=== PATIENT | female | born 1960 | race Caucasian/White ===

== ENCOUNTER 2019-12-25 13:46 | Outpatient (CLI) | payer OTHER, SELFPAY ==
--- NOTE | ~2019-12-25 | MR_ITS ---
EXAMINATION: MR cervical spine wo con DATE: 12/25/2019 14:39 INDICATION: Neck pain. TECHNIQUE: Magnetic resonance imaging (MRI) of the cervical spine was performed without intravenous c ontrast. Sequences included sagittal T2-weighted FSE, sagittal STIR FSE, sagittal T1-weighted FSE, ax ial MERGE, and axial T2-weighted FSE. COMPARISON: None FINDINGS: There is kyphosis and 5 degrees dextrocurvature of cervical spine. Vertebral body heights a re normal. There is moderately decreased disc height at C4-C5 and mildly decreased disc height at C5- C6 and C6-C7. The spinal cord signal intensity is normal. The following disc levels are specifically discussed: C2-C3: The disc does not extend beyond the endplate margin. There is no uncovertebral joint osteoarth ritis. There is mild right and moderate left facet joint osteoarthritis. There is no neural foraminal stenosis. There is no central canal stenosis. C3-C4: The disc does not extend beyond the endplate margin. There is mild right uncovertebral joint o steoarthritis. There is mild right and moderate left facet joint osteoarthritis. There is mild right neural foraminal stenosis. There is no central canal stenosis. C4-C5: The disc is bulging. There is moderate right and severe left uncovertebral joint osteoarthriti s. There is severe left facet joint osteoarthritis. There is mild right and severe left neural forami nal stenosis. There is mild central canal stenosis with ventral indentation of the spinal cord. C5-C6: The disc is bulging. There is moderate bilateral uncovertebral joint osteoarthritis. There is no facet joint osteoarthritis. There is mild bilateral neural foraminal stenosis. There is mild centr al canal stenosis with ventral indentation of the spinal cord. C6-C7: The disc is bulging. There is mild bilateral uncovertebral joint osteoarthritis. There is no f acet joint osteoarthritis. There is no neural foraminal stenosis. There is mild central canal stenosi s with ventral indentation of the spinal cord. C7-T1: The disc does not extend beyond the endplate margin. There is mild right uncovertebral joint o steoarthritis. There is moderate bilateral facet joint osteoarthritis. There is mild right neural for aminal stenosis. There is no central canal stenosis. IMPRESSION: 1. Moderate cervical spondylosis. Reviewed, dictated and finalized at location A. [employer]
== END 2019-12-25 13:47 | disposition home or self-care (01) ==
PROVIDERS: PCP Family Medicine
DX: M47.892 Other spondylosis, cervical region (principal)
CPT/HCPCS: 72141

== ENCOUNTER 2024-06-06 18:20 | Emergency (ER) | payer OTHER, SELFPAY ==
--- NOTE | ~2024-06-06 | CT_ITS ---
EXAMINATION: CT abdomen pelvis wo con DATE: 06/06/2024 20:32 INDICATION: left flank pain, abd pain, hematuria TECHNIQUE: Computed tomography (CT) of the abdomen and pelvis was performed without intravenous contr ast. Automated exposure control and iterative reconstruction technique were employed. The dose-length product was 1309.66 mGy-cm. COMPARISON: None. FINDINGS: Lower thorax: Unremarkable Liver: Normal. Biliary/Gallbladder: Gallbladder is normal. No bile duct dilation. Pancreas: No mass or duct dilation. Spleen: Granulomas calcification. Adrenals:No mass. Kidneys: Mild left pelviectasis and caliectasis. Mild left perinephric stranding and moderate fluid l ayering along the anterior lateral conal fascia. 5 mm calcification in the left UPJ. Multiple additio nal bilateral nonobstructing calculi. GI tract: No small or large bowel dilation. Normal appendix. Mesentery/Peritoneum: No ascites, mass, or free air. Retroperitoneum: No mass. Pelvis: Normal urinary bladder. Absent uterus. Bilateral ovaries not confidently visualized. Soft Tissues: Bilateral posterior injection sites/granulomas. Bones: No acute osseous finding. IMPRESSION: 5 mm left UPJ stone. Moderate adjacent fascial fluid and relative decompression of the renal pelvis i s concerning for renal pelvis rupture. Reviewed, dictated and finalized at location K. IMPRESSION: 5 mm left UPJ stone. Moderate adjacent fascial fluid and relative decompression of the renal pelvis is concerning for renal pelvis rupture.
--- NOTE | ~2024-06-06 | XR_ITS ---
EXAM: XR abdomen/kub 1V DATE: 06/06/2024 21:33 HISTORY: left flank pain, kidney stone . COMPARISON: CT abdomen pelvis, same date. FINDINGS: Clear lung bases. Normal bowel gas pattern. No organomegaly. Somewhat linear 5 mm calcific ation at the level of L3-4 on the left likely corresponds to the previously detected obstructing ston e. Multiple additional one-2 mm bilateral renal calcifications. Multiple pelvic fibulas. Degenerative disc disease at L5-S1. IMPRESSION: Left UPJ stone. Bilateral nephrolithiasis. Reviewed, dictated and finalized at location K.
[2024-06-06 18:22] VITALS: BP 149/64; PULSE 72; RESP 16; TEMP 36.6; O2SAT 96
[2024-06-06 18:29] VITALS: BP 149/64; PULSE 75; RESP 15; O2SAT 96
[2024-06-06 18:40] LABS: Basophils Absolute Auto 0.1 K/mm3 (0.0-0.1); Basophils Percent Auto 0.4 % (0.2-1.2); Eosinophils Absolute Auto 1.2 K/mm3 (0-0.3); Eosinophils Percent Auto 9.5 % (0-4.4); Hematocrit 38.7 % (37.0-47.0); Immature Granulocyte Absolute 0.06 K/mm3 (0.00-0.031); Immature Granulocyte Percent A 0.5 % (0-0.5); Lymphocytes Absolute Auto 2.16 K/mm3 (0.9-3.2); Lymphocytes Percent Auto 16.6 % (18.3-44.2); Mean Corpuscular HGB Conc 33.6 g/dl (32-36); Mean Corpuscular Hemoglobin 27.5 pg (26-34); Mean Platelet Volume 9.4 fl (7.4-10.4); Monocytes Absolute Auto 1.2 K/mm3 (0.1-0.6); Monocytes Percent Auto 9.4 % (2.6-8.5); Neutrophils Absolute Auto 8.3 K/mm3 (1.3-6.7); Neutrophils Percent Auto 63.6 % (45.5-73.1); Platelet Count Result 302 k/mm3 (150-375); Red Blood Count 4.72 M/mm3 (4.2-5.4); Red Cell Distribution Width 14.8 % (11.5-14.5)
[2024-06-06 18:53] LABS: Alanine Aminotransferase 21 U/L (6-35); Albumin Level 4.3 g/dL (3.5-5.1); Alkaline Phosphatase 65 U/L (38-126); Anion Gap 10 mmol/L (4-12); Aspartate Amino Transferase 28 U/L (14-36); Bilirubin,Total 0.5 mg/dL (0.2-1.3); Blood Urea Nitrogen 34 mg/dL (7-17); Calcium 9.7 mg/dL (8.4-10.2); Carbon Dioxide 21 mmol/L (22-30); Chloride 106 mmol/L (98-107); Estimated CRCL calculation 54 ml/min; Estimated Glomerular Filt Rate 50; Glucose 102 mg/dL (65-110); Lipase 105 U/L (23-300); Potassium 3.9 mmol/L (3.4-5.0); Sodium 137 mmol/L (137-145)
[2024-06-06 19:28] LABS: Appearance Urine Clear (Clear); Bacteria Urine None Seen /hpf; Bilirubin Urine Negative (Negative); Blood Urine 2+ (Negative); Color Urine Yellow (Yellow); Glucose Urine UA Negative (Negative); Ketones Urine Negative (Negative); Leukocyte Esterase Ur 1+ LEU/UL (Negative); Nitrate Urine Negative (Negative); Non Pathogenic Casts 0-2; Protein Urine Trace mg/dL (Negative); Specific Grav Ur 1.024 (1.001-1.035); Squamous Epithelial Cell Urine Occasional /hpf (Few); pH Urine 5.5 (5.0-9.0)
[2024-06-06 19:30] LABS: Add Urine Microscopic? YES
[2024-06-06] MEDS: MORPHINE SULFATE (*CRX) 4 MG/ML INJ IV PUSH (19:53)
[2024-06-06] MEDS: SODIUM CHLORIDE 0.9% IV 1,000 ML 999 ML IV CONT (19:53)
[2024-06-06] MEDS: ONDANSETRON INJ 4 MG/2 ML VIAL IV PUSH (19:53)
--- NOTE | 2024-06-06 20:34 | ED.ABDPAIN ---
HPI - Abdominal Pain General Chief Complaint: Abdominal Pain Stated Complaint: abd pain Time Seen by Provider: 06/06/24 18:59 Source: patient Mode of arrival: ambulatory Limitations: no limitations History of Present Illness HPI narrative: This is a 63 year old female that presents to the ER for left flank pain. Ongoing since this afternoon. Radiating to the abdomen. Reports constant pain, intermittently more intense. She did not take anything for pain. Denies fever, vomiting, diarrhea, dysuria or hematuria. Related Data Allergies Allergy/AdvReac Type Severity Reaction Status Date / Time Gadolinium-Containing Allergy Unknown fever, Verified 06/06/24 18:30 Contrast Medi diarrhea Review of Systems Review of Systems: CONSTITUTIONAL: Denies fever GASTROINTESTINAL: Reports abdominal pain. Denies nausea, vomiting, or diarrhea. GENITOURINARY: Denies dysuria or hematuria. All systems reviewed & are unremarkable except as noted in HPI and below PMFSH Past Medical History Medical History (Updated 06/06/24 @ 21:58 by Lillie Davila PA-C) History of depression History of hypertension History of multiple sclerosis Family History Family History (Updated 07/10/14 @ 07:13 by DOCTOR UNKNOWN) Father Family history of malignant neoplasm Mother Family history of malignant neoplasm Social History Social History Smoking status: Never smoker Exam Narrative: GENERAL: Well-appearing, well-nourished, and in no acute distress. HEAD: Normocephalic, atraumatic. EYES: EOMI. CHEST: Clear to auscultation. No respiratory distress. No wheezes rales or rhonchi HEART: Regular rate and rhythm. No murmur heard. Normal peripheral pulses. ABDOMEN: Soft, nontender, nondistended, normal active bowel sounds. No CVA tenderness EXTREMITIES: Normal range of motion. No edema. SKIN: Warm, dry, no rash. NEURO: No focal deficits. Alert and oriented x3. PSYCH: Normal mood and affect Course Course Emergency Course: Patient updated on her workup and agrees with plan of care Consultations Consultation #1: Spoke with Dr. Gregory about patient and workup. Renal pelvic rupture not concerning, fairly common with kidney stone. No further management of this needed. Patient may follow up on outpatient basis Date: 06/06/24 Vital Signs Vital signs: Vital Signs Temperature 97.8 F 06/06/24 18:22 Pulse Rate 72 06/06/24 18:22 Respiratory Rate 16 07/25/24 18:22 Blood Pressure 149/64 H 06/06/24 18:22 Pulse Oximetry 96 06/06/24 18:22 Oxygen Delivery Room Air 06/06/24 18:22 Temperature 97.8 F 06/06/24 18:22 Pulse Rate 72 06/06/24 18:22 Respiratory Rate 16 06/06/24 18:22 Blood Pressure 149/64 H 06/06/24 18:22 Pulse Oximetry 96 06/06/24 18:22 Oxygen Delivery Room Air 06/06/24 18:22 MDM - Abdominal Pain MDM Narrative Medical decision making narrative: Patient presents to the ER for left flank pain. Ongoing since this afternoon. Patient is afebrile and nontoxic appearing. CBC with mild leukocytosis of 13. Metabolic panel with creatinine of 1.1. Patient hydrated with a L of IV fluids. Urine with blood +leuk esterase, 6-10 white blood cells, 3-[address] abdomen pelvis shows a 5 mm left UPJ stone and possible renal pelvis rupture. Spoke with Dr. Gregory about patient and workup. Renal pelvic rupture not concerning, fairly common with kidney stone. No further management of this needed. Patient may follow up on outpatient basis. KUB positively identifies stone. Patient updated on her workup and agrees with plan of care. Instructed to follow-up with urology for further management. She was given warnings to return to the ER Differential Diagnosis Differential diagnosis: Likely calculus of kidney, constipation and diverticulitis Lab Data Attestation: I reviewed the patient's lab results. 06/06/24 18:36 06/06/24 18:36 Labs: Lab Results 06/06/24
[2024-06-06 20:46] VITALS: BP 131/76; PULSE 84; RESP 19; O2SAT 96
[2024-06-06 20:47] VITALS: PULSE 79; RESP 19; O2SAT 96
== END 2024-06-06 22:26 | disposition home or self-care (01) ==
PROVIDERS: Emergency Provider Physician Assistant; PCP Family Medicine
DX: N20.0 Calculus of kidney (principal); R82.81 Pyuria; I10 Essential (primary) hypertension; G35 Multiple sclerosis
CPT/HCPCS: 36415; 74018; 74176; 80053; 81001; 83690; 85025; 87086; 96361; 96374; 96375; 99284; J2270; J2405; J7030

== ENCOUNTER 2024-06-30 16:45 | Emergency (ER) | payer OTHER, SELFPAY ==
--- NOTE | ~2024-06-30 | XR_ITS ---
XR knee RT min 4V DATE: 06/30/2024 17:19 INDICATION: Right knee pain, injury. [place] a pop. TECHNIQUE: 4 views COMPARISON: None FINDINGS: Mild suprapatellar knee joint effusion. Mild osteoarthritis, including moderate loss of height of medial compartment joint space and mild per iarticular spurring at the medial and patellofemoral compartments. No fracture or dislocation, periosteal reaction or bone destruction. No radiopaque interarticular loo se body or chondrocalcinosis IMPRESSION: Mildly joint effusion Osteoarthritis involving medial and patellofemoral compartments Reviewed, dictated and finalized at location J.
[2024-06-30 16:49] VITALS: BP 152/86; PULSE 71; RESP 27; TEMP 36.4; O2SAT 97
--- NOTE | 2024-06-30 17:50 | ED.LOWEXIN ---
HPI - Extremity Injury (Lower) General Chief Complaint: Extremity Injury, Lower Stated Complaint: right knee pain Time Seen by Provider: 06/30/24 16:52 Source: patient Mode of arrival: ambulatory Limitations: no limitations History of Present Illness HPI Narrative: this is a 63-year-old female that presents to the emergency department after right knee injury sustained yesterday. Reports she was stepping up into her truck and accidentally twisted her knee. Reports swelling and pain. Denies decreased range of motion or numbness. Related Data Allergies Allergy/AdvReac Type Severity Reaction Status Date / Time Gadolinium-Containing Allergy Unknown fever, Verified 06/30/24 17:41 Contrast Medi diarrhea Review of Systems Review of Systems: CONSTITUTIONAL: Denies fever MUSCULOSKELETAL: Reports joint pain, and myalgia. NEUROLOGIC: Denies numbness, or weakness. All systems reviewed & are unremarkable except as noted in HPI and below PMFSH Past Medical History Medical History (Updated 06/30/24 @ 17:50 by Lillie Davila PA-C) History of depression History of hypertension History of multiple sclerosis Family History Family History (Updated 07/10/14 @ 07:13 by DOCTOR UNKNOWN) Father Family history of malignant neoplasm Mother Family history of malignant neoplasm Social History Social History Smoking status: Never smoker Exam Narrative: GENERAL: Well-appearing, well-nourished, and in no acute distress. HEAD: Normocephalic, atraumatic. EYES: EOMI. EXTREMITIES: Normal range of motion. No edema, erythema or obvious deformity. Normal DP pulse. Normal sensation SKIN: Warm, dry, no rash. NEURO: No focal deficits. Alert and oriented x3. PSYCH: Normal mood and affect Course Course Emergency Course: patient updated on workup and agrees with plan of care Vital Signs Vital signs: Vital Signs Temperature 97.5 F L 06/30/24 16:49 Pulse Rate 71 06/30/24 16:49 Respiratory Rate 27 H 06/30/24 16:49 Blood Pressure 152/86 H 06/30/24 16:49 Pulse Oximetry 97 06/30/24 16:49 Oxygen Delivery Room Air 06/30/24 16:49 Temperature 97.5 F L 06/30/24 16:49 Pulse Rate 71 06/30/24 16:49 Respiratory Rate 27 H 06/30/24 16:49 Blood Pressure 152/86 H 06/30/24 16:49 Pulse Oximetry 97 06/30/24 16:49 Oxygen Delivery Room Air 06/30/24 16:49 MDM - Extremity Injury (Lower) MDM Narrative Medical decision making narrative: patient presents to the emergency department for right knee pain after an injury today. She is neurovascularly intact. Right knee x-ray shows osteoarthritis as well as a small knee joint effusion. Patient placed in knee immobilizer and given crutches. Will be given follow-up with Orthopedics. She was given warnings to return to the ER Differential Diagnosis Differential diagnosis: Likely acute internal derangement of knee and other ( osteoarthritis) Imaging Data Radiologist's impression: ITS Impressions Knee X-Ray 06/30/24 17:25 IMPRESSION: Mildly joint effusion Osteoarthritis involving medial and patellofemoral compartments Critical Care Time Critical Care Time Critical Care Time: No Discharge Plan Discharge Clinical Impression: Acute internal derangement of knee Qualifiers: Laterality: right Qualified Code(s): M23.91 - Unspecified internal derangement of right knee Patient Disposition: Home, Self-Care Condition: Stable Instructions: Knee Sprain (ED), Swollen Knee Joint (ED) Additional Instructions: Return to the ER if you experience fever, redness and swelling of your knee, weakness, numbness, or any other symptoms that are concerning to you Rest, use ice/heat, take anti-inflammatories (Aleve, Ibuprofen, Naproxen, etc) or Tylenol as needed for pain Follow up with orthopedics Prescriptions: No Action cefdinir 300 mg capsule 300 mg PO Q12H 5 Days Qty: 10 0RF hydrocodone-acetaminophen 5-325 mg ta
[2024-06-30] MEDS: KETOROLAC 30 MG/ML VIAL (*BKC) IM (18:05)
== END 2024-06-30 18:15 | disposition home or self-care (01) ==
PROVIDERS: Emergency Provider Physician Assistant; PCP Family Medicine
DX: M23.91 Unspecified internal derangement of right knee (principal); S89.91XA Unspecified injury of right lower leg, initial encounter; I10 Essential (primary) hypertension; G35 Multiple sclerosis; M17.11 Unilateral primary osteoarthritis, right knee; X50.9XXA Other and unspecified overexertion or strenuous movements or postures, initial encounter
CPT/HCPCS: 73564; 96372; 99283; J1885

== ENCOUNTER 2025-02-27 21:13 | Emergency (ER) | payer OTHER, SELFPAY ==
--- OUTSIDE RECORDS SUMMARY | 2025-02-27 21:16 | XMS_ITS | Clinical Summary ---
Author Organization [facility] Address [address] [place] [address] Phone Care Team Providers Care Specialist Wound Care Name Role Phone CORIE CASTANEDA, MELVIN Loza Primary Care Provider [phone] Reason for Visit and Chief Complaint POST PROCEDURE PHONE CALL Plan of Treatment No Plan of Treatment Recorded Assessments Includes: Assessments from this encounter No Assessments Recorded Medical Equipment - Implanted Devices Includes: Current Devices No Medical Equipment Recorded Medications Includes: Medications discussed during this encounter and other current Medications Current Medications (continue as prescribed) [facility] Fish Oil 1200 MG Oral Capsule 05/08/2024 Provide r: Diagnosis: Last Documented On 05/08/2024 9:48AM By Radha BOWLES ; [facility] Vitamin D3 125 MCG (5000 UT) Oral Capsule 05/08/2024 Provider: Diagnosis: Last Documented On 05/08/2024 9:47AM By Radha BOWLES ; [facility] Aspir-Low 81 MG Oral Tablet Delayed Release 05/08/2024 Provider: Diagnosis: Last Documented On 05/08/2024 9:41AM By Radha BOWLES ; [facility] Tricor 145 MG Oral Tablet 05/08/2024 Provider: Diagnosis: Last Documented On 05/08/2024 9:43AM By Radha BOWLES ; [facility] Nitroglycerin 0.4 MG Sublingual Tablet Sublingual 04/13 Provider: Diagnosis: Last Documented On 05/08/2024 9:42AM By Radha BOWLES ; [facility] buPROPion HCl ER (XL) 150 MG Oral Tablet Extended Release 24 Hour 04/29/2024 Provider: Diagnosis: Last Documented On 05/08/2024 9:46AM By Radha BOWLES ; [facility] Loratadine 10 MG Oral Tablet 04/27/2024 Provider: MELVIN FONTENOT MD Diagnosis: Last Documented On 05/08/2024 9:45AM By Radha BOWLES ; [facility] Pantoprazole Sodium 20 MG Or al Tablet Delayed Release 04/24/2024 Provider: MELVIN Gibson MD Diagnosis: Last Documented On 05/08/2024 9:43AM By Radha BOWLES ; [facility] Valsartan 160 MG Oral Tablet 04/23/2024 Provider: Diagnosis: Last Documented On 05/08/2024 9:42AM By Radha BOWLES ; [facility] Sertraline HCl 100 MG Oral Tablet 04/22/2024 Provide r: Diagnosis: Last Documented On 05/08/2024 9:41AM By Radha BOWLES ; [facility] hydrOXYzine HCl 25 MG Oral Tablet 04/12/2024 Provide r: Diagnosis: Last Documented On 05/08/2024 9:40AM By Radha BOWLES ; [facility] Pregabalin 200 MG Oral Capsule 04/11/2024 Provider: CASH Blanchard Diagnosis: Radiculopathy, l umbar region Take 1 capsule by mouth twice daily Last Documented On 10:16AM [facility] ; [facility] Meloxicam 15 MG Oral Tablet 03/13/2024 Provider: CASH BILL Diagnosis: Other spondylosi s with radiculopathy, lumbar region One tablet daily Last Documented On 9:43AM By CASH BILL ; [facility] buPROPion HCl ER (XL) 300 MG Oral Tablet Extended Release 24 Hour 02/13/2024 Provider: Diagnosis: Last Documented On 05/08/2024 9:46AM By Radha BOWLES ; [facility] DULoxetine HCl 30 MG Oral Capsule Delayed Releas e Particles 02/13/2024 Provider: Diagnosis: Last Documented On 05/08/2024 9:44AM By Radha BOWLES ; [facility] Fluticasone Propionate 50 MC G/ACT Nasal Suspension 02/06/2024 Provider: MELVIN Gibson MD Diagnosis: Last Documented On 05/08/2024 9:44AM By Radha BOWLES ; [facility] Lidocaine 5% External Patch 10/16/2023 Provider: MELVIN FONTENOT MD Diagnosis: Last Documented On 10/20/2023 9:59AM By Radha BOWLES ; [facility] Nystatin 620758 UNIT/GM External Cream 10/10/2023 Pr ovider: Diagnosis: Last Documented On 3 10:00AM By Radha BOWLES ; [facility] DULoxetine HCl 60 MG Oral Capsule Delayed Releas e Particles 07/27/2023 Provider: Diagnosis: one cap by mouth daily Last Documented On 3 3:08PM By Dorothy Dyson LPN ; [facility] Propranolol HCl 40 MG Oral Tablet 07/27/2023 Provide r: Diagnosis: BID Last Documented On 3 3:16PM By Dorothy Dyson LPN ; [facility] SUMAtriptan Succinate 50 MG Oral Tablet 07/27/2023 P rovider: Diagnosis: prn Last Documented On 3 3:15PM By Dorothy Dyson LPN ; [facility] Rebif 44 MCG/0.5ML Subcutaneous Solution Prefilled Syr luzma 07/27/2023 Provider: Diagnosis: 3 x's weekly Last Documented On 3 3:13PM By Dorothy Dyson LPN ; [facility] Aimovig 140 MG/ML Subcutaneous Solution Auto-injector 07/27/2023 Provider: Diagnosis: q 30 days Last Documented On 3 3:09PM By Dorothy Dyson LPN ; [facility] Medications Administered Includes: Administered Medications from this encounter No Administered Medications Recorded Results Includes: Results discussed during this encounter No Results Recorded For Specified Dates History of Present Illness Includes: History of Present Illness from this encounter No History of Present Illness Recorded Social History Description Last Updated Tobacco non-user 01/25/2024 Last Documented On 4 11:40AM ; [facility] Smoking Status Unknown Medical History Includes: Medical History addressed during this encounter Description Last Updated Has had a fall in the last 12 months. Domingo s falls quite often Has DX of MS 08/25/2023 Last Documented On 4 11:40AM ; [facility] Family History Includes: Family History addressed during this encounter No Family History Recorded Review of Systems Includes: Review of Systems from this encounter No Review of Systems Recorded Mental Status Includes: Mental Status from this encounter No Mental Status Recorded Functional Status Includes: Functional Status from this encounter No Functional Status Recorded Physical Exam Includes: Physical Exam from this encounter No Physical Exam Recorded Allergies Includes: Active Allergies No Known Allergies Encounters Encounter Provider Location Date Check-In Time Check-Out Time Diagnosis POST PROCEDURE PHONE CALL CASH OLIVER-RICARDO 04/05/2024 11:41AM 11:59PM Insurance Includes: Active Insurance Policies Plan Name Member ID Group # Subscriber Relationship Effect rosi Dates - [facility] [id number] CHARLES NUNEZ [facility] Clinical Notes Includes: Clinical Notes from this encounter * Progress note Date Encounter Last Documented by 04/05/2024 POST PROCEDURE PHONE CALL Last d ocumented on 04/05/2024; 11:42 AM, Maricruz Reinoso RN; [facility] Top of Document Post-Procedural Patient Screening Questionnaire Date of Procedure: 04/03/24 Procedure: bilateral L3-4, L4-5 facet steroid injections 1. How have you felt since your last procedure? has not noticed any improvement yet Improved Same Worse 2. Pain level prior to procedure? 4/10 at rest; 7-8 when active 3. Pain level currently? 4/10 4. How long after procedure did symptoms begin? denies Same pain but worse New Symptoms ? If new, describe: Improving Staying the same Getting worse 5. Any post procedure issues with injection? denies Heat Swelling Soreness Redness Streaking Injection site pain Bleeding Discharge/Drainage 6. Are you experiencing new numbness in the groin or saddle area? Yes No 7.New loss of bowel or bladder control? Yes No 8. Are you having any of the following symptoms? denies Fever Chills Night Sweats Rigors/Shaking Chills Headaches Neck Stiffness Sensitivity to sound New muscle pain/Stiffness Weakness Nausea Vomiting Diarrhea Dizziness Rash Flushing Mood Irritability Blood Pressure changes Blood sugar changes Past Medical/Surgical History Reported: Physical Trauma: Has had a fall in the last 12 months. Has falls quite often Has DX of MS. Current Medication - Aimovig 140 MG/ML Subcutaneous Solution Auto-injector q 30 days, 0 days, 0 refills - buPROPion HCl ER (XL) 150 MG Oral Tablet Extended Release 24 Hour daily with 300 mg dose, 0 days, 0 refills - buPROPion HCl ER (XL) 300 MG Oral Tablet Extended Release 24 Hour daily with 150 dose, 0 days, 0 refills - DULoxetine HCl 30 MG Oral Capsule Delayed Release Particles daily, 0 days, 0 refills - DULoxetine HCl 60 MG Oral Capsule Delayed Release Particles one cap by mouth daily, 0 days, 0 refills - Fenofibrate 145 MG Oral Tablet daily, 0 days, 0 refills - Fluticasone Propionate 50 MCG/ACT Nasal Suspension 2 sprays each nostril daily, 0 days, 0 refills - Lidocaine 5% External Patch as directed 30 days, 0 refills - Losartan Potassium 25 MG Oral Tablet One tablet daily 30 days, 0 refills - Meloxicam 15 MG Oral Tablet One tablet daily, 30 days, 1 refills - Nystatin [id number] UNIT/GM External Cream as directed 30 days, 0 refills - Pantoprazole Sodium 20 MG Oral Tablet Delayed Release bid, 0 days, 0 refills - Pregabalin 200 MG Oral Capsule 1 CAPSULE TWO TIMES A DAY, 30 days, 2 refills - Propranolol HCl 40 MG Oral Tablet BID, 0 days, 0 refills - Rebif 44 MCG/0.5ML Subcutaneous Solution Prefilled Syringe 3 x's weekly, 0 days, 0 refills - SUMAtriptan Succinate 50 MG Oral Tablet prn, 0 days, 0 refills Social History Tobacco use: Tobacco non-user. Allergies - No Known Allergies Health Reminders - Assess Need for CT Lung Screen satisfied 04/05/2024. - Assess Tobacco Use satisfied 04/05/2024.
--- OUTSIDE RECORDS SUMMARY | 2025-02-27 21:16 | XMS_ITS | Clinical Summary ---
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 Role Phone CORIE CASTANEDA, MELVIN Loza Primary Care Provider [phone] Reason for Visit and Chief Complaint The Chief Complaint is: FU IMAGING ~NOT DOING HEP Plan of Treatment No Plan of Treatment Recorded Assessments Includes: Assessments from this encounter Findings - Lumbar spondylosis with radiculopathy [M47.26 - Other spondylosis with radiculopathy, lumbar region] - Last Documented On 03/13/2024 9:58AM ; [facility] - Generalized multiple sclerosis [G35 - Multiple sclerosis] - Last Documented On 03/13/2024 9:58AM ; [facility] - Lumbar stenosis with neurogenic claudication [M48.062 - Spinal stenosis, lumbar region with neurogenic claudication] - Last Documented On 03/13/2024 9:58AM ; [facility] - Lumbar radiculopathy [M54.16 - Radiculopathy, lumbar region] - Last Documented On 03/13/2024 9:58AM ; [facility] - Fibromyalgia [M79.7 - Fibromyalgia] - Last Documented On 03/13/2024 9:58AM ; [facility] - Chronic pain syndrome [G89.4 - Chronic pain syndrome] - Last Documented On 03/13/2024 9:58AM ; [facility] Medical Equipment - Implanted Devices Includes: Current Devices No Medical Equipment Recorded Medications Includes: Medications discussed during this encounter and other current Medications New / Renewed during this visit CASH LEWIS on 03/13/2024 Meloxicam 15 MG Oral Tablet Provider: CASH LEWIS 30 day supply: 30 tablet, 1 refills Diagnosis: Other spondylosis with radiculopathy, lumbar region One tablet daily Pharmacy: [facility] [id number] , [place], [address] - Last Documented On 9:43AM By CASH LEWIS ; [facility] Current Medications (continue as prescribed) [facility] Fish Oil 1200 MG Oral Capsule 05/08/2024 Provide r: Diagnosis: Last Documented On 05/08/2024 9:48AM By Radha BOWLES ; [facility] Vitamin D3 125 MCG (5000 UT) Oral Capsule 05/08/2024 Provider: Diagnosis: Last Documented On 05/08/2024 9:47AM By Radha BOWLES ; [facility] Aspir-Low 81 MG Oral Tablet Delayed Release 05/08/2024 Provider: Diagnosis: Last Documented On 05/08/2024 9:41AM By Radha BOWLES ; [facility] Tricor 145 MG Oral Tablet 05/08/2024 Provider: Diagnosis: Last Documented On 05/08/2024 9:43AM By Radha BOWLES ; [facility] Nitroglycerin 0.4 MG Sublingual Tablet Sublingual 04/13 Provider: Diagnosis: Last Documented On 05/08/2024 9:42AM By Radha BOWLES ; [facility] buPROPion HCl ER (XL) 150 MG Oral Tablet Extended Release 24 Hour 04/29/2024 Provider: Diagnosis: Last Documented On 05/08/2024 9:46AM By Radha BOWLES ; [facility] Loratadine 10 MG Oral Tablet 04/27/2024 Provider: MELVIN FONTENOT MD Diagnosis: Last Documented On 05/08/2024 9:45AM By Radha BWOLES ; [facility] Pantoprazole Sodium 20 MG Or al Tablet Delayed Release 04/24/2024 Provider: MELVIN [place] MD Diagnosis: Last Documented On 05/08/2024 9:43AM By Radha BOWLES ; [facility] Valsartan 160 MG Oral Tablet 04/23/2024 Provider: Diagnosis: Last Documented On 05/08/2024 9:42AM By Radha BOWLES ; [facility] Sertraline HCl 100 MG Oral Tablet 04/22/2024 Provide r: Diagnosis: Last Documented On 05/08/2024 9:41AM By Radha BOWLES ; [facility] hydrOXYzine HCl 25 MG Oral Tablet 04/12/2024 Provide r: Diagnosis: Last Documented On 05/08/2024 9:40AM By Radha BOWLES ; [facility] Pregabalin 200 MG Oral Capsule 04/11/2024 Provider: [facility]ASH [facility] Diagnosis: Radiculopathy, l umbar region Take 1 capsule by mouth twice daily Last Documented On 10:16AM By CASH [facility]R [facility] ; [facility] buPROPion HCl ER (XL) 300 MG Oral Tablet Extended Release 24 Hour 02/13/2024 Provider: Diagnosis: Last Documented On 05/08/2024 9:46AM By Radha BOWLES ; [facility] DULoxetine HCl 30 MG Oral Capsule Delayed Releas e Particles 02/13/2024 Provider: Diagnosis: Last Documented On 05/08/2024 9:44AM By Radha BOWLES ; [facility] Fluticasone Propionate 50 MC G/ACT Nasal Suspension 02/06/2024 Provider: MELVIN [place] MD Diagnosis: Last Documented On 05/08/2024 9:44AM By Radha BOWLES ; [facility] Lidocaine 5% External Patch 10/16/2023 Provider: MELVIN FONTENOT MD Diagnosis: Last Documented On 10/20/2023 9:59AM By Radha BOWLES ; [facility] Nystatin [id number] UNIT/GM External Cream 10/10/2023 Pr ovider: Diagnosis: Last Documented On 10:00AM By Radha BOWLES ; [facility] DULoxetine HCl 60 MG Oral Capsule Delayed Releas e Particles 07/27/2023 Provider: Diagnosis: one cap by mouth daily Last Documented On 3 3:08PM By Dorothy Dyson LPN ; [facility] Propranolol HCl 40 MG Oral Tablet 07/27/2023 Provide r: Diagnosis: BID Last Documented On 3 3:16PM By Dorothy Dyson LPN ; [facility] SUMAtriptan Succinate 50 MG Oral Tablet 07/27/2023 P rovider: Diagnosis: prn Last Documented On 3 3:15PM By Dorothy Dyson LPN ; [facility] Rebif 44 MCG/0.5ML Subcutaneous Solution Prefilled Syr luzma 07/27/2023 Provider: Diagnosis: 3 x's weekly Last Documented On 3 3:13PM By Dorothy Dyson LPN ; [facility] Aimovig 140 MG/ML Subcutaneous Solution Auto-injector 07/27/2023 Provider: Diagnosis: q 30 days Last Documented On 3 3:09PM By Dorothy Dyson LPN ; [facility] Medications Administered Includes: Administered Medications from this encounter No Administered Medications Recorded Vital Signs Includes: Vital Signs from this encounter Vital Name 03/13/2024 09:19A Blood Pressure Sitting R 128/90 Pulse Rate-Sitting (bpm) 71 Temp-Temporal 96.2 Height (in) 64 Weight (lb) 203 Body Mass Index 34.8 Body Surface Area (m2) 2.0 Pain Level 4 Oxygen Saturation (%) 93 Last Documented: On 03/13/2024 9:53AM ; [facility] Results Includes: Results discussed during this encounter No Results Recorded For Specified Dates History of Present Illness Includes: History of Present Illness from this encounter HPI - Allergy list reviewed - Problem list reviewed - Medication reconciliation performed - Medication list reviewed - Prescription Drug Monitoring Program website checked. - Last dose of medication? Discussion:Patient presents in follow-up to review imaging. She is accompanied by her partner today. This does appear to help with communication of ongoing symptoms. She complains of ongoing, axial low back pain. She denies radiating symptoms into the lower extremities. Previously, she was experiencing right lower extremity symptoms. A lumbar epidural was done with little reported benefit, but with resolution of radicular symptoms I would say this was beneficial. MRI with and with contrast was done related to changes seen on initial MRI. There is markedly severe inflammatory changes at L4-5 and L5 pedicles. This is felt to be related to degenerative facet synovitis. Inflammatory marker labs were done and normal. She attempted physical therapy approximately 8 months ago and stopped due to increased pain and immobility. She attempts home exercises, but reports these are often stopped as well due to increased pain. Pain is limiting her daily activities. She finds she cannot stand for extended period of time without needing to rest due to pain. 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 She is having a difficult time sleeping at night. She takes [id number] anti-inflammatories with mild benefit. We discussed facet steroid joint injections and light of severe inflammatory changes. Would recommend starting at the most affected levels, L3-4, L4-5. Also start meloxicam for additional relief. Questions elicited and answered. Prior visit: Patient presents in follow to a bilateral L4-5 TFESI completed 2 weeks ago. It is very difficult to get answers from patient, but I believe she reports 25% pain relief for about a week with no ongoing relief. She has low back pain with pain into the right lower extremity and numbness in the right foot intermittently. There were some abnormal marrow changes on MRI. No history of cancer. I will obtain a MRI with contrast to rule out any malignancy. Will consider other treatment after this is done. Questions elicited, but none voiced. Prior visit: Patient presents in follow up to review MRI findings. She complains of predominately right posterolateral lower pain and n/t into the foot. jThere is numbness in the left lower extremity. Paresthesia symptoms worsen with sitting and prolonged standing. Activity tolerance is minimal due to increased symptoms. NSAIDS used prn with mild benefit. She failed therapy due to increased pain and does home exercises as tolerated, but these are not tolerated most of the time. We had talked about increasing pregabalin at last visit and will move this to 200mg bid at this time for added benefit. Discussed MRI findings and recommend lumbar TFESI. She is very slow to respond and reports memory issues come from stress and MS. She is under care of psychiatrist. Past note: Patient returns in follow-up for chronic low back pain. She completed 4-5 sessions of physical therapy and stopped due to increased pain and immobility. She feels her back pain has actually worsened since physical therapy. She describes low back pain with pain and heaviness in the posterior lower extremity, mainly on the right. She feels there is weakness on the right leg. This is noted on exam today. Pain affects her ability to participate in daily activities, walk distance or stand for extended period of time. Pregabalin was helping, but does not feel it is as helpful at this time. We discussed increasing this dosage. She will call if not tolerated. At this time, recommending lumbar MRI to evaluate for nerve root impingement, spinal stenosis. X-rays are fairly unremarkable. Past note: Patient returns in follow-up to review imaging. Symptoms remain unchanged. She complains of muscle spasms and low back pain. History of MS. She has not started physical therapy yet, just getting scheduled in the last week. She feels pregabalin is offering a degree of benefit. At this point, imaging discussed and will consider other treatment options once she has completed physical therapy. She will continue with current dose of pregabalin at this time. Past note: Patient is a 62-year-old female referred for evaluation and treatment. History of multiple sclerosis with reports of multiple falls. She is not ambulating with an assistive device today. Former neurologist left the area and she reports practice obtaining a new provider, but no follow-up scheduled as of yet. Formally under the care of rheumatology, she reports no longer seeing them. She has significant memory issues. She believes gabapentin and pregabalin were used at one time, stopped when she changed providers (?). She currently takes diclofenac twice per day. Lidocaine patches provided by PCP, she is unsure of benefit. She complains of chronic low back pain for 5+ years. Physical therapy done to-3 years ago with no benefit. She reports injections done at [facility] in [place] within the last year. By description these sound like medial branch blocks with progression to RF ablation. She decided against RF ablation towards the end, stating the physician bedside manner was poor and she became fearful of the procedure. She also reports injections done by Dr. Garcia at some point, providing her at least short-term benefit, there is no recent imaging or records available to review today. Patient has history of hypertension. She is hypertensive in office today. She reports monitoring this at the direction of her PCP until the last few weeks. She has not called them with findings. Recommend she continue with monitoring and a decrease diclofenac to once daily, seeing if blood pressure improves. Stressed the importance of follow-up with her primary care physician on blood pressure. Discussed treatment plan in depth to include physical therapy, updated imaging, starting pregabalin and baclofen. She does seem somewhat confused during the conversation, unsure she is grasping the full treatment plan. I did provide her with written instructions. She will follow-up with my office and one month Imaging: All relevant imaging available was personally reviewed with the patient today with the following tests and results noted: X-ray L spine 08/01/23: vertebral body height and disc spaces are well maintained. No evidence of fracture or subluxation MRI with and without contrast lumbar spine 02/23/24: at L4-5 there is severe contrast enhancement of the entry spinous space at L4-5 and surrounding paraspinal musculature. Contrast enhancement of bilateral L5 pedicles. Large facet effusions. Partial contrast enhancement with intra-articular joint space of the L4-5 facet joints. There is prominent ventral epidural enhancement L3-5. Prominent dorsal epidural enhancement L4-5. No significant displacement of thecal sac from this contrast enhancement or central hypo enhancement to indicate epidural abscess. Redemonstrated markedly severe inflammatory changes centered at bilateral L4-5 facet joints with corresponding enhancement keeping was severe facet synovitis. Inflammatory changes have increased since last exam. Likely degenerative in etiology given 3 month duration. Social History Description Last Updated Tobacco non-user 01/25/2024 Last Documented On 4 9:18AM ; [facility] Smoking Status Unknown Procedures and Surgical History Includes: Procedures from this encounter Procedures Code Diagnosis Performing Provider Service Location Service Date CLINIC VISIT T1015 Other spondylosi s with radiculopathy, lumbar region, Chronic pain syndrome, Fibromyalgia CASH ORR ANP-BC [facility] 03/13/2024 Last Documented On 4 9:35AM ; [facility] use of tobacco assessment performed 1000F Last Documented On 4 9:25AM ; [facility] review of medications documented 1160F Last Documented On 4 9:25AM ; [facility] assessment of suicide risk performed Last Documented On 4 9:18AM ; [facility] screening for adult depression: impressi on and score four Last Documented On 4 9:18AM ; [facility] standardized depression screening: posit rosi for symptoms Last Documented On 4 9:18AM ; [facility] Clinical summary provided to patient ~ Patient understands and agrees with treatment plan. Questions answered Last Documented On 4 9:18AM ; [facility] SOAPP-R: total score 13 Last Documented On 4 9:18AM ; [facility] Medical History Includes: Medical History addressed during this encounter Description Last Updated Has had a fall in the last 12 months. Domingo s falls quite often Has DX of MS 08/25/2023 Last Documented On 4 9:18AM ; [facility] Family History Includes: Family History addressed during this encounter No Family History Recorded Review of Systems Includes: Review of Systems from this encounter Systemic: Pain. Energy level not specified, no fever, and no chills. Head: No headache. Neck: No neck pain. Otolaryngeal: No ear symptoms and no nasal symptoms. Cardiovascular: No chest pain or discomfort. Pulmonary: No dyspnea. Gastrointestinal: No nausea and no constipation. Genitourinary: No urinary loss of control. Endocrine: No endocrine symptoms other than noted. Hematologic: No easy bleeding and no tendency for easy bruising. Musculoskeletal: Back pain. Neurological: No motor disturbances and no sensory disturbances. Skin: No skin symptoms other than noted. Mental Status Includes: Mental Status from this encounter No Mental Status Recorded Functional Status Includes: Functional Status from this encounter No Functional Status Recorded Physical Exam Includes: Physical Exam from this encounter Allergies Includes: Active Allergies No Known Allergies Encounters Encounter Provider Location Date Check-In Time Check-Out Time Diagnosis PAIN MANAGEMENT FOLLOW UP CASH ORR ANP-BC [facility] 03/13/20 24 9:03AM 9:38AM Chronic Pain Syndrome,Lumbar Radiculopathy,Mu ltiple Sclerosis Generalized,Fibr omyalgia,Spinal Stenosis Lumbar with Neurogenic Claudication,Spo ndylosis with Radiculopathy Lumbar Region Insurance Includes: Active Insurance Policies Plan Name Member ID Group # Subscriber Relationship Effect rosi Dates - [facility] [id number] CHARLES NUNEZ Self Clinical Notes Includes: Clinical Notes from this encounter * Progress note Date Encounter Last Documented by 03/13/2024 PAIN MANAGEMENT FOLLOW UP Last d ocumented on 03/13/2024; 9:58 AM, CASH ORR ANP-; [facility] Chief Complaint The Chief Complaint is: FU IMAGING NOT DOING HEP. History of Present Illness - Allergy list reviewed - Problem list reviewed - Medication reconciliation performed - Medication list reviewed - Prescription Drug Monitoring Program website checked. - Last dose of medication? Discussion:Patient presents in follow-up to review imaging. She is accompanied by her partner today. This does appear to help with communication of ongoing symptoms. She complains of ongoing, axial low back pain. She denies radiating symptoms into the lower extremities. Previously, she was experiencing right lower extremity symptoms. A lumbar epidural was done with little reported benefit, but with resolution of radicular symptoms I would say this was beneficial. MRI with and with contrast was done related to changes seen on initial MRI. There is markedly severe inflammatory changes at L4-5 and L5 pedicles. This is felt to be related to degenerative facet synovitis. Inflammatory marker labs were done and normal. She attempted physical therapy approximately 8 months ago and stopped due to increased pain and immobility. She attempts home exercises, but reports these are often stopped as well due to increased pain. Pain is limiting her daily activities. She finds she cannot stand for extended period of time without needing to rest due to pain. 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 She is having a difficult time sleeping at night. She takes vstl-koe-[id number] anti-inflammatories with mild benefit. We discussed facet steroid joint injections and light of severe inflammatory changes. Would recommend starting at the most affected levels, L3-4, L4-5. Also start meloxicam for additional relief. Questions elicited and answered. Prior visit: Patient presents in follow to a bilateral L4-5 TFESI completed 2 weeks ago. It is very difficult to get answers from patient, but I believe she reports 25% pain relief for about a week with no ongoing relief. She has low back pain with pain into the right lower extremity and numbness in the right foot intermittently. There were some abnormal marrow changes on MRI. No history of cancer. I will obtain a MRI with contrast to rule out any malignancy. Will consider other treatment after this is done. Questions elicited, but none voiced. Prior visit: Patient presents in follow up to review MRI findings. She complains of predominately right posterolateral lower pain and n/t into the foot. jThere is numbness in the left lower extremity. Paresthesia symptoms worsen with sitting and prolonged standing. Activity tolerance is minimal due to increased symptoms. NSAIDS used prn with mild benefit. She failed therapy due to increased pain and does home exercises as tolerated, but these are not tolerated most of the time. We had talked about increasing pregabalin at last visit and will move this to 200mg bid at this time for added benefit. Discussed MRI findings and recommend lumbar TFESI. She is very slow to respond and reports memory issues come from stress and MS. She is under care of psychiatrist. Past note: Patient returns in follow-up for chronic low back pain. She completed 4-5 sessions of physical therapy and stopped due to increased pain and immobility. She feels her back pain has actually worsened since physical therapy. She describes low back pain with pain and heaviness in the posterior lower extremity, mainly on the right. She feels there is weakness on the right leg. This is noted on exam today. Pain affects her ability to participate in daily activities, walk distance or stand for extended period of time. Pregabalin was helping, but does not feel it is as helpful at this time. We discussed increasing this dosage. She will call if not tolerated. At this time, recommending lumbar MRI to evaluate for nerve root impingement, spinal stenosis. X-rays are fairly unremarkable. Past note: Patient returns in follow-up to review imaging. Symptoms remain unchanged. She complains of muscle spasms and low back pain. History of MS. She has not started physical therapy yet, just getting scheduled in the last week. She feels pregabalin is offering a degree of benefit. At this point, imaging discussed and will consider other treatment options once she has completed physical therapy. She will continue with current dose of pregabalin at this time. Past note: Patient is a 62-year-old female referred for evaluation and treatment. History of multiple sclerosis with reports of multiple falls. She is not ambulating with an assistive device today. Former neurologist left the area and she reports practice obtaining a new provider, but no follow-up scheduled as of yet. Formally under the care of rheumatology, she reports no longer seeing them. She has significant memory issues. She believes gabapentin and pregabalin were used at one time, stopped when she changed providers (?). She currently takes diclofenac twice per day. Lidocaine patches provided by PCP, she is unsure of benefit. She complains of chronic low back pain for 5+ years. Physical therapy done to-3 years ago with no benefit. She reports injections done at [facility] in [place] within the last year. By description these sound like medial branch blocks with progression to RF ablation. She decided against RF ablation towards the end, stating the physician bedside manner was poor and she became fearful of the procedure. She also reports injections done by Dr. Garcia at some point, providing her at least short-term benefit, there is no recent imaging or records available to review today. Patient has history of hypertension. She is hypertensive in office today. She reports monitoring this at the direction of her PCP until the last few weeks. She has not called them with findings. Recommend she continue with monitoring and a decrease diclofenac to once daily, seeing if blood pressure improves. Stressed the importance of follow-up with her primary care physician on blood pressure. Discussed treatment plan in depth to include physical therapy, updated imaging, starting pregabalin and baclofen. She does seem somewhat confused during the conversation, unsure she is grasping the full treatment plan. I did provide her with written instructions. She will follow-up with my office and one month Imaging: All relevant imaging available was personally reviewed with the patient today with the following tests and results noted: X-ray L spine 08/01/23: vertebral body height and disc spaces are well maintained. No evidence of fracture or subluxation MRI with and without contrast lumbar spine 02/23/24: at L4-5 there is severe contrast enhancement of the entry spinous space at L4-5 and surrounding paraspinal musculature. Contrast enhancement of bilateral L5 pedicles. Large facet effusions. Partial contrast enhancement with intra-articular joint space of the L4-5 facet joints. There is prominent ventral epidural enhancement L3-5. Prominent dorsal epidural enhancement L4-5. No significant displacement of thecal sac from this contrast enhancement or central hypo enhancement to indicate epidural abscess. Redemonstrated markedly severe inflammatory changes centered at bilateral L4-5 facet joints with corresponding enhancement keeping was severe facet synovitis. Inflammatory changes have increased since last exam. Likely degenerative in etiology given 3 month duration. Test Conclusions PHQ-9 Score: 4 Date: 12/18/23 BPI Score: Date: MiDAS Score: Date: SOAPP-R Score:13 MOD Date: 12/18/23 OSWESTRY Score: 36=72% Date: 12/18/23 Past Medical/Surgical History Reported: Physical Trauma: Has [...] tablet daily 30 days, 0 refills - Nystatin [id number] UNIT/GM External Cream as directed 30 days, [...] Tobacco non-user. Allergies - No Known Allergies Review Of Systems Systemic: Pain. Energy level not specified, no fever, and no chills. Head: No headache. Neck: No neck pain. Otolaryngeal: No ear symptoms and no nasal symptoms. Cardiovascular: No chest pain or discomfort. Pulmonary: No dyspnea. Gastrointestinal: No nausea and no constipation. Genitourinary: No urinary loss of control. Endocrine: No endocrine symptoms other than noted. Hematologic: No easy bleeding and no tendency for easy bruising. Musculoskeletal: Back pain. Neurological: No motor disturbances and no sensory disturbances. Skin: No skin symptoms other than noted. Physical Findings - Vitals taken 03/13/2024 09:19 am BP-Sitting R 128/90 mmHg Pulse Rate-Sitting 71 bpm Temp-Temporal 96.2 F Height 64 in Weight 203 lbs Body Mass Index 34.8 kg/m2 Pain Level 4 Pain Level Note LOW 6/10 with activity Oxygen Saturation 93 % Musculoskeletal System: General/bilateral: Musculoskeletal Scales: Value Lumbar oswestry score 72 Psychiatric: Psychiatric: Value PHQ9 score: 4 Constitutional: Well developed. Well nourished. In no acute distress. HEENT: NC/AT. Anicteric. Clear Conjunctiva. PERRLA. CVS: No peripheral edema. Pulmonary: Normal chest expansion bilaterally. Spine/MSK: Tenderness bilateral mid to lower lumbar facet joints. Tenderness bilateral SI joints. Negative SLR, but hamstrings are extremely tight. Muscle spasms noted to the thoracic and lumbar spine. Positive facet loading bilaterally. Decrease lumbar range of motion in all planes. Gait: Not antalgic. No steppage gait. No Trendelenburg gait. No circumspected gait pattern. Tandem gait normal. Neuro: Awake. Alert. Oriented x3. DTR's intact in all extremities. DTR's equal in all extremities. Hypoesthesia right lower extremity, predominantly L4 dermatome. 4/5 strength with resisted hip flexion.. Psych: No apparent distress. Mood normal. Affect flat. No pain behaviors. Skin: No rash. Normal pigmentation. Normal temperature Tests Educational Testing: Questionnaires PHQ-9: Value SOAPP-R: total score 13 Assessment - Lumbar spondylosis with radiculopathy [M47.26 - Other spondylosis with radiculopathy, lumbar region] - Generalized multiple sclerosis [G35 - Multiple sclerosis] - Lumbar stenosis with neurogenic claudication [M48.062 - Spinal stenosis, lumbar region with neurogenic claudication] - Lumbar radiculopathy [M54.16 - Radiculopathy, lumbar region] - Fibromyalgia [M79.7 - Fibromyalgia] - Chronic pain syndrome [G89.4 - Chronic pain syndrome] Therapy - Assessment of suicide risk performed - Clinical summary provided to patient Patient understands and agrees with treatment plan. Questions answered. Discussed Risks, benefits and alternatives (including doing nothing) were discussed with the patient who agreed to proceed despite risk and agreement that potential benefits outweighs the chance of significant harm. start meloxicam FAcet joint injections F/U post procedure Plan StartCited - Other spondylosis with radiculopathy, lumbar region Pain Management CPT/Facet Joint Procedur: Intraarticular joint/Medial Branch Block L/S 1st, Intraarticular joint/Medial Branch Block L/S 2nd Instructions: bilateral L3-4, L4-5 steroid facet joint injections under fluoroscopic guidance Meloxicam 15 MG tablet One tablet daily, 30 days, 1 refills EndCited Practice Management Use of tobacco assessment performed Review of medications documented; Standardized depression screening: positive for symptoms and for adult impression and score four. Results of this interaction were communicated directly to the patient's referring and/or primary care provider. Multiple documents have been reviewed today in conjunction with her evaluation including online prescription monitoring database, laboratory data, imaging studies, previous specialist provider notes and primary care provider notes. For all patients on acute or chronic opioids, ongoing need for opioid analgesia is assessed at each visit with consideration of discontinuation or wean to lowest effective dose when possible and appropriate. Contents of this document have been edited for correctness, but may be subject to typographical or stockkeeper errors. Verify all diagnoses, medications, dosages, and patient instructions with patient and/or the originator of this document. Health Reminders - Assess BMI satisfied 03/13/2024. - Assess Need for CT Lung Screen satisfied 03/13/2024. - Assess Tobacco Use satisfied 03/13/2024. - Depression Screening satisfied 03/13/2024. - Follow up plan for Depression Screening satisfied 03/13/2024.
--- OUTSIDE RECORDS SUMMARY | 2025-02-27 21:16 | XMS_ITS | Encounter Summary ---
Author Organization [facility] Address [address] [place] [address] Care Team Providers Care Slot Shift Supervisor Name Role Phone Hemalatha Tang MD Primary Care Provider [phone] Reason for Visit * Reason Onset Date Comments MEDICATION REFILL 01/09/2024 Encounter Details Date Type Department Care Team (Late st Contact Info) Description 01/09/2024 Refill [facility] - Neurology [address] [place] [address], [place] [phone] Johnny Jones MD [address] [place] [phone] MEDICATION REFILL Social History Tobacco Use Types Packs/Day Years Used Date Smoking Tobacco: Never Smokeless Tobacco: Never Alcohol Use Standard Drinks/Week Comments No 0 (1 standard drink = 0.6 oz pur e alcohol) AUDIT-C Answer Date Recorded Q1: How often do you have a drink containing alcohol? Never 02/15/2023 Q2: How many drinks containi ng alcohol do you have on a typical day when you are drinking? Patient does not drink Q3: How often do you have si x or more drinks on one occasion? Never 02/15/2023 PHQ-2 Answer Date Recorded Patient Health Questionnaire-2 Score 2 11/21/2023 Comments No Sex and Gender Information Value Date Recorded Sex Assigned at Female 01/06/2025 9:20 AM SHIPYARD SUPERVISOR Legal Sex Female 5:15 PM SHIPYARD SUPERVISOR Gender Identity Female 01/06/2025 9:20 AM SHIPYARD SUPERVISOR Sexual Orientation Straight 01/06/2025 9: 20 AM SHIPYARD SUPERVISOR Occupation Industry Job Start Date Job End Date disable Not on file Not on file Not on file documented as of this encounter Miscellaneous Notes * Telephone Encounter - Chris Romo MA - 01/09/2024 4:52 PM CST Refill Request Linda Mckeon KURT: 11/20/2023Sep due: SEP date: 04/18/2024 Duloxetine 30 MG capsule LRF: 02/15/2023 Quantity dispensed: 90 capsules (90-day supply) # refills: 3 Allergies: Allergies Allergen Reactions ??? Contrast-Iodinated Agents For Ct/Other Skin Reactions and Rash ??? Contrast-Gadolinium Agents For Mri Nausea and/or Vomiting Patient gets nauseous from MRI contrast ??? Povidone Iodine Other Burning ??? Iohexol Rash Pended Medication Order: Requested Prescriptions Pending Prescriptions Disp Refills ??? DULoxetine (Cymbalta) 30 MG capsule 90 capsule 3 Si daily Reasons: Major Depressive Disorder, Musculoskeletal Pain YARD SUPERVISOR documented in this encounter Plan of Treatment Upcoming Encounters Date Type Department Care Team (Late st Contact Info) Description 03/05/2025 3:00 PM CDT Office Visit [facility] - Neurology [address] [place] [phone] Rosalie Guaman, SURVEYING TECHNICIAN-SCHEDULER [address] [place] [address] [place] [address] 04/21/2025 9:00 AM CDT Office Visit [facility] - Neurology [address] [place] [phone] Sidney Moncada MD [address] [place] [address] 05/23/2025 9:00 AM CDT Office Visit [facility] - Dermatology [address] [facility], [place] [phone] Chitra Peres MD [facility] 3L [place] [phone] 07/07/2025 8:30 AM CDT Procedure visit [facility] - Infusion [address] [place] [phone] 02/16/2026 11:00 AM CDT [facility] [address] [place] [address], [place] [phone] Kaitlin Cruz MD [address] [place] [address] [address] [place] [phone] 02/20/2026 9:00 AM CDT [facility] Ophthalmology [address] [place] [address], [place] [phone] documented as of this encounter Visit Diagnoses Diagnosis MDD (major depressive disorder), recurrent, in full remission Major depressive disorder, recurrent episode, in full remission Neuropathic pain Neuralgia, neuritis, and radiculitis, unspecified documented in this encounter Additional Health Concerns Infection Onset Date Last Indicated Resolved Time 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 06/22/2017 documented as of this encounter Care Teams Slot Shift Supervisor Relationship Specialty Start Date End Date Hemalatha Tang MD PCP - General Family Medicine 03/07/21 documented as of this encounter
--- OUTSIDE RECORDS SUMMARY | 2025-02-27 21:17 | XMS_ITS ---
Care Plan - [facility] Created on: February 27, 2025 CHARLES NUNEZ : 1960 Sex: Female Author Organization [facility] Address [address] [place] [address] Phone Care Team Providers Care Spudder Name Role Phone CORIE CASTANEDA, MELVIN Loza Primary Care Provider [phone]
--- OUTSIDE RECORDS SUMMARY | 2025-02-27 21:17 | XMS_ITS | Encounter Summary ---
Author Organization [facility] Health Address [address] [place] [address] Care Team Providers Care Data Base Design Analyst Name Role Phone Kevan Rubin MD Primary Care Provider Hemalatha Tang MD Primary Care Provider [phone] Reason for Visit * Reason Onset Date Comments MEDICATION REFILL 10/08/2019 Encounter Details Date Type Department Care Team (Late st Contact Info) Description 10/08/2019 Refill [facility] [address] [place] [address] Kimberly Yarbrough MD [address] [place] [place] [phone] MEDICATION REFILL Social History Tobacco Use Types Packs/Day Years Used Date Smoking Tobacco: Never Smokeless Tobacco: Never Alcohol Use Standard Drinks/Week Comments No 0 (1 standard drink = 0.6 oz pur e alcohol) Comments No Sex and Gender Information Value Date Recorded Sex Assigned at Female 01/06/2025 9:20 AM HEALTH COMMUNICATIONS SPECIALIST Legal Sex Female 5:15 PM HEALTH COMMUNICATIONS SPECIALIST Gender Identity Female 01/06/2025 9:20 AM HEALTH COMMUNICATIONS SPECIALIST Sexual Orientation Straight 01/06/2025 9: 20 AM HEALTH COMMUNICATIONS SPECIALIST Occupation Industry Job Start Date Job End Date disable Not on file Not on file Not on file documented as of this encounter Plan of Treatment Upcoming Encounters Date Type Department Care Team (Late st Contact Info) Description 03/05/2025 3:00 PM CDT Office Visit [facility] - Neurology [address] [place] [address], [place] [address] Deniz Kofitrell, COW RIDER-PUBLIC HEALTH SPECIALIST [address] [place] [address] [address] [place] [address] 04/21/2025 9:00 AM CDT [facility] [address] [place] [phone] Sidney Moncada MD [address] [place] [address] 05/23/2025 9:00 AM CDT [facility] Derm[facility] [address] [place] [phone] Chitra Peres MD [address] [place] [address] [address] [place] [phone] 07/07/2025 8:30 AM CDT Procedure visit [facility] - Infusion [address] [place] [phone] 02/16/2026 11:00 AM CDT Office [facility] [address] [place] [phone] Kaitlin Cruz MD [address] [place] [address] [address] [place] [phone] 02/20/2026 9:00 AM CDT [facility] [address] [place] [phone] documented as of this encounter Visit Diagnoses Diagnosis Intractable chronic migraine without aura and without status migrainosus Chronic migraine without aura, with intractable migraine, so stated, without mention of status migrainosus documented in this encounter Additional Health Concerns Infection Onset Date Last Indicated Resolved Time 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 06/22/2017 documented as of this encounter Care Teams Data Base Design Analyst Relationship Specialty Start Date End Date Kevan Rubin MD [address] [facility]. [address] [place] [phone] PCP - General 03/23/16 03/06/21 Hemalatha Tang MD [facility] [facility]. [address] [place] [phone] PCP - General Family Medicine 03/07/21 documented as of this encounter
--- OUTSIDE RECORDS SUMMARY | 2025-02-27 21:17 | XMS_ITS | Encounter Summary ---
Author Organization [facility] Address [address] [facility] [address] [place] [address] Phone Care Team Providers Care Director Maternal Child Name Role Phone Hemalatha Tang MD Primary Care Provi summer Manuel Swartz MD Unavailable [phone] Reason for Visit * Consultation (Routine) - Authorized Specialty Diagnoses / Procedures Referred By Alvin rodas Referred To Contact Bariatrics / Bariatric Surgery Diagnoses Class 2 severe obesity due to excess calories with serious comorbidity and body mass index (BMI) of 37.0 to 37.9 in adult (HCC) Hemalatha Tang MD [address] [place] [address] Phone: tel: fax: [facility] (All Locations) Referral ID Status Reason Start Date Expiration Date Visits Requested Visits Authorized [id number] Authorized Specialty Services Required 05/03/2024 06/02/2025 6 6 Encounter Details Date Type Department Care Team (Late st Contact Info) Description 02/27/2025 2:00 PM CDT Office Visit [facility] Minimally Invasive Surgery [address] [place] [address] Medical Office Building [address] [place] [address] Samuel Ashton MD [address] [facility] [phone] [place] [address] Morbid obesity (HCC) (Primary Dx) Social History Tobacco Use Types Packs/Day Years Used Date Smoking Tobacco: Never Passive Smoke Exposure: Past Smokeless Tobacco: Never AUDIT-C Answer Date Recorded Q1: How often do you have a drink containing alcohol? Never 01/22/2025 Q2: How many drinks containi ng alcohol do you have on a typical day when you are drinking? Patient does not drink Q3: How often do you have si x or more drinks on one occasion? Never 01/22/2025 PHQ-2 Answer Date Recorded PHQ-2 Total Score (If total score is 3 or more points, staff should administer the PHQ-9) 0 01/22/2025 Hunger Vital Sign Answer Date Recorded Within the past 12 months, y ou worried that your food would run out before you got the money to buy more. Never true 01/23/20 25 Within the past 12 months, t he food you bought just didn't last and you didn't have money to get more. Never true 01/22/2025 PHQ-9 Answer Date Recorded PHQ-9 Total Score 7 10/16/2024 Personal Safety Answer Date Recorded Have you ever been in or are you currently in a harmful physical or emotional relationship or is someone making you feel afraid or unsafe? Denies 01/14/2025 Comments No Sex and Gender Information Value Date Recorded Sex Assigned at Not on file Legal Sex Female 2:06 AM TEA PLANTATION WORKER Gender Identity Female 11/29/2020 6:59 PM TEA PLANTATION WORKER Sexual Orientation Not on file documented as of this encounter Last Filed Vital Signs Vital Sign Reading Time Taken Comments Blood Pressure 143/81 02/27/2025 1:43 PM CDT Pulse 102 02/27/2025 1:43 PM CDT Temperature 36.7 C (98 F) 02/27/2025 1:43 PM CDT Respiratory Rate - - Oxygen Saturation 100% 02/27/2025 1:43 PM CDT Inhaled Oxygen Concentration - - Weight 88.3 kg (194 lb 9.6 oz) 02/27/2025 1:43 P M CDT Height 158.8 cm (5' 2.5 ) 02/27/2025 1:43 PM CDT Body Mass Index 35.03 02/27/2025 1:43 PM CDT documented in this encounter Progress Notes * Samuel Ashton MD - 02/27/2025 2:00 PM CDT [facility] Metabolic & Weight Loss Surgery Post-Operative Clinic Note CHIEF COMPLAINT: Linda Mckeon presents for a post-operative clinic visit following recent surgery. Pt is status post RYGB (01/14/25). INTERVAL HISTORY: The patient is a 64 y.o. female who has been doing well in her postoperative course after Laparoscopic Jacquelyn-en-Y Gastric Bypass. She is tolerating the weight loss surgery diet without difficulty. Protein and fluid intake are adequate. She has no complaints today. She is taking hermedications as instructed including MVI, B12, Ca, iron, and ursodiol. Endorsing a lot more energy to play with grandchildren. Tolerating a regular diet without issues. Snacks on apple sauce, Ruffles potato chips. Gardening and walking for exercise. The patient has the following conditions: DEVI: yes, and is not using CPAP GERD: no Hypertension: yes, and is on 2 medications for this Hyperlipidemia: yes Diabetes: no Wt Readings from Last 7 Encounters: 02/27/25 88.3 kg (194 lb 9.6 oz) 01/24/25 93 kg (205 lb) 01/22/25 93.3 kg (205 lb 11.2 oz) 01/22/25 94.5 kg (208 lb 4.8 oz) 01/14/25 96.6 kg (212 lb 15.4 oz) 01/08/25 97.1 kg (214 lb) 12/31/24 99.2 kg (218 lb 11.1 oz) PHYSICAL EXAMINATION: Ht:158.8 cm (5' 2.5 ) Wt:88.3 kg (194 lb 9.6 oz) BMI: Body mass index is 35.03 kg/m??. BP 143/81 (BP Location: Right arm, Patient Position: Sitting) Pulse 102 Temp 36.7 ??C (98 ??F) (Oral) Ht 158.8 cm (5' 2.5 ) Wt 88.3 kg (194 lb 9.6 oz) SpO2 100% BMI 35.03 kg/m?? General: Well nourished, well-groomed, in no acute distress. Neuro: Alert and oriented x 3. Mood and affect are approciate. Abdomen: Soft, nontender, nondistended with well healing incisions without evidence of any erythemaor drainage. Extremities: No edema or cyanosis. ASSESSMENT AND PLAN: Patient Active Problem List Diagnosis Gastroesophageal reflux disease Urinary urgency Multiple sclerosis (HCC) Numbness Subjective visual disturbances Nocturia Actinic keratosis Allergic rhinitis Anxiety CTS (carpal tunnel syndrome) Degenerative disc disease, lumbar Dizziness and giddiness Essential hypertension Facet arthritis of lumbar region Exostosis of right posterior calcaneus Fatigue Fibromyalgia Hypertriglyceridemia Insomnia Labyrinthitis Lumbar radiculopathy Migraine with aura and without status migrainosus, not intractable Neurogenic bladder DEVI (obstructive sleep apnea) Overactive bladder Seronegative spondyloarthropathy Word finding difficulty Vitamin D deficiency Mammogram declined History of basal cell cancer History of COVID-19 Ganglion cyst of dorsum of left wrist Left wrist pain Cold sore Well adult exam Class 2 severe obesity due to excess calories with serious comorbidity and body mass index (BMI) of38.0 to 38.9 in adult (HCC) Left hand pain Tenosynovitis Extensor tenosynovitis of left wrist Spontaneous rupture of extensor tendon of right hand Left carpal tunnel syndrome Osteoarthritis of left glenohumeral joint Iron deficiency anemia History of colon polyps PLMD (periodic limb movement disorder) Precordial pain Morbid (severe) obesity due to excess calories (HCC) Mild episode of recurrent major depressive disorder Morbid obesity (HCC) The patient is a 64 y.o. female who presents to clinic today status-post Laparoscopic Jacquelyn-en-Y Gastric Bypass . The patient is doing well in her postoperative course. We will plan to see the patient back in 2 months for her next postoperative visit. Continue regulardiet. The patient is encouraged to call the clinic with any questions or concerns in the meantime. The patient demonstrates understanding and is amenable to the above outlined plan. There are no barriers to education today. Samuel Ashton MD, MPH education program manager Mushroom Cutter, [facility] Bariatric Surgery [facility] [place] [address] documented in this encounter Plan of Treatment Not on file documented as of this encounter Visit Diagnoses Diagnosis Morbid obesity (HCC)- Primary Morbid obesity documented in this encounter Discontinued Medications Medication Sig Discontinue Reason Start Date End Da te polyethylene glycol (MIRALAX) 17 gram/dose bulk powderIndications:kalin carpio Take 17 g by mouth 2 (two) times a day Start post-surgery 01/01/2025 02/27/2025 senna (SENOKOT) 8.6 mg tablet Take 1 tablet by mouth 2 (two) times a day for 15 days 01/15/2025 02/27/2025 meloxicam (MOBIC) 15 mg tabletIndications:Osteoa rthritis Take 1 tablet (15 mg total) by mouth every morning Patient Reported 02/27/2025 aspirin 81 mg enteric coated tabletIndications:Angina pectoris, unstable (HCC),Coronary artery calcification Take 1 tablet (81 mg total) by mouth daily Other 05/03/2024 02/27/2025 famotidine (PEPCID) 40 mg tabletIndications:Gastro esophageal reflux disease without esophagitis TAKE 1 TABLET BY MOUTH AT NIGHT NEEDED FOR HEARTBURN Therapy completed 01/07/2025 02/27/2025 documented as of this encounter Care Teams Director Maternal Child Relationship Specialty Start Date End Date Hemalatha Tang MD [address] [place] [address] PCP - General Family Medicine 11/02/20 Manuel Swartz MD [address] [place] [address] Neurology 04/17/23 documented as of this encounter
--- OUTSIDE RECORDS SUMMARY | 2025-02-27 21:17 | XMS_ITS | Encounter Summary ---
Author Organization [facility] Health Address [address] [place] [address] Care Team Providers Care Underwear Cutter Name Role Phone Kevan Rubin MD Primary Care Provider Hemalatha Tang MD Primary Care Provider [phone] Reason for Visit * Reason Onset Date Comments MEDICATION REFILL 11/14/2019 Encounter Details Date Type Department Care Team (Late st Contact Info) Description 11/14/2019 Refill [facility] [address] [place] [address] Kimberly Yarbrough MD [address] [place] [phone] MEDICATION REFILL Social History Tobacco Use Types Packs/Day Years Used Date Smoking Tobacco: Never Smokeless Tobacco: Never Alcohol Use Standard Drinks/Week Comments No 0 (1 standard drink = 0.6 oz pur e alcohol) Comments No Sex and Gender Information Value Date Recorded Sex Assigned at Female 01/06/2025 9:20 AM CANCER RESEARCHER Legal Sex Female 5:15 PM CANCER RESEARCHER Gender Identity Female 01/06/2025 9:20 AM CANCER RESEARCHER Sexual Orientation Straight 01/06/2025 9: 20 AM CANCER RESEARCHER Occupation Industry Job Start Date Job End Date disable Not on file Not on file Not on file documented as of this encounter Plan of Treatment Upcoming Encounters Date Type Department Care Team (Late st Contact Info) Description 03/05/2025 3:00 PM CDT Office Visit [facility] - Neurology [address] [place] [address], [place] [address] Deniz Kofitrell, AIRCRAFT STRUCTURE MECHANIC-GRAPHIC ART DESIGNER [address] [place] [address] [address] [place] [address] 04/21/2025 9:00 AM CDT Office Visit [facility] - Neurology [address] [place] [phone] Sidney Moncada MD [address] [place] [address] 05/23/2025 9:00 AM CDT Office Visit [facility] - Dermatology [address] [place] [phone] Chitra Peres MD [address] [place] [address] 3 DEPT [place] [phone] 07/07/2025 8:30 AM CDT Procedure visit [facility] - Infusion [address] [place] [phone] 02/16/2026 11:00 AM CDT Office Visit [facility] - Orthopedics [address] [place] [phone] Kaitlin Cruz MD [address] [place] [address] [address] [place] [phone] 02/20/2026 9:00 AM CDT Office Visit [facility] - Ophthalmology [address] [place] [phone] documented as of this encounter Visit Diagnoses Diagnosis Intractable chronic migraine without aura and without status migrainosus Chronic migraine without aura, with intractable migraine, so stated, without mention of status migrainosus documented in this encounter Additional Health Concerns Infection Onset Date Last Indicated Resolved Time 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 06/22/2017 documented as of this encounter Care Teams Underwear Cutter Relationship Specialty Start Date End Date Kevan Rubin MD [address] [facility]. [address] [place] [phone] PCP - General 03/23/16 03/06/21 Hemalatha Tang MD [facility] [facility]. [address] [place] [address] PCP - General Family Medicine 03/07/21 documented as of this encounter
--- OUTSIDE RECORDS SUMMARY | 2025-02-27 21:17 | XMS_ITS | Encounter Summary ---
Author Organization [facility] Healthcare Address [address] [place] [address] Care Team Providers Care Campus Administrator Name Role Phone Hemalatha Tang MD Primary Care Provi summer Manuel Swartz MD Unavailable [phone] Encounter Details Date Type Department Care Team (Late st Contact Info) Description 02/21/2025 Results Follow-Up [facility] Family Medicine [address] [phone] Emmie Zaragoza PA [address] [place] [address] Social History Tobacco Use Types Packs/Day Years [...] on file Legal Sex Female 2:06 AM HAND BOOKBINDER Gender Identity Female 11/29/2020 6:59 PM HAND BOOKBINDER Sexual Orientation Not on file documented as of this encounter Plan of Treatment Not on file documented as of this encounter Visit Diagnoses Not on filedocumented in this encounter Care Teams Campus Administrator Relationship Specialty Start Date End Date Hemalatha Tang MD [address] [place], [place] [phone] PCP - General Family Medicine 11/02/20 Manuel Swartz MD [address] [place], [place] [address] Neurology 04/17/23 documented as of this encounter
--- OUTSIDE RECORDS SUMMARY | 2025-02-27 21:17 | XMS_ITS | Encounter Summary ---
Author Organization [facility] Healthcare Address [address] [place] [address] Care Team Providers Care After School Program Director Name Role Phone Hemalatha Tang MD Primary Care Provi summer Manuel Swartz MD Unavailable [phone] Reason for Referral * Consultation (Routine) - Closed Specialty Diagnoses / Procedures Referred By Contac t Referred To Contact Rheumatology Diagnoses Facial rash Positive RACHNA (antinuclear antibody) Multiple sclerosis (HCC) Leta Casillas PA [address] [place] [address] Phone: tel: fax: Raymond Sharpe MD [address] [facility] [address] [place] [address] Phone: tel: fax: Referral ID Status Reason Start Date Expiration Date V isits Requested Visits Authorized [id number] Closed Specialty Services Required 01/31/2025 03/02/2026 6 6 Question Answer Please select the performing region: External Order [171] To provider: RAYMOND SHARPE [[id number]] # of visits: 6 Encounter Details Date Type Department Care Team (Late st Contact Info) Description 01/10/2025 Results Follow-Up [facility] Family Medicine [address] [place] [phone] Leta Casillas PA [address] [place] [phone] Facial rash (Primary Dx); Positive RACHNA (antinuclear antibody); Multiple sclerosis (HCC) Social History Tobacco Use Types Packs/Day Years Used Date Smoking Tobacco: Never Passive Smoke Exposure: Past Smokeless Tobacco: Never AUDIT-C Answer Date Recorded Q1: How often do you have a drink containing alcohol? Never 01/14/2025 Q2: How many drinks containi ng alcohol do you have on a typical day when you are drinking? Patient does not drink Q3: How often do you have si x or more drinks on one occasion? Never 01/14/2025 PHQ-2 Answer Date Recorded PHQ-2 Total Score (If total score is 3 or more points, staff should administer the PHQ-9) 0 12/12/2024 Hunger Vital Sign Answer Date Recorded Within the past 12 months, y ou worried that your food would run out before you got the money to buy more. Never true 07/09/20 24 Within the past 12 months, t he food you bought just didn't last and you didn't have money to get more. Never true 07/09/2024 PHQ-9 Answer Date Recorded PHQ-9 Total Score 7 10/16/2024 Personal Safety Answer Date Recorded Have you ever been in or are you currently in a harmful physical or emotional relationship or is someone making you feel afraid or unsafe? Denies 01/14/2025 Comments No Sex and Gender Information Value Date Recorded Sex Assigned at Not on file Legal Sex Female 2:06 AM JAVASCRIPT APPLICATION DEVELOPER Gender Identity Female 11/29/2020 6:59 PM JAVASCRIPT APPLICATION DEVELOPER Sexual Orientation Not on file documented as of this encounter Miscellaneous Notes * Result Encounter Note - Karyna Hoff - 01/31/2025 4:03 PM CDT Records faxed for scheduling * Telephone Encounter - Salud Palacios LPN - 01/31/2025 2:15 PM CDT Referral placed. 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 documented in this encounter Plan of Treatment Scheduled Referrals Name Type Priority Associated Diagnoses Order Schedule Ambulatory referral to Rheumatology Outpatient Referral Routine Facial rash Positive RACHNA (antinuclear antibody) Multiple sclerosis (HCC) Expected: 01/31/2025 (Approximate), Expires: 01/31/2026 documented as of this encounter Visit Diagnoses Diagnosis Facial rash- Primary Positive RACHNA (antinuclear antibody) Other and unspecified nonspecific immunological findings Multiple sclerosis (HCC) Multiple sclerosis documented in this encounter Care Teams After School Program Director Relationship Specialty Start Date End Date Hemalatha Tang MD [address] [place] [address] PCP - General Family Medicine 11/02/20 Manuel Swartz MD [address] [place] [address] Neurology 04/17/23 documented as of this encounter
--- OUTSIDE RECORDS SUMMARY | 2025-02-27 21:17 | XMS_ITS | Clinical Summary ---
Author Organization [facility] Address [address] [place] [address] Phone Care Team Providers Care Electromechanical Equipment Assembler Name Role Phone CORIE CASTANEDA, MELVIN Loza Primary Care Provider [phone] Reason for Visit and Chief Complaint The Chief Complaint is: FU BL L4-5 TFESI DONE 01/11/24, 25% RELIEF, 0% ONGOING Plan of Treatment No Plan of Treatment Recorded Assessments Includes: Assessments from this encounter Findings - Lumbar spondylosis with radiculopathy [M47.26 - Other spondylosis with radiculopathy, lumbar region] - Last Documented On 01/25/2024 10:11AM ; [facility] - Generalized multiple sclerosis [G35 - Multiple sclerosis] - Last Documented On 01/25/2024 10:11AM ; [facility] - Lumbar stenosis with neurogenic claudication [M48.062 - Spinal stenosis, lumbar region with neurogenic claudication] - Last Documented On 01/25/2024 10:11AM ; [facility] - Lumbar radiculopathy [M54.16 - Radiculopathy, lumbar region] - Last Documented On 01/25/2024 10:11AM ; [facility] - Fibromyalgia [M79.7 - Fibromyalgia] - Last Documented On 01/25/2024 10:11AM ; [facility] - Chronic pain syndrome [G89.4 - Chronic pain syndrome] - Last Documented On 01/25/2024 10:11AM ; [facility] Medical Equipment - Implanted Devices Includes: Current Devices No Medical Equipment Recorded Medications Includes: Medications discussed during this encounter and other current Medications Discontinued / Stopped on this date CASH ELWIS on 01/08/2024 Pregabalin 150 MG Oral Capsule Provider: CASH LEWIS Diagnosis: Fibromyalgia Last Documented On 01/25/2024 9:01AM By Radha BOWLES ; [facility] Amphetamine-Dextroamphetamine 20 MG Oral Tablet Provider: Diagnosis: Last Documented On 01/25/2024 9:01AM By Radha BOWLES ; [facility] Current Medications (continue as prescribed) [facility] Fish Oil 1200 MG Oral Capsule 05/08/2024 Provide r: Diagnosis: Last Documented On 05/08/2024 9:48AM By Radha BOWLES ; [facility] Vitamin D3 125 MCG (5000 UT) Oral Capsule 05/08/2024 Provider: Diagnosis: Last Documented On 05/08/2024 9:47AM By Radha BOWLES ; [facility] Aspir-Low 81 MG Oral Tablet Delayed Release 05/08/2024 Provider: Diagnosis: Last Documented On 05/08/2024 9:41AM By Radha BOWLES ; [facility] Tricor 145 MG Oral Tablet 05/08/2024 Provider: Diagnosis: Last Documented On 05/08/2024 9:43AM By Radha BOWLES ; [facility] Nitroglycerin 0.4 MG Sublingual Tablet Sublingual 04/13 Provider: Diagnosis: Last Documented On 05/08/2024 9:42AM By Radha BOWLES ; [facility] buPROPion HCl ER (XL) 150 MG Oral Tablet Extended Release 24 Hour 04/29/2024 Provider: Diagnosis: Last Documented On 05/08/2024 9:46AM By Radha BOWLES ; [facility] Loratadine 10 MG Oral Tablet 04/27/2024 Provider: MELVIN FONTENOT MD Diagnosis: Last Documented On 05/08/2024 9:45AM By Radha BOWLES ; [facility] Pantoprazole Sodium 20 MG Or al Tablet Delayed Release 04/24/2024 Provider: MELVIN Gibson MD Diagnosis: Last Documented On 05/08/2024 9:43AM By Radha BOWLES ; [facility] Valsartan 160 MG Oral Tablet 04/23/2024 Provider: Diagnosis: Last Documented On 05/08/2024 9:42AM By Radha BOWLES ; [facility] Sertraline HCl 100 MG Oral Tablet 04/22/2024 Provide r: Diagnosis: Last Documented On 05/08/2024 9:41AM By Radha BOWLES ; [facility] hydrOXYzine HCl 25 MG Oral Tablet 04/12/2024 Provide r: Diagnosis: Last Documented On 05/08/2024 9:40AM By Radha BOWLES ; [facility] Pregabalin 200 MG Oral Capsule 04/11/2024 Provider: CASH Blanchard Diagnosis: Radiculopathy, l umbar region Take 1 capsule by mouth twice daily Last Documented On 10:16AM [facility] ; [facility] Meloxicam 15 MG Oral Tablet 03/13/2024 Provider: CASH BILL Diagnosis: Other spondylosi s with radiculopathy, lumbar region One tablet daily Last Documented On 9:43AM By [facility] ; [facility] buPROPion HCl ER (XL) 300 MG Oral Tablet Extended Release 24 Hour 02/13/2024 Provider: Diagnosis: Last Documented On 05/08/2024 9:46AM By Radha BOWLES ; [facility] DULoxetine HCl 30 MG Oral Capsule Delayed Releas e Particles 02/13/2024 Provider: Diagnosis: Last Documented On 05/08/2024 9:44AM By Radha BOWLES ; [facility] Fluticasone Propionate 50 MC G/ACT Nasal Suspension 02/06/2024 Provider: MELVIN Gibson MD Diagnosis: Last Documented On 05/08/2024 9:44AM By Radha BOWLES ; [facility] Lidocaine 5% External Patch 10/16/2023 Provider: MELVIN FONTENOT MD Diagnosis: Last Documented On 10/20/2023 9:59AM By Radha BOWLES ; [facility] Nystatin 477530 UNIT/GM External Cream 10/10/2023 Pr ovider: Diagnosis: Last Documented On 3 10:00AM By Radha BOWLES ; [facility] DULoxetine HCl 60 MG Oral Capsule Delayed Releas e Particles 07/27/2023 Provider: Diagnosis: one cap by mouth daily Last Documented On 3 3:08PM By Dorothy Dyson LPN ; [facility] Propranolol HCl 40 MG Oral Tablet 07/27/2023 Provide r: Diagnosis: BID Last Documented On 3 3:16PM By Dorothy Dyson LPN ; [facility] SUMAtriptan Succinate 50 MG Oral Tablet 07/27/2023 P rovider: Diagnosis: prn Last Documented On 3 3:15PM By Dorothy Dyson LPN ; [facility] Rebif 44 MCG/0.5ML Subcutaneous Solution Prefilled Syr luzma 07/27/2023 Provider: Diagnosis: 3 x's weekly Last Documented On 3 3:13PM By Dorothy Dyson LPN ; [facility] Aimovig 140 MG/ML Subcutaneous Solution Auto-injector 07/27/2023 Provider: Diagnosis: q 30 days Last Documented On 3 3:09PM By Dorothy Dyson LPN ; [facility] Medications Administered Includes: Administered Medications from this encounter No Administered Medications Recorded Vital Signs Includes: Vital Signs from this encounter Vital Name 01/25/2024 08:57A Blood Pressure Sitting R 130/90 Pulse Rate-Sitting (bpm) 73 Temp-Temporal 96.6 Height (in) 64 Weight (lb) 203 Body Mass Index 34.8 Body Surface Area 2 Pain Level 4 Oxygen Saturation (%) 96 Last Documented: On 01/25/2024 9:01AM ; [facility] Results Includes: Results discussed during this encounter No Results Recorded For Specified Dates History of Present Illness Includes: History of Present Illness from this encounter HPI - Allergy list reviewed - Problem list reviewed - Medication reconciliation performed - Medication list reviewed - Prescription Drug Monitoring Program website checked. - Last dose of medication? Discussion: Patient presents in follow to a bilateral [...] no benefit. She reports injections done at [facility] in [place] within the last year. By description these [...] maintained. No evidence of fracture or subluxation Social History Description Last Updated Tobacco non-user 01/25/2024 Last Documented On 4 10:11AM ; [facility] Smoking Status Unknown Procedures and Surgical History Includes: Procedures from this encounter Procedures Code Diagnosis Performing Provider Service L ocation Service Date use of tobacco assessment performed 1000F Last Documented On 4 9:02AM ; [facility] review of medications documented 1160F Last Documented On 4 9:02AM ; [facility] assessment of suicide risk performed Last Documented On 4 9:02AM ; [facility] screening for adult depression: impressi on and score four Last Documented On 4 8:46AM ; [facility] standardized depression screening: posit rosi for symptoms Last Documented On 4 8:46AM ; [facility] Clinical summary provided to patient ~ Patient understands and agrees with treatment plan. Questions answered Last Documented On 4 8:46AM ; [facility] SOAPP-R: total score 13 Last Documented On 4 8:46AM ; [facility] Medical History Includes: Medical History addressed during this encounter Description Last Updated Has had a fall in the last 12 months. Domingo s falls quite often Has DX of MS 08/25/2023 Last Documented On 4 8:46AM ; [facility] Family History Includes: Family History addressed during [...] PAIN MANAGEMENT FOLLOW UP CASH ORR ANP-BC [facility] 01/25/20 24 8:42AM 9:14AM Chronic Pain Syndrome,Lumbar Radiculopathy,Mu ltiple Sclerosis Generalized,Fibr omyalgia,Spinal Stenosis Lumbar with Neurogenic Claudication,Spo ndylosis with Radiculopathy Lumbar Region Insurance Includes: Active Insurance Policies Plan Name Member ID Group # Subscriber Relationship Effect rosi Dates 1 - [facility] [id number] CHARLES NUNEZ Self Clinical Notes Includes: Clinical Notes from this encounter * Progress note Date Encounter Last Documented by 01/25/2024 PAIN MANAGEMENT FOLLOW UP Last d ocumented on 01/25/2024; 10:11 AM, CASH OLIVER-; [facility] Chief Complaint The Chief Complaint is: FU BL L4-5 TFESI DONE 01/11/24, 25% RELIEF, 0% ONGOING. History of Present Illness - Allergy list reviewed - Problem list reviewed - Medication reconciliation performed - Medication list reviewed - Prescription Drug Monitoring Program website checked. - Last dose of medication? Discussion: Patient presents in follow to a bilateral [...] no benefit. She reports injections done at [facility] in [place] within the last year. By description these [...] maintained. No evidence of fracture or subluxation Test Conclusions PHQ-9 Score: 4 Date: 12/18/23 [...] daily 30 days, 0 refills - Nystatin [id number] UNIT/GM External Cream as directed 30 days, [...] than noted. Physical Findings - Vitals taken 01/25/2024 08:57 am BP-Sitting R 130/90 mmHg Pulse Rate-Sitting 73 bpm Temp-Temporal 96.6 F Height 64 in Weight 203 lbs Body Mass Index 34.8 kg/m2 Body Surface Area 2 m2 Pain Level 4 Pain Level Note LOW BACK Oxygen Saturation 96 % Musculoskeletal System: General/bilateral: Musculoskeletal Scales: Value Lumbar oswestry score 72 Psychiatric: Psychiatric: Value PHQ9 score: 4 Constitutional: Well developed. Well nourished. In no acute distress. HEENT: NC/AT. Anicteric. Clear Conjunctiva. PERRLA. CVS: No peripheral edema. Pulmonary: Normal chest expansion bilaterally. Spine/MSK: Tenderness bilateral mid to lower lumbar facet joints. Tenderness bilateral SI joints. Tenderness bilateral trochanteric bursa. Negative SLR, but hamstrings are extremely tight. Muscle spasms noted to the thoracic and lumbar spine. Decrease lumbar range of motion in all [...] agrees with treatment plan. Questions answered. Discussed Continue HEP as tolerated, these often cause more pain. F/U after imaging Plan StartCited - Spinal stenosis, lumbar region with neurogenic claudication Radiology @ other/MRI: MRI Lumbar Spine w & w/o contrast EndCited Practice Management Use of tobacco assessment [...] but may be subject to typographical or relief man errors. Verify all diagnoses, medications, dosages, and patient instructions with patient and/or the originator of this document. Health Reminders - Assess BMI satisfied 01/25/2024. - Assess Need for CT Lung Screen satisfied 01/25/2024. - Assess Tobacco Use satisfied 01/25/2024. - Depression Screening satisfied 01/25/2024. - Follow up plan for Depression Screening satisfied 01/25/2024.
--- OUTSIDE RECORDS SUMMARY | 2025-02-27 21:17 | XMS_ITS | Encounter Summary ---
Author Organization [facility] Health Address [address] [place] [address] Care Team Providers Care Collision Estimator Name Role Phone Kevan Rubin MD Primary Care Provider Hemalatha Tang MD Primary Care Provider [phone] Reason for Visit * Reason Onset Date Comments MEDICATION REFILL 02/18/2021 Encounter Details Date Type Department Care Team (Late st Contact Info) Description 02/18/2021 Refill [facility] [address] [place] [address] Gladys Judd MD [address] [address] MEDICATION REFILL Social History Tobacco Use Types Packs/Day Years Used Date Smoking Tobacco: Never Smokeless Tobacco: Never Alcohol Use Standard Drinks/Week Comments No 0 (1 standard drink = 0.6 oz pur e alcohol) Comments No Sex and Gender Information Value Date Recorded Sex Assigned at Female 01/06/2025 9:20 AM BUYER GRAIN Legal Sex Female 5:15 PM BUYER GRAIN Gender Identity Female 01/06/2025 9:20 AM BUYER GRAIN Sexual Orientation Straight 01/06/2025 9: 20 AM BUYER GRAIN Occupation Industry Job Start 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 [address] [place] [phone] Sidney Moncada MD [address] [place] [address] 05/23/2025 9:00 AM CDT Office [facility] Dermatology [address] [place] [address] [phone] Chitra Peres MD [address] [place] [address] 3 [place] [phone] 07/07/2025 8:30 AM CDT Procedure visit [facility] - Infusion [address] [place] [phone] 02/16/2026 11:00 AM CDT Office [facility] Orthopedics [address] [place] [phone] Kaitlin Cruz MD [address] [place] [address] [address] [place] [phone] 02/20/2026 9:00 AM CDT Office [facility] Ophthalmology [address] [place] [address] [phone] documented as of this encounter Visit Diagnoses Diagnosis Arthralgia, unspecified joint documented in this encounter Additional Health Concerns Infection Onset Date Last Indicated Resolved Time 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 06/22/2017 documented as of this encounter Care Teams Collision Estimator Relationship Specialty Start Date End Date Kevan Rubin MD [facility]. [address] [place] [address] [phone] PCP - General 03/23/16 03/06/21 Hemalatha Tang MD [facility]. [address] [place] [address] PCP - General Family Medicine 03/07/21 documented as of this encounter
--- OUTSIDE RECORDS SUMMARY | 2025-02-27 21:17 | XMS_ITS | Encounter Summary ---
Author Organization [facility] Health Address [address] [place] [address] Care Team Providers Care Tractor Crane Engineer Name Role Phone Kevan Rubin MD Primary Care Provider Hemalatha Tang MD Primary Care Provider [phone] Reason for Visit * Reason Onset Date Comments MEDICATION REFILL 03/30/2020 Encounter Details Date Type Department Care Team (Late st Contact Info) Description 03/30/2020 Refill [facility] [address] [place] [address] Manuel Swartz MD [facility] [address] [address] MEDICATION REFILL Social History Tobacco Use Types Packs/Day Years Used Date Smoking Tobacco: Never Smokeless Tobacco: Never Alcohol Use Standard Drinks/Week Comments No 0 (1 standard drink = 0.6 oz pur e alcohol) Comments No Sex and Gender Information Value Date Recorded Sex Assigned at Female 01/06/2025 9:20 AM TRANSPORT AIRCREWMAN Legal Sex Female 5:15 PM TRANSPORT AIRCREWMAN Gender Identity Female 01/06/2025 9:20 AM TRANSPORT AIRCREWMAN Sexual Orientation Straight 01/06/2025 9: 20 AM TRANSPORT AIRCREWMAN Occupation Industry Job Start Date Job End Date disable Not on file Not on file Not on file documented as of this encounter Plan of Treatment Upcoming Encounters Date Type Department Care Team (Late st Contact Info) Description 03/05/2025 3:00 PM CDT Office Visit [facility] - Neurology [address] [place] [address], [place] [address] Deniz Kofitrell, LITHOGRAPHIC PRESS FEEDER-TRAINING ENGINEER [address] [place] [address] [address] [address] 04/21/2025 9:00 AM CDT [facility] [address] [place] [address] [phone] Sidney oMncada MD [address] [place] [address] 05/23/2025 9:00 AM CDT [facility] Dermatology [address] [place] [address] [phone] Chitra Peres MD [address] [place] [address] 3 [place] [phone] 07/07/2025 8:30 AM CDT Procedure visit [facility] - Infusion [address] [place] [phone] 02/16/2026 11:00 AM CDT Office Visit [facility] - Orthopedics [address] [place] [phone] Kaitlin Cruz MD [address] [place] [address] [address] [place] [phone] 02/20/2026 9:00 AM CDT Office [facility] Ophthalmology [address] [place] [address] [phone] documented as of this encounter Visit Diagnoses Diagnosis Multiple sclerosis (HCC) Multiple sclerosis documented in this encounter Additional Health Concerns Infection Onset Date Last Indicated Resolved Time 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 06/22/2017 documented as of this encounter Care Teams Tractor Crane Engineer Relationship Specialty Start Date End Date Kevan Rubin MD [facility]2 [facility]. [address] [place] [address] [phone] PCP - General 03/23/16 03/06/21 Hemalatha Tang MD [facility]2 [facility]. [address] [place] [address] PCP - General Family Medicine 03/07/21 documented as of this encounter
--- OUTSIDE RECORDS SUMMARY | 2025-02-27 21:17 | XMS_ITS | Encounter Summary ---
Author Organization [facility] Address [facility] [place] [address] Care Team Providers Care Venue Coordinator Name Role Phone Kevan Rubin MD Primary Care Provider Joaquin Merritt MD Unavailable [phone] Encounter Details Date Type Department Care Team (Latest Contact Info) Description 08/03/2018 Abstract [facility] , Edda Sparks MD Social History Tobacco Use Types Packs/Day Years Used Date Smoking Tobacco: Never Smokeless Tobacco: Never Alcohol Use Standard Drinks/Week Comments Yes 0 (1 standard drink = 0.6 oz pur e alcohol) Comments Unknown Sex and Gender Information Value Date Recorded Sex Assigned at Not on file Legal Sex Female 4:08 PM CDT Gender Identity Not on file Sexual Orientation Not on file 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 [facility] [address] [place] [address] [place] [employer] Director INTERVENTIONAL CARDIOLOGY 05/21/18 documented as of this encounter
--- OUTSIDE RECORDS SUMMARY | 2025-02-27 21:17 | XMS_ITS | Clinical Summary ---
Author Organization [facility] [employer] Address [address] [place] [address] Care Team Providers Care Boatwright Name Role Phone Hemalatha Tang MD Primary Care Provider [phone] Source Comments [facility] [employer],non-owned Affiliates and Associated Physician Practices is amultiple site organization consisting of ambulatory clinics and hospital sitesin [place], [place], [place] and [place]. This disclosure is being madepursuant to the Care Everywhere program and may not contain all information available regarding this patient. Last updated 18.[facility] [employer] Allergies Active Allergy Reactions Criticality Noted Date Comments Contrast-Iodinated Agents Fo r Ct/Other Skin Reactions,Rash Medium 03/23/2016 Medications * This document contains information received from the source organization and may not represent a complete record from that organization. * Be aware that medications may not be up to date on this document. Alwaysverify current medications with the patient. Misc. Devices (CANE) MISC Use 1 device DAILY. 1 device 0 11/16/19 17 Active Henderson-3 Fatty Acids (FISH OIL ULTRA) 1400 MG CAPS Take 1,400 Units by mouth 2 times daily Active vitamin D (CHOLECACIFEROL ) 5000 UNITS capsule Take 1 (one) capsule by mouth once daily Active propranolol (INDERAL) 40 MG tablet Take 1 (one) tablet by mouth 2 times daily 02/06/20 21 Active fluticasone propionate (FLONASE) 50 MCG/ACT nasal spray [place] 2 (two) sprays into each nostril once daily 03/18/20 22 Active pantoprazole EC (Protonix) 20 MG tablet Take 1 (one) tablet by mouth 2 times daily 11/22/19 23 Active famotidine (Pepcid) 40 MG tablet Take 1 (one) tablet by mouth once daily 07/26/20 23 Active fenofibrate (Tricor) 145 MG tablet Take 1 (one) tablet by mouth once daily 06/05/20 23 Active loratadine (Claritin) 10 MG tablet Take 1 (one) tablet by mouth once daily as needed for Runny Nose or Allergies 07/27/20 23 Active nystatin (Mycostatin) 860830 UNIT/GM cream Apply to affected area as directed 08/01/20 23 Active SUMAtriptan (Imitrex) 50 MG tabletIndicatio ns:Intractable chronic migraine without aura and without status migrainosus Take 1 (one) tablet by mouth as needed for Migraine (take with onset of headache, can repeat in 2 hours, max of 2 in 24 hours.) 9 tablet 11 11/20/19 24 Active meloxicam (Mobic) 15 MG tablet Take 1 (one) tablet by mouth once daily 04/09/20 24 Active rosuvastatin (Crestor) 5 MG tablet Take 1 (one) tablet by mouth once daily 05/09/20 24 025 Active valsartan (Diovan) 160 MG tablet Take 1 (one) tablet by mouth once daily 04/22/20 24 025 Active nitroGLYCERIN (Nitrostat) 0.4 MG tablet DISSOLVE ONE TABLET UNDER THE TONGUE EVERY 5 MINUTES NEEDED FOR CHEST PAIN. DO NOT EXCEED A TOTAL OF 3 DOSES IN 15 MINUTES. CALL 911 IF PAIN PERSISTS. 04/29/20 24 Active erenumab-aooe (Aimovig) 140 MG/ML auto injector penIndications: Migraine without aura and without status migrainosus, not intractable INJECT 1 ML SUBCUTANEOUSLY ONCE EVERY MONTH 1 mL 11 12/09/19 25 Active buPROPion XL 24hr (Wellbutrin-XL) 150 MG tablet Take 1 (one) tablet by mouth once daily Take 1 (one) tablet by mouth once daily Take with 300 mg for total of 450 mg 90 tablet 2 12/20/19 25 Active buPROPion XL 24hr (Wellbutrin-XL) 300 MG tablet Take 1 (one) tablet by mouth once daily Take 1 (one) tablet by mouth once daily Take with 300 mg for total of 450 mg 90 tablet 2 12/20/19 25 Active sertraline (Zoloft) 100 MG tabletIndicatio ns:Major Depressive Disorder Take 1 (one) tablet by mouth once daily Reasons: Major Depressive Disorder 90 tablet 2 12/20/19 25 Active Calcium Citrate-Vitamin D ([place] Calcium/Vitamin D) 200-6.25 MG-MCG TAKE 2 TABLETS BY MOUTH THREE TIMES DAILY STARTING POST OP DAY 5 01/29/20 25 Active Multiple Vitamins-Minera ls (Cerovite Senior) TABS TAKE 2 TABLETS BY MOUTH ONCE DAILY STARTING POST OP DAY 5 01/30/20 25 Active ursodiol (Actigall) 300 MG capsule TAKE 1 CAPSULE BY MOUTH TWICE DAILY STARTING POST SURGERY 01/29/20 25 Active folic acid (Folvite) 1 MG tablet Take 1 (one) tablet by mouth once daily Active ferrous gluconate 324 (38 Fe) MG tablet Take 1 (one) tablet by mouth once daily Active cyanocobalamin (Vitamin B-12) 500 MCG tablet Take 1 (one) tablet by mouth once daily Active aspirin (Aspirin) 81 MG chew tablet Take 1 (one) tablet by mouth once daily Active omeprazole (PriLOSEC) 20 MG capsule Take 1 (one) capsule by mouth daily before breakfast Active lidocaine (Lidoderm) 5 % patch Apply 1 (one) patch to skin once daily 07/27/20 23 025 Discontin ued(List Clean-Up) losartan (Cozaar) 25 MG tablet Take 1 (one) tablet by mouth once daily 10/04/20 23 025 Discontin ued(List Clean-Up) Rebif 44 MCG/0.5ML prefilled syringeIndicati ons:MS (multiple sclerosis) (HCC),Multiple sclerosis (HCC) INJECT 1 SYRINGE SUBCUTANEOUSLY THREE TIMES A WEEK ON MONDAY, MONDAY AND MONDAY 12 mL 11 02/19/20 24 025 Discontin ued(List Clean-Up) predniSONE (Deltasone) 50 MG tablet Take 1 tab by mouth at 13 hours, 7 hours, and 1-hour before contrast media injection/CT test 04/15/20 24 025 Discontin ued(List Clean-Up) Banophen 25 MG tablet TAKE 2 TABLETS BY MOUTH 1 HOUR BEFORE CONTRAST INJECTION/CT TEST 04/15/20 24 025 Discontin ued(List Clean-Up) fluorouracil (Efudex) 5 % creamIndication s:Actinic keratosis Apply to face twice daily for 2 weeks. 40 g 05/17/20 Discontin ued(List Clean-Up) clindamycin (Cleocin) 1 % lotionIndicatio ns:Other specified follicular disorders Apply to affected area on chest and neck daily. 30 day supply. 60 mL 05/17/20 Discontin ued(List Clean-Up) DULoxetine (Cymbalta) 30 MG capsule Take 1 (one) capsule by mouth once daily 30 capsule 09/23/20 Discontin ued(List Clean-Up) Active Problems Problem Noted Date Diagnosed Date Angina pectoris, unstable 04/01/2024 PLMD (periodic limb movement disorder) 4 Overview (04/18/2024): Last Assessment & Plan: The patient will continue with Lyrica as ordered by primary care History of colon polyps 10/12/2023 11/20/19 24 Iron deficiency anemia 07/26/2023 3 Overview (08/04/2023): Last Assessment & Plan: 06/30/2023 Hgb- 10.5 and HCT of 34.1. 07/03/2023- iron 32 TIBC 526 iron sat 6% EGD and colonoscopy for further evaluation The risks (risks of bleeding, infection, perforation requiring surgery, missed polyps/cancer, dental injury, aspiration pneumonia, anesthesia complications such as drug reaction and cardiopulmonary complications including rare chance of ), benefits, and alternatives of the planned procedure were explained to the patient who understands and consents to having procedure done. S/P shoulder replacement, left 02/15/2023 Osteoarthritis of left glenohumeral joint 2021 Subacromial bursitis of left shoulder joint 12/2021 Calcific tendinitis of right shoulder 07/15/2022 H/O repair of right rotator cuff 07/15/2022 Spontaneous rupture of extensor tendon of right hand 06/09/2022 Overview (09/26/2022): Added automatically from request for surgery [id number] Traumatic hematoma of left hand 05/25/2022 Overview (09/26/2022): Added automatically from request for surgery [id number] Extensor tenosynovitis of left wrist 05/18/2022 Overview (05/23/2022): Last Assessment & Plan: 61 y.o. female w/PMH of HTN, asthma, DEVI, GERD, migraines, multiple sclerosis on INF-beta, rheumatoid arthritis on sulfasalazine, and recent L-dorsal wrist ganglion cyst excision (03/08/22); admitted with L-wrist abscess and tenosynovitis. - CT hand (05/17) showed 4 x 2.1 x 5.3 cm abscess along the dorsal aspect of the wrist and surrounds portions of the extensor digitorum longus tendons. - s/p L-wrist I&D/washout on 05/18/22 --> ...no gross purulence . - L-wrist abscess cx (05/18) (+) for MSSA -suscept pending. Recommendations - please get LFTs, CRP, and ESR at next blood draw - discontinue cefepime and vancomycin - start Clindamycin 450 mg PO every 8, plan is to treat for 2-4 weeks - Thank-you for the opportunity to participate in the care of this patient. Infectious Diseases will sign off and arrange clinic follow-up. Please contact the ID B&J Team Nurse practitioner Tara, 7-3; or the Attending with any questions or concerns. After hours, please contact the ID fellow sr technical sales consultant. Tenosynovitis 05/18/2022 Left hand pain 05/17/2022 Overview (05/23/2022): Last Assessment & Plan: With worsening swelling, pain, warmth My concern is possible cellulitis versus abscess We discussed trying to get a stat CT of her hand, but with her insurance that would be unlikely Given her significant pain, will refer to the ER for further evaluation Reviewed that if this is an abscess or cellulitis, she may be admitted for further treatment Update me after the visit Call for questions or concerns Well adult exam 04/04/2022 08/04/2023 Overview (08/04/2023): Encouraged a healthy diet, and regular physical activity to her level Wear sun screen, seat belts No texting/drinking and driving Health Maintenance: Last PAP: s/p hysterectomy Last mammogram: 07/04- WNL- ordered Last cologuard: 05/2021- Neg Last Tdap: 2019 Last Shingrix: rup to date Last Flu: up to date Last COVID: due booster Last Assessment & Plan: Encouraged a healthy diet, and regular physical activity to her level Wear sun screen, seat belts No texting/drinking and driving Health Maintenance: Last PAP: s/p hysterectomy Last mammogram: 07/04- WNL- ordered Last cologuard: 05/2021- Neg Last Tdap: 2019 Last Shingrix: rup to date Last Flu: up to date Last COVID: due booster Class 1 obesity due to exces s calories without serious comorbidity with body mass index (BMI) of 32.0 to 32.9 in adult 04/04/2022 08/04/2023 Overview (08/04/2023): Last Assessment & Plan: BMI Follow-up includes: nutrition counseling. Cold sore 04/02/2022 Overview (05/23/2022): Last Assessment & Plan: Acute-informed can apply upau-chr-luavsxt Abreva to cold sore as directed. Encouraged to wash hands thoroughly with soap and water after coming in contact with sore. Recommended follow-up next week with PCP if symptoms are not improving. History of COVID-19 12/22/2021 08/04/2023 Overview (08/04/2023): Last Assessment & Plan: Discussed viral nature of illness, treat symptomatically Tylenol/ibuprofen as needed, and can use medicine like mucinex or robitussin to help with the cough Will start tessalon Will start a steroid burst We reviewed treatment options like monoclonal antibodies- she is feeling slightly better. Increase fluids, rest and handwashing Warm saltwater gargles Consider a hot drink with honey Saline rinses to nose at least twice daily Cool mist humidifier May use vicks vaporub on chest and feet as needed to help with cough Please call if symptoms change or worsen, to the ER for anything emergent She can leave quarantine at 5 days masked if she is feeling better. History of basal cell cancer 05/12/2021 Overview (08/11/2021): Last Assessment & Plan: Healing well Continue to follow with Dem Update me with any changes Mammogram declined 01/29/2021 Overview (08/11/2021): Last Assessment & Plan: Encouraged to look into MDD (major depressive disord er), recurrent, in full remission 08/11/2020 Primary osteoarthritis of fi rst carpometacarpal joint of left hand 11/20/2019 Seronegative spondyloarthropathy 07/25/2018 Allergic conjunctivitis 05/25/2018 Intractable chronic migraine without aura and without status migrainosus 03/19/2018 Hypertriglyceridemia 03/12/2018 Hypertriglyceridemia 03/12/2018 08/04/2023 Overview (08/04/2023): Last Assessment & Plan: Chronic, stable ASCVD score 3/1% Continue healthy changes CTS (carpal tunnel syndrome) 12/25/2017 Knee pain, right 12/25/2017 Vitamin D deficiency 12/25/2017 Vitamin D deficiency 12/25/2017 08/04/2023 Overview (08/04/2023): Last Assessment & Plan: Chronic, continue vitamin d Anemia 12/20/2017 Fatigue 12/19/2017 Labyrinthitis 09/13/2017 Heel pain 07/05/2017 Degenerative disc disease, lumbar 05/17/2017 Facet arthritis of lumbar region 05/17/2017 Facet arthritis of lumbar region 05/17/2017 08/04/2023 Overview (08/04/2023): Last Assessment & Plan: Chronic, worse Will do a trial of lidoderm patches Continue nsaid Will place new referral to pain management Continue supportive care Call for questions or concerns Allergic rhinitis 01/05/2017 DEVI (obstructive sleep apnea) 01/05/2017 DEVI (obstructive sleep apnea) 01/05/2017 Overview (08/04/2023): Last Assessment & Plan: The patient was diagnosed DEVI in the past and treated with CPAP. She was intolerant of CPAP at that time. She would like to be re-evaluated and possibly treated with an oral appliance if possible. She will follow-up with me in 6 weeks. Word finding difficulty 11/18/2016 Osteoarthritis of right shoulder 11/10/2016 Migraine with aura and witho ut status migrainosus, not intractable 09/12/2016 Migraine equivalent 09/12/2016 Migraine with aura and witho ut status migrainosus, not intractable 09/12/2016 08/04/2023 Overview (08/04/2023): Last Assessment & Plan: Chronic Continue propranolol Continue healthy habity to decrease migraines Call for questions or concerns Exostosis of right posterior calcaneus 6 Dizziness and giddiness 08/09/2016 Onychomycosis of toenail 08/01/2016 Frequency of micturition 06/28/2016 Subacute on chronic vaginitis 06/28/2016 Chronic vaginitis 06/28/2016 Urinary frequency 06/28/2016 Sleep disturbances 05/31/2016 Obesity 04/05/2016 Multiple sclerosis exacerbation 03/23/2016 Neuromuscular dysfunction of bladder 03/23/2016 Vitamin deficiency 03/23/2016 Neurogenic bladder 03/23/2016 Right shoulder pain 03/04/2016 Anxiety 02/05/2016 Depression 02/05/2016 Essential hypertension 02/05/2016 Fibromyalgia 02/05/2016 Pain, foot, chronic, right 02/05/2016 Migraine headache 02/05/2016 Anxiety 02/05/2016 08/04/2023 Overview (08/04/2023): Last Assessment & Plan: Chronic, stable Continue to follow with her psychiatrist Continue healthy changes Update me if her symptoms change or worsen Essential hypertension 02/05/2016 Overview (08/04/2023): Last Assessment & Plan: Chronic, mildly elevated today, but runs well at home Continue propranolol Continue healthy changes Recheck prior to leaving Fibromyalgia 02/05/2016 08/04/2023 Overview (08/04/2023): Last Assessment & Plan: Chronic Continue cymbalta Continue diclofenac- but we need to be cautious about her blood pressure Update me with any changes or concerns Actinic keratosis 01/21/2016 Insomnia 01/21/2016 Low back pain 01/21/2016 Lumbar radiculopathy 01/21/2016 Vision problems 01/21/2016 Hallux limitus, right 12/23/2015 Overactive bladder 12/23/2015 Encounter for preventive health examination 03/2016 Nocturia 11/17/2015 Numbness 11/17/2015 Subjective visual disturbances 11/17/2015 Gastroesophageal reflux disease 07/13/2015 Multiple sclerosis exacerbation 07/13/2015 Overview (11/19/2019): Overview: Description: >2 clinical attacks seperated in time and space with consistent MRI. Impression: Ms. Mckeon is tolerating Copaxone therapy well. She does have urinary urgency and nocturia. I believe that she has an undiscovered spine lesion that is the cause of her urinary symptoms. It has been almost a year since her last MRI and she was not on therapy most of that time, so I will obtain baseline scans as part of today's visit. I will also check baseline labs for future therapy, including vitamin D. I had an extensive discussion about what MS is and what the symptoms are. I discussed that if she has another attack, we could prescribe steroids to hasten her recovery though it wouldn't affect the eventual amount of recovery. I advised her to call with any concerns about new neurologic symptoms. Urinary urgency 07/13/2015 Gastroesophageal reflux disease 07/13/2015 08/04/2023 Overview (08/04/2023): Last Assessment & Plan: Continue ppi, Pepcid 40mg ordered EGD- The risks (risks of bleeding, infection, perforation requiring surgery, missed polyps/cancer, dental injury, aspiration pneumonia, anesthesia complications such as drug reaction and cardiopulmonary complications including rare chance of ), benefits, and alternatives of the planned procedure were explained to the patient who understands and consents to having procedure done. RECOMMENDATIONS given include: anti-reflux maneuvers, Avoid acidic foods like oranges and tomatoes., avoidance of spicy foods, avoid eating 3-4 hours before bed, elevation of the head of the bed, and weight loss Multiple sclerosis 07/13/2015 08/04/2023 Overview (08/04/2023): Description: >2 clinical attacks seperated in time and space with consistent MRI. Impression: Ms. Mckeon is tolerating Copaxone therapy well. She does have urinary urgency and nocturia. I believe that she has an undiscovered spine lesion that is the cause of her urinary symptoms. It has been almost a year since her last MRI and she was not on therapy most of that time, so I will obtain baseline scans as part of today's visit. I will also check baseline labs for future therapy, including vitamin D. I had an extensive discussion about what MS is and what the symptoms are. I discussed that if she has another attack, we could prescribe steroids to hasten her recovery though it wouldn't affect the eventual amount of recovery. I advised her to call with any concerns about new neurologic symptoms. Last Assessment & Plan: Chronic Continue to follow with neurology- advised to please call their office Update me when she hears back Resolved Problems Problem Noted Date Diagnosed Date Resolved Date Acute conjunctivitis of both eyes 04/02/2022 06/06/2022 Overview (05/23/2022): Last Assessment & Plan: Acute-prescribed Tobrex ophthalmic gtts -two drops both eyes three times daily for 5 days. Encouraged to wash hands thoroughly with soap and water after coming in contact with eyes. Recommended follow-up next week with PCP if symptoms are not improving. Basal cell carcinoma (BCC) o f left side of nose 02/18/2021 02/18/2021 Intractable chronic migraine without aura and without status migrainosus 03/19/2018 07/05/2018 Recurrent major depressive d isorder, in partial remission 03/16/2018 02/19/2020 Migraine equivalent 09/12/2016 11/08/20 18 Dizziness and giddiness 08/09/201610/14 Urinary urgency 06/28/2016 11/08/2018 Sleep disorder 03/23/2016 03/05/2019 Encounters * This document contains information received from the source organization and may not represent a complete record from that organization. Date Type Department Care Team Description 02/21/2025 Telephone [facility] - Rheumatology [address] [place] [phone] Byron Sharpe MD Results 02/19/2025 9:30 AM CDT Office Visit [facility] - Ophthalmology [address] [place] [phone] Dry eye (Primary Dx); Combined forms of age-related cataract of both eyes 02/19/2025 Travel 02/17/2025 1:20 PM CDT Office Visit [facility] - Orthopedics [address] [place] [address], [place] [phone] Kaitlin Cruz MD S/P shoulder replacement, left (Primary Dx) 02/17/2025 12:40 PM CDT - 02/17/2025 11:59 PM CDT Hospital Encounter [facility]IC RAD [address]SM [address] [address] Kaitlin Cruz MD Discharge Disposition: Home or Self Care 02/17/2025 Travel 02/14/2025 Orders Only [facility] - Orthopedics [address] [place] [phone] Kaitlin Cruz MD S/P shoulder replacement, left 02/04/2025 2:50 PM CDT - 02/04/2025 11:59 PM CDT Hospital Encounter [facility] LAB OP DRAW STATION [address] [place] [phone] Unknown, Provider Discharge Disposition: Home or Self Care 02/04/2025 2:00 PM CDT Office Visit [facility] - Rheumatology [address] [place] [phone] Byron Sharpe MD Positive RACHNA (antinuclear antibody) (Primary Dx) 02/04/2025 Travel 01/20/2025 9:00 AM CDT Procedure visit [facility] - Infusion [address] [place] [phone] Multiple sclerosis 01/06/2025 9:00 AM MASTER SHEET CLERK Procedure visit [facility] - Infusion [address] [place] [address] Multiple sclerosis 01/06/2025 Travel 01/06/2025 Telephone [facility] - Neurology [address] [place] [phone] Rosalie Guaman APRN-SECTION GANG WORKER Medication Prior Auth Request (Aimovig renewal) 12/20/2024 Travel 12/17/2024 Telephone [facility] - Neurology [address] [place] [phone] Sidney Moncada MD Care Management (Ocrevus approval) 12/12/2024 Telephone [facility] - Neurology [address] [place] [phone] Sidney Moncada MD Care Management (Peer to peer) 12/10/2024 Travel 12/09/2024 Telephone [facility] - Neurology [address] [place] [phone] Sidney Moncada MD Care Management (Peer to peer scheduled ) 12/09/2024 Refill [facility] - Neurology [address] [place] [phone] Lianet Prescott, SPD MANAGER-SECTION GANG WORKER Refill Request 12/06/2024 Telephone [facility] - Neurology [address] [place] [phone] Sidney Moncada MD Care Management ([place] request) 12/05/2024 [facility] - Neurology [address] [place] [phone] Sidney Moncada MD Medication Prior Auth Request (Ocrevus ( [place] form[place] 12/04/2024 Orders Only [facility] - Infusion [address] [place] [address] Justina John, PharmD 12/03/2024 Telephone [facility] - Neurology [address] [place] [phone] Sidney Moncada MD Order (Ocrevus infusion order) from Last 3 Months Immunizations Immunization Administration Dates Next Due INFLUENZA VACCINE, TRIV. (AF LURIA, FLUZONE TRIVALENT; 6MO+) (IIV3) 08/01/2017 FLU VACCINE TRI IIV3 SPLIT P F IM (FLUVIRIN) 08/21/2024 INFLUENZA VACCINE 09/15/2022, 7,08/01/2017,2015 INFLUENZA VACCINE, QUADR. (F LUZONE; FLULAVAL; FLUARIX; AFLURIA QUADRIVALENT; 6MO+), 0.5 ML (IIV4) 10/03/2023,09/15/2022,08/01/2016 TDAP (7yrs+) 07/08/2019 Zoster Hzv Vacc Recombinant Inj Im 05/11/2023, iNFLUENZA VACCINE, RECOM-HERNANDEZ, QUADR. (FLUBLOCK QUADRIVALENT; 18Y+) (RIV4) 10/25/2021,09/11/2020 Family History Medical History Relation Name Comments Heart Disease Brother 1 High Cholesterol Brother 2 Depression Brother 3 Other Brother 4 Status: d Diabetes Father Heart Disease Father High Cholesterol Father None Known Maternal Aunt None Known Maternal Grandfather None Known Maternal Grandmother None Known Maternal Uncle Cancer Mother Breast Cancer - Breast Mother Depression Mother Heart Disease Mother None Known Other None Known Paternal Aunt None Known Paternal Grandfather None Known Paternal Grandmother None Known Paternal Uncle None Known Sister Asthma Neg Hx CVA Neg Hx Cancer - Other Neg Hx Cancer - Skin, Melanoma Neg Hx Cancer - Skin, Non Melanoma Neg Hx Eczema Neg Hx Hemophilia Neg Hx Psoriasis Neg Hx Relation Name Status Comments Brother 1 Brother 2 Brother 3 Brother 4 Father Maternal Aunt Maternal Grandfather Maternal Grandmother Maternal Uncle Mother Other Paternal Aunt Paternal Grandfather Paternal Grandmother Paternal Uncle Sister Social History Tobacco Use Types Packs/Day Years Used Date Smoking Tobacco: Never Passive Smoke Exposure: Never Smokeless Tobacco: Never Alcohol Use Standard [...] Answer Date Recorded Patient Health Questionnaire-2 Score 1 12/20/2024 Comments No Sex and Gender Information Value Date Recorded Sex Assigned at Female 01/06/2025 9:20 AM MASTER SHEET CLERK Legal Sex Female 5:15 PM MASTER SHEET CLERK Gender Identity Female 01/06/2025 9:20 AM MASTER SHEET CLERK Sexual Orientation Straight 01/06/2025 9: 20 AM MASTER SHEET CLERK Occupation Industry Job Start Date Job End Date disable Not on file Not on file Not on file Last Filed Vital Signs Vital Sign Reading Time Taken Comments Blood Pressure 123/82 01/20/2025 8:42 AM CDT Pulse 71 01/20/2025 8:42 AM CDT Temperature 36.2 C (97.1 F) 02/04/2025 1:52 PM CDT Respiratory Rate 12 01/20/2025 8:42 AM CDT Oxygen Saturation 92% 01/20/2025 8:42 AM CDT Inhaled Oxygen Concentration - - Weight 90.7 kg (200 lb) 02/04/2025 1:52 PM CDT Height 162.6 cm (5' 4.02 ) 02/04/2025 1:52 PM CD T Body Mass Index 34.31 02/04/2025 1:52 PM CDT Plan of Treatment Upcoming Encounters Date Type Department Care Team (Late st Contact Info) Description 03/05/2025 3:00 PM CDT Office Visit [facility] - Neurology [address] [place] [phone] Rosalie Guaman APRN-SECTION GANG WORKER [address] [place] [address] [address] [place] [address] 04/21/2025 9:00 AM CDT Office Visit [facility] - Neurology [address] [place] [phone] Sidney Moncada MD [address] [place] [address] 05/23/2025 9:00 AM CDT Office Visit [facility] - Dermatology [address] [place] [address] [place] [address] Chitra Peres MD [address] [place] [address] 3L [place] [phone] 07/07/2025 8:30 AM CDT Procedure visit [facility] - Infusion [address] [phone] 02/16/2026 11:00 AM CDT Office Visit [facility] - Orthopedics [address] [facility], [place] [phone] Kaitlin Cruz MD [facility]5 [facility] [address] [place] [phone] 02/20/2026 9:00 AM CDT Office Visit [facility] - Ophthalmology [address] [facility], [place] [phone] Health Maintenance Due Date Last Done Comments COLOGUARD (AGES 45-75) - COLON CA SCREENING [address] COLONOGRAPHY - COLON CA SCREENING 1962 FIT - COLON CA SCREENING 1962 FLEX SIG - COLON CA SCREENING 1962 PAP with HPV 1992 PNEUMOCOCCAL VACCINE 50+ (1 of 1 - PCV) 2012 Respiratory Syncytial Virus (RSV) Vaccine Pt: or over 60 yrs (1 - Risk 60-74 years 1-dose series) 2022 COVID-19 VACCINE ( season) 2024 02/11/2021, 01/21/2021 MAMMOGRAM 11/22/2025 11/22/2023, 11/13, 06/16/2022, Additional history exists SCREENING FOR DIABETES 02/05/2028 , 10/25/2024, 02/16/2023, Additional history exists DTAP/TDAP/TD VACCINES (2 - Td or Tdap) 07/08/2029 07/08/2019 COLONOSCOPY - COLON CA SCREENING 01/15/2034 01/16/2024, 10/09/2023 Colorectal Cancer Screening 01/15/2034 HIV SCREENING Completed 01/06/2018 ZOSTER VACCINE Completed 05/11/2023, 09/23/2022 INFLUENZA VACCINE Completed 08/21/2024, , 09/15/2022, Additional history exists HEPATITIS C SCREENING Completed 10/25/2024 , 07/08/2019, 01/06/2018, Additional history exists DEPRESSION SCREENING Completed 12/20/2024, 11/21/2023, 08/22/2023, Additional history exists HEPATITIS B VACCINE Aged Out No longe r eligible based on patient's age to complete this topic HIB VACCINE Aged Out No longer eligi ble based on patient's age to complete this topic HPV VACCINE Aged Out No longer eligi ble based on patient's age to complete this topic MENINGOCOCCAL (Group B) VACCINE SHARED DECISION-MAKING Aged Out No longer eligible based on patient's age to complete this topic MENINGOCOCCAL GROUPS A/C/Y/W VACCINE Aged Out No longer eligible based on patient's age to complete this topic Medical Devices Implanted Type Area Java Sql Developer Device Identifier Shelf Expiration Date Model / Serial / Lot Tuberosity Repair System Implanted:Qty: 1 on 02/15/2023 by Kaitlin Cruz MD at [facility] Left: Shoulder [employer] 09/12/2027 [id number] / / [id number] Cmnt Bone Plc Lv 40gm Lvisc Grn Implanted:Qty: 1 on 02/15/2023 by Kaitlin Cruz MD at [facility] Left: Shoulder Heraeus Kulzer Jelenko 02/10/2025 [id number] / / [id number] Cmpnt Glnd Sm Univers Vaultlock Strl Lf Implanted:Qty: 1 on 02/15/2023 by Kaitlin Cruz MD at [facility] Left: Shoulder [employer] 04/12/2027 AR-9106-01 / / [id number] [place] Humeral Stem Implanted:Qty: 1 on 02/15/2023 by Kaitlin Cruz MD at [facility] Left: Shoulder [employer] 07/16/2023 AR-9100-06 S / / [id number] Humeral Head Implanted:Qty: 1 on 02/15/2023 by Kaitlin Cruz MD at [facility] Left: Shoulder [employer] 10/12/2024 AR-9144-17 P / / [id number] Procedures Procedure Name Priority Date/Time Associated Diagnosis Comments XR SHOULDER LEFT 2VW OR MORE Routine 02/17/2025 12:57 PM CDT S/P shoulder replacement, left DNA ANTIBODY DS CRITHIDIA TITER Routine 02/04/2025 3:48 PM CDT Positive RACHNA (antinuclear antibody) RACHNA HEP-2 IGG BY IFA Routine 02/04/2025 3:48 PM CDT Positive RACHNA (antinuclear antibody) ROYAL/ASSISTANT CLINICAL DIRECTOR (MANOLO) ANTIBODY IGG Routine 02/04/2025 3:48 PM CDT Positive RACHNA (antinuclear antibody) SS-A (SJOGREN'S) 52+60 ANTIBODIES Routine 02/04/2025 3:48 PM CDT Positive RACHNA (antinuclear antibody) CHROMATIN ANTIBODY Routine 02/04/2025 3: 48 PM CDT Positive RACHNA (antinuclear antibody) HISTONE ANTIBODY Routine 02/04/2025 3:48 PM CDT Positive RACHNA (antinuclear antibody) SCLERODERMA 70 (SCL) ANTIBODY Routine 02/04/2025 3:48 PM CDT Positive RACHNA (antinuclear antibody) RNA POLYMERASE III ANTIBODY IGG Routine 02/04/2025 3:48 PM CDT Positive RACHNA (antinuclear antibody) CENTROMERE B ANTIBODIES Routine 02/04/2025 3:48 PM CDT Positive RACHNA (antinuclear antibody) COMPREHENSIVE METABOLIC PANEL Routine 02/04/2025 3:48 PM CDT Positive RACHNA (antinuclear antibody) ERYTHROCYTE SEDIMENTATION RATE Routine 02/04/2025 3:48 PM CDT Positive RACHNA (antinuclear antibody) C-REACTIVE PROTEIN Routine 02/04/2025 3: 48 PM CDT Positive RACHNA (antinuclear antibody) CBC W AUTO DIFFERENTIAL Routine 02/04/2025 3:48 PM CDT Positive RACHNA (antinuclear antibody) SS-B (SJOGREN'S) ANTIBODY Routine 02/04/2025 3:48 PM CDT Positive RACHNA (antinuclear antibody) RHEUMATOID FACTOR BLOOD QUANTITATIVE Routine 02/04/2025 3:48 PM CDT Positive RACHNA (antinuclear antibody) DNA ANTIBODY DOUBLE STRANDED Routine 02/04/2025 3:48 PM CDT Positive RACHNA (antinuclear antibody) CYCLIC CITRUL PEPTIDE ANTIBODY IGG/IGA (CCP) Routine 02/04/2025 3:48 PM CDT Positive RACHNA (antinuclear antibody) RACHNA BLOOD SCREEN W/REFLEX TITER Routine 02/04/2025 3:48 PM CDT Positive RACHNA (antinuclear antibody) HEPATITIS C ANTIBODY Routine 10/25/2024 3:07 PM 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 > Interpreting Provider: Adalberto Alfred MD on 02/17/2025 1:01 PM Narrative 02/17/2025 1:01 PM CDT PROCEDURE: XR SHOULDER LEFT 2VW OR MORE DATE/TIME OF EXAM: 02/17/2025 12:57 PM CLINICAL INFORMATION: None relevant/not provided if blank. Indication: Z96.612: S/P shoulder replacement, left Additional History: COMPARISON: 02/16/2024. FINDINGS: Again demonstrated is total shoulder arthroplasty. The visualized prosthetic components are intact. There is no periprosthetic lucency or fracture. The humeral head is mildly subluxed anteriorly relative to the glenoid. There is mild acromioclavicular degenerative change. Procedure Note Adalberto Alfred MD - 02/17/2025 PROCEDURE: XR SHOULDER LEFT 2VW OR MORE DATE/TIME OF EXAM: 02/17/2025 12:57 PM CLINICAL INFORMATION: None relevant/not provided if blank. Indication: Z96.612: S/P shoulder replacement, left Additional History: COMPARISON: 02/16/2024. FINDINGS: Again demonstrated is total shoulder arthroplasty. The visualized prosthetic components are intact. There is no periprosthetic lucency or fracture. The humeral head is mildly subluxed anteriorly relative to the glenoid. There is mild acromioclavicular degenerative change. IMPRESSION: Total shoulder arthroplasty without complication. > Interpreting Provider: Adalberto Alfred MD on 02/17/2025 1:01 PM Kaitlin Cruz MD DIAGNOSTIC IMAGING ORDERABLES Fi nal Result * RACHNA HEP-2 IGG BY IFA (02/04/2025 3:48 PM CDT) RACHNA HEp-2 IgG <1:80 <1:80 02/06/2025 9:39 PM CDT [facility] ([facility]) RACHNA Interpretive Comment See Note 02/06/2025 9:39 PM CDT [facility] ([facility]) Comment: Antinuclear antibodies by IFA negative for homogeneous, speckled, nucleolar, centromere, and nuclear dots patterns. Cytoplasmic antibodies by IFA negative for reticular/AMA, discrete/GW body-like, polar/golgi-like, rods and rings, and cytoplasmic speckled patterns. INTERPRETIVE INFORMATION: RACHNA Interpretive Comment Presence of antinuclear antibodies (RACHNA) is a hallmark feature of systemic autoimmune rheumatic diseases (SARD). However, RACHNA lacks diagnostic specificity and is associated with a variety of diseases (cancers, autoimmune, infectious, and inflammatory conditions) and may also occur in healthy individuals in varying prevalence. The lack of diagnostic specificity requires confirmation of positive RACHNA by more specific serologic tests. RACHNA (nuclear reactivity) positive patterns reported include centromere, homogeneous, nuclear dots, nucleolar, or speckled. RACHNA (cytoplasmic reactivity) positive patterns reported include reticular/AMA, discrete/GW body-like, polar/golgi-like, cytoplasmic speckled or rods and rings. All positive patterns are reported to endpoint titers (1:2560). Reported patterns may help guide differential diagnosis, although they may not be specific for individual antibodies or diseases. Mitotic staining patterns not reported. Negative results do not necessarily rule out SARD. Performed By: [facility] [address] [id number] Wic Site Coordinator: Doc Antoine MD, PhD CLIA Number: [id number] Blood BLOOD SPECIMEN / Unknown Lab Venipuncture / Unknown 02/04/2025 3:48 PM CDT 02/04/2025 3:55 PM CDT Gregg Zaragoza MD LAB - SEROLOGY ORDERABLES Final Result [facility]) [address] [place] [address], [facility] * SS-A (SJOGREN'S) 52+60 ANTIBODIES (02/04/2025 3:48 PM CDT) SS-A 52 Antibody 2 0 - 40 AU/mL 02/05/2025 11:06 PM CDT [facility] ([facility]) Comment: INTERPRETIVE INFORMATION: SSA-52 (Ro52) (MANOLO) Antibody, IgG 29 AU/mL or Less ............. Negative 30 - 40 AU/mL ................ Equivocal 41 AU/mL or Greater .......... Positive SSA-52 (Ro52) and/or SSA-60 (Ro60) antibodies are associated with a diagnosis of Sjogren syndrome, systemic lupus erythematosus (SLE), and systemic sclerosis. SSA-52 antibody overlaps significantly with the major SSc-related antibodies. SSA-52 (Ro52) antibody occurs frequently in patients with inflammatory myopathies, often in the presence of interstitial lung disease. SS-A 60 Antibody 0 0 - 40 AU/mL 02/05/2025 11:06 PM CDT [facility] ([facility]) Comment: REFERENCE INTERVAL: SSA-60 (Ro60) (MANOLO) Antibody, IgG 29 AU/mL or Less ............. Negative 30 - 40 AU/mL ................ Equivocal 41 AU/mL or Greater .......... Positive Performed By: [facility] [employer] [address] [place] [address] Wic Site Coordinator: Doc Antoine MD, PhD CLIA Number: [id number] Blood BLOOD SPECIMEN / Unknown Lab Venipuncture / Unknown 02/04/2025 3:48 PM CDT 02/04/2025 3:55 PM CDT Gregg Zaragoza MD LAB - CHEMISTRY ORDERABLES Final Result [facility] ([facility]) [address] * ROYAL/ASSISTANT CLINICAL DIRECTOR (MANOLO) ANTIBODY IGG (02/04/2025 3:48 PM CDT) [facility] Royal/ASSISTANT CLINICAL DIRECTOR (MANOLO) Antibody IgG 8 0 - 19 Units 02/06/2025 11:20 PM CDT [facility] ([facility]) Comment: INTERPRETIVE INFORMATION: Royal/ASSISTANT CLINICAL DIRECTOR (MANOLO) Antibody, IgG 19 Units or Less ............. Negative 20 to 39 Units ............... Weak Positive 40 to 80 Units ............... Moderate Positive 81 Units or greater .......... Strong Positive Royal/ASSISTANT CLINICAL DIRECTOR antibodies are frequently seen in patients with mixed connective tissue disease (MCTD) and are also associated with other systemic autoimmune rheumatic diseases (SARDs) such as systemic lupus erythematosus (SLE), systemic sclerosis, and myositis. Antibodies targeting the Royal/ASSISTANT CLINICAL DIRECTOR antigenic complex also recognize Royal antigens, therefore, the Royal antibody response must be considered when interpreting these results. Performed By: [employer] [address] [place] [address] Wic Site Coordinator: Doc Antoine MD, PhD CLIA Number: [id number] Blood BLOOD SPECIMEN / Unknown Lab Venipuncture / Unknown 02/04/2025 3:48 PM CDT 02/04/2025 3:56 PM CDT Gregg Zaragoza MD LAB - CHEMISTRY ORDERABLES Final Result Performing Organization Address [facility] de Phone Number [facility] ([facility]) [address] [place], [place] [address]RUST * CENTROMERE B ANTIBODIES (02/04/2025 3:48 PM CDT) [facility] Centromere B Antibody <0.2 0.0 - 0.9 AI 02/06/2025 11:10 AM CDT [facility] ([facility]) Blood BLOOD SPECIMEN / Unknown Lab Venipuncture / Unknown 02/04/2025 3:48 PM CDT 02/04/2025 3:56 PM CDT Narrative [facility] ([facility]) - 02/06/2025 11:10 AM CDT Performed at: [address] [place], [place] [id number] [place] [id number] Master Dyer: Fernando Rivers PhD, Phone: [phone] us Gregg Zaragoza MD LAB - SEROLOGY ORDERABLES Final Result Performing Organization Address [facility] de Phone Number [facility] ([facility]) [address] [place] [address] * (ABNORMAL) CHROMATIN ANTIBODY (02/04/2025 3:48 PM CDT) Pathologist [facility] Chromatin Antibody 23(H) 0 - 19 Units 02/06/2025 5:06 PM CDT [facility] ([facility]) Comment: INTERPRETIVE INFORMATION: Chromatin Antibody, IgG 19 Units or less: Negative 20 - 60 Units: Moderate Positive 61 Units or greater: Strong Positive The presence of anti-chromatin antibodies may be useful in the diagnosis of systemic lupus erythematosus (SLE) or drug-induced lupus (DIL) and have been reported to be predictive of lupus nephritis, especially when antibody levels are high. Performed by [employer], [address] [place] [address] [email or web address], Williams Hastings MD, Lab. Director CLIA Number: [id number] Blood BLOOD SPECIMEN / Unknown Lab Venipuncture / Unknown 02/04/2025 3:48 PM CDT 02/04/2025 3:56 PM CDT Gregg Zaragoza MD LAB - SEROLOGY ORDERABLES Final Result [facility]) [address] * CYCLIC CITRUL PEPTIDE ANTIBODY IGG/IGA (CCP) (02/04/2025 3:48 PM CDT) CCP Antibodies IgG/IgA 4 0 - 19 units 02/06/2025 1:09 PM CDT [facility] ([facility]) Comment: Negative <20 Weak positive 20 - 39 Moderate positive 40 - 59 Strong positive >59 Blood BLOOD SPECIMEN / Unknown Lab Venipuncture / Unknown 02/04/2025 3:48 PM CDT 02/04/2025 3:56 PM CDT Narrative [facility] ([facility]) - 02/06/2025 1:09 PM CDT Performed at: - [facility] [address] [place], [place] [id number] Master Dyer: eFrnando Rivers PhD, Phone: [phone] Gregg Zaragoza MD LAB - SEROLOGY ORDERABLES Final Result Performing Organization Address City/[facility]/ZIP Co de Phone Number [facility] ([facility]) [address] [place] [address]RUST * RNA POLYMERASE III ANTIBODY IGG (02/04/2025 3:48 PM CDT) RNA Polymerase 3 Antibody IgG 9 0 - 19 Units 02/07/2025 12:15 AM CDT [facility] ([facility]) Comment: INTERPRETIVE INFORMATION: RNA Polymerase III Antibody, IgG 19 Units or less ......Negative 20 - 39 Units .........Weak Positive 40 - 80 Units .........Moderate Positive 81 Units or greater ...Strong Positive The presence of RNA polymerase III IgG antibody, when considered in conjunction with other laboratory and clinical findings, is an aid in the diagnosis of systemic sclerosis (SSc) with increased incidence of skin involvement and renal crisis with the diffuse cutaneous form of SSc. RNA polymerase III IgG antibody occur in about 11-23 percent of SSc patients, and typically in the absence of anti-centromere and anti-Scl-70 antibodies. A negative result indicates no detectable IgG antibodies to the dominant antigen of RNA polymerase III and does not rule out the possibility of SSc. False-positive results may also occur due to non-specific binding of immune complexes. Strong clinical correlation is recommended. If clinical suspicion remains, consider additional testing for other antibodies associated with SSc, including centromere, Scl-70, U3-ASSISTANT CLINICAL DIRECTOR, PM/Scl, or Th/To. Performed by [employer], [address] [place] [address] [email or web address], Williams Hastings MD, Lab. Director [facility] Number: [id number] Blood BLOOD SPECIMEN / Unknown Lab Venipuncture / Unknown 02/04/2025 3:48 PM CDT 02/04/2025 3:55 PM CDT Gregg Zaragoza MD LAB - SEROLOGY ORDERABLES Final Result [employer] [facility]) [address] [place] [address] * DNA ANTIBODY DS CRITHIDIA TITER (02/04/2025 3:48 PM CDT) [facility] dsDNA Antibody IgG <1:10 <1:10 2024 8:58 PM CDT [facility] ([facility]) Comment: INTERPRETIVE INFORMATION: Double-Stranded DNA (dsDNA) Antibody, IgG by IFA (using Crithidia luciliae) Positivity for anti-double stranded DNA (anti-dsDNA) IgG antibody is a diagnostic criterion of systemic lupus erythematosus (SLE). The presence of the anti-dsDNA IgG antibody is identified by IFA titer (Crithidia luciliae indirect fluorescent test [GOPAL'). GOPAL is highly specific for SLE with a sensitivity of 50-60 percent. Some patients with early or inactive SLE may be positive for anti-dsDNA IgG by DAMIEN but negative by GOPAL. If the GOPAL result is negative but the patient has a positive DAMIEN and clinical suspicion remains, consider antinuclear antibody (RACHNA) testing by IFA. Additional information and recommendations for testing may be found at [email or web address]. Performed By: [employer] [address] [place] [address] Wic Site Coordinator: Doc Antoine MD, PhD CLIA Number: [id number] Blood BLOOD SPECIMEN / Unknown Lab Venipuncture / Unknown 02/04/2025 3:48 PM CDT 02/04/2025 3:56 PM CDT us Gregg Zaragoza MD LAB - SEROLOGY ORDERABLES Final Result Performing Organization Address City/[facility]/ZIP Co de Phone Number [facility] ([facility]) [address] [place] [address] * RHEUMATOID FACTOR BLOOD QUANTITATIVE (02/04/2025 3:48 PM CDT) Pathologist [facility] Rheumatoid Factor <15 <30 IU/mL 02/04/2025 4:25 PM CDT [facility] Rheumatoid Factor Screen Negative Negative 02/04/2025 4:25 PM CDT [facility] Blood BLOOD SPECIMEN / Unknown Lab Venipuncture / Unknown 02/04/2025 3:48 PM CDT 02/04/2025 3:55 PM CDT us Gregg Zaragoza MD LAB - CHEMISTRY ORDERABLES Final Result [address] [address], [facility] [phone] * C-REACTIVE PROTEIN (02/04/2025 3:48 PM CDT) C-Reactive Protein <0.5 <=0.5 mg/dL 02/04/2025 4:29 PM CDT [facility] Blood BLOOD SPECIMEN / Unknown Lab Venipuncture / Unknown 02/04/2025 3:48 PM CDT 02/04/2025 3:56 PM CDT Gregg Zaragoza MD LAB - CHEMISTRY ORDERABLES Final Result Performing Organization Address City/[facility]/ZIP Co de Phone Number [facility] [address] [place] [address], [facility] [phone] * (ABNORMAL) RACHNA BLOOD SCREEN W/REFLEX TITER (02/04/2025 3:48 PM CDT) RACHNA IgG Detected (A) None Detected 02/06/2025 5:45 AM CDT [employer] ([facility]) Comment: Antibodies to Anti-Nuclear Antibodies (RACHNA) detected. Additional testing to follow. INTERPRETIVE INFORMATION: Anti-Nuclear Antibodies (RACHNA), IgG by DAMIEN Antinuclear Antibodies (RACHNA), IgG by DAMIEN: RACHNA specimens are screened using enzyme-linked immunosorbent assay (DAMIEN) methodology. All DAMIEN results reported as Detected are further tested by indirect fluorescent assay (IFA) using HEp-2 substrate with an IgG-specific conjugate. The RACHNA DAMIEN screen is designed to detect antibodies against dsDNA, histones, SS-A (Ro), SS-B (La), Royal, Royal/ASSISTANT CLINICAL DIRECTOR, Scl-70, Kiki-1, centromeric proteins, other antigens extracted from the HEp-2 cell nucleus. RACHNA DAMIEN assays have been reported to have lower sensitivities than RACHNA IFA for systemic autoimmune rheumatic diseases (SARD). Negative results do not necessarily rule out SARD. Performed By: [employer] [address] [place] [address] Wic Site Coordinator: Doc Antoine MD, PhD CLIA Number: [id number] Blood BLOOD SPECIMEN / Unknown Lab Venipuncture / Unknown 02/04/2025 3:48 PM CDT 02/04/2025 3:55 PM CDT Gregg Zaragoza MD LAB - CHEMISTRY ORDERABLES Final Result Performing Organization Address City/[facility]/ZIP Co de Phone Number [employer] [facility]) [address] * HISTONE ANTIBODY (02/04/2025 3:48 PM CDT) [facility] Histone Antibody IgG 0.8 0.0 - 0.9 Units 02/08/2025 4:43 PM CDT [facility] ([facility]) Comment: INTERPRETIVE INFORMATION: Histone Ab, IgG 0.9 Units or less ............ Negative 1.0 - 1.5 Units .............. Weak Positive 1.6 - 2.5 Units .............. Moderate Positive 2.6 Units or greater ......... Strong Positive Performed By: [facility] [address] [place] [address] Wic Site Coordinator: Doc Antoine MD, PhD CLIA Number: [id number] Blood BLOOD SPECIMEN / Unknown Lab Venipuncture / Unknown 02/04/2025 3:48 PM CDT 02/04/2025 3:56 PM CDT Gregg Zaragoza MD LAB - CHEMISTRY ORDERABLES Final Result [facility]) [address] * SS-B (SJOGREN'S) ANTIBODY (02/04/2025 3:48 PM CDT) [facility] SS-B Antibody 0 0 - 40 AU/mL 02/05/2025 11:06 PM CDT [facility] ([facility]) Comment: INTERPRETIVE INFORMATION: SSB (La) (MANOLO) Ab, IgG 29 AU/mL or Less ............. Negative 30 - 40 AU/mL ................ Equivocal 41 AU/mL or Greater .......... Positive SSB (La) antibody is seen in 50-60% of Sjogren syndrome cases and is specific if it is the only MANOLO antibody present. 15-25% of patients with systemic lupus erythematosus (SLE) and 5-10% of patients with progressive systemic sclerosis (PSS) also have this antibody. Performed By: [employer] [address] [place] [address] Wic Site Coordinator: Doc Antoine MD, PhD CLIA Number: [id number] Blood BLOOD SPECIMEN / Unknown Lab Venipuncture / Unknown 02/04/2025 3:48 PM CDT 02/04/2025 3:56 PM CDT Gregg Zaragoza MD LAB - CHEMISTRY ORDERABLES Final Result [facility] ([facility]) [address] [place] [address], [facility] [facility] * SCLERODERMA 70 (SCL) ANTIBODY (02/04/2025 3:48 PM CDT) [facility] SCL-70 Antibody 1 0 - 40 AU/mL 02/06/2025 8:10 PM CDT [facility] ([facility]) Comment: INTERPRETIVE INFORMATION: Scleroderma (Scl-70) (MANOLO) Ab, IgG 29 AU/mL or Less ............. Negative 30 - 40 AU/mL ................ Equivocal 41 AU/mL or Greater .......... Positive The presence of Scl-70 antibodies (also referred to as topoisomerase I, cate-I or EVENS) is considered diagnostic for systemic sclerosis (SSc). Scl-70 antibodies alone are detected in about 20 percent of SSc patients and are associated with the diffuse form of the disease, which may include specific organ involvement and poor prognosis. Scl-70 antibodies have also been reported in a varying percentage of patients with systemic lupus erythematosus (SLE). Scl-70 (cate-1) is a DNA binding protein and anti-DNA/DNA complexes in the sera of SLE patients may bind to cate-I, leading to a false-positive result. The presence of Scl-70 antibody in sera may also be due to contamination of recombinant Scl-70 with DNA derived from cellular material used in immunoassays. Strong clinical correlation is recommended if both Scl-70 and dsDNA antibodies are detected. Negative results do not necessarily rule out the presence of SSc. If clinical suspicion remains, consider further testing for centromere, RNA polymerase III and U3-ASSISTANT CLINICAL DIRECTOR, PM/Scl, or Th/To antibodies. Performed By: [employer] [address] [place] [address] Wic Site Coordinator: Doc Antoine MD, PhD CLIA Number: [id number] Blood BLOOD SPECIMEN / Unknown Lab Venipuncture / Unknown 02/04/2025 3:48 PM CDT 02/04/2025 3:56 PM CDT Gregg Zaragoza MD LAB - CHEMISTRY ORDERABLES Final Result [facility]) [address] [place] [address] * (ABNORMAL) DNA ANTIBODY DOUBLE STRANDED (02/04/2025 3:48 PM CDT) [facility] dsDNA Antibody 38(H) 0 - 24 IU 02/06/2025 5:06 PM CDT [facility] ([facility]) Comment: INTERPRETIVE INFORMATION: Double-Stranded DNA (dsDNA) Ab IgG DAMIEN 24 IU or less........Negative 25-30 IU.............Borderline Positive 30-60 IU.............Low Positive 60-200 IU............Positive 201 IU or greater....Strong Positive Positivity for anti-double stranded DNA (anti-dsDNA) IgG antibody is a diagnostic criterion of systemic lupus erythematosus (SLE). Specimens are initially screened by enzyme-linked immunosorbent assay (DAMIEN). If ordered as reflex ([id number]), positive DAMIEN results (>24 IU) will be reflexed to a highly specific IFA titer (Crithidia luciliae indirect fluorescent test [GOPAL') for confirmation. Some patients with early or inactive SLE may be positive for anti-dsDNA IgG by DAMIEN but negative by GOPAL. If the patient is negative by GOPAL but positive by DAMIEN and clinical suspicion remains, consider antinuclear antibody (RACHNA) testing by IFA. Additional information and recommendations for testing may be found at [email or web address]. Performed by [employer], [address] [place] [address] [email or web address], Williams Hastings MD, Lab. Director CLIA Number: [id number] Blood BLOOD SPECIMEN / Unknown Lab Venipuncture / Unknown 02/04/2025 3:48 PM CDT 02/04/2025 3:56 PM CDT us Gregg Zaragoza MD LAB - HEMATOLOGY ORDERABLES Zuleika l Result Performing Organization Address City/[facility]/ZIP Co de Phone Number [facility] ([facility]) [address] [place], [place] [address] * ERYTHROCYTE SEDIMENTATION RATE (02/04/2025 3:48 PM CDT) Erythrocyte Sedimentation Rate Westergren 13 0 - 30 MM/HR 02/04/2025 4:21 PM CDT [facility] Blood BLOOD SPECIMEN / Unknown Lab Venipuncture / Unknown 02/04/2025 3:48 PM CDT 02/04/2025 3:56 PM CDT us Gregg Zaragoza MD LAB - HEMATOLOGY ORDERABLES Zuleika l Result [address] [address] [phone] * (ABNORMAL) CBC WITH DIFFERENTIAL (02/04/2025 3:48 PM CDT) WBC 5.1 4.0 - 10.7 x10E9/L 02/04/2025 4:08 PM CDT [facility] RBC Count 4.68 3.90 - 5.20 x10E12/L 02/04/2025 4:08 PM CDT [facility] Hemoglobin 12.8 11.9 - 15.8 g/dL 02/04/2025 4:08 PM CDT [facility] Hematocrit 38.3 34.8 - 46.1 % 02/04/2025 4:08 PM CDT [facility] MCV 81.8 80.0 - 98.0 fL 02/04/2025 4:08 PM CDT [facility] MCH 27.4 26.7 - 33.6 pg 02/04/2025 4:08 PM [facility] MCHC 33.4 31.7 - 36.3 g/dL 02/04/2025 4:08 PM [facility] RDW-CV 14.9(H) 11.3 - 14.8 % 02/04/2025 4:08 PM [facility] Platelet Count 339 150 - 420 x10E9/L 02/04/2025 4:08 PM [facility] MPV 9.4 7.8 - 11.4 fL 02/04/2025 4:08 PM [facility] Neutrophil % 53.5 41.0 - 74.0 % 02/04/2025 4:08 PM [facility] Lymphocyte % 27.3 17.0 - 47.0 % 02/04/2025 4:08 PM [facility] Monocyte % 9.0 3.0 - 11.0 % 02/04/2025 4:08 PM [facility] Eosinophil % 9.2(H) 0.0 - 7.0 % 02/04/2025 4:08 PM [facility] Basophil % 0.8 0.0 - 1.6 % 02/04/2025 4:08 PM [facility] Immature Granulocytes % 0.2 0.0 - 1.0 % 02/04/2025 4:08 PM [facility] Neutrophil Absolute 2.72 1.60 - 7.50 x10E9/L 02/04/2025 4:08 PM [facility] Lymphocyte Absolute 1.39 1.00 - 4.40 x10E9/L 02/04/2025 4:08 PM [facility] Monocyte Absolute 0.46 0.15 - 1.00 x10E9/L 02/04/2025 4:08 PM [facility] Eosinophil Absolute 0.47 0.00 - 0.60 x10E9/L 02/04/2025 4:08 PM [facility] Basophil Absolute 0.04 0.00 - 0.13 x10E9/L 02/04/2025 4:08 PM CDT [facility] Blood BLOOD SPECIMEN / Unknown Lab Venipuncture / Unknown 02/04/2025 3:48 PM CDT 02/04/2025 3:56 PM CDT Gregg Zaragoza MD LAB - HEMATOLOGY ORDERABLES Zuleika jeremy Result [facility] [address] [place] [address], [facility] [phone] * (ABNORMAL) COMPREHENSIVE METABOLIC PANEL (02/04/2025 3:48 PM CDT) BUN 22 7 - 26 mg/dL 02/04/2025 4:29 PM [facility] Creatinine 0.79 0.56 - 0.96 mg/dL 02/04/2025 4:29 PM [facility] Sodium 140 136 - 145 mmol/L 02/04/2025 4:29 PM [facility] Potassium 3.8 3.5 - 4.5 mmol/L 02/04/2025 4:29 PM [facility] Chloride 107 98 - 107 mmol/L 02/04/2025 4:29 PM [facility] CO2 22 22 - 29 mmol/L 02/04/2025 4:29 PM [facility] Glucose 84 70 - 99 mg/dL 02/04/2025 4:29 PM [facility] Calcium 9.8 8.4 - 10.2 mg/dL 02/04/2025 4:29 PM [facility] Protein Total 7.2 6.0 - 8.3 g/dL 02/04/2025 4:29 PM [facility] Albumin 4.1 3.4 - 5.0 g/dL 02/04/2025 4:29 PM [facility] Bilirubin Total 0.4 0.2 - 1.2 mg/dL 02/04/2025 4:29 PM [facility] Alkaline Phosphatase 60 40 - 150 U/L 02/04/2025 4:29 PM [facility] ALT 27 5 - 55 U/L 02/04/2025 4:29 PM [facility] AST 26 5 - 34 U/L 02/04/2025 4:29 PM [facility] Anion Gap 11 6 - 16 02/04/2025 4:29 PM [facility] BUN/Creatinine Ratio 28(H) 7 - 23 02/04/2025 4:29 PM [facility] Osmolality Calculated 293 275 - 295 mOsm/kg 02/04/2025 4:29 PM [facility] Albumin/Globulin Ratio 1.3 1.1 - 2.3 02/04/2025 4:29 PM [facility] eGFR by CKD-EPI 85(L) >=90 mL/min/1.7 3 m2 02/04/2025 4:29 PM [facility] Blood BLOOD SPECIMEN / Unknown Lab Venipuncture / Unknown 02/04/2025 3:48 PM CDT 02/04/2025 3:56 PM CDT Gregg Zaragoza MD LAB - CHEMISTRY ORDERABLES Final Result Performing Organization Address [facility]/ZIP Co de Phone Number [address] [address], [employer] [phone] * HEPATITIS C ANTIBODY (10/25/2024 3:07 PM MASTER SHEET CLERK) [facility] Hepatitis C Antibody [facility]-react [facility] 10/25/2024 4:37 PM MASTER SHEET CLERK [facility] Comment:Hepatitis C Antibody screen indicates no serologic evidence of past or current infection with Hepatitis C Virus. Patients with unexplained liver disease who are immunocompromised or suspected of having acute Hepatitis C infection may benefit from Nucleic Acid Test (VIVIANA) for Hepatitis C Viral RNA to confirm Hepatitis C status. Blood BLOOD SPECIMEN / Unknown Lab Venipuncture / Unknown 10/25/2024 3:07 PM MASTER SHEET CLERK 10/25/2024 3:42 PM MASTER SHEET CLERK Sidney Moncada MD LAB - CHEMISTRY ORDERABLES Final Result Performing Organization Address City/[facility]/ZIP Co de Phone Number [address] [address], [employer] [phone] * HIV-1 HIV-2 ANTIGEN/ANTIBODY (01/06/2018 11:09 AM MASTER SHEET CLERK) HIV Antigen/Antibody 4th Generation NON-REACT DAVID NON-REACT DAVID [facility]) Comment: HIV-1 antigen and HIV-1/HIV-2 antibodies were not detected. There is no laboratory evidence of HIV infection. PLEASE NOTE: This information has been disclosed to you from records whose confidentiality may be protected by state law. If your state requires such protection, then the state law prohibits you from making any further disclosure of the information without the specific written consent of the person to whom it pertains, or as otherwise permitted by law. A general authorization for the release of medical or other information is NOT sufficient for this purpose. For additional information please refer to http://education.Hedvig/faq/IPD431 (This link is being provided for informational/ educational purposes only.) The performance of this assay has not been clinically validated in patients less than 2 years old. Test Performed at: [facility] [address] [place] [address] NAKIA BURGOS DO,MPH 01/06/2018 11:0 9 AM MASTER SHEET CLERK 01/06/2018 11:09 AM MASTER SHEET CLERK Lianet Prescott APRN-SECTION GANG WORKER LAB - HEMATOLOGY ORDER WILLIAM Edited Result - Final [place] ([facility]) [id number] from Last 3 Months or Most Recently Relevant to Health Maintenance Additional Health Concerns Infection Onset Date Last Indicated 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 06/22/2017 Insurance [facility] Advance Directives * Full Code (Latest Code Status on File) Date Activated Date Inactivated Comments 02/15/2023 12:22 PM 02/16/2023 6:13 PM Care Teams Boatwright Relationship Specialty Start Date End Date Hemalatha Tang MD PCP - General Family Medicine 03/07/21
--- OUTSIDE RECORDS SUMMARY | 2025-02-27 21:17 | XMS_ITS | Clinical Summary ---
Author Organization [facility] Address [address] [place] [address] Care Team Providers Care Clinical Instructor Name Role Phone Kevan Rubin MD Primary Care Provider Joaquin Merritt MD Unavailable [phone] Allergies Active Allergy Reactions Criticality Noted Date Comments Gadolinium Derivatives Diarrhea,Other (s ee comment) Medium 03/23/2016 fever Iodinated Contrast Media Rash,Other (see comment) Medium 03/23/2016 Iodine Unknown 02/05/2016 Iohexol Rash Medium 03/23/2016 Povidone Iodine Other (see comment) Low 08/23/2016 Burning Burning Burning Medications buPROPion 24 hr 150 MG 24 hr tablet Take 3 tablets (450 mg total) by mouth every morning. 05/31/2018 Active hydrocodone-dalia taminophen 5-325 MG tablet Take 1 tablet by mouth every 8 (eight) hours as needed for Pain. 05/31/2018 Active hydroxychloroqu ine 200 MG tablet Take 1 tablet (200 mg total) by mouth 2 (two) times daily. 05/31/2018 Active hydrOXYzine 25 MG tablet Take 1 tablet (25 mg total) by mouth 3 (three) times daily. 05/31/2018 Active Interferon Beta-1a 44 MCG/0.5ML Solution Prefilled Syringe Inject 44 mcg into the skin. Three times a week 05/31/2018 Active sertraline 100 MG tablet Take 1.5 tablets (150 mg total) by mouth daily. 05/31/2018 Active sulfaSALAzine 500 MG tablet Take 3 tablets (1,500 mg total) by mouth 2 (two) times daily. 05/31/2018 Active vitamin D3, cholecalciferol , 5000 UNITS capsule Take 1 capsule (5,000 Units total) by mouth daily. 05/31/2018 Active Misc. Devices (CANE) Misc 1 Device by Does not apply route. 11/16/2016 Active SUMAtriptan 50 MG tablet Take 50 mg by mouth. 10/09/2017 Active amphetamine-dex troamphetamine 20 MG tablet Take 20 mg by mouth. 05/14/2019 Active Erenumab-aooe 70 MG/ML Solution Auto-injector Inject 70 mg into the skin every 30 (thirty) days. 04/05/2019 Active diclofenac sodium 1 % gel Apply 4 g topically. 03/26/2019 Active onabotulinumtox Willi 100 units injection Inject 200 Units into the muscle every 3 (three) months. 09/14/2018 Active promethazine 25 MG tablet Take 25 mg by mouth every 6 (six) hours as needed. 04/05/2019 Active amphetamine-dex troamphetamine 30 MG tablet Take 30 mg by mouth. 06/19/2019 Active buPROPion XL 300 MG 24 hr tablet 07/03/2019 Active diclofenac EC 75 MG tablet Take 75 mg by mouth 2 (two) times daily. 06/06/2019 Active hydrocodone-dalia taminophen 7.5-325 MG tablet 03/30/2019 Active Interferon Beta-1a (REBIF) 44 MCG/0.5ML Solution Prefilled Syringe Inject 44 mcg into the skin. 04/15/2019 Active Misc. Devices (CANE) Misc 1 Device by Does not apply route. 11/16/2016 Active [place]-3 Fatty Acids (FISH OIL ULTRA) 1400 MG Cap Take 1,400 Units by mouth 2 (two) times daily. Active terbinafine 250 MG tabletIndicatio ns:Onychomycosi s of toenail Take 1 tablet (250 mg total) by mouth daily. 28 tablet 2 07/08/2019 Active pantoprazole EC 20 MG tabletIndicatio ns:GERD (gastroesophage al reflux disease) Take 1 tablet (20 mg total) by mouth 2 (two) times daily. 30 tablet 11/12/2020 Active Active Problems Problem Noted Date Diagnosed Date Seronegative spondyloarthropathy 07/25/2018 Allergic conjunctivitis 05/25/2018 Intractable chronic migraine without aura and without status migrainosus 03/19/2018 Hypertriglyceridemia 03/12/2018 CTS (carpal tunnel syndrome) 12/25/2017 Knee pain, right 12/25/2017 Vitamin D deficiency 12/25/2017 Anemia, mild 12/20/2017 Fatigue 12/19/2017 Labyrinthitis 09/13/2017 Heel pain 07/05/2017 Degenerative disc disease, lumbar 05/17/2017 Facet arthritis of lumbar region 05/17/2017 Allergic rhinitis 01/05/2017 DEVI (obstructive sleep apnea) 01/05/2017 Word finding difficulty 11/18/2016 Osteoarthritis of right shoulder 11/10/2016 Multiple sclerosis exacerbation ([facility] ) 10/01/2016 Migraine equivalent 09/12/2016 Exostosis of right posterior calcaneus 6 Dizziness and giddiness 08/09/2016 Onychomycosis of toenail 08/01/2016 Frequency of micturition 06/28/2016 Sleep disturbances 05/31/2016 Obesity 04/05/2016 MS (multiple sclerosis) ([facility]) 2015 Neurogenic bladder 03/23/2016 Neuromuscular dysfunction of bladder 03/23/2016 Sleep disorder 03/23/2016 Vitamin deficiency 03/23/2016 Right shoulder pain 03/04/2016 Acute renal insufficiency 03/03/2016 Anxiety 02/05/2016 Depression 02/05/2016 Fibromyalgia 02/05/2016 Hypertension 02/05/2016 Pain, foot, chronic, right 02/05/2016 Migraine headache 02/05/2016 Actinic keratosis 01/21/2016 Insomnia 01/21/2016 Low back pain 01/21/2016 Lumbar radiculopathy 01/21/2016 Vision problems 01/21/2016 Gastroesophageal reflux disease 12/23/2015 Hallux limitus, right 12/23/2015 Overactive bladder 12/23/2015 Multiple sclerosis ([facility]) 12/23/2015 Anemia Essential hypertension Resolved Problems Problem Noted Date Diagnosed Date Resolved Date Encounter for preventive health examination 12/18/2015 07/24/2020 Immunizations Immunization Administration Dates Next Due Influenza (Generic) 10/25/2021,,08/01/2017,2015 Influenza Adult (Generic) 09/15/2022,08/01/2017, 08/01/2016 PFIZER COVID-19 (ORIGINAL FORMULATION, PURPLE CAP) mRNA, LNP-S, PF, 30 MCG/0.3 ML DOSE 02/11/2021,01/21/2021 Shingrix 09/23/2022 Tdap (Historical Only-select from magnify glass) 07/08/2019 Family History Medical History Relation Comments Heart Attack Brother Aneurysm Father Heart Attack Father Heart Attack Mother Open Heart Mother Relation Status Comments Brother (Age 45) Father Mother (Age 66) Social History Tobacco Use Types Packs/Day Years Used Date Smoking Tobacco: Never Smokeless Tobacco: Never Alcohol Use Standard Drinks/Week Comments No 0 (1 standard drink = 0.6 oz pur e alcohol) AUDIT-C Answer Date Recorded Frequency of Alcohol Consumption Never 01/30/2019 Average Number of Drinks Not on file 019 Frequency of Binge Drinking Not on file 01/12 Comments No Sex and Gender Information Value Date Recorded Sex Assigned at Not on file Legal Sex Female 4:08 PM CDT Gender Identity Not on file Sexual Orientation Not on file 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 Not on file Not on file Not on devon e Last Filed Vital Signs Vital Sign Reading Time Taken Comments Blood Pressure 132/84 07/08/2019 9:55 AM CDT Pulse 106 07/08/2019 9:55 AM CDT Temperature 36.8 C (98.3 F) 07/08/2019 9:55 AM CDT Respiratory Rate 16 07/08/2019 9:55 AM CDT Oxygen Saturation 93% 07/08/2019 9:55 AM CDT Inhaled Oxygen Concentration - - Weight 88.8 kg (195 lb 12.8 oz) 07/08/2019 9:55 AM CDT Height 162.6 cm (5' 4 ) 06/19/2019 8:45 AM CDT Body Mass Index 33.61 06/19/2019 8:45 AM CDT Plan of Treatment Health Maintenance Due Date Last Done Comments Annual Physical 1963 Pneumococcal Vaccine: 50+ Years (1 of 1 - PCV) 2012 RSV Immunization or 60+ Years (1 - Risk 60-74 years 1-dose series) 2022 Zoster Vaccines (2 of 2) 11/18/2022 09/23/2022 Colorectal Cancer Screening Colonoscopy (10 Years) 04/11/2023 04/11/2013 Mammogram Screening 06/16/2024 06/16/2022, 12/14/2016 COVID-19 Vaccine (4 - 2023-2 5 season) 2024 09/23/2022, 02/11/2021, 01/21/2021 DTaP, Tdap and Td Vaccines ( 2 - Td or Tdap) 07/08/2029 07/08/2019 Hepatitis C Completed 07/08/2019 Meningococcal B Vaccine Aged Out No l onger eligible based on patient's age to complete this topic Meningococcal Vaccine Aged Out No angelo jose eligible based on patient's age to complete this topic RSV Immunizations Under 20 Months Aged Out No longer eligible b ased on patient's age to complete this topic Procedures Procedure Name Priority Date/Time Associated Diagnosis Comments MAMMOGRAM GENERIC (SCAN ORDER) Routine 06/16/2022 HEPATITIS C ANTIBODY Routine 07/08/2019 10:19 AM CDT Need for hepatitis C screening test COLONOSCOPY Routine 04/11/2013 12:00 AM CDT from Last 3 Months or Most Recently Relevant to Health Maintenance Results * MAMMOGRAM (06/16/2022) Anatomical Region Laterality Modality Other us Doc Med Group Scanned SCANNING Final Resu lt * HEPATITIS C ANTIBODY (07/08/2019 10:19 AM CDT) HEPATITIS C AB NON-REACT DAVID NON-REACT DAVID [facility] SIGNAL TO CUTOFF 0.01 <1.00 [facility] Comment: HCV antibody was non-reactive. There is no laboratory evidence of HCV infection. In most cases, no further action is required. However, if recent HCV exposure is suspected, a test for HCV RNA (test code 01134) is suggested. For additional information please refer to http://education.SecureAuth/faq/LKM14r4 (This link is being provided for informational/ educational purposes only.) 07/08/2019 10:1 9 AM CDT 07/09/2019 4:51 AM CDT Narrative Resulting Agency Comment Performing Organization Information: Site ID: [id number] Name: [facility] Address: [address] [address] Director: Keo Thomas D.O., MPH us Kevan Rubin MD LABORATORY Final R esult [facility] * Colonoscopy (04/11/2013 12:00 AM CDT) 04/11/2013 04/11/2013 Narrative TOUCHWORKS TO EPIC CONVERSION - 05/11/2018 8:53 AM CDT normal Procedure Note Edda Castaneda MD - 02/26/2019 normal Generic Conversion Md [facility] GI PROCEDURE ORDERABLES Final Result Performing Organization Address City/[facility] Co de Phone Number TOUCHWORKS TO EPIC CONVERSION from Last 3 Months or Most Recently Relevant to Health Maintenance Additional Health Concerns Infection Onset Date Last Indicated MRSA 06/22/2017 06/22/[address] [place] [address] [address] [place] [address] Care Teams Clinical Instructor Relationship Specialty Start Date End Date Kevan Rubin MD [address] [facility] [address] [place] [address] PCP - General 03/07/17 Joaquin Merritt MD [facility]. [facility] [address] [place] [address] [employer]by Treasury Accountant INTERVENTIONAL CARDIOLOGY 05/21/18
--- OUTSIDE RECORDS SUMMARY | 2025-02-27 21:17 | XMS_ITS | Encounter Summary ---
Author Organization [facility] Address [address] [place] [address] Care Team Providers Care Security Expert Name Role Phone Kevan Rubin MD Primary Care Provider Britany Poole [facility] Hemalatha Tang MD Primary Care Provider [phone] Reason for Visit * Reason Onset Date Comments MEDICATION REFILL 03/14/2018 Encounter Details Date Type Department Care Team (Late Contact Info) Description 03/14/2018 Refill [facility] [address] [place] [address] Chayo Regan MEDICATION REFILL Social History Tobacco Use Types Packs/Day Years Used Date Smoking Tobacco: Never Smokeless Tobacco: Never Alcohol Use Standard Drinks/Week Comments No 0 (1 standard drink = 0.6 oz pur e alcohol) Comments No Sex and Gender Information Value Date Recorded Sex Assigned at Female 01/06/2025 9:20 AM [employer] MECHANIC Legal Sex Female 5:15 PM [employer] G[employer] MECHANIC Gender Identity Female 01/06/2025 9:20 AM [employer]CADE G[employer] MECHANIC Sexual Orientation Straight 01/06/2025 9: 20 AM [employer]CADE GAMES MECHANIC documented as of this encounter Plan of Treatment Upcoming Encounters Date Type Department Care Team (Late Contact Info) Description 03/05/2025 3:00 PM CDT Office Visit [facility] - Neurology [address] [place] [address], [place] [address] Deniz Kofitrell, SURFBOARD MAKER[employer] [address] [place] [address] [address] [phone] 04/21/2025 9:00 AM CDT Office Visit [facility] - Neurology [address] [place] [phone] Sidney Moncada MD [address] [place] [address] 05/23/2025 9:00 AM CDT Office Visit [facility] - Dermatology [address] [place] [phone] Chitra Peres MD [address] [place] [address] [address] [place] [phone] 07/07/2025 8:30 AM CDT Procedure visit [facility] - Infusion [address] [place] [phone] 02/16/2026 11:00 AM CDT Office Visit [facility] - Orthopedics [address] [place] [phone] Kaitlin Cruz MD [address] [place] [address] [address] [place] [phone] 02/20/2026 9:00 AM CDT Office Visit [facility] - Ophthalmology [address] [place] [phone] documented as of this encounter Visit Diagnoses Not on filedocumented in this encounter Additional Health Concerns Infection Onset Date Last Indicated Resolved Time 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 06/22/2017 documented as of this encounter Care Teams Security Expert Relationship Specialty Start Date End Date Kevan Rubin MD [address] [facility] [place] [address] PCP - General 03/23/16 03/06/21 Hemalatha Tang MD PCP - General Family Medicine 03/07/21 Britany Poole Customer Relations Representative Psychiatry 03/16/18 11/07/18 documented as of this encounter
--- OUTSIDE RECORDS SUMMARY | 2025-02-27 21:17 | XMS_ITS | Clinical Summary ---
Author Organization [facility] Address [address] [place] [address] Phone Care Team Providers Care Curator Of Photography And Prints Name Role Phone CORIE CASTANEDA, MELVIN Loza Primary Care Provider [phone] Reason for Visit and Chief Complaint POST [...] On 05/08/2024 9:48AM By Radha BOWLES ; [facility] Vitamin D3 125 MCG (5000 UT) Oral Capsule 05/08/2024 Provider: Diagnosis: Last Documented On 05/08/2024 9:47AM By Radha BOWLES ; [facility] Aspir-Low 81 MG Oral Tablet Delayed Release 05/08/2024 Provider: Diagnosis: Last Documented On 05/08/2024 9:41AM By Radha BOWLES ; [facility] Tricor 145 MG Oral Tablet 05/08/2024 Provider: Diagnosis: Last Documented On 05/08/2024 9:43AM By Radha BOWLES ; [facility] Nitroglycerin 0.4 MG Sublingual Tablet Sublingual 04/13 Provider: Diagnosis: Last Documented On 05/08/2024 9:42AM By Radha BOWLES ; [facility] buPROPion HCl ER (XL) 150 MG Oral Tablet Extended Release 24 Hour 04/29/2024 Provider: Diagnosis: Last Documented On 05/08/2024 9:46AM By Radha BOWLES ; [facility] Loratadine 10 MG Oral Tablet 04/27/2024 Provider: MELVIN FONTENOT MD Diagnosis: Last Documented On 05/08/2024 9:45AM By Radha BOWLES ; [facility] Pantoprazole Sodium 20 MG Or al Tablet Delayed Release 04/24/2024 Provider: MELVIN Gibson MD Diagnosis: Last Documented On 05/08/2024 9:43AM By Radha BOWLES ; [facility] Valsartan 160 MG Oral Tablet 04/23/2024 Provider: Diagnosis: Last Documented On 05/08/2024 9:42AM By Radha BOWLES ; [facility] Sertraline HCl 100 MG Oral Tablet 04/22/2024 Provide r: Diagnosis: Last Documented On 05/08/2024 9:41AM By Radha BOWLES ; [facility] hydrOXYzine HCl 25 MG Oral Tablet 04/12/2024 Provide r: Diagnosis: Last Documented On 05/08/2024 9:40AM By Radha BOWLES ; [facility] Pregabalin 200 MG Oral Capsule 04/11/2024 Provider: CASH Blanchard Diagnosis: Radiculopathy, l umbar region Take 1 capsule by mouth twice daily Last Documented On 10:16AM By [facility] ; [facility] Meloxicam 15 MG Oral Tablet 03/13/2024 Provider: CASH BILL Diagnosis: Other spondylosi s with radiculopathy, lumbar region One tablet daily Last Documented On 9:43AM By CASH BILL ; [facility] buPROPion HCl ER (XL) 300 MG Oral Tablet Extended Release 24 Hour 02/13/2024 Provider: Diagnosis: Last Documented On 05/08/2024 9:46AM By Radha BOWLES ; [facility] DULoxetine HCl 30 MG Oral Capsule Delayed Releas e Particles 02/13/2024 Provider: Diagnosis: Last Documented On 05/08/2024 9:44AM By Radha BOWLES ; [facility] Fluticasone Propionate 50 MC G/ACT Nasal Suspension 02/06/2024 Provider: MELVIN Gibson MD Diagnosis: Last Documented On 05/08/2024 9:44AM By Radha BOWLES ; [facility] Lidocaine 5% External Patch 10/16/2023 Provider: MELVIN FONTENOT MD Diagnosis: Last Documented On 10/20/2023 9:59AM By Radha BOWLES ; [facility] Nystatin 450188 UNIT/GM External Cream 10/10/2023 Pr ovider: Diagnosis: Last Documented On 3 10:00AM By Radha BOWLES ; [facility] DULoxetine HCl 60 MG Oral Capsule Delayed Releas e Particles 07/27/2023 Provider: Diagnosis: one cap by mouth daily Last Documented On 3 3:08PM By Dortohy Dyson LPN ; [facility] Propranolol HCl 40 MG Oral Tablet 07/27/2023 Provide r: Diagnosis: BID Last Documented On 3 3:16PM By Dorothy Dyson LPN ; [facility] SUMAtriptan Succinate 50 MG Oral Tablet 07/27/2023 P rovider: Diagnosis: prn Last Documented On 3 3:15PM By Dorothy Dyson LPN ; [facility] Rebif 44 MCG/0.5ML Subcutaneous Solution Prefilled Syr luzma 07/27/2023 Provider: Diagnosis: 3 x's weekly Last Documented On 3 3:13PM By Dorothy Dyson LPN ; [facility] Aimovig 140 MG/ML Subcutaneous Solution Auto-injector 07/27/2023 Provider: Diagnosis: q 30 days Last Documented On 3 3:09PM By Dorothy Dyson LPN ; [facility] Medications Administered Includes: Administered Medications from this encounter No Administered Medications Recorded Results Includes: Results discussed during this encounter No Results Recorded For Specified Dates History of Present Illness Includes: History of Present Illness from this encounter No History of Present Illness Recorded Social History Description Last Updated Tobacco non-user 01/25/2024 Last Documented On 4 10:42AM ; [facility] Smoking Status Unknown Medical History Includes: Medical History addressed during this encounter Description Last Updated Has had a fall in the last 12 months. Domingo s falls quite often Has DX of MS 08/25/2023 Last Documented On 4 10:42AM ; [facility] Family History Includes: Family History addressed during [...] Diagnosis POST PROCEDURE PHONE CALL CASH OLIVER-RICARDO 01/15/2024 10:41AM 11:59PM Insurance Includes: Active Insurance Policies Plan Name Member ID Group # Subscriber Relationship Effect rosi Dates - [facility] [id number] CHARLES NUNEZ [facility] Clinical Notes Includes: Clinical Notes from this encounter * Progress note Date Encounter Last Documented by 01/15/2024 POST PROCEDURE PHONE CALL Last d ocumented on 01/15/2024; 10:43 AM, Kenya Aquino RN; [facility] Top of Document Post-Procedural Patient Screening Questionnaire Date of Procedure: 01/15/24 Procedure: Bilateral L4-5 TFESI 1. How have you felt since your last procedure? Haven't noticed much of a difference yet Improved Same Worse 2. Pain level prior to procedure? 02/20 3. Pain level currently? 02/20 4. How long after procedure did symptoms begin? Denies Same pain but worse New Symptoms ? If new, describe: Improving Staying the same Getting worse 5. Any post procedure issues with injection? Denies Heat Swelling Soreness Redness Streaking Injection site pain Bleeding Discharge/Drainage 6. Are you experiencing new numbness in the groin or saddle area? Yes No 7.New loss of bowel or bladder control? Yes No 8. Are you having any of the following symptoms? Denies Fever Chills Night Sweats Rigors/Shaking Chills Headaches Neck Stiffness Sensitivity to sound New muscle pain/Stiffness Weakness Nausea Vomiting Diarrhea Dizziness Rash Flushing Mood Irritability Blood Pressure changes Blood sugar changes Completed by Chemo Aquino RN On 01/15/24 Past Medical/Surgical History Reported: Physical Trauma: Has had a fall in the last 12 months. Has falls quite often Has DX of MS. Current Medication - Aimovig 140 MG/ML Subcutaneous Solution Auto-injector q 30 days, 0 days, 0 refills - Amphetamine-Dextroamphetamine 20 MG Oral Tablet One tablet three times a day 30 days, 0 refills - buPROPion HCl ER [...] daily 30 days, 0 refills - Nystatin 251907 UNIT/GM External Cream as directed 30 days, 0 refills - Pantoprazole Sodium 20 MG Oral Tablet Delayed Release bid, 0 days, 0 refills - Pregabalin 150 MG Oral Capsule Take 1 capsule by mouth twice daily, 30 days, 2 refills - Pregabalin 200 MG Oral Capsule [...] Assess Need for CT Lung Screen satisfied 01/15/2024. - Assess Tobacco Use satisfied 01/15/2024.
--- OUTSIDE RECORDS SUMMARY | 2025-02-27 21:17 | XMS_ITS ---
Author Organization [facility] Address [address] [place] [address] Phone Care Team Providers Care Surveyor Mine Name Role Phone CORIE CASTANEDA, MELVIN Loza Primary Care Provider [phone] Plan of Treatment No Plan of Treatment Recorded Assessments Includes: Assessments for all patient encounters Findings Encounter Date Chronic pain syndrome PAIN MANAGEMENT FO LLOW UP with CASH L KIRBY [facility] 03/13/2024 Last Documented On 4 9:58AM ; [facility] Fibromyalgia PAIN MANAGEMENT FOLLOW UP with T TRACY L KIRBY [facility] 03/13/2024 Last Documented On 4 9:58AM ; [facility] Generalized multiple sclerosis PAIN KATHY GEMENT FOLLOW UP with CASH L KIRBY [facility] 03/13/2024 Last Documented On 4 9:58AM ; [facility] Lumbar radiculopathy PAIN MANAGEMENT FOL LOW UP [facility] 03/13/2024 Last Documented On 4 9:58AM ; [facility] Lumbar spondylosis with radiculopathy PA IN MANAGEMENT FOLLOW UP with CASH L KIRBY [facility] 03/13/2024 Last Documented On 4 9:58AM ; [facility] Lumbar stenosis with neuroge samson claudication PAIN MANAGEMENT FOLLOW UP with CASH L KIRBY [facility] 03/13/2024 Last Documented On 4 9:58AM ; [facility] Synovitis of other site CHART UPDATE with CASH L KIRBY [facility] 02/26/2024 Last Documented On 4 11:39AM ; [facility] Tenosynovitis of other site CHART UPDATE with TA MMIE L KIRBY [facility] 02/26/2024 Last Documented On 4 11:39AM ; [facility] Chronic pain syndrome PAIN MANAGEMENT FO LLOW UP with CASH L KIRBY [facility] 01/25/2024 Last Documented On 4 10:11AM ; [facility] Fibromyalgia PAIN MANAGEMENT FOLLOW UP with T TRACY L KIRBY [facility] 01/25/2024 Last Documented On 4 10:11AM ; [facility] Generalized multiple sclerosis PAIN KATHY GEMENT FOLLOW UP with CASH L KIRBY [facility] 01/25/2024 Last Documented On 4 10:11AM ; [facility] Lumbar radiculopathy PAIN MANAGEMENT FOL LOW UP with CASH L KIRBY [facility] 01/25/2024 Last Documented On 4 10:11AM ; [facility] Lumbar spondylosis with radiculopathy PA IN MANAGEMENT FOLLOW UP with CASH L KIRBY [facility] 01/25/2024 Last Documented On 4 10:11AM ; [facility] Lumbar stenosis with neuroge samson claudication PAIN MANAGEMENT FOLLOW UP with CASH L KIRBY [facility] 01/25/2024 Last Documented On 4 10:11AM ; [facility] Chronic pain syndrome PAIN MANAGEMENT FO LLOW UP with CASH L KIRBY [facility] 12/18/2023 Last Documented On 4 9:50AM ; [facility] Fibromyalgia PAIN MANAGEMENT FOLLOW UP with T TRACY L KIRBY [facility] 12/18/2023 Last Documented On 4 9:50AM ; [facility] Generalized multiple sclerosis PAIN KATHY GEMENT FOLLOW UP with CASH L KIRBY [facility]P-[facility] 12/18/2023 Last Documented On 4 9:50AM ; [facility] Lumbar radiculopathy PAIN MANAGEMENT FOL LOW UP with CASH L KIRBY [facility]P-[facility] 12/18/2023 Last Documented On 4 9:50AM ; [facility] Lumbar spondylosis with radiculopathy PA IN MANAGEMENT FOLLOW UP with CASH L KIRBY [facility]P-[facility] 12/18/2023 Last Documented On 4 9:50AM ; [facility] Lumbar stenosis with neuroge samson claudication PAIN MANAGEMENT FOLLOW UP with CASH L KIRBY [facility]P-[facility] 12/18/2023 Last Documented On 4 9:50AM ; [facility] Chronic pain syndrome PAIN MANAGEMENT FO LLOW UP with CASH L KIRBY [facility] 10/20/2023 Last Documented On 3 11:14AM ; [facility] DORSALGIA PAIN MANAGEMENT FOLLOW UP with T TRACY L KIRBY [facility] 10/20/2023 Last Documented On 3 11:14AM ; [facility] Fibromyalgia PAIN MANAGEMENT FOLLOW UP with T TRACY L [facility] 10/20/2023 Last Documented On 3 11:14AM ; [facility] Generalized multiple sclerosis PAIN KATHY GEMENT FOLLOW UP with CASH L KIRBY [facility] 10/20/2023 Last Documented On 3 11:14AM ; [facility] Lumbar radiculopathy PAIN MANAGEMENT FOL LOW UP with CASH L KIRBY [facility]P-[facility] 10/20/2023 Last Documented On 3 11:14AM ; [facility] Chronic pain syndrome PAIN MANAGEMENT FO LLOW UP with CASH L [facility]IRBY [facility] 08/25/2023 Last Documented On 3 8:16AM ; [facility] DORSALGIA PAIN MANAGEMENT FOLLOW UP with T TRACY L KIRBY [facility] 08/25/2023 Last Documented On 3 8:16AM ; [facility] Fibromyalgia PAIN MANAGEMENT FOLLOW UP with T TRACY L [facility]BY [facility] 08/25/2023 Last Documented On 3 8:16AM ; [facility] Generalized multiple sclerosis PAIN KATHY GEMENT FOLLOW UP with CASH L KIRBY [facility] 08/25/2023 Last Documented On 3 8:16AM ; [facility] Chronic pain syndrome PAIN MANAGEMENT NE W CONSULT with CASHBRIDGER [facility] 07/27/2023 Last Documented On 3 2:54PM ; [facility] DORSALGIA PAIN MANAGEMENT NEW CONSULT with CASHBRDIGER [facility] 07/27/2023 Last Documented On 3 2:54PM ; [facility] Fibromyalgia PAIN MANAGEMENT NEW CONSULT with CASHBRIDGER [facility] 07/27/2023 Last Documented On 3 2:54PM ; [facility] Generalized multiple sclerosis PAIN KATHY GEMENT NEW CONSULT with [facility] Rodrigo [facility] 07/27/2023 Last Documented On 3 2:54PM ; [facility] Medical Equipment - Implanted Devices Includes: Current and historical Devices No Medical Equipment Recorded Medications Includes: Current and historical Medications Current Medications (continue as prescribed) [facility] Fish Oil 1200 MG Oral Capsule 05/08/2024 Provide r: Diagnosis: Last Documented On 05/08/2024 9:48AM By Radha BOWLES ; [facility] Vitamin D3 125 MCG (5000 UT) Oral Capsule 05/08/2024 Provider: Diagnosis: Last Documented On 05/08/2024 9:47AM By Radha BOWLES ; [facility] Aspir-Low 81 MG Oral Tablet Delayed Release 05/08/2024 Provider: Diagnosis: Last Documented On 05/08/2024 9:41AM By Radha BOWLES ; [facility] Tricor 145 MG Oral Tablet 05/08/2024 Provider: Diagnosis: Last Documented On 05/08/2024 9:43AM By Radha BOWLES ; [facility] Nitroglycerin 0.4 MG Sublingual Tablet Sublingual 04/13 Provider: Diagnosis: Last Documented On 05/08/2024 9:42AM By Radha BOWLES ; [facility] buPROPion HCl ER (XL) 150 MG Oral Tablet Extended Release 24 Hour 04/29/2024 Provider: Diagnosis: Last Documented On 05/08/2024 9:46AM By Radha BOWLES ; [facility] Loratadine 10 MG Oral Tablet 04/27/2024 Provider: MELVIN FONTENOT MD Diagnosis: Last Documented On 05/08/2024 9:45AM By Radha BOWLES ; [facility] Pantoprazole Sodium 20 MG Or al Tablet Delayed Release 04/24/2024 Provider: MELVIN Gibson MD Diagnosis: Last Documented On 05/08/2024 9:43AM By Radha BOWLES ; [facility] Valsartan 160 MG Oral Tablet 04/23/2024 Provider: Diagnosis: Last Documented On 05/08/2024 9:42AM By Radha BOWLES ; [facility] Sertraline HCl 100 MG Oral Tablet 04/22/2024 Provide r: Diagnosis: Last Documented On 05/08/2024 9:41AM By Radha BOWLES ; [facility] hydrOXYzine HCl 25 MG Oral Tablet 04/12/2024 Provide r: Diagnosis: Last Documented On 05/08/2024 9:40AM By Radha BOWLES ; [facility] Pregabalin 200 MG Oral Capsule 04/11/2024 Provider: CASH OLIVER [facility] Diagnosis: Radiculopathy, l umbar region Take 1 capsule by mouth twice daily Last Documented On 10:16AM [facility] ; [facility] Meloxicam 15 MG Oral Tablet 03/13/2024 Provider: CASH BILL Diagnosis: Other spondylosi s with radiculopathy, lumbar region One tablet daily Last Documented On 9:43AM [facility] ; [facility] buPROPion HCl ER (XL) 300 MG Oral Tablet Extended Release 24 Hour 02/13/2024 Provider: Diagnosis: Last Documented On 05/08/2024 9:46AM By Radha BOWLES ; [facility] DULoxetine HCl 30 MG Oral Capsule Delayed Releas e Particles 02/13/2024 Provider: Diagnosis: Last Documented On 05/08/2024 9:44AM By Radha BOWLES ; [facility] Fluticasone Propionate 50 MC G/ACT Nasal Suspension 02/06/2024 Provider: MELVIN Gibson MD Diagnosis: Last Documented On 05/08/2024 9:44AM By Radha BOWLES ; [facility] Lidocaine 5% External Patch 10/16/2023 Provider: MELVIN FONTENOT MD Diagnosis: Last Documented On 10/20/2023 9:59AM By Radha BOWLES ; [facility] Nystatin 416229 UNIT/GM External Cream 10/10/2023 Pr ovider: Diagnosis: Last Documented On 3 10:00AM By Radha BOWLES ; [facility] DULoxetine HCl 60 MG Oral Capsule Delayed Releas e Particles 07/27/2023 Provider: Diagnosis: one cap by mouth daily Last Documented On 3 3:08PM By Dorothy Dyson LPN ; [facility] Propranolol HCl 40 MG Oral Tablet 07/27/2023 Provide r: Diagnosis: BID Last Documented On 3 3:16PM By Dorothy Dyson LPN ; [facility] SUMAtriptan Succinate 50 MG Oral Tablet 07/27/2023 P rovider: Diagnosis: prn Last Documented On 3 3:15PM By Dorothy Dyson LPN ; [facility] Rebif 44 MCG/0.5ML Subcutaneous Solution Prefilled Syr luzma 07/27/2023 Provider: Diagnosis: 3 x's weekly Last Documented On 3 3:13PM By Dorothy Dyson LPN ; [facility] Aimovig 140 MG/ML Subcutaneous Solution Auto-injector 07/27/2023 Provider: Diagnosis: q 30 days Last Documented On 3 3:09PM By Dorothy Dyson LPN ; [facility] Past Medications on file Pregabalin 200 MG Oral Capsule 01/09/2024 - 04/11/2024 Provider: CASH OLIVER-BC Diagnosis: Radiculopathy, l umbar region 1 CAPSULE TWO TIMES A DAY Last Documented On 4 10:02AM By CASH OLIVER-RICARDO ; [facility] Pregabalin 150 MG Oral Capsule 01/08/2024 - 01/25/2024 Provider: CASH LEWIS Diagnosis: Fibromyalgia Take 1 capsule by mouth twice daily Last Documented On 01/25/2024 9:01AM By Radha BOWLES ; [facility] Pregabalin 50 MG Oral Capsule 12/18/2023 - 01/09/2024 Provider: CASH LEWIS Diagnosis: Radiculopathy, l umbar region 1 CAPSULE TWO TIMES A DAY ad ded to current dosage until end of month then will increase to 200mg capsule Last Documented On 4 10:57AM By CASH LEWIS ; [facility] Pregabalin 150 MG Oral Capsule 12/05/2023 - 01/08/2024 Provider: CASH LEWIS Diagnosis: Fibromyalgia Take 1 capsule by mouth twice daily Last Documented On 4 4:04PM By CASH LEWIS ; [facility] Pregabalin 150 MG Oral Capsule 11/01/2023 - 12/05/2023 Provider: LA NENA ACOSTA FERMENTER OPERATOR- Diagnosis: Fibromyalgia Take 1 capsule by mouth twice daily Last Documented On 4 12:03PM By CASH LEWIS ; [facility] Amphetamine-Dextroamphetamine 20 MG Oral Tablet 09/25/2023 - 01/25/2024 Provider: Diagnosis: Last Documented On 01/25/2024 9:01AM By Radha BOWLES ; [facility] Losartan Potassium 25 MG Oral Tablet 09/07/2023 - 05/08/2024 Provider: MELVIN ANDERSON MD Diagnosis: Last Documented On 05/08/2024 9:49AM By Radha BOWLES ; [facility] Pregabalin 150 MG Oral Capsule 08/25/2023 - 11/01/2023 Provider: CASH LEWIS Diagnosis: Fibromyalgia 1 CAPSULE TWO TIMES A DAY Last Documented On 3 1:32PM By LA NENA KITCHEN [facility] ; [facility] DULoxetine HCl 30 MG Oral Ca psule Delayed Release Particles 07/27/2023 - 05/08/2024 Provider: Diagnosis: daily Last Documented On 05/08/2024 9:45AM By Radha BOWLES ; [facility] Pantoprazole Sodium 20 MG Or al Tablet Delayed Release 07/27/2023 - 05/08/2024 Provider: Diagnosis: bid Last Documented On 05/08/2024 9:45AM By Radha BOWLES ; [facility] Terbinafine HCl 250 MG Oral Tablet 07/27/2023 - 2022 Provider: Diagnosis: daily Last Documented On 10/20/2023 9:59AM By Radha BOWLES ; [facility] Fluticasone Propionate 50 MC G/ACT Nasal Suspension 07/27/2023 - 05/08/2024 Provider: Diagnosis: 2 sprays each nostril daily Last Documented On 05/08/2024 9:45AM By Radha BOWLES ; [facility] Fenofibrate 145 MG Oral Tablet 07/27/2023 - 05/08/2024 Provider: Diagnosis: daily Last Documented On 05/08/2024 9:45AM By Radha BOWLES ; [facility] Pregabalin 75 MG Oral Capsule 07/27/2023 - 10/20/2023 Provider: CASH [facility]- Diagnosis: Fibromyalgia 1 CAPSULE TWO TIMES A DAY Last Documented On 10/20/2023 9:59AM By Radha BOWLES ; [facility] buPROPion HCl ER (XL) 300 MG Oral Tablet Extended Release 24 Hour 07/27/2023 - 05/08/2024 Provider: Diagnosis: daily with 150 dose Last Documented On 05/08/2024 9:43AM By Radha BOWLES ; [facility] buPROPion HCl ER (XL) 150 MG Oral Tablet Extended Release 24 Hour 07/27/2023 - 05/08/2024 Provider: Diagnosis: daily with 300 mg dose Last Documented On 05/08/2024 9:46AM By Radha BOWLES ; [facility] Mupirocin 2% External Ointment 07/27/2023 - 12/18/2023 Provider: Diagnosis: Last Documented On 12/18/2023 9:19AM By Radha BOWLES ; [facility] Diclofenac Sodium 75 MG Oral Tablet Delayed Release 07/27/2023 - 08/25/2023 Provider: Diagnosis: Last Documented On 08/25/2023 9:45AM By Radha BOWLES ; [facility] Medications Administered Includes: Administered Medications in patient's chart No Administered Medications Recorded Vital Signs Includes: Vital Signs from 02/28/2024 through 02/27/2025 Vital Name 03/13/2024 09:19A Blood Pressure Sitting R 128/90 Pulse Rate-Sitting (bpm) 71 Temp-Temporal 96.2 Height (in) 64 Weight (lb) 203 Body Mass Index 34.8 Body Surface Area (m2) 2.0 Pain Level 4 Oxygen Saturation (%) 93 Last Documented: On 03/13/2024 9:53AM ; [facility] Results Includes: Results from 02/28/2024 through 02/27/2025 SED RATE BY MODIFIED WESTERGREN [facility] Ordered by CASH LEWIS on Collected: 02/29/2024 Reported: 03/01/20 24 16:45 Last Documented On 4 8:09AM ; [facility] Reviewed by CASH LEWIS on 03/25/2024; All test results are final unless otherwise noted. SED RATE BY MODIFIED WESTERGREN 2 mm/h (< OR = 30) N (Normal) Last Documented On 4 2:18PM ; [facility] CBC (INCLUDES DIFF/PLT) [facility] Ordered by CASH LEWIS on Collected: 02/29/2024 Reported: 03/01/20 24 16:45 Last Documented On 4 8:09AM ; [facility] Reviewed by CASH LEWIS on 03/25/2024; All test results are final unless otherwise noted. WHITE BLOOD CELL COUNT 6.4 Thousand/uL (3.8-10.8) N (Normal) Last Documented On 4 2:18PM ; [facility] RED BLOOD CELL COUNT 5.00 Million/uL (3.80-5.10) N (Normal) Last Documented On 4 2:18PM ; [facility] HEMOGLOBIN 13.4 g/dL (11.7-15.5) N (Normal) Last Documented On 4 2:18PM ; [facility] HEMATOCRIT 40.7 % (35.0-45.0) N (Normal) Last Documented On 4 2:18PM ; [facility] MCV 81.4 fL (80.0-100.0) N (Normal) Last Documented On 4 2:18PM ; [facility] MCH 26.8 pg (27.0-33.0) L (Low) Last Documented On 4 2:18PM ; [facility] MCHC 32.9 g/dL (32.0-36.0) N (Normal) Last Documented On 4 2:18PM ; [facility] RDW 14.0 % (11.0-15.0) N (Normal) Last Documented On 4 2:18PM ; [facility] PLATELET COUNT 321 Thousand/uL (140-400) N (Normal) Last Documented On 4 2:18PM ; [facility] NEUTROPHILS 42.3 % N (Normal) Last Documented On 4 2:18PM ; [facility] ABSOLUTE NEUTROPHILS 2707 cells/uL (2962-9910) N (Normal) Last Documented On 4 2:18PM ; [facility] LYMPHOCYTES 39.5 % N (Normal) Last Documented On 4 2:18PM ; [facility] ABSOLUTE LYMPHOCYTES 2528 cells/uL (850-3900) N (Normal) Last Documented On 4 2:18PM ; [facility] MONOCYTES 7.7 % N (Normal) Last Documented On 4 2:18PM ; [facility] ABSOLUTE MONOCYTES 493 cells/uL (200-950) N (Normal) Last Documented On 4 2:18PM ; [facility] EOSINOPHILS 9.9 % N (Normal) Last Documented On 4 2:18PM ; [facility] ABSOLUTE EOSINOPHILS 634 cells/uL (15-500) H (High) Last Documented On 4 2:18PM ; [facility] BASOPHILS 0.6 % N (Normal) Last Documented On 4 2:18PM ; [facility] ABSOLUTE BASOPHILS 38 cells/uL (0-200) N (Normal) Last Documented On 4 2:18PM ; [facility] MPV 9.6 fL (7.5-12.5) N (Normal) Last Documented On 4 2:18PM ; [facility] C-REACTIVE PROTEIN [facility] Ordered by CASH LEWIS on Collected: 02/29/2024 Reported: 03/01/20 24 16:45 Last Documented On 4 8:09AM ; [facility] Reviewed by CASH LEWIS on 03/25/2024; All test results are final unless otherwise noted. C-REACTIVE PROTEIN <3.0 mg/L (<8.0) N (Normal) Last Documented On 4 2:18PM ; [facility] Reported Physicians [facility] Ordered by CASH LEWIS on Collected: 02/29/2024 Reported: 03/01/20 24 17:49 Last Documented On 4 8:09AM ; [facility] Reviewed by CASH LEWIS on 03/25/2024; All test results are final unless otherwise noted. Reported Physicians See Note None Last Documented On 03/22/2024 2:18PM ; [facility] Note: Reported Physicians:Ordering: Cash Rome History of Present Illness History of Present Illness not supported for this document type No History of Present Illness Recorded Social History Description Last Updated Tobacco non-user 01/25/2024 Last Documented On 4 10:11AM ; [facility] Smoking Status Unknown Procedures and Surgical History Includes: Procedures from 02/28/2024 through 02/27/2025 Procedures Code Diagnosis Performing Provider Service Location Service Date CLINIC VISIT T1015 Other spondylosi s with radiculopathy, lumbar region, Chronic pain syndrome, Fibromyalgia CASH LEWIS [facility] 03/13/2024 Last Documented On 4 9:35AM ; [facility] Medical History Includes: Medical History in patient's chart Description Last Updated Has had a fall in the last 12 months. Domingo s falls quite often Has DX of MS 08/25/2023 Last Documented On 3 8:16AM ; [facility] Family History Includes: Family History in patient's chart No Family History Recorded Review of Systems Review of Systems not supported for this document type No Review of Systems Recorded Mental Status No Mental Status Recorded Functional Status No Functional Status Recorded Physical Exam Physical Exam not supported for this document type No Physical Exam Recorded Allergies Includes: Active, inactive, and resolved Allergies No Known Allergies Encounters Includes: Encounters from 02/28/2024 through 02/27/2025 Encounter Provider Location Date Check-In Time Check-Out Time Diagnosis POST PROCEDURE PHONE CALL CASH LEWIS 04/05/2003/13/2024 11:41AM 03/13/2024 11:59PM [facility]NA[facility]/13/20 9:03AM 9:38AM Chronic Pain Syndrome,Lumbar Radiculopathy,Mu ltiple Sclerosis Generalized,Fibr omyalgia,Spinal Stenosis Lumbar with Neurogenic Claudication,Spo ndylosis with Radiculopathy Lumbar Region Insurance Includes: Active Insurance Policies Plan Name Member ID Group # Subscriber Relationship Effect rosi Dates 1 - [facility] [id number] CHARLES NUNEZ Self Clinical Notes Includes: Signed Clinical Notes starting from 12/02/2022 * Progress note Date Encounter Last Documented by 04/05/2024 POST PROCEDURE PHONE CALL Last d ocumented on 04/05/2024; 11:42 AM, Maricruz Reinoso RN; [facility] Top of Document Post-Procedural [...] daily, 30 days, 1 refills - Nystatin [id number] UNIT/GM External Cream as directed 30 days, [...] 04/05/2024. - Assess Tobacco Use satisfied 04/05/2024. * Progress note Date Encounter Last Documented by 03/13/2024 PAIN MANAGEMENT FOLLOW UP Last d ocumented on 03/13/2024; 9:58 AM, CASH SLOANS ANP-; [facility] Chief Complaint The Chief [...] pain. 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 She is having a difficult time sleeping at night. She takes [id number] anti-inflammatories with mild benefit. We discussed facet [...] no benefit. She reports injections done at [facility] in [place] within the last year. By description these [...] daily 30 days, 0 refills - Nystatin [id number] UNIT/GM External Cream as directed 30 days, [...] but may be subject to typographical or french folding machine operator errors. Verify all diagnoses, medications, dosages, and patient instructions with patient and/or the originator of this document. Health Reminders - Assess BMI satisfied 03/13/2024. - Assess Need for CT Lung Screen satisfied 03/13/2024. - Assess Tobacco Use satisfied 03/13/2024. - Depression Screening satisfied 03/13/2024. - Follow up plan for Depression Screening satisfied 03/13/2024.
--- OUTSIDE RECORDS SUMMARY | 2025-02-27 21:17 | XMS_ITS | Encounter Summary ---
Author Organization [facility] Address [facility] [place] [address] Care Team Providers Care Automotive Salesperson Name Role Phone Kevan Rubin MD Primary Care Provider Joaquin Merritt MD Unavailable Encounter Details Date Type Department Care Team (Late st Contact Info) Description 06/13/[address] [place] [id number] Joaquin Merritt MD [facility]. 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 [facility] [address] [place] [address] [employer] Grab Jack Worker INTERVENTIONAL CARDIOLOGY 05/21/18 documented as of this encounter
--- OUTSIDE RECORDS SUMMARY | 2025-02-27 21:17 | XMS_ITS | Encounter Summary ---
Author Organization [facility] Health Address [address] [place] [address] Care Team Providers Care Hse Manager Name Role Phone Kevan Rubin MD Primary Care Provider Hemalatha Tang MD Primary Care Provider [phone] Reason for Visit * Reason Onset Date Comments MEDICATION REFILL 11/22/2018 Encounter Details Date Type Department Care Team (Late st Contact Info) Description 11/22/2018 Refill [facility] [address] [place] [address] Kimberly Yarbrough MD [address] [place] [phone] MEDICATION REFILL Social History Tobacco Use Types Packs/Day Years Used Date Smoking Tobacco: Never Smokeless Tobacco: Never Alcohol Use Standard Drinks/Week Comments No 0 (1 standard drink = 0.6 oz pur e alcohol) Comments No Sex and Gender Information Value Date Recorded Sex Assigned at Female 01/06/2025 9:20 AM OBSTETRICS TECH Legal Sex Female 5:15 PM OBSTETRICS TECH Gender Identity Female 01/06/2025 9:20 AM OBSTETRICS TECH Sexual Orientation Straight 01/06/2025 9: 20 AM OBSTETRICS TECH Occupation Industry Job Start Date Job End Date disable Not on file Not on file Not on file documented as of this encounter Plan of Treatment Upcoming Encounters Date Type Department Care Team (Late st Contact Info) Description 03/05/2025 3:00 PM CDT Office Visit [facility] [address] [place] [address], [place] [address] Deniz Kofitrell, OUTSIDE MACHINIST APPRENTICE-PARK WORKER SUPERVISOR [address] [place] [address] 1L [place] [address] 04/21/2025 9:00 AM CDT [facility] [address] [place] [phone] Sidney Moncada MD [address] [place] [address] 05/23/2025 9:00 AM CDT [facility] Dermatology [address] [place] [phone] Chitra Peres MD [address] [place] [address] 3 [place] [phone] 07/07/2025 8:30 AM CDT Procedure visit [facility] - Infusion [address] [place] [phone] 02/16/2026 11:00 AM CDT [facility] [address] [place] [phone] Kaitlin Cruz MD [address] [place] [address] [address] [place] [phone] 02/20/2026 9:00 AM CDT [facility] Ophthalmology [address] [place] [phone] documented as of this encounter Visit Diagnoses Diagnosis Intractable chronic migraine without aura and without status migrainosus Chronic migraine without aura, with intractable migraine, so stated, without mention of status migrainosus documented in this encounter Additional Health Concerns Infection Onset Date Last Indicated Resolved Time 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 06/22/2017 documented as of this encounter Care Teams Hse Manager Relationship Specialty Start Date End Date Kevan Rubin MD [address] [facility]. [address] [place] [phone] PCP - General 03/23/16 03/06/21 Hemalatha Tang MD [facility]. [address] [place] [address] PCP - General Family Medicine 03/07/21 documented as of this encounter
--- OUTSIDE RECORDS SUMMARY | 2025-02-27 21:17 | XMS_ITS ---
Author Organization [facility] Health Address [address] [facility] [place] [address] Care Team Providers Care Physician Relations Representative Name Role Phone Hemalatha Tang MD Primary Care Provider [phone] [phone] Active Problems * This document contains information received from the source organization and may not represent a complete record from that organization. Problem Noted Date Diagnosed Date Angina pectoris, [...] (09/26/2022): Added automatically from request for surgery [id number] Traumatic hematoma of left hand 05/25/2022 Overview (09/26/2022): Added automatically from request for surgery [id number] Extensor tenosynovitis of left wrist 05/18/2022 Overview [...] After hours, please contact the ID fellow electronic semiconductor processor. Tenosynovitis 05/18/2022 Left hand pain 05/17/2022 Overview [...] Last Assessment & Plan: Acute-informed can apply [id number] Abreva to cold sore as directed. Encouraged [...] office Update me when she hears back Current Treatment and Therapy Plans No current plan information found. Other Current Plans OCRELIZUMAB (OCREVUS) THERAPY PLAN* Plan Start Date:01/06/2025 Plan Provider:Sidney Moncada MD Linked Problems Multiple sclerosis (HCC) Treatment Medications No medications scheduled. Past Treatment and Therapy Plans No past plan information found. Lifetime Dose Tracking * Chemical Lifetime Dose Automatic Entry Manual Entr y Dose Length Product 420 mGy-cm 420 mGy-cm 0 mGy-cm Resolved Problems Problem Noted Date Diagnosed Date [...]
--- OUTSIDE RECORDS SUMMARY | 2025-02-27 21:17 | XMS_ITS | Encounter Summary ---
Author Organization [facility] Health Address [address] [place] [address] Care Team Providers Care Articulation Officer Name Role Phone Kevan Rubin MD Primary Care Provider Hemalatha Tang MD Primary Care Provider [phone] Reason for Visit * Reason Onset Date Comments MEDICATION REFILL 11/12/2020 Encounter Details Date Type Department Care Team (Late st Contact Info) Description 11/12/2020 Refill [facility] [address] [place] [address] Kimberly Yarbrough MD [address] [place] [phone] MEDICATION REFILL Social History Tobacco Use Types Packs/Day Years Used Date Smoking Tobacco: Never Smokeless Tobacco: Never Alcohol Use Standard Drinks/Week Comments No 0 (1 standard drink = 0.6 oz pur e alcohol) Comments No Sex and Gender Information Value Date Recorded Sex Assigned at Female 01/06/2025 9:20 AM IT PROJECT MANAGER Legal Sex Female 5:15 PM IT PROJECT MANAGER Gender Identity Female 01/06/2025 9:20 AM IT PROJECT MANAGER Sexual Orientation Straight 01/06/2025 9: 20 AM IT PROJECT MANAGER Occupation Industry Job Start Date Job End Date disable Not on file Not on file Not on file documented as of this encounter Plan of Treatment Upcoming Encounters Date Type Department Care Team (Late st Contact Info) Description 03/05/2025 3:00 PM CDT Office Visit [facility] Neu[facility] [address] [place] [address], [place] [address] Deniz Kofitrell, MAMMALOGY TEACHER-BROWNFIELD REDEVELOPMENT SPECIALIST [address] [place] [address] [address] [place] [address] 04/21/2025 9:00 AM CDT Office [facility]rology [address] [place] [phone] Sidney Moncada MD [address] [place] [address] 05/23/2025 9:00 AM CDT Office [facility] - Dermatology [address] [place] [phone] Chitra Peres MD [address] [place] [address] 3 [place] [phone] 07/07/2025 8:30 AM CDT Procedure visit [facility] - Infusion [address] [place] [phone] 02/16/2026 11:00 AM CDT Office [facility] - Orthopedics [address] [place] [phone] Kaitlin Cruz MD [address] [place] [address] [address] [place] [phone] 02/20/2026 9:00 AM CDT Office 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 06/22/2017 documented as of this encounter Care Teams Articulation Officer Relationship Specialty Start Date End Date Kevan Rubin MD [address] [facility]. [address] [place] [phone] PCP - General 03/23/16 03/06/21 Hemalatha Tang MD [facility]. [address] [place] [address] PCP - General Family Medicine 03/07/21 documented as of this encounter
--- OUTSIDE RECORDS SUMMARY | 2025-02-27 21:17 | XMS_ITS | Encounter Summary ---
Author Organization [facility] Health Address [address] [place] [address] Care Team Providers Care Doctor Osteopathic Name Role Phone Kevan Rubin MD Primary Care Provider Britany Poole [facility] Unavailable Hemalatha Tang MD Primary Care Provider [phone] Reason for Visit * Reason Onset Date Comments MEDICATION REFILL 08/12/2018 Encounter Details Date Type Department Care Team (Late st Contact Info) Description 08/12/2018 Refill [facility] - Sleep [address] [place] [address] Lima Huizar MD [address] [place] [address] MEDICATION REFILL Social History Tobacco Use Types Packs/Day Years Used Date Smoking Tobacco: Never Smokeless Tobacco: Never Alcohol Use Standard Drinks/Week Comments No 0 (1 standard drink = 0.6 oz pur e alcohol) Comments No Sex and Gender Information Value Date Recorded Sex Assigned at Female 01/06/2025 9:20 AM DRAFTER TOOL DESIGN Legal Sex Female 5:15 PM DRAFTER TOOL DESIGN Gender Identity Female 01/06/2025 9:20 AM DRAFTER TOOL DESIGN Sexual Orientation Straight 01/06/2025 9: 20 AM DRAFTER TOOL DESIGN Occupation Industry Job Start Date Job End Date disable Not on file Not on file Not on file documented as of this encounter Plan of Treatment Upcoming Encounters Date Type Department Care Team (Late st Contact Info) Description 03/05/2025 3:00 PM CDT Office Visit [facility] Neurology [address] [place] [address], [place] [address] Deniz Kofitrell, WAX BLENDER-INTERNAL MEDICINE SPECIALIST [address] [place] [address] 1[address] [place] [phone] 04/21/2025 9:00 AM CDT [facility] [address] [place] [phone] Sidney Moncada MD [address] [place] [address] 05/23/2025 9:00 AM CDT [facility] [address] [place] [phone] Chitra Peres MD [address] [place] [address] 3L [place] [phone] 07/07/2025 8:30 AM CDT Procedure visit [facility] - Infusion [address] [place] [phone] 02/16/2026 11:00 AM CDT [facility] [address] [place] [phone] Kaitlin Cruz MD [address] [place] [address] [address] [place] [phone] 02/20/2026 9:00 AM CDT 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 06/22/2017 documented as of this encounter Care Teams Doctor Osteopathic Relationship Specialty Start Date End Date Kevan Rubin MD [address] [place] [address] PCP - General 03/23/16 03/06/21 Hemalatha Tang MD PCP - General Family Medicine 03/07/21 Britany Poole Production Tech Psychiatry 03/16/18 11/07/18 documented as of this encounter
--- OUTSIDE RECORDS SUMMARY | 2025-02-27 21:18 | XMS_ITS | Clinical Summary ---
Author Organization [facility] Address [address] [place] [address] Phone Care Team Providers Care Barber Or Beauty Shop Manager Name Role Phone CORIE CASTANEDA, MELVIN Loza Primary Care Provider [phone] Reason for Visit and Chief Complaint CHART UPDATE Plan of Treatment No Plan of Treatment Recorded Assessments Includes: Assessments from this encounter Findings - Tenosynovitis of other site [M65.88 - Other synovitis and tenosynovitis, other site] - Last Documented On 02/26/2024 11:39AM ; [facility] - Synovitis of other site [M65.88 - Other synovitis and tenosynovitis, other site] - Last Documented On 02/26/2024 11:39AM ; [facility] Medical Equipment - Implanted Devices Includes: Current Devices No Medical Equipment Recorded Medications Includes: Medications discussed during this encounter and other current Medications Current Medications (continue as prescribed) [facility] Fish Oil 1200 MG Oral Capsule 05/08/2024 Provide r: Diagnosis: Last Documented On 05/08/2024 9:48AM By Radha BOWLES ; [facility] Vitamin D3 125 MCG (5000 UT) Oral Capsule 05/08/2024 Provider: Diagnosis: Last Documented On 05/08/2024 9:47AM By Radha BOWLES ; [facility] Aspir-Low 81 MG Oral Tablet Delayed Release 05/08/2024 Provider: Diagnosis: Last Documented On 05/08/2024 9:41AM By Radha BOWLES ; [facility] Tricor 145 MG Oral Tablet 05/08/2024 Provider: Diagnosis: Last Documented On 05/08/2024 9:43AM By Radha BOWLES ; [facility] Nitroglycerin 0.4 MG Sublingual Tablet Sublingual 04/13 Provider: Diagnosis: Last Documented On 05/08/2024 9:42AM By Radha BOWLES ; [facility] buPROPion HCl ER (XL) 150 MG Oral Tablet Extended Release 24 Hour 04/29/2024 Provider: Diagnosis: Last Documented On 05/08/2024 9:46AM By Radha BOWLES ; [facility] Loratadine 10 MG Oral Tablet 04/27/2024 Provider: MELVIN FONTENOT MD Diagnosis: Last Documented On 05/08/2024 9:45AM By Radha BOWLES ; [facility] Pantoprazole Sodium 20 MG Or al Tablet Delayed Release 04/24/2024 Provider: MELVIN Gibson MD Diagnosis: Last Documented On 05/08/2024 9:43AM By Radha BOWLES ; [facility] Valsartan 160 MG Oral Tablet 04/23/2024 Provider: Diagnosis: Last Documented On 05/08/2024 9:42AM By Radha BOWLES ; [facility] Sertraline HCl 100 MG Oral Tablet 04/22/2024 Provide r: Diagnosis: Last Documented On 05/08/2024 9:41AM By Radha BOWLES ; [facility] hydrOXYzine HCl 25 MG Oral Tablet 04/12/2024 Provide r: Diagnosis: Last Documented On 05/08/2024 9:40AM By Radha BOWLES ; [facility] Pregabalin 200 MG Oral Capsule 04/11/2024 Provider: CASH Blanchard Diagnosis: Radiculopathy, l umbar region Take 1 capsule by mouth twice daily Last Documented On 10:16AM By CASH LEWIS ; [facility] Meloxicam 15 MG Oral Tablet 03/13/2024 Provider: CASH BILL Diagnosis: Other spondylosi s with radiculopathy, lumbar region One tablet daily Last Documented On 4 9:43AM By CASH ORR [facility] ; [facility] buPROPion HCl ER (XL) 300 MG Oral Tablet Extended Release 24 Hour 02/13/2024 Provider: Diagnosis: Last Documented On 05/08/2024 9:46AM By Radha BOWLES ; [facility] DULoxetine HCl 30 MG Oral [...] On 10/20/2023 9:59AM By Radha BOWLES ; [facility] Nystatin 647174 UNIT/GM External Cream 10/10/2023 Pr ovider: Diagnosis: Last Documented On 3 10:00AM By Radha BOWLES ; [facility] DULoxetine HCl 60 MG Oral Capsule Delayed Releas e Particles 07/27/2023 Provider: Diagnosis: one cap by mouth daily Last Documented On 3 3:08PM By Dorothy Dyson LPN ; [facility] Propranolol HCl 40 MG Oral Tablet 07/27/2023 Provide r: Diagnosis: BID Last Documented On 3 3:16PM By Dorothy Dyson LPN ; [facility] SUMAtriptan Succinate 50 MG Oral Tablet 07/27/2023 P rovider: Diagnosis: prn Last Documented On 3 3:15PM By Dortohy Dyson LPN ; [facility] Rebif 44 MCG/0.5ML Subcutaneous Solution Prefilled Syr luzma 07/27/2023 Provider: Diagnosis: 3 x's weekly Last Documented On 3 3:13PM By Dorothy Dyson LPN ; [facility] Aimovig 140 MG/ML Subcutaneous Solution Auto-injector 07/27/2023 Provider: Diagnosis: q 30 days Last Documented On 3 3:09PM By Dorothy Dyson LPN ; [facility] Medications Administered Includes: Administered Medications from this encounter No Administered Medications Recorded Results Includes: Results discussed during this encounter No Results Recorded For Specified Dates History of Present Illness Includes: History of Present Illness from this encounter No History of Present Illness Recorded Social History Description Last Updated Tobacco non-user 01/25/2024 Last Documented On 4 11:33AM ; [facility] Smoking Status Unknown Medical History Includes: Medical History addressed during this encounter Description Last Updated Has had a fall in the last 12 months. Domingo s falls quite often Has DX of MS 08/25/2023 Last Documented On 4 11:33AM ; [facility] Family History Includes: Family History addressed [...] Location Date Check-In Time Check-Out Time Diagnosis CHART UPDATE CASH LEWIS 02/26/20 24 11:32AM 11:59PM Tenosynovitis Other Site,Synovitis Other Site Insurance Includes: Active Insurance Policies Plan Name Member ID Group # Subscriber Relationship Effect rosi Dates 1 - [facility] [id number] CHARLES Varghese Clinical Notes Includes: Clinical Notes from this encounter * Progress note Date Encounter Last Documented by 02/26/2024 CHART UPDATE Last documented on 02/26/2024; 11:39 AM, CASH OLIVER-RICARDO; [facility] Past Medical/Surgical History Reported: Physical Trauma: Has [...] daily 30 days, 0 refills - Nystatin 570878 UNIT/GM External Cream as directed 30 days, [...] Tobacco non-user. Allergies - No Known Allergies Assessment - Tenosynovitis of other site [M65.88 - Other synovitis and tenosynovitis, other site] - Synovitis of other site [M65.88 - Other synovitis and tenosynovitis, other site] Plan StartCited - Other synovitis and tenosynovitis, other site Lab: C-reactive Protein Lab: Sed rate by [facility] Lab: CBC w/ DIFF EndCited Health Reminders - Assess Need for CT Lung Screen satisfied 02/26/2024. - Assess Tobacco Use satisfied 02/26/2024.
--- OUTSIDE RECORDS SUMMARY | 2025-02-27 21:18 | XMS_ITS | Encounter Summary ---
Author Organization [facility] Health Address [address] [place] [address] Care Team Providers Care Patient Access Manager Name Role Phone Hemalatha Tang MD Primary Care Provider [phone] Reason for Visit * Reason Onset Date Comments MEDICATION REFILL 06/08/2022 Encounter Details Date Type Department Care Team (Late st Contact Info) Description 06/08/2022 Refill [facility] [address] [place] [address], [place] [phone] Gladys Judd MD [address] [place] [address] [place] [address] MEDICATION REFILL Social History Tobacco Use Types Packs/Day Years Used Date Smoking Tobacco: Never Smokeless Tobacco: Never Alcohol Use Standard Drinks/Week Comments No 0 (1 standard drink = 0.6 oz pur e alcohol) PHQ-2 Answer Date Recorded PHQ2 TOTAL SCORE 0 05/13/2022 Comments No Sex and Gender Information Value Date Recorded Sex Assigned at Female 01/06/2025 9:20 AM ASSISTANT BRANCH MANAGER Legal Sex Female 5:15 PM ASSISTANT BRANCH MANAGER Gender Identity Female 01/06/2025 9:20 AM ASSISTANT BRANCH MANAGER Sexual Orientation Straight 01/06/2025 9: 20 AM ASSISTANT BRANCH MANAGER Occupation Industry Job Start Date Job End Date disable Not on file Not on file Not on file documented as of this encounter Plan of Treatment Upcoming Encounters Date Type Department Care Team (Late st Contact Info) Description 03/05/2025 3:00 PM CDT Office Visit [facility] Neu[facility] [address] [place] [address], [place] [address] Deniz Kofitrell, ENTRY LEVEL RECEPTIONIST-CREW LEAD [address] [place] [address] 1[address] DIV OF [place] [address] 04/21/2025 9:00 AM CDT [facility] [address] [place] [phone] Sidney Moncada MD [address] [place] [address] 05/23/2025 9:00 AM CDT [facility] Dermatology [address] [place] [phone] Chitra Peres MD [address] [place] [address] 3 DEPT OF DERMATOLOG[place] [phone] 07/07/2025 8:30 AM CDT Procedure visit [facility] - Infusion [address] [place] [phone] 02/16/2026 11:00 AM CDT Office Visit [facility] - Orthopedics [address] [place] [phone] Kaitlin Cruz MD [address] [place] [address] [address] [place] [phone] 02/20/2026 9:00 AM CDT 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 06/22/2017 documented as of this encounter Care Teams Patient Access Manager Relationship Specialty Start Date End Date Hemalatha Tang MD PCP - General Family Medicine 03/07/21 documented as of this encounter
--- OUTSIDE RECORDS SUMMARY | 2025-02-27 21:18 | XMS_ITS | Encounter Summary ---
Author Organization [facility] Address [address] [place] [address] Care Team Providers Care Real Estate Loan Processor Name Role Phone Hemalatha Tang MD Primary Care Provider [phone] Reason for Visit * Reason Onset Date Comments MEDICATION REFILL 07/13/2022 Encounter Details Date Type Department Care Team (Late st Contact Info) Description 07/13/2022 Refill [facility] [address] [place] [phone] Mychart, Generic Provider MEDICATION REFILL Social History Tobacco Use Types Packs/Day Years Used Date Smoking Tobacco: Never Smokeless Tobacco: Never Alcohol Use Standard Drinks/Week Comments No 0 (1 standard drink = 0.6 oz pur e alcohol) PHQ-2 Answer Date Recorded PHQ2 TOTAL SCORE 0 05/13/2022 Comments No Sex and Gender Information Value Date Recorded Sex Assigned at Female 01/06/2025 9:20 AM [employer] Legal Sex Female 5:15 PM [employer] Gender Identity Female 01/06/2025 9:20 AM [employer] TU[employer] Sexual Orientation Straight 01/06/2025 9: 20 AM [employer] Occupation Industry Job Start Date Job End Date disable Not on file Not on file Not on file documented as of this encounter Miscellaneous Notes * Telephone Encounter - Paulie Gannon - 07/13/2022 9:39 AM CDT Refill Request Linda Xie Mike KURT:06/22/2022 NOV scheduled:10/26/2022 LRF: 06/09/2022 Qty Disp: 180 # of refills: 0 Allergies: Allergies Allergen Reactions ??? Contrast-Iodinated Agents For Ct/Other Skin Reactions and Rash ??? Contrast-Gadolinium Agents For Mri Nausea and/or Vomiting Patient gets nauseous from MRI contrast ??? Povidone Iodine Other Burning ??? Iohexol Rash Pended Medication Order: Requested Prescriptions Pending Prescriptions Disp Refills ??? sulfaSALAzine (Azulfidine) 500 MG tablet 180 tablet 0 Sig: Take 3 (three) tablets by mouth 2 times daily documented in this encounter Plan of Treatment Upcoming Encounters Date Type Department Care Team (Late st Contact Info) Description 03/05/2025 3:00 PM CDT Office [facility]rology [address] [place] [phone] Rosalie Guaman, DEEPA-YOHAN [address] [place] [address] [address] [place] [address] 04/21/2025 9:00 AM CDT Office Visit [facility] - Neurology [address] [place] [phone] Sidney Moncada MD [address] [place] [address] 05/23/2025 9:00 AM CDT Office Visit [facility] - Dermatology [address] [place] [phone] Chitra Peres MD [address] [place] [address] [address] [place] [address] 07/07/2025 8:30 AM CDT Procedure visit [facility] [address] [place] [address] 02/16/2026 11:00 AM CDT Office Visit [facility] - Orthopedics [address] [facility], [place] [phone] Kaitlin Cruz MD [address] [place] [address] [address] [place] [phone] 02/20/2026 9:00 AM CDT Office Visit [facility] - Ophthalmology [address] [facility], [place] [phone] documented as of this encounter Visit Diagnoses [...] documented as of this encounter Care Teams Real Estate Loan Processor Relationship Specialty Start Date End Date Hemalatha Tang MD PCP - General Family Medicine 03/07/21 documented as of this encounter
--- OUTSIDE RECORDS SUMMARY | 2025-02-27 21:18 | XMS_ITS | Clinical Summary ---
Author Organization [address] Address [address] [place] [id number] Care Team Providers Care Combination Welder Apprentice Name Role Phone Hemalatha Tang MD Primary Care Provi summer Manuel Swartz MD Unavailable [phone] Allergies Active Allergy Reactions Criticality Noted Date Comments Iodinated Contrast Media Rash Medium 03/23/2016 Iodine Rash Medium 02/05/2016 Medications SUMAtriptan (IMITREX) 50 mg tabletIndications:M igraine Take 1 tablet (50 mg total) by mouth once as needed for migraine 021 Active omega 0-gjw-xlf-fish oil (Fish Oil) 100-160-1,000 mg capsuleIndications: hypertriglyceridemi a Take 2,000 mg by mouth 2 (two) times a day Active cane device Use 1 device DAILY. Active cholecalciferol (VITAMIN D-3) 5,000 unit capsuleIndications: supplement Take 1 capsule (5,000 Units total) by mouth every morning Active buPROPion XL (WELLBUTRIN XL) 300 mg 24 hr tabletIndications:d epression Take 1 tablet (300 mg total) by mouth every morning 022 Active Aimovig Autoinjector 140 mg/mL auto-injectorIndica tions:Migraine Prevention Inject 1 mL (140 mg total) into the muscle as instructed every 30 (thirty) days 022 Active nystatin creamIndications:to es Apply 1 Application topically 2 (two) times a day Active nitroglycerin (NITROSTAT) 0.[address] 1 tablet (0.4 mg total) under the tongue every 5 (five) minutes as needed for chest pain May repeat dose q 5 min, up to 3 doses total 30 tablet 2 024 2024 Active valsartan (DIOVAN) 160 mg tablet Take 1 tablet (160 mg total) by mouth daily 90 tablet 3 024 2024 Active sertraline (ZOLOFT) 100 mg tabletIndications:A nxiety with Depression Take 1 tablet (100 mg total) by mouth every morning Active fenofibrate nanocrystallized (TRICOR) 145 mg tablet Take 1 tablet (145 mg total) by mouth daily 100 tablet 1 024 Active propranoloL (INDERAL) 40 mg tablet Take 1 tablet (40 mg total) by mouth 2 (two) times a day 180 tablet 1 024 Active rosuvastatin (CRESTOR) 5 mg tabletIndications:D yslipidemia, goal LDL below 70 Take 1 tablet by mouth once daily 100 tablet [address] (PROTONIX) 20 mg EC tablet Take 1 tablet by mouth twice daily 200 tablet 1 025 Active loratadine (CLARITIN) 10 mg tabletIndications:S easonal allergic rhinitis, unspecified trigger Take 1 tablet (10 mg total) by mouth daily 90 tablet 3 025 Active buPROPion XL (WELLBUTRIN XL) 150 mg 24 hr tabletIndications:d epression Take 1 tablet (150 mg total) by mouth every morning 025 Active cyanocobalamin (Vitamin B-12) 500 mcg tabletIndications:P revention of Vitamin B12 Deficiency Take 1 tablet (500 mcg total) by mouth daily Start taking post op day 5 90 tablet 3 025 2025 Active calcium citrate-vitamin D3 200 mg-6.25 mcg (250 unit) tabletIndications:H ypocalcemia Prevention Take 2 tablets by mouth 3 (three) times a day Start taking post op day 5 540 tablet 3 025 2025 Active ursodioL (ACTIGALL) 300 mg capsuleIndications: Cholelithiasis Prevention Take 1 capsule (300 mg total) by mouth 2 (two) times a day Start post-surgery 180 capsule 1 025 2024 Active omeprazole (PriLOSEC) 20 mg capsule Take 1 capsule (20 mg total) by mouth 2 (two) times a day START POST SURGERY 60 capsule 025 Active multivitamin with minerals tablet Take 2 tablets by mouth daily Start taking post op day 5 60 tablet 11 025 2025 Active fluticasone propionate (FLONASE) 50 mcg/actuation nasal sprayIndications:Se asonal allergic rhinitis, unspecified trigger Use 2 spray(s) in each nostril once daily 16 g 025 Active meloxicam (MOBIC) 15 mg tabletIndications:O steoarthritis Take 1 tablet (15 mg total) by mouth every morning 2024 Discontinued(P atient Reported) aspirin 81 mg enteric coated tabletIndications:A ngina pectoris, unstable (HCC),Coronary artery calcification Take 1 tablet (81 mg total) by mouth daily 024 2024 Discontinued(O ther) fluticasone propionate (FLONASE) 50 mcg/actuation nasal sprayIndications:Se asonal allergic rhinitis, unspecified trigger Use 2 spray(s) in each nostril once daily 16 g 3 024 2024 Discontinued polyethylene glycol (MIRALAX) 17 gram/dose bulk powderIndications:c onstipation Take 17 g by mouth 2 (two) times a day Start post-surgery 1020 g 025 2024 Discontinued famotidine (PEPCID) 40 mg tabletIndications:G astroesophageal reflux disease without esophagitis TAKE 1 TABLET BY MOUTH AT NIGHT NEEDED FOR HEARTBURN 30 tablet 3 025 2024 Discontinued(T herapy completed) senna (SENOKOT) 8.6 mg tablet Take 1 tablet by mouth 2 (two) times a day for 15 days 30 tablet 025 2024 Discontinued Active Problems Problem Noted Date Diagnosed Date Morbid obesity 11/28/2024 Mild episode of recurrent major depressive disor summer 05/03/2024 Assessment & Plan (08/21/2024 2:29 PM CDT): Stable. Continue to follow with Psychiatry, managing sertraline, bupropion. Precordial pain 04/01/2024 Assessment & Plan (05/03/2024 9:37 AM CDT): Chronic, stable Encouraged to take her aspirin daily Continue blood pressure control Labs ordered to look at her cholesterol Keep follow-up visit with Cardiology Morbid (severe) obesity due to excess calories 0 04/01/2024 PLMD (periodic limb movement disorder) Assessment & Plan (07/22/2024 11:02 AM CDT): The patient will continue with Lyrica as ordered by primary care Assessment & Plan (01/15/2024 11:41 AM COMPUTER DISCOVERY TEACHER): The patient will continue with Lyrica as ordered by primary care History of colon polyps 10/12/2023 Iron deficiency anemia 07/26/2023 Assessment & Plan (08/21/2024 2:29 PM CDT): Chronic. On iron supplements in the past. Recheck iron studies ordered today Assessment & Plan (05/03/2024 9:38 AM CDT): Chronic, uncertain level of control Follow-up labs ordered Assessment & Plan (10/03/2023 8:34 AM COMPUTER DISCOVERY TEACHER): Chronic, stable Testing with GI next week Continue iron replacement once she is able to Further guidance once she has the results Call for questions Assessment & Plan (07/26/2023 11:38 AM CDT): 06/30/2023 Hgb- 10.5 and HCT of 34.1. [...] understands and consents to having procedure done. Left carpal tunnel syndrome 09/09/2022 Osteoarthritis of left glenohumeral joint 2021 Spontaneous rupture of extensor tendon of right hand 06/09/2022 Overview (06/09/2022): Added automatically from request for surgery [id number] Tenosynovitis 05/18/2022 Extensor tenosynovitis of left wrist 05/18/2022 Assessment & Plan (05/20/2022 1:05 PM CDT): 61 y.o. female w/PMH of HTN, asthma, [...] contact the ID B&J Team Nurse practitioner MNelli, 7-3; or the Attending with any questions or concerns. After hours, please contact the ID fellow field applications specialist. Left hand pain 05/17/2022 Assessment & Plan (05/17/2022 8:38 AM CDT): With worsening swelling, pain, warmth My concern [...] questions or concerns Well adult exam 04/04/2022 Overview (06/30/2023): Encouraged a healthy diet, and regular physical activity to her level Wear sun screen, seat belts No texting/drinking and driving Health Maintenance: Last PAP: s/p hysterectomy Last mammogram: 07/04- WNL- ordered Last cologuard: 05/2021- Neg Last Tdap: 2019 Last Shingrix: rup to date Last Flu: up to date Last COVID: due booster Assessment & Plan (06/30/2023 9:45 AM CDT): Encouraged a healthy diet, and regular physical activity to her level Wear sun screen, seat belts No texting/drinking and driving Health Maintenance: Last PAP: s/p hysterectomy Last mammogram: 07/04- WNL- ordered Last cologuard: 05/2021- Neg Last Tdap: 2018 Last Shingrix: rup to date Last Flu: up to date Last COVID: due booster Assessment & Plan (04/04/2022 9:17 AM CDT): Encouraged a healthy diet, and regular physical activity to her level Wear sun screen, seat belts No texting/drinking and driving Health Maintenance: Last PAP: s/p hysterectomy Last mammogram: ordered Last cologuard: 05/2021- Neg Last Tdap: 2018 Last Shingrix: reviewed Last Flu: up to date Last COVID: due booster Class 2 severe obesity due t o excess calories with serious comorbidity and body mass index (BMI) of 38.0 to 38.9 in adult 04/04/2022 Assessment & Plan (01/22/2025 8:57 AM CDT): Chronic, improved BMI Follow-up includes: education provided. Assessment & Plan (01/08/2025 8:57 AM COMPUTER DISCOVERY TEACHER): Chronic,persistent Gastric bypass scheduled for next week BMI Follow-up includes: continue healthy changes . Assessment & Plan (12/12/2024 2:48 PM COMPUTER DISCOVERY TEACHER): Chronic. Uncontrolled. Preparation for Bariatric Surgery Patient is scheduled for bariatric surgery on January 14 and is required to follow a medically supervised diet until then. Currently, the patient is eating 1-2 meals per day with large portion sizes. - Discussed the importance of eating smaller, more frequent meals in preparation for post-surgery dietary changes. -Encourage patient to eat at least three times a day with smaller portion sizes. -Provide patient with information on the Mediterranean diet for meal ideas. -Schedule a follow-up appointment in one month to assess progress. Assessment & Plan (10/16/2024 8:13 AM COMPUTER DISCOVERY TEACHER): Chronic, worse BMI Follow-up includes: nutrition counseling. Assessment & Plan (09/24/2024 1:53 PM COMPUTER DISCOVERY TEACHER): Labs and EKG reviewed today. Lab workup is normal. Due to recent changes on EKG she may need cardiac clearance as well. Patient is medically clear for surgery. Clearance form completed today and faxed to her surgeon's office. Assessment & Plan (08/21/2024 2:29 PM CDT): BMI Follow-up includes: education provided. Assessment & Plan (05/03/2024 9:37 AM CDT): Chronic, worse Encouraged healthy lifestyle changes Will refer to bariatric surgery BMI Follow-up includes: nutrition counseling. Assessment & Plan (10/03/2023 8:32 AM COMPUTER DISCOVERY TEACHER): Chronic, stable BMI Follow-up includes: nutrition counseling. Assessment & Plan (08/29/2023 9:11 AM CDT): Chronic, stable BMI Follow-up includes: nutrition counseling. Assessment & Plan (06/30/2023 9:46 AM CDT): BMI Follow-up includes: nutrition counseling. Assessment & Plan (04/04/2022 9:41 AM CDT): BMI Follow-up includes: nutrition counseling. Cold sore 04/02/2022 Assessment & Plan (04/02/2022 12:57 PM CDT): Acute-informed can apply vxib-gvo-[id number] Abreva to cold sore as directed. Encouraged to wash hands thoroughly with soap and water after coming in contact with sore. Recommended follow-up next week with PCP if symptoms are not improving. Ganglion cyst of dorsum of left wrist 02/25/2022 Overview (02/25/2022): will check us will refer to hand surgery update me after the visit Left wrist pain 02/25/2022 History of COVID-19 12/22/2021 Assessment & Plan (12/22/2021 8:48 AM COMPUTER DISCOVERY TEACHER): Discussed viral nature of illness, treat symptomatically [...] better. History of basal cell cancer 05/12/2021 Assessment & Plan (04/04/2022 9:27 AM CDT): Continue to follow with derm Assessment & Plan (05/12/2021 7:41 AM CDT): Healing well Continue to follow with Dem Update me with any changes Mammogram declined 01/29/2021 Assessment & Plan (04/04/2022 9:27 AM CDT): encouraged Assessment & Plan (05/12/2021 7:44 AM CDT): Encouraged to look into Assessment & Plan (01/29/2021 8:46 AM CDT): Reviewed risks of delayed diagnosis, treatment. Encouraged to consider Seronegative spondyloarthropathy 07/25/2018 Assessment & Plan (08/21/2024 2:32 PM CDT): Chronic. Previously on immune suppressing medications though not currently. Monitor Assessment & Plan (04/04/2022 9:30 AM CDT): Continue to follow with rheum Continue current regimen for now Update me with any changes Hypertriglyceridemia 03/12/2018 Assessment & Plan (09/24/2024 1:54 PM COMPUTER DISCOVERY TEACHER): Chronic and controlled. Continue statin and fenofibrate. Assessment & Plan (06/30/2023 9:54 AM CDT): Chronic, stable ASCVD score 3/1% Continue healthy changes Assessment & Plan (12/28/2022 7:29 AM COMPUTER DISCOVERY TEACHER): Chronic, stable Labs ordered for her upcoming surgery Continue Tricor CTS (carpal tunnel syndrome) 12/25/2017 Vitamin D deficiency 12/25/2017 Assessment & Plan (06/30/2023 9:56 AM CDT): Chronic, continue vitamin d Fatigue 12/19/2017 Assessment & Plan (12/28/2022 7:28 AM COMPUTER DISCOVERY TEACHER): Chronic, associated with her multiple sclerosis Continue Adderall Continue to follow with her psychiatrist in her neurologist Update me with any changes or concerns Assessment & Plan (04/04/2022 9:25 AM CDT): Chronic ?related to multiple sclerosis Continue adderall through Psychiatry Assessment & Plan (11/30/2020 3:32 PM COMPUTER DISCOVERY TEACHER): Continue to follow with psychiatry Continue adderall Update me with any changes Labyrinthitis 09/13/2017 Degenerative disc disease, lumbar 05/17/2017 Assessment & Plan (04/04/2022 9:24 AM CDT): Continue diclofenac Continue supportive care Assessment & Plan (11/30/2020 3:32 PM COMPUTER DISCOVERY TEACHER): Continue to follow with pain management Update me with any changes Call for questions or concerns Facet arthritis of lumbar region 05/17/2017 Assessment & Plan (08/22/2024 11:26 AM CDT): Chronic. With radiofrequency ablation bilateral L3-L4 L5 scheduled for 08/30/24. Assessment & Plan (06/30/2023 9:53 AM CDT): Chronic, worse Will do a trial of lidoderm patches Continue nsaid Will place new referral to pain management Continue supportive care Call for questions or concerns Allergic rhinitis 01/05/2017 Assessment & Plan (09/15/2022 12:38 PM CDT): Chronic, stable Continue flonase Assessment & Plan (04/04/2022 9:19 AM CDT): Continue current regimen DEVI (obstructive sleep apnea) 01/05/2017 Assessment & Plan (09/24/2024 1:55 PM COMPUTER DISCOVERY TEACHER): Chronic and stable. Continue CPAP. Assessment & Plan (08/21/2024 2:28 PM CDT): Chronic. Stable. Continue CPAP nightly Assessment & Plan (07/22/2024 11:01 AM CDT): Patient continue to wear her CPAP at auto titrating range of 5-15 cm water pressure while sleeping. Her DME is [facility]. Assessment & Plan (01/15/2024 11:41 AM COMPUTER DISCOVERY TEACHER): Due to continued symptoms, the patient will continue with auto titrating CPAP set at 5-15 cm water pressure. I have provided the patient a list of dentists that make the oral appliance for sleep apnea. We discussed the oral appliance in depth. DME is [facility] Assessment & Plan (10/03/2023 8:35 AM COMPUTER DISCOVERY TEACHER): Chronic, stable Keep appt with sleep medicine Update me with any changes Assessment & Plan (08/01/2023 10:00 AM CDT): The patient was diagnosed DEVI in the past and treated with CPAP. She was intolerant of CPAP at that time. She would like to be re-evaluated and possibly treated with an oral appliance if possible. She will follow-up with me in 6 weeks. Assessment & Plan (06/30/2023 9:56 AM CDT): Chronic, uncontrolled She is not on CPAP Will refer to sleep medicine Assessment & Plan (04/04/2022 9:29 AM CDT): Currently not on CPAP She does not want to see pulmonary Consider seeing dentist for a mouth guard Word finding difficulty 11/18/2016 Migraine with aura and witho ut status migrainosus, not intractable 09/12/2016 Assessment & Plan (09/24/2024 1:54 PM COMPUTER DISCOVERY TEACHER): Chronic. Managed by Neurology. Continue Aimovig as prescribed. Assessment & Plan (08/21/2024 2:25 PM CDT): Chronic. Infrequent. Continue Aimovig Assessment & Plan (06/30/2023 9:57 AM CDT): Chronic Continue propranolol Continue healthy habity to decrease migraines Call for questions or concerns Assessment & Plan (12/28/2022 7:31 AM COMPUTER DISCOVERY TEACHER): Chronic, persistent Continue her current regimen Continue to follow with neurology Update me with any changes or concerns Call for questions Assessment & Plan (04/04/2022 9:27 AM CDT): Continue to follow with neuro Continue current regimen Assessment & Plan (05/12/2021 7:42 AM CDT): Stable Continue current regimen Continue healthy changes Call for questions or concerns Assessment & Plan (01/29/2021 10:58 AM CDT): Will do a trial of propranolol to help both blood pressure and migraines Continue current regimen otherwise Continue to follow with neurology Update me with any changes Call for questions or concerns Assessment & Plan (11/30/2020 3:36 PM COMPUTER DISCOVERY TEACHER): Continue current regimen Continue to follow with neurology Update me wit any changes Call for questions or concerns Exostosis of right posterior calcaneus 6 Dizziness and giddiness 08/09/2016 Assessment & Plan (04/04/2022 10:10 AM CDT): ? Related to current sinusitis verses multiple sclerosis versus other She has meclizine at home, she can use it as needed Update me if her symptoms change or worsen Call for questions Neurogenic bladder 03/23/2016 Assessment & Plan (04/04/2022 9:28 AM CDT): Continue to monitor Anxiety 02/05/2016 Assessment & Plan (08/21/2024 2:24 PM CDT): Chronic. Stable. Continue to follow with Psychiatry, managing sertraline, bupropion. Assessment & Plan (05/03/2024 9:37 AM CDT): Chronic, stable Managed by Psychiatry Continue her current regimen Assessment & Plan (06/30/2023 9:51 AM CDT): Chronic, stable Continue to follow with her psychiatrist Continue healthy changes Update me if her symptoms change or worsen Assessment & Plan (12/28/2022 7:27 AM COMPUTER DISCOVERY TEACHER): Chronic, stable Continue to follow with her psychiatrist Continue her current regimen for now -Cymbalta, Wellbutrin Update me with any changes or concerns Assessment & Plan (04/04/2022 9:22 AM CDT): Stable Continue current regimen Continue to follow with psychiatry Assessment & Plan (11/30/2020 3:31 PM COMPUTER DISCOVERY TEACHER): Continue to follow psychiatry Update me with any medication changes Call for questions or concerns Essential hypertension 02/05/2016 Assessment & Plan (09/24/2024 1:53 PM COMPUTER DISCOVERY TEACHER): Chronic and controlled. Continue propranolol and valsartan as prescribed. Assessment & Plan (05/03/2024 9:38 AM CDT): Chronic, improved Continue her current regimen Continue to monitor her blood pressure Assessment & Plan (10/03/2023 8:33 AM COMPUTER DISCOVERY TEACHER): Chronic, stable Continue losartan 25 mg daily, propranolol Continue healthy changes Assessment & Plan (08/29/2023 9:11 AM CDT): Chronic, variable levels of control For now, continue propranolol, losartan Reviewed best way to check blood pressures Check her blood pressure every day to three days and keep a log of them. She may bring those with her to her follow-up visit or update me through my chart Reviewed dash diet and healthy changes she can do to improve her numbers Call for questions or concerns Assessment & Plan (06/30/2023 9:52 AM CDT): Chronic, mildly elevated today, but runs well at home Continue propranolol Continue healthy changes Recheck prior to leaving Assessment & Plan (12/28/2022 7:28 AM COMPUTER DISCOVERY TEACHER): Chronic, at goal Continue propranolol EKG completed today Update me with any changes or concerns Assessment & Plan (04/04/2022 9:25 AM CDT): stable Continue propranolol Assessment & Plan (11/15/2021 7:47 AM COMPUTER DISCOVERY TEACHER): Blood pressure at goal Continue propranolol Update me with any changes Call for questions or concerns Fibromyalgia 02/05/2016 Assessment & Plan (08/21/2024 2:28 PM CDT): Chronic. Stable. Continue duloxetine 90 mg daily, Lyrica 200 mg twice daily - per psychiatry? Assessment & Plan (06/30/2023 9:54 AM CDT): Chronic Continue cymbalta Continue diclofenac- but we need to be cautious about her blood pressure Update me with any changes or concerns Assessment & Plan (04/04/2022 9:26 AM CDT): Continue supportive care Actinic keratosis 01/21/2016 Assessment & Plan (04/04/2022 9:19 AM CDT): Following with derm Assessment & Plan (05/12/2021 7:40 AM CDT): Continue to follow with dermatology Update me with any changes or concerns Assessment & Plan (11/30/2020 3:24 PM COMPUTER DISCOVERY TEACHER): With previous cryotherapy Will place a referral to derm for further guidance Insomnia 01/21/2016 Lumbar radiculopathy 01/21/2016 Assessment & Plan (08/21/2024 2:25 PM CDT): Chronic. With upcoming radiofrequency ablation. Overactive bladder 12/23/2015 Assessment & Plan (08/21/2024 2:29 PM CDT): Chronic. Stable. Managed without medication at this time Numbness 11/17/2015 Subjective visual disturbances 11/17/2015 Nocturia 11/17/2015 Gastroesophageal reflux disease 07/13/2015 Assessment & Plan (09/24/2024 1:54 PM COMPUTER DISCOVERY TEACHER): Chronic. Continue pantoprazole as prescribed. Assessment & Plan (08/21/2024 2:24 PM CDT): Chronic. Stable. Continue pantoprazole 20 mg twice daily Assessment & Plan (07/26/2023 11:40 AM CDT): Continue ppi, Pepcid 40mg ordered EGD- The [...] head of the bed, and weight loss Assessment & Plan (12/28/2022 7:54 AM COMPUTER DISCOVERY TEACHER): Chronic, with progression Continue her current regimen Will refer to GI for further guidance Will have her work on dietary changes Consider elevating the head of her bed which may help Call for questions or concerns Assessment & Plan (04/04/2022 9:27 AM CDT): Continue protonix Reviewed side effects including c diff, pneumonia, and bone loss Work on avoiding triggers Review when she is feeling better Assessment & Plan (11/15/2021 7:48 AM COMPUTER DISCOVERY TEACHER): Continue pantoprazole Reviewed healthy diet changes Update me with any concerns Assessment & Plan (05/12/2021 7:46 AM CDT): Continue current regimen We reviewed the benefits, cons, and possible side effects of the medication including the risk of C diff, pneumonia, bone loss, and possible kidney issues with proton pump inhibitors. We also reviewed the risks of leaving GERD untreated Assessment & Plan (11/30/2020 3:34 PM COMPUTER DISCOVERY TEACHER): Reviewed risks of medications including c diff, pneumonia, and bone loss Continue current regimen for now Call for questions or concerns Urinary urgency 07/13/2015 Multiple sclerosis 07/13/2015 Overview (02/23/2018): Description: >2 clinical attacks seperated in time [...] with any concerns about new neurologic symptoms. Assessment & Plan (09/24/2024 1:55 PM COMPUTER DISCOVERY TEACHER): Chronic and stable. Managed by Neurology. Continue Rebif injections. Assessment & Plan (08/21/2024 2:24 PM CDT): Chronic. Stable. Continue to follow with Neurology, managing Rebif injections. Assessment & Plan (05/03/2024 9:38 AM CDT): Chronic, uncertain level of control Referral to [facility] neurology placed Update me with changes or concerns Assessment & Plan (06/30/2023 9:55 AM CDT): Chronic Continue to follow with neurology- advised to please call their office Update me when she hears back Assessment & Plan (12/28/2022 7:30 AM COMPUTER DISCOVERY TEACHER): Chronic, possible progression I have encouraged her to reach out to her neurologist regarding her weakness Update me with any changes or concerns Call for questions Assessment & Plan (05/17/2022 8:36 AM CDT): Continue Rebif Continue to follow with neurology Handicap forms completed Update me with any changes or concerns Assessment & Plan (04/04/2022 9:28 AM CDT): Continue to follow with neuro Continue current regimen Assessment & Plan (07/23/2021 10:45 AM CDT): Continue to follow with neurology Encouraged to consider PT for gait/balance Update me with any changes Call for questions or concerns Assessment & Plan (11/30/2020 3:37 PM COMPUTER DISCOVERY TEACHER): Continue to follow with neurology Continue current regimen Update me with any changes Call for questions or concerns Resolved Problems Problem Noted Date Diagnosed Date Resolved Date Morbid obesity 11/28/2024 12/12/2024 Traumatic hematoma of left hand 05/25/2022 05/03/2024 Overview (05/25/2022): Added automatically from request for surgery [id number] Acute conjunctivitis of both eyes 04/02/2022 05/03/2024 Assessment & Plan (04/02/2022 12:56 PM CDT): Acute-prescribed Tobrex ophthalmic gtts -two drops both eyes three times daily for 5 days. Encouraged to wash hands thoroughly with soap and water after coming in contact with eyes. Recommended follow-up next week with PCP if symptoms are not improving. Elevated blood pressure, situational 01/29/2021 11/15/2021 Assessment & Plan (01/29/2021 9:18 AM CDT): Repeat BP done by myself 119/80 Handout on the DASH diet Check blood pressure twice a day- sitting up, both feet on the ground, resting for at least 5 minutes, arm relaxed and at heart level Bring blood pressure cuffs to the office With her chronic migraines, will do a low level propranolol to see if it can effect both blood pressures/migraines Follow up in 1 week Watch for hypotension/lightheaded MDD (major depressive disord er), recurrent, in full remission 08/11/2020 11/30/2020 Assessment & Plan (11/30/2020 3:35 PM COMPUTER DISCOVERY TEACHER): Continue to follow with psychiatry Continue current regimen Update me with any changes Call for questions or concerns Anemia 12/20/2017 11/30/2020 Low back pain 01/21/2016 01/03/2024 Encounters Date Type Department Care Team Description 02/27/2025 2:00 PM CDT Office Visit [facility] Minimally Invasive Surgery [address] [place] [address] Medical Office Building [address] [place] [address] Samuel Ashton MD Morbid obesity (HCC) (Primary Dx) 02/21/2025 Results Follow-Up [facility] Family Medicine [address] [phone] Emmie Zaragoza PA 02/20/2025 2:25 PM CDT - 02/20/2025 11:59 PM CDT Hospital Encounter [facility] ([place], [place]) Breast Imaging [address] [place] [address] Encounter for screening mammogram for malignant neoplasm of breast Discharge Disposition: Discharge to home or self care 01/31/2025 Letter (Out) [facility] [address] [phone] 01/31/2025 Telephone [facility] [address] [phone] Hemalatha Tang MD 01/24/2025 11:30 AM CDT Office Visit [facility] Minimally Invasive Surgery 10[address] [facility] Medical Office Building 4 [address] [place] [phone] Chris Carlisle MD S/P gastric bypass (Primary Dx) 01/24/2025 Results Follow-Up [facility] 10[address] [facility] Medical Office Building 3 [address] [place] [address] Srinath Perez DPM 01/22/2025 12:23 PM CDT - 01/22/2025 11:59 PM CDT Hospital Encounter [facility] Radiology [address] [place] [id number] Arthritis of left foot Discharge Disposition: Discharge to home or self care 01/22/2025 11:45 AM CDT Office Visit [facility] [address] [place] [address] 4th Floor [address] [place] [phone] Srinath Perez DPM Arthritis of left foot (Primary Dx); Arthritis; Subluxation of metatarsophalangeal joint of lesser toe of right foot, initial encounter; Hallux rigidus of right foot; Metatarsus varus, acquired, right; Pain of right foot; Pain of left foot; Difficulty in walking; Prediabetes 01/22/2025 8:30 AM CDT Office Visit [facility] [address] [place] [phone] Hemalatha Tang MD Multiple sclerosis (HCC) (Primary Dx); Essential hypertension; Gastroesophageal reflux disease without esophagitis; Class 2 severe obesity due to excess calories with serious comorbidity and body mass index (BMI) of 38.0 to 38.9 in adult (HCC) 01/16/2025 LORENA IP Outreach [facility] Organization [address] [place] [address] Kelli Mcdonald LPN 01/14/2025 12:02 PM COMPUTER DISCOVERY TEACHER Anesthesia Event [facility] Operating Room [address] [place] [address] Caren Dolan MD Deibel, Lori, NP 01/14/2025 12:00 PM COMPUTER DISCOVERY TEACHER - 01/14/2025 3:25 PM COMPUTER DISCOVERY TEACHER Surgery [facility] Operating Room [address] [place] [address] Samuel Ashton MD LAPAROSCOPIC GASTRIC BYPASS 01/14/2025 9:45 AM COMPUTER DISCOVERY TEACHER - 01/15/2025 1:19 PM COMPUTER DISCOVERY TEACHER Hospital Encounter [facility] [address] [address] [place] [address] Samuel Ashton MD Morbid obesity (HCC) (Primary Dx) Discharge Disposition: Discharge to home or self care 01/10/2025 Letter (Out) [address] [phone] 01/10/2025 Orders Only [address] [phone] Leat Casillas PA Positive RACHNA (antinuclear antibody) (Primary Dx); Facial rash; Multiple sclerosis (HCC) 01/10/2025 Results Follow-Up [facility] [address] [place] [phone] Leta Casillas PA Facial rash (Primary Dx); Positive RACHNA (antinuclear antibody); Multiple sclerosis (HCC) 01/08/2025 9:25 AM COMPUTER DISCOVERY TEACHER Lab [facility] [address] [place] [address] Facial rash 01/08/2025 8:30 AM COMPUTER DISCOVERY TEACHER Office Visit [address] [phone] Hemalatha Tang MD Facial rash (Primary Dx); Multiple sclerosis (HCC); Migraine with aura and without status migrainosus, not intractable; Essential hypertension; Gastroesophageal reflux disease without esophagitis; Class 2 severe obesity due to excess calories with serious comorbidity and body mass index (BMI) of 39.0 to 39.9 in adult (HCC); Encounter for screening mammogram for malignant neoplasm of breast 01/01/2025 9:00 AM COMPUTER DISCOVERY TEACHER Clinical Support [facility] [facility] Medical Office Building [address] [place] [phone] Morbid obesity (HCC) (Primary Dx) 12/31/2024 9:30 AM COMPUTER DISCOVERY TEACHER Pre-Admission Testing [facility] Preoperative [facility] ([facility]) [address] [place] [phone] Preoperative testing (Primary Dx); Morbid obesity (HCC) 12/23/2024 Telephone [facility] [address] [place] [phone] Hemalatha Tang MD Prior Auth Request for Loratadine 12/18/2024 Telephone [facility] [address] [place] [address] Jay Prescott MD 12/17/2024 Telephone [facility] Family Medicine [address] [place] [phone] Hemalatha Tang MD 12/17/2024 Orders Only [address] [phone] Hemalatha Tang MD Abnormal EKG (Primary Dx) 12/17/2024 Telephone [facility] [address] [place] [address] Medical Office Building [address] [place] [phone] Yury Gar TREATMENT PLANT MECHANIC 12/12/2024 2:30 PM COMPUTER DISCOVERY TEACHER Office Visit [address] [phone] Leta Casillas PA Class 2 severe obesity due to excess calories with serious comorbidity and body mass index (BMI) of 38.0 to 38.9 in adult (HCC) (Primary Dx) 12/12/[address] [phone] Hemalatha Tang MD from Last 3 Months Immunizations Immunization Administration Dates Next Due Influenza, Quadrivalent, Rec ombinant, Egg Free, Preservative Free, Intramuscular 10/25/2021,09/11/2020 Influenza, Quadrivalent, Spl it, Preservative Free, Intramuscular 10/03/2023,09/15/2022,08/01/2017,08/01 Influenza, Trivalent, IM (MDV) 08/01/2017 Influenza, Trivalent, Preser vative Free, Intramuscular 08/21/2024 Influenza, Unspecified 09/15/2022,2020,09/11/2020,08/02 Pfizer SARS-CoV-2 Monovalent Vaccination (12+ Yrs) PURPLE 02/11/2021,01/21/2021 Tdap 07/08/2019 ZOSTER Recombinant 05/11/2023,09/23/2022 Surgical History Surgery Date Site/Laterality Comments ARTHROSCOPY SHOULDER / OPEN SHOULDER Right ACHILLES TENDON REPAIR Right CARDIAC CATHETERIZATION HYSTERECTOMY TONSILLECTOMY HAND SURGERY 03/04/2022 Left left dorsal hand extensor synovectomy INCISION AND DRAINAGE 05/18/2022 Left hand TRANSFER TENDON HAND 06/30/2022 Left LT.HAND TENDON TRANSFER SHOULDER SURGERY 02/11/2023 - 03/12/2023 Left JOINT REPLACEMENT 02/15/2023 Left shoulder COLONOSCOPY GASTRIC BYPASS Medical History Medical History Date Comments Essential hypertension 02/05/2016 Actinic keratosis 01/21/2016 Allergic rhinitis 01/05/2017 Anxiety 02/05/2016 CTS (carpal tunnel syndrome) 12/25/2017 Degenerative disc disease, lumbar 05/17/2017 Exostosis of right posterior calcaneus 6 Fatigue 12/19/2017 Gastroesophageal reflux disease 07/13/2015 Hypertriglyceridemia 03/12/2018 Insomnia 01/21/2016 MDD (major depressive disord er), recurrent, in full remission 08/11/2020 Migraine with aura and witho ut status migrainosus, not intractable 09/12/2016 Multiple sclerosis (HCC) 07/13/2015 Descrip tion: >2 clinical attacks seperated in time and [...] of that time, so I will obtain basel Neurogenic bladder 03/23/2016 DEVI (obstructive sleep apnea) 01/05/2017 do es not use CPAP Seronegative spondyloarthropathy 07/25/2018 Vitamin D deficiency 12/25/2017 Motion sickness Arthritis Anemia 2006 Diverticulitis of colon 2023 SAUL (dyspnea on exertion) 2012 Fibromyalgia, primary 2011 Peptic ulcer disease 1999 Joint pain 1999 Kidney stone 2023 Low back pain 1995 Basal cell carcinoma (BCC) Family History Medical History Relation Name Comments Heart disease Brother Cancer Father Saw Ervinan Diabetes Father Saw Torres Heart attack Father Saw Torres Heart disease Father Saw Torres Kidney disease Father Saw Torres Alcohol abuse Mother Lottie Torres Arthritis Mother Lottie Torres Breast cancer Mother Lottie Torres Cancer Mother Lottie Torres Depression Mother Lottie Torres Drug abuse Mother Lottie Torres Heart attack Mother Lottie Torres Heart disease Mother Lottie Torres Hyperlipidemia Mother Lottie Torres Mental illness Mother Lottie Torres Obesity Mother Lottie Torres Rashes / Skin problems Mother Lottie Torres Anesthesia problems Neg Hx Relation Name Status Comments Brother Father Saw Torres Mother Lottie Torres Social History Tobacco Use Types Packs/Day Years Used Date Smoking Tobacco: Never Passive Smoke Exposure: Past Smokeless Tobacco: Never Tobacco Cessation:Counseling Given: Not Answered AUDIT-C Answer Date Recorded Q1: How often [...] on file Legal Sex Female 2:06 AM COMPUTER DISCOVERY TEACHER Gender Identity Female 11/29/2020 6:59 PM COMPUTER DISCOVERY TEACHER Sexual Orientation Not on file Obstetrics History Para Term AB IAB SAB Ectopic Multiple Livin g Live Births 2 2 2 Date Outcome GA Total Labor Labor/2nd/3rd Weight Sex Type Anes PTL Kristen A1 A5 Name Clin Term Term Last Filed Vital Signs Vital Sign Reading Time Taken Comments Blood Pressure 143/81 02/27/2025 1:43 PM CDT Pulse 102 02/27/2025 1:43 PM CDT Temperature 36.7 C (98 F) 02/27/2025 1:43 PM CDT Respiratory Rate 12 01/22/2025 8:28 AM CDT Oxygen Saturation 100% 02/27/2025 1:43 PM CDT Inhaled Oxygen Concentration - - Weight 88.3 kg (194 lb 9.6 oz) 02/27/2025 1:43 P M CDT Height 158.8 cm (5' 2.5 ) 02/27/2025 1:43 PM CDT Body Mass Index 35.03 02/27/2025 1:43 PM CDT Plan of Treatment Health Maintenance Due Date Last Done Comments Hepatitis B Screening 1980 Regular Well Visit/Exam 18-64 06/30/2024 06/30/2023, 06/30/2023, 04/04/2022, Additional history exists Depression Screening 01/22/2026 01/22/2025, 12/12/2024, 10/16/2024, Additional history exists Breast Cancer Screening-Mammogram 02/20/2026 02/20/2025, 11/22/2023, 06/16/2022 Colon Cancer Screening-DNA Stool 01/15/2027 01/16/2024, 10/09/2023, 06/10/2021 DTaP/Tdap/Td Vaccine (2 - Td or Tdap) 07/08/2029 07/08/2019 Hepatitis C Screening Completed 01/06/2018 Zoster Vaccine Completed 05/11/2023, 09/23/2022 Colon Cancer Screening-Colonoscopy Discontinued 01/16/2024, 10/09/2023 Influenza Vaccine Completed 08/21/2024, , 09/15/2022, Additional history exists Covid-19 Vaccine Completed 12/12/2024, 09/2022, 02/11/2021, Additional history exists Pneumococcal vaccine <65 Aged Out 12/12/2024 No longer eligible based on patient's age to complete this topic Medical Devices Implanted Type Area Executive Legal Secretary Device Identifier Shelf Expiration Date Model / Serial / Lot Sholder Left: Shoulder Procedures Procedure Name Priority Date/Time Associated Diagnosis Comments SCREENING MAMMOGRAM BILATERA L W AP Schedule Routine, Read Routine (OP Routine) 02/20/2025 2:38 PM CDT Encounter for screening mammogram for malignant neoplasm of breast XR FOOT LEFT WEIGHT-BEARING 3 OR MORE VIEWS Schedule Routine, Read Routine (OP Routine) 01/22/2025 12:35 PM CDT Arthritis of left foot EGFR Routine 01/14/2025 11:25 PM COMPUTER DISCOVERY TEACHER BASIC METABOLIC PANEL Routine 01/14/2025 11:25 PM COMPUTER DISCOVERY TEACHER CBC WITHOUT DIFFERENTIAL Routine 025 11:25 PM COMPUTER DISCOVERY TEACHER OR AN PROCEDURE PLACEHOLDER Routine 02/2025 12:41 PM COMPUTER DISCOVERY TEACHER OR AN ELECTIVE ENDOTRACHEAL AIRWAY Routine 01/14/2025 12:41 PM COMPUTER DISCOVERY TEACHER ESOPHAGOGASTRODUODENOSCOPY 01/14 12:05 PM COMPUTER DISCOVERY TEACHER Morbid obesity (HCC) LAPAROSCOPIC GASTRIC BYPASS 02/2025 12:05 PM COMPUTER DISCOVERY TEACHER Morbid obesity (HCC) RACHNA QUALITATIVE WITH REFLEX TO RACHNA QUANTITATIVE Routine 01/08/2025 9:43 AM COMPUTER DISCOVERY TEACHER Facial rash EGFR Routine 12/31/2024 11:14 AM COMPUTER DISCOVERY TEACHER Preoperative testing DIFFERENTIAL AUTO Routine 12/31/2024 11:14 AM COMPUTER DISCOVERY TEACHER Preoperative testing CBC WITH AUTO DIFFERENTIAL Routine 12/31 11:14 AM COMPUTER DISCOVERY TEACHER Preoperative testing BASIC METABOLIC PANEL Routine 12/31/2024 11:14 AM COMPUTER DISCOVERY TEACHER Preoperative testing NICOTINE METABOLITE SCREEN, URINE Routine 12/31/2024 11:14 AM COMPUTER DISCOVERY TEACHER Morbid obesity (HCC) COLONOSCOPY 01/16/2024 9:22 AM COMPUTER DISCOVERY TEACHER HM HEPATITIS C SCREENING Routine 01/06/2018 from Last 3 Months or Most Recently Relevant to Health Maintenance Results * Screening Mammogram Bilateral W Ap (02/20/2025 2:38 PM CDT) Anatomical Region Laterality Modality Breast Bilateral Mammography Impressions 02/20/2025 2:43 PM CDT BI-RADS ATLAS category (overall): 1 - Negative There is no mammographic evidence of malignancy. A 1 year screening mammogram is recommended. The patient has been or will be contacted. We recommend annual screening mammography for women at average risk of breast cancer beginning at age 40, based on guidelines of the [employer] [place] [employer] (ACR Practice Parameter for the Performance of Screening and Diagnostic Mammography) and [place] [employer]. For women with and elevated risk of breast cancer, please refer to the ACR Practice Parameter for specific screening recommendations. The patient will be entered into a reminder system with a target due date of 1 year for her next screening exam. Narrative 02/20/2025 2:43 PM CDT Screening Mammogram Bilateral W Ap: 02/20/25 The study was acquired using full field digital technology and interpreted from soft copy. 2D digital mammographic views, as well as 3D digital tomosynthesis were performed in the CC and MLO projections. This study was resulted using Computer-Aided Detection (CAD). CLINICAL: Encounter for screening mammogram for malignant neoplasm of breast. No relevant medical history has been documented for this patient. History of breast cancer in Mother. COMPARISONS: 11/22/2023 SCREENING MAMMOGRAM BILATERAL W AP 06/16/2022 Screening Mammogram Bilateral W Ap 12/14/2016 Breast Imaging Screening Outside Reference BREAST TISSUE: The breasts are almost entirely fatty. FINDINGS: No suspicious masses, suspicious calcifications, or other suspicious findings are seen within either breast. There has been no suspicious change. us Hemalatha Tang MD IMG MAMMO PROCEDURE S Final Result * XR Foot Left Weight-Bearing 3 or More Views (01/22/2025 12:35 PM CDT) Anatomical Region Laterality Modality Lower Extremities, Foot Left Computed Radiography 01/22/2025 12:3 8 PM CDT Impressions 01/22/2025 12:38 PM CDT 1. Moderate pes planovalgus with moderate to severe midfoot osteoarthritis. Electronically signed by: Byron Noel D.O. Narrative 01/22/2025 12:38 PM CDT EXAMINATION: XR FOOT LEFT WEIGHT-BEARING 3 OR MORE VIEWS HISTORY: Osteoarthritis left midfoot FINDINGS: Comparison made to 10/30/2023 radiograph. There is moderate to severe midfoot osteoarthritis with severe involvement of the 3rd tarsometatarsal joint, similar to prior. There is moderate pes planovalgus. Moderate 1st metatarsophalangeal osteoarthritis. No acute fracture. No dislocation. Procedure Note Byron Noel, DO - 01/22/2025 EXAMINATION: XR FOOT LEFT WEIGHT-BEARING 3 OR MORE VIEWS HISTORY: Osteoarthritis left midfoot FINDINGS: Comparison made to 10/30/2023 radiograph. There is moderate to severe midfoot osteoarthritis with severe involvement of the 3rd tarsometatarsal joint, similar to prior. There is moderate pes planovalgus. Moderate 1st metatarsophalangeal osteoarthritis. No acute fracture. No dislocation. IMPRESSION: 1. Moderate pes planovalgus with moderate to severe midfoot osteoarthritis. Electronically signed by: Byron Noel D.O. us Srinath Perez DPM IMG XR PROCEDURES Final R esult * eGFR (01/14/2025 11:25 PM COMPUTER DISCOVERY TEACHER) eGFR 83 >=60 mL/min/1. 73 m2 Comment: Interpretive Data Reference Interval Normal >/= 90 mL/min/1.73m2 Mildly decreased* 60 - 89 mL/min/1.73m2 Mildly to moderately decreased 45 - 59 mL/min/1.73m2 Moderately to severely decreased 30 - 44 mL/min/1.73m2 Severely decreased 15 - 29 mL/min/1.73m2 Kidney Failure < 15 mL/min/1.73m2 *Relative to young adult level Estimated glomerular filtration rate is determined by the 2020 CKD-EPI equation recommended by the National Kidney Foundation (A Unifying Approach to GFR Estimation: Recommendations of the NKF-ASK Task Force on Reassessing the Inclusion of Race in Diagnosing Kidney Disease, JASN 2020). The CKD-EPI equation should not be used for patients with unstable renal function and has not been validated in children and those over 70. Current interpretive data was last reviewed 2021. Blood 01/14/2025 11:2 5 PM COMPUTER DISCOVERY TEACHER 01/14/2025 11:33 PM COMPUTER DISCOVERY TEACHER Samuel Ashton MD LAB BLOOD ORDERABLES Final Resul t Performing Organization Address City/[facility]/ZIP Co de Phone Number REJI DUNLAP [address] [address] [address] * (ABNORMAL) CBC without differential (01/14/2025 11:25 PM COMPUTER DISCOVERY TEACHER) WBC 13.7(H) 3.8 - 9.9 K/cumm Hgb 12.5 11.9 - 15.5 g/dL [facility] Hct 38.2 35.6 - 45.5 % [facility] Plt 279 150 - 400 K/[facility] MPV 9.2 9.1 - 12.3 fL [facility] RBC 4.59 3.90 - 5.20 M/cumm [facility] MCV 83.2 81.3 - 96.4 fL [facility] MCH 27.2 27.1 - 33.3 pg [facility] MCHC 32.7 32.3 - 35.7 g/dL [facility] RDW CV 14.7 11.1 - 14.9 % [facility] RDW SD 44.3 35.7 - 48.1 fL [facility] NRBC abs 0.00 0.00 - 0.01 K/cumm [facility] Blood 01/14/2025 11:2 5 PM COMPUTER DISCOVERY TEACHER 01/14/2025 11:33 PM COMPUTER DISCOVERY TEACHER Samuel Ashton MD LAB BLOOD ORDERABLES Final Resul t Performing Organization Address City/[facility]/ZIP Co de Phone Number REJI DUNLAP [phone] [address] [facility] [address], [place] [phone] * (ABNORMAL) Basic metabolic panel (01/14/2025 11:25 PM COMPUTER DISCOVERY TEACHER) Sodium 140 135 - 145 mmol/L Potassium, pl 4.3 3.3 - 4.9 mmol/L [facility] Chloride 105 97 - 110 mmol/L [facility] CO2 20(L) 22 - 32 mmol/L [facility] Anion gap 15 2 - 15 mmol/L [facility] BUN 19 6 - 25 mg/dL [facility] Creatinine 0.80 0.60 - 1.10 mg/dL [facility] Glucose 177 70 - 199 mg/dL [facility] Comment: Interpretive Data Fasting glucose >/= 126 mg/dl is diagnostic for diabetes. Fasting is defined as no caloric intake for at least 8 hours. Fasting glucose between 100 mg/dl to 125 mg/dl is diagnostic of prediabetes. In a patient with classic symptoms of hyperglycemia or hyperglycemic crisis, a random glucose >/= 200 mg/dl is diagnostic for diabetes. In the absence of unequivocal hyperglycemia, results should be confirmed by repeat testing. The classification and Diagnosis of Diabetes Diabetes Care 2021; 46: S19-S40. Current interpretive data was last revised 2022. Calcium 9.0 8.5 - 10.3 mg/dL [facility] Blood 01/14/2025 11:2 5 PM COMPUTER DISCOVERY TEACHER 01/14/2025 11:33 PM COMPUTER DISCOVERY TEACHER us Samuel Ashton MD LAB BLOOD ORDERABLES Final Resul t Performing Organization Address City/State/[facility] Co de Phone Number REJI BARTLETT [phone] [facility]. Department [place] [address] * OR AN ELECTIVE ENDOTRACHEAL AIRWAY, OR AN PROCEDURE PLACEHOLDER (01/14/2025 12:41 PM COMPUTER DISCOVERY TEACHER) Narrative Emmie Campo CRNA - 01/14/2025 12:41 PM COMPUTER DISCOVERY TEACHER Emmie Campo CRNA 01/14/2025 12:43 PM Airway Patient location: OR Urgency: elective Date/time: 01/14/2025 12:09 PM Indications for airway management: anesthesia Difficult airway: no Staff: Placed by: PRESS MACHINE FEEDER: Emmie Campo CRNA Emergent airway documentation: Risks and benefits discussed: yes Consent obtained: yes Consent given by: patient Airway prep: Preoxygenated: yes Patient position: sniffing Mask difficulty assessment: 1 - vent by mask Sedation level during airway: GA Final airway details: Final airway type: endotracheal airway Tube type: ETT ETT size: 7.0 mm Cuffed: yes Technique used for successful ETT placement: video laryngoscopy Devices/Methods used in placement: stylet and cricoid pressure Insertion site: oral Blade type: Satish Video blade type: Glidescope Blade size: 3 Cormack-Lehane (video): grade I - full view of glottis Cuff volume: 8 mL Cuff inflated with: air ETT to lips: 20 cm Placement verified by: auscultation and CO2 detection Airway secured with: silk tape Number of attempts: 1 us Caren Dolan MD ANESTHESIA ORDERABLES Fi nal Result * (ABNORMAL) RACHNA ab ql w/rflx to RACHNA qn (01/08/2025 9:43 AM COMPUTER DISCOVERY TEACHER) RACHNA Positive 1:160 Comment: Interpretive Data Normal range for RACHNA Qualitative Antibody = Negative. 1. RACHNA is performed using indirect immunofluorescence against HEp-2 cells 2. RACHNA titers are performed on all positive qualitative results. 3. A significantly positive RACHNA result is defined as a positive nuclear fluorescence at a titer of 1:80 or greater. 4. 15% of normal people above age 65 have significantly positive RACHNA results. 5% or less of normal people age 65 or under have significantly positive RACHNA results. Current interpretive data was last revised on 2020. Testing performed by: [facility], [address] [place] [address]., [id number] RACHNA, quant 1:160 titer REJI DEVINE Comment:Testing performed by : [address] [address] RACHNA, interp Homogeneous (A) REJI DEVINE Comment:Testing performed by : [facility], [address] [place] [address]., [id number] Blood 01/08/2025 9:43 AM COMPUTER DISCOVERY TEACHER 01/08/2025 3:37 PM COMPUTER DISCOVERY TEACHER us Hemalatha Tang MD LAB BLOOD ORDERABLE S Final Result REJI DEVINE [id number] [facility] Department [place] [address] * eGFR (12/31/2024 11:14 AM COMPUTER DISCOVERY TEACHER) Pathologist [facility] eGFR 73 >=60 mL/min/1. 73 m2 Comment: Interpretive Data Reference Interval Normal >/= 90 mL/min/1.73m2 Mildly decreased* 60 - 89 mL/min/1.73m2 Mildly to moderately decreased 45 - 59 mL/min/1.73m2 Moderately to severely decreased 30 - 44 mL/min/1.73m2 Severely decreased 15 - 29 mL/min/1.73m2 Kidney Failure < 15 mL/min/1.73m2 *Relative to young adult level Estimated glomerular filtration rate is determined by the 2020 CKD-EPI equation recommended by the National Kidney Foundation (A Unifying Approach to GFR Estimation: Recommendations of the NKF-ASK Task Force on Reassessing the Inclusion of Race in Diagnosing Kidney Disease, JASN 2020). The CKD-EPI equation should not be used for patients with unstable renal function and has not been validated in children and those over 70. Current interpretive data was last reviewed 2021. Blood 12/31/2024 11:1 4 AM COMPUTER DISCOVERY TEACHER 12/31/2024 12:25 PM COMPUTER DISCOVERY TEACHER us Nely Ramirez NP LAB BLOOD ORDERABLES Final Resul t [facility] Department [place] [address] * Differential, auto (12/31/2024 11:14 AM COMPUTER DISCOVERY TEACHER) [employer] [facility] Neutrophil abs 3.3 1.5 - 6.5 K/cumm Imm gran abs 0.0 0.0 - 0.1 K/cumm [facility] Lymphocyte abs 2.1 0.8 - 3.3 K/cumm [facility] Monocyte abs 0.5 0.2 - 0.8 K/cumm [facility] Eosinophil abs 0.5 0.0 - 0.5 K/cumm [facility] Basophil abs 0.1 0.0 - 0.1 K/cumm [facility] Neutrophil pct 50.3 % [facility] Comment: Interpretive Data Percent cell count reference ranges are not reported, since discordance with absolute values may lead to misinterpretation of CBC data. Current Interpretive Data was last revised on 2018. Imm gran pct 0.5 % [facility] Comment: Interpretive Data Percent cell count reference ranges are not reported, since discordance with absolute values may lead to misinterpretation of CBC data. Current Interpretive Data was last revised on 2018. Lymphocyte pct 32.6 % [facility] Comment: Interpretive Data Percent cell count reference ranges are not reported, since discordance with absolute values may lead to misinterpretation of CBC data. Current Interpretive Data was last revised on 2018. Monocyte pct 7.6 % [facility] Comment: Interpretive Data Percent cell count reference ranges are not reported, since discordance with absolute values may lead to misinterpretation of CBC data. Current Interpretive Data was last revised on 2018. Eosinophil pct 8.2 % [facility] Comment: Interpretive Data Percent cell count reference ranges are not reported, since discordance with absolute values may lead to misinterpretation of CBC data. Current Interpretive Data was last revised on 2018. Basophil pct 0.8 % [facility] Comment: Interpretive Data Percent cell count reference ranges are not reported, since discordance with absolute values may lead to misinterpretation of CBC data. Current Interpretive Data was last revised on 2018. Blood 12/31/2024 11:1 4 AM COMPUTER DISCOVERY TEACHER 12/31/2024 12:25 PM COMPUTER DISCOVERY TEACHER us Nely Ramirez NP LAB BLOOD ORDERABLES Final Resul t [facility] Department [place] [address] * (ABNORMAL) CBC with auto differential (12/31/2024 11:14 AM COMPUTER DISCOVERY TEACHER) WBC 6.6 3.8 - 9.9 K/cumm Hgb 14.2 11.9 - 15.5 g/dL [facility] Hct 43.1 35.6 - 45.5 % [facility] Plt 333 150 - 400 K/cumm [facility] MPV 9.7 9.1 - 12.3 fL [facility] RBC 5.30(H) 3.90 - 5.20 M/cumm [facility] MCV 81.3 81.3 - 96.4 fL [facility] MCH 26.8(L) 27.1 - 33.3 pg [facility] MCHC 32.9 32.3 - 35.7 g/dL [facility] RDW CV 14.2 11.1 - 14.9 % [facility] RDW SD 41.5 35.7 - 48.1 fL [facility] NRBC abs 0.00 0.00 - 0.01 K/cumm [facility] Blood 12/31/2024 11:1 4 AM COMPUTER DISCOVERY TEACHER 12/31/2024 12:25 PM COMPUTER DISCOVERY TEACHER us Nely Ramirez NP LAB BLOOD ORDERABLES Final Resul t [facility] Department [place] [address] * Nicotine metabolite screen, urine (12/31/2024 11:14 AM COMPUTER DISCOVERY TEACHER) Pathologist [facility] Nicotine, ur <5.0 <5.0 ng/mL [facility] Cotinine, ur <5.0 <5.0 ng/mL [facility] Anabasine ur <2.0 <2.0 ng/mL [facility] Comment: ADDITIONAL INFORMATION This test was developed and its performance characteristics determined by [facility] in a manner consistent with CLIA requirements. This test has not been cleared or approved by the U.S. Food and Drug Administration. Test Performed by: [facility] - [address] [address] Psychology Technician: Denia Bradshaw Ph.D.; CLIA# [id number] Nornicotine, ur <2.0 <2.0 ng/mL [facility] Urine 12/31/2024 11:1 4 AM COMPUTER DISCOVERY TEACHER 12/31/2024 12:25 PM COMPUTER DISCOVERY TEACHER us Samuel Ashton MD LAB URINE ORDERABLES Final Resul t Performing Organization Address [facility] Co de Phone Number [facility] Department [place] [address] [facility] ref Lab * (ABNORMAL) Basic metabolic panel (12/31/2024 11:14 AM COMPUTER DISCOVERY TEACHER) Sodium 139 135 - 145 mmol/L Potassium, pl 4.2 3.3 - 4.9 mmol/L [facility] Chloride 104 97 - 110 mmol/L [facility] CO2 25 22 - 32 mmol/L [facility] Anion gap 10 2 - 15 mmol/L [facility] BUN 26(H) 6 - 25 mg/dL [facility] Creatinine 0.89 0.60 - 1.10 mg/dL [facility] Glucose 93 70 - 199 mg/dL [facility] Comment: Interpretive Data Fasting glucose >/= 126 mg/dl is diagnostic for diabetes. Fasting is defined as no caloric intake for at least 8 hours. Fasting glucose between 100 mg/dl to 125 mg/dl is diagnostic of prediabetes. In a patient with classic symptoms of hyperglycemia or hyperglycemic crisis, a random glucose >/= 200 mg/dl is diagnostic for diabetes. In the absence of unequivocal hyperglycemia, results should be confirmed by repeat testing. The classification and Diagnosis of Diabetes Diabetes Care 2021; 46: S19-S40. Current interpretive data was last revised 2022. Calcium 9.8 8.5 - 10.3 mg/dL [facility] Blood 12/31/2024 11:1 4 AM COMPUTER DISCOVERY TEACHER 12/31/2024 12:25 PM COMPUTER DISCOVERY TEACHER us Nely Ramirez NP LAB BLOOD ORDERABLES Final Resul t Performing Organization Address [facility] Co de Phone Number [facility] Department [place] [address] * Colonoscopy (01/16/2024 9:22 AM COMPUTER DISCOVERY TEACHER) Anatomical Region Laterality Modality Other Narrative Procedure Note Art Morris MD - 01/16/2024 9:22 AM [facility] GI ENDOSCOPY Patient Name: Linda Mckeon Procedure Date: 01/16/2024 9:22 AM Date of : 1960 Admit Type: Outpatient Age: 63 Gender: Female Attending MD: Art Morris M.D. Room: [facility] ENDOSCOPY ROOM 06 Note Status: Finalized Procedure: Colonoscopy Indications: Iron deficiency anemia Referring MD: Providers: Art Morris M.D. Medicines: Monitored Anesthesia Care Complications: No immediate complications. Estimated Blood Loss: Estimated blood loss: none. Procedure: Pre-Anesthesia Assessment: - Prior to the procedure, a History and Physicalwas performed, and patient medications and allergieswere reviewed. The risks and benefits of the procedureand the sedation options and risks were discussed withthe patient. All questions were answered and informed consent was obtained. Patient identification and proposed procedure were verified. After reviewingthe risks and benefits, the patient was deemed in satisfactory condition to undergo the procedure.The anesthesia plan was to use monitored anesthesiacare (MAC). Immediately prior to administration of medications, the patient was re-assessed foradequacy to receive sedatives. The heart rate, respiratory rate, oxygen saturations, blood pressure, adequacyof pulmonary ventilation, and response to care were monitored throughout the procedure. The physical status of the patient was re-assessed after the procedure. The benefits, risks and alternatives of theprocedure and sedation were discussed and informed consentwas obtained. All questions were answered. Please referto the signed informed consent document in the medical record. The scope was passed under direct vision.The [id number]-[id number] colonoscope was introduced through theanus and advanced to the cecum, identified byappendiceal orifice and ileocecal valve. The colonoscopy was performed without difficulty. The patient tolerated the procedure well. The quality of the bowel preparation was poor. Scope withdrawal time was 7 minutes. Prep was administered in a split dose. Findings: The perianal and digital rectal examinations were normal. Non-bleeding internal hemorrhoids were found during retroflexion. The hemorrhoids were small. A few small-mouthed diverticula were found in the sigmoid colon. Poor prep throughout the colon limiting visualization. Impression: - Preparation of the colon was poor. - Non-bleeding internal hemorrhoids. - Diverticulosis in the sigmoid colon. - No specimens collected. Recommendation: - Patient has a contact number available for emergencies. The signs and symptoms of potential delayed complications were discussed with thepatient. Return to normal activities tomorrow. Written discharge instructions were provided to thepatient. - High fiber diet. - Continue present medications. - We will order barium enema given poor prep onthis colonoscopy as well as the one prior, if negative repeat colonoscopy in 5 years. - Return to GI clinic as previously scheduled. Art Morris M.D. Art Morris M.D. 01/16/2024 9:41:56 AM . Number of Addenda: 0 Note Initiated On: 01/16/2024 9:22 AM Recognized by the [employer] [place] [employer] for promoting quality in endoscopy us Art Morris MD ENDOSCOPY PROCEDURES Final Resul t * HM HEPATITIS C SCREENING (01/06/2018) SCRIBED HCV ab negative us Historical Provider MD HEALTH MAINTENANCE Final Result from Last 3 Months or Most Recently Relevant to Health Maintenance Insurance [facility] Advance Directives For more information, please contact: [phone] * Full Code (Latest Code Status on File) Date Activated Date Inactivated Comments 01/14/2025 6:44 PM 01/15/2025 5:24 PM * Full Code Date Activated Date Inactivated Comments 10/07/2024 6:53 AM 10/07/2024 12:21 PM * Full Code Date Activated Date Inactivated Comments 05/19/2022 12:17 AM 05/20/2022 8:32 PM Care Teams Combination Welder Apprentice Relationship Specialty Start Date End Date Hemalatha Tang MD [address] [place], [place] [id number] PCP - General Family Medicine 11/02/20 Manuel Swartz MD [address] [place], [place] [id number] Neurology 04/17/23
--- OUTSIDE RECORDS SUMMARY | 2025-02-27 21:18 | XMS_ITS | Referral Summary ---
Author Organization [address] Address [address] [place] [phone] Care Team Providers Care Applications System Analyst Name Role Phone Hemalatha Tnag MD Primary Care Provi summer Manuel Swartz MD Unavailable [phone] Encounters Date Type Department Care Team Description 02/27/2025 2:00 PM CDT Office Visit [facility] Surgery [address] [place] [address] Medical Office Building [address] [place] [phone] Samuel Ashton MD Morbid obesity (HCC) (Primary Dx) 02/21/2025 Results Follow-Up [facility] [address] [place] [phone] Emmie Zaragoza PA 02/20/2025 2:25 PM CDT - 02/20/2025 11:59 PM CDT Hospital Encounter [facility] Breast Imaging [address] [place] [phone] Encounter for screening mammogram for malignant neoplasm of breast Discharge Disposition: Discharge to home or self care 01/31/2025 Letter (Out) [facility] [address] [place] [phone] 01/31/2025 Telephone [facility] [address] [phone] Hemalatha Tang MD 01/24/2025 Results Follow-Up [facility] Surgery [address] [facility] Medical Office Building 3 [address] [place] [address] Srinath Perez DPM 01/24/2025 11:30 AM CDT Office Visit [facility] [address] [facility] Medical Office Building 4 [address] [place] [phone] Chris Carlisle MD S/P gastric bypass (Primary Dx) 01/22/2025 12:23 PM CDT - 01/22/2025 11:59 PM CDT Hospital Encounter [facility] Radiology [address] [place] [address] Arthritis of left foot Discharge Disposition: Discharge to home or self care 01/22/2025 8:30 AM CDT Office Visit [facility] [address] [phone] Hemalatha Tang MD Multiple sclerosis (HCC) (Primary Dx); Essential hypertension; Gastroesophageal reflux disease without esophagitis; Class 2 severe obesity due to excess calories with serious comorbidity and body mass index (BMI) of 38.0 to 38.9 in adult (HCC) 01/22/2025 11:45 AM CDT Office [facility] [address] [place] [address] 4th Floor [address] [place] [phone] Srinath Perez DPM Arthritis of left foot (Primary Dx); Arthritis; Subluxation of metatarsophalangeal joint of lesser toe of right foot, initial encounter; Hallux rigidus of right foot; Metatarsus varus, acquired, right; Pain of right foot; Pain of left foot; Difficulty in walking; Prediabetes 01/16/2025 [facility] IP Outreach [facility] Accountable Care Organization [address] [place] [address] Kelli Mcdonald LPN 01/14/2025 9:45 AM PIPE FINISHER - 01/15/2025 1:19 PM PIPE FINISHER Hospital Encounter [facility] [address] [id number] [place] [address] Samuel Ashton MD Morbid obesity (HCC) (Primary Dx) Discharge Disposition: Discharge to home or self care 01/14/2025 12:00 PM PIPE FINISHER - 01/14/2025 3:25 PM PIPE FINISHER Surgery [facility] Operating Room [address] [place] [address] Samuel Ashton MD LAPAROSCOPIC GASTRIC BYPASS 01/14/2025 12:02 PM PIPE FINISHER Anesthesia Event [facility] Operating Room [address] [place] [address] Caren Dolan MD Deibel, Lori, NP 01/10/2025 Letter (Out) [address] [phone] 01/10/2025 Orders Only [address] [phone] Leta Casillas PA Positive RACHNA (antinuclear antibody) (Primary Dx); Facial rash; Multiple sclerosis (HCC) 01/10/2025 Results Follow-Up [address] [phone] Leta Casillas PA Facial rash (Primary Dx); Positive RACHNA (antinuclear antibody); Multiple sclerosis (HCC) 01/08/2025 9:25 AM PIPE FINISHER Lab [facility] OP Lab [address] [place] [address] Facial rash 01/08/2025 8:30 AM PIPE FINISHER Office Visit [address] [phone] Hemalatha Tang MD Facial rash (Primary Dx); Multiple sclerosis (HCC); Migraine with aura and without status migrainosus, not intractable; Essential hypertension; Gastroesophageal reflux disease without esophagitis; Class 2 severe obesity due to excess calories with serious comorbidity and body mass index (BMI) of 39.0 to 39.9 in adult (HCC); Encounter for screening mammogram for malignant neoplasm of breast 01/01/2025 9:00 AM PIPE FINISHER Clinical Support [facility] Medical Office Building 4 [address] [place] [phone] Morbid obesity (HCC) (Primary Dx) 12/31/2024 9:30 AM PIPE FINISHER Pre-Admission Testing [facility] Center for Preoperative Assessment and Planning [facility] Advanced Medicine ([facility]) [address] [place] [phone] Preoperative testing (Primary Dx); Morbid obesity (HCC) 12/23/2024 Telephone [facility] [address] [place] [phone] Hemalatha Tang MD Prior Auth Request for Loratadine 12/18/2024 Telephone [facility] [address] [place] [address] [place] [phone] Jay Prescott MD 12/17/2024 Telephone [facility] [address] [place] [phone] Hemalatha Tang MD 12/17/2024 Orders Only [facility] [address] [place] [phone] Hemalatha Tang MD Abnormal EKG (Primary Dx) 12/17/2024 Telephone [facility] Invasive Surgery [address] [place] [address] Medical Office Building [address] [place] [phone] Yury Gar CMA 12/12/2024 Telephone [facility] [address] [place] [phone] Hemalatha Tang MD 12/12/2024 2:30 PM PIPE FINISHER Office Visit [facility] [address] [phone] Leta Casillas PA Class 2 severe obesity due to excess calories with serious comorbidity and body mass index (BMI) of 38.0 to 38.9 in adult (HCC) (Primary Dx) from Last 3 Months Allergies Active Allergy Reactions Criticality Noted Date Comments Iodinated Contrast Media Rash Medium 03/23/2016 Iodine Rash Medium 02/05/2016 Medications SUMAtriptan (IMITREX) 50 mg tabletIndications:M igraine Take 1 tablet (50 mg total) by mouth once as needed for migraine 021 Active omega 3-xgq-iqm-fish oil (Fish Oil) 100-160-1,000 mg capsuleIndications: hypertriglyceridemi [...] Application topically 2 (two) times a day 023 Active nitroglycerin (NITROSTAT) 0.4 mg SL tablet [...] total) by mouth daily 100 tablet 1 Active propranoloL (INDERAL) 40 mg tablet Take 1 tablet (40 mg total) by mouth 2 (two) times a day 180 tablet 1 Active rosuvastatin (CRESTOR) 5 mg tabletIndications:D yslipidemia, [...] total) by mouth daily 90 tablet 3 Active buPROPion XL (WELLBUTRIN XL) 150 mg 24 hr tabletIndications:d epression Take 1 tablet (150 mg total) by mouth every morning Active cyanocobalamin (Vitamin B-12) 500 mcg tabletIndications:P [...] a day START POST SURGERY 60 capsule Active multivitamin with minerals tablet Take 2 [...] care Assessment & Plan (01/15/2024 11:41 AM PIPE FINISHER): The patient will continue with Lyrica as ordered by primary care History of colon polyps 10/12/2023 Iron deficiency anemia 07/26/2023 Assessment & Plan (08/21/2024 2:29 PM CDT): Chronic. On iron supplements in the past. Recheck iron studies ordered today Assessment & Plan (05/03/2024 9:38 AM CDT): Chronic, uncertain level of control Follow-up labs ordered Assessment & Plan (10/03/2023 8:34 AM PIPE FINISHER): Chronic, stable Testing with GI next week [...] (06/09/2022): Added automatically from request for surgery [id number] Tenosynovitis 05/18/2022 Extensor tenosynovitis of left wrist [...] contact the ID B&J Team Nurse practitioner M-F, 7-3; or the Attending with any questions or concerns. After hours, please contact the ID fellow director recreation center. Left hand pain 05/17/2022 Assessment & Plan [...] hysterectomy Last mammogram: ordered Last cologuard: 05/2021- Last Tdap: 2018 Last Shingrix: reviewed Last Flu: up to date Last COVID: due booster Class 2 severe obesity due t o excess calories with serious comorbidity and body mass index (BMI) of 38.0 to 38.9 in adult 04/04/2022 Assessment & Plan (01/22/2025 8:57 AM CDT): Chronic, improved BMI Follow-up includes: education provided. Assessment & Plan (01/08/2025 8:57 AM PIPE FINISHER): Chronic,persistent Gastric bypass scheduled for next week BMI Follow-up includes: continue healthy changes . Assessment & Plan (12/12/2024 2:48 PM PIPE FINISHER): Chronic. Uncontrolled. Preparation for Bariatric Surgery Patient [...] progress. Assessment & Plan (10/16/2024 8:13 AM PIPE FINISHER): Chronic, worse BMI Follow-up includes: nutrition counseling. Assessment & Plan (09/24/2024 1:53 PM PIPE FINISHER): Labs and EKG reviewed today. Lab workup [...] counseling. Assessment & Plan (10/03/2023 8:32 AM PIPE FINISHER): Chronic, stable BMI Follow-up includes: nutrition counseling. Assessment & Plan (08/29/2023 9:11 AM CDT): Chronic, stable BMI Follow-up includes: nutrition counseling. Assessment & Plan (06/30/2023 9:46 AM CDT): BMI Follow-up includes: nutrition counseling. Assessment & Plan (04/04/2022 9:41 AM CDT): BMI Follow-up includes: nutrition counseling. Cold sore 04/02/2022 Assessment & Plan (04/02/2022 12:57 PM CDT): Acute-informed can apply [id number] Abreva to cold sore as directed. Encouraged [...] 12/22/2021 Assessment & Plan (12/22/2021 8:48 AM PIPE FINISHER): Discussed viral nature of illness, treat symptomatically [...] 03/12/2018 Assessment & Plan (09/24/2024 1:54 PM PIPE FINISHER): Chronic and controlled. Continue statin and fenofibrate. Assessment & Plan (06/30/2023 9:54 AM CDT): Chronic, stable ASCVD score 3/1% Continue healthy changes Assessment & Plan (12/28/2022 7:29 AM PIPE FINISHER): Chronic, stable Labs ordered for her upcoming surgery Continue Tricor CTS (carpal tunnel syndrome) 12/25/2017 Vitamin D deficiency 12/25/2017 Assessment & Plan (06/30/2023 9:56 AM CDT): Chronic, continue vitamin d Fatigue 12/19/2017 Assessment & Plan (12/28/2022 7:28 AM PIPE FINISHER): Chronic, associated with her multiple sclerosis Continue Adderall Continue to follow with her psychiatrist in her neurologist Update me with any changes or concerns Assessment & Plan (04/04/2022 9:25 AM CDT): Chronic ?related to multiple sclerosis Continue adderall through Psychiatry Assessment & Plan (11/30/2020 3:32 PM PIPE FINISHER): Continue to follow with psychiatry Continue adderall Update me with any changes Labyrinthitis 09/13/2017 Degenerative disc disease, lumbar 05/17/2017 Assessment & Plan (04/04/2022 9:24 AM CDT): Continue diclofenac Continue supportive care Assessment & Plan (11/30/2020 3:32 PM PIPE FINISHER): Continue to follow with pain management Update [...] 01/05/2017 Assessment & Plan (09/24/2024 1:55 PM PIPE FINISHER): Chronic and stable. Continue CPAP. Assessment & Plan (08/21/2024 2:28 PM CDT): Chronic. Stable. Continue CPAP nightly Assessment & Plan (07/22/2024 11:01 AM CDT): Patient continue to wear her CPAP at auto titrating range of 5-15 cm water pressure while sleeping. Her DME is [facility]. Assessment & Plan (01/15/2024 11:41 AM PIPE FINISHER): Due to continued symptoms, the patient will continue with auto titrating CPAP set at 5-15 cm water pressure. I have provided the patient a list of dentists that make the oral appliance for sleep apnea. We discussed the oral appliance in depth. DME is [facility] Assessment & Plan (10/03/2023 8:35 AM PIPE FINISHER): Chronic, stable Keep appt with sleep medicine [...] 09/12/2016 Assessment & Plan (09/24/2024 1:54 PM PIPE FINISHER): Chronic. Managed by Neurology. Continue Aimovig as prescribed. Assessment & Plan (08/21/2024 2:25 PM CDT): Chronic. Infrequent. Continue Aimovig Assessment & Plan (06/30/2023 9:57 AM CDT): Chronic Continue propranolol Continue healthy habity to decrease migraines Call for questions or concerns Assessment & Plan (12/28/2022 7:31 AM PIPE FINISHER): Chronic, persistent Continue her current regimen Continue [...] concerns Assessment & Plan (11/30/2020 3:36 PM PIPE FINISHER): Continue current regimen Continue to follow with [...] worsen Assessment & Plan (12/28/2022 7:27 AM PIPE FINISHER): Chronic, stable Continue to follow with her psychiatrist Continue her current regimen for now -Cymbalta, Wellbutrin Update me with any changes or concerns Assessment & Plan (04/04/2022 9:22 AM CDT): Stable Continue current regimen Continue to follow with psychiatry Assessment & Plan (11/30/2020 3:31 PM PIPE FINISHER): Continue to follow psychiatry Update me with any medication changes Call for questions or concerns Essential hypertension 02/05/2016 Assessment & Plan (09/24/2024 1:53 PM PIPE FINISHER): Chronic and controlled. Continue propranolol and valsartan as prescribed. Assessment & Plan (05/03/2024 9:38 AM CDT): Chronic, improved Continue her current regimen Continue to monitor her blood pressure Assessment & Plan (10/03/2023 8:33 AM PIPE FINISHER): Chronic, stable Continue losartan 25 mg daily, [...] leaving Assessment & Plan (12/28/2022 7:28 AM PIPE FINISHER): Chronic, at goal Continue propranolol EKG completed today Update me with any changes or concerns Assessment & Plan (04/04/2022 9:25 AM CDT): stable Continue propranolol Assessment & Plan (11/15/2021 7:47 AM PIPE FINISHER): Blood pressure at goal Continue propranolol Update [...] concerns Assessment & Plan (11/30/2020 3:24 PM PIPE FINISHER): With previous cryotherapy Will place a referral [...] 07/13/2015 Assessment & Plan (09/24/2024 1:54 PM PIPE FINISHER): Chronic. Continue pantoprazole as prescribed. Assessment & [...] loss Assessment & Plan (12/28/2022 7:54 AM PIPE FINISHER): Chronic, with progression Continue her current regimen [...] better Assessment & Plan (11/15/2021 7:48 AM PIPE FINISHER): Continue pantoprazole Reviewed healthy diet changes Update [...] untreated Assessment & Plan (11/30/2020 3:34 PM PIPE FINISHER): Reviewed risks of medications including c diff, [...] symptoms. Assessment & Plan (09/24/2024 1:55 PM PIPE FINISHER): Chronic and stable. Managed by Neurology. Continue Rebif injections. Assessment & Plan (08/21/2024 2:24 PM CDT): Chronic. Stable. Continue to follow with Neurology, managing Rebif injections. Assessment & Plan (05/03/2024 9:38 AM CDT): Chronic, uncertain level of control Referral to [facility] neurology placed Update me with changes or concerns Assessment & Plan (06/30/2023 9:55 AM CDT): Chronic Continue to follow with neurology- advised to please call their office Update me when she hears back Assessment & Plan (12/28/2022 7:30 AM PIPE FINISHER): Chronic, possible progression I have encouraged her [...] concerns Assessment & Plan (11/30/2020 3:37 PM PIPE FINISHER): Continue to follow with neurology Continue current regimen Update me with any changes Call for questions or concerns Resolved Problems Problem Noted Date Diagnosed Date Resolved Date Morbid obesity 11/28/2024 12/12/2024 Traumatic hematoma of left hand 05/25/2022 05/03/2024 Overview (05/25/2022): Added automatically from request for surgery [id number] Acute conjunctivitis of both eyes 04/02/2022 05/03/2024 [...] 11/30/2020 Assessment & Plan (11/30/2020 3:35 PM PIPE FINISHER): Continue to follow with psychiatry Continue current regimen Update me with any changes Call for questions or concerns Anemia 12/20/2017 11/30/2020 Low back pain 01/21/2016 01/03/2024 Immunizations Immunization Administration Dates Next Due Influenza, Quadrivalent, Rec ombinant, Egg Free, Preservative Free, Intramuscular 10/25/2021,09/11/2020 Influenza, Quadrivalent, Spl it, Preservative Free, Intramuscular 10/03/2023,09/15/2022,08/01/2017,08/01 Influenza, Trivalent, IM (MDV) 08/01/2017 Influenza, Trivalent, Preser vative Free, Intramuscular 08/21/2024 Influenza, Unspecified 09/15/2022,2020,09/11/2020,08/02 Pfizer SARS-CoV-2 Monovalent Vaccination (12+ Yrs) PURPLE 02/11/2021,01/21/2021 Tdap 07/08/2019 ZOSTER Recombinant 05/11/2023,09/23/2022 Social History Tobacco Use Types Packs/Day Years [...] on file Legal Sex Female 2:06 AM PIPE FINISHER Gender Identity Female 11/29/2020 6:59 PM PIPE FINISHER Sexual Orientation Not on file Last Filed Vital Signs [...] 02/27/2025 1:43 PM CDT Plan of Treatment Not on file Medical Devices Implanted Type Area Brake Operator Helper Device Identifier Shelf Expiration Date Model / Serial / Lot [facility]: Shoulder Procedures Procedure Name Priority Date/Time Associated Diagnosis Comments SCREENING MAMMOGRAM BILATERA L W AP Schedule Routine, Read Routine (OP Routine) 02/20/2025 2:38 PM CDT Encounter for screening mammogram for malignant neoplasm of breast XR FOOT LEFT WEIGHT-BEARING 3 OR MORE VIEWS Schedule Routine, Read Routine (OP Routine) 01/22/2025 12:35 PM CDT Arthritis of left foot EGFR Routine 01/14/2025 11:25 PM PIPE FINISHER BASIC METABOLIC PANEL Routine 01/14/2025 11:25 PM PIPE FINISHER CBC WITHOUT DIFFERENTIAL Routine 025 11:25 PM PIPE FINISHER AK AN PROCEDURE PLACEHOLDER Routine 02/2025 12:41 PM PIPE FINISHER AK AN ELECTIVE ENDOTRACHEAL AIRWAY Routine 01/14/2025 12:41 PM PIPE FINISHER ESOPHAGOGASTRODUODENOSCOPY 01/14 12:05 PM PIPE FINISHER Morbid obesity (HCC) LAPAROSCOPIC GASTRIC BYPASS 02/2025 12:05 PM PIPE FINISHER Morbid obesity (HCC) RACHNA QUALITATIVE WITH REFLEX TO RACHNA QUANTITATIVE Routine 01/08/2025 9:43 AM PIPE FINISHER Facial rash EGFR Routine 12/31/2024 11:14 AM PIPE FINISHER Preoperative testing DIFFERENTIAL AUTO Routine 12/31/2024 11:14 AM PIPE FINISHER Preoperative testing CBC WITH AUTO DIFFERENTIAL Routine 12/31 11:14 AM PIPE FINISHER Preoperative testing BASIC METABOLIC PANEL Routine 12/31/2024 11:14 AM PIPE FINISHER Preoperative testing NICOTINE METABOLITE SCREEN, URINE Routine 12/31/2024 11:14 AM PIPE FINISHER Morbid obesity (HCC) COLONOSCOPY 01/16/2024 9:22 AM PIPE FINISHER HM HEPATITIS C SCREENING Routine 01/06/2018 from [...] age 40, based on guidelines of the [employer] (ACR Practice Parameter for the Performance of Screening and Diagnostic Mammography) and [employer]. For women [...] W AP 06/16/2022 Screening Mammogram Bilateral W Pa 12/14/2016 Breast Imaging Screening Outside Reference BREAST [...] osteoarthritis. Electronically signed by: Byron Noel D.O. Srinath Perez DPM IMG XR PROCEDURES Final R esult * eGFR (01/14/2025 11:25 PM PIPE FINISHER) eGFR 83 >=60 mL/min/1. 73 m2 Comment: [...] Inclusion of Race in Diagnosing Kidney Disease, RUBASN 2020). The CKD-EPI equation should not be used for patients with unstable renal function and has not been validated in children and those over 70. Current interpretive data was last reviewed 2021. Blood 01/14/2025 11:2 5 PM PIPE FINISHER 01/14/2025 11:33 PM PIPE FINISHER Samuel Ashton MD LAB BLOOD ORDERABLES Final Resul t Performing Organization Address [facility] Co de Phone Number REJI DUNLAP [phone] [address] [place] [address] * (ABNORMAL) CBC without differential (01/14/2025 11:25 PM PIPE FINISHER) WBC 13.7(H) 3.8 - 9.9 K/cumm Hgb 12.5 11.9 - 15.5 g/dL [facility] Hct 38.2 35.6 - 45.5 % [facility] Plt 279 150 - 400 K/cumm [facility] MPV 9.2 9.1 - 12.3 fL [facility] RBC 4.59 3.90 - 5.20 M/cumm [facility] MCV 83.2 81.3 - 96.4 fL [facility] MCH 27.2 27.1 - 33.3 pg [facility] MCHC 32.7 32.3 - 35.7 g/dL [facility] RDW CV 14.7 11.1 - 14.9 % [facility] RDW SD 44.3 35.7 - 48.1 fL [facility] NRBC abs 0.00 0.00 - 0.01 K/cumm [facility] Blood 01/14/2025 11:2 5 PM PIPE FINISHER 01/14/2025 11:33 PM PIPE FINISHER us Samuel Ashton MD LAB BLOOD ORDERABLES Final Resul t Performing Organization Address [facility]/ZIP Co de Phone Number REJI DUNLAP [phone] [address] [place] [address] * (ABNORMAL) Basic metabolic panel (01/14/2025 11:25 PM PIPE FINISHER) Sodium 140 135 - 145 mmol/L Potassium, pl 4.3 3.3 - 4.9 mmol/L [facility] Chloride 105 97 - 110 mmol/L [facility] CO2 20(L) 22 - 32 mmol/L [facility] Anion gap 15 2 - 15 mmol/L [facility] BUN 19 6 - 25 mg/dL [facility] Creatinine 0.80 0.60 - 1.10 mg/dL [facility] Glucose 177 70 - 199 mg/dL [facility] Comment: Interpretive Data Fasting glucose >/= 126 [...] 2022. Calcium 9.0 8.5 - 10.3 mg/dL [facility] Blood 01/14/2025 11:2 5 PM PIPE FINISHER 01/14/2025 11:33 PM PIPE FINISHER Samuel Ashton MD LAB BLOOD ORDERABLES Final Resul t REJI [facility] [id number] [facility] Department [place] [address] * AK AN ELECTIVE ENDOTRACHEAL AIRWAY, AK AN PROCEDURE PLACEHOLDER (01/14/2025 12:41 PM PIPE FINISHER) Narrative Emmie Campo CRNA - 01/14/2025 12:41 PM PIPE FINISHER Emmie Campo CRNA 01/14/2025 12:43 PM Airway Patient location: OR Urgency: elective Date/time: 01/14/2025 12:09 PM Indications for airway management: anesthesia Difficult airway: no Staff: Placed by: DISPUTE COORDINATOR: Emmie Campo CRNA Emergent airway documentation: Risks [...] with: silk tape Number of attempts: 1 Caren Dolan MD ANESTHESIA ORDERABLES Fi nal Result * (ABNORMAL) RACHNA ab ql w/rflx to RACHNA qn (01/08/2025 9:43 AM PIPE FINISHER) RACHNA Positive 1:160 Comment: Interpretive Data Normal [...] last revised on 2020. Testing performed by: [facility], [address] [place] [address], [place]., [address] RACHNA, quant 1:160 titer REJI DEVINE Comment:Testing performed by : [facility], [address] [place]., [address] RACHNA, interp Homogeneous (A) REJI DEVINE Comment:Testing performed by : [facility], [address] [place] [address]., [id number] Blood 01/08/2025 9:43 AM PIPE FINISHER 01/08/2025 3:37 PM PIPE FINISHER us Hemalatha Tang MD LAB BLOOD ORDERABLE S Final Result REJI [address] [facility] Department [place] [address] * eGFR (12/31/2024 11:14 AM PIPE FINISHER) eGFR 73 >=60 mL/min/1. 73 m2 Comment: [...] reviewed 2021. Blood 12/31/2024 11:1 4 AM PIPE FINISHER 12/31/2024 12:25 PM PIPE FINISHER us Nely Ramirez NP LAB BLOOD ORDERABLES Final Resul t REJI [facility] Department [place] [address] * Differential, auto (12/31/2024 11:14 AM PIPE FINISHER) Neutrophil abs 3.3 1.5 - 6.5 K/cumm Imm gran abs 0.0 0.0 - 0.1 K/cumm [facility] Lymphocyte abs 2.1 0.8 - 3.3 K/cumm [facility] Monocyte abs 0.5 0.2 - 0.8 K/cumm [facility] Eosinophil abs 0.5 0.0 - 0.5 K/cumm [facility] Basophil abs 0.1 0.0 - 0.1 K/cumm [facility] Neutrophil pct 50.3 % [facility] Comment: Interpretive Data Percent cell count reference ranges are not reported, since discordance with absolute values may lead to misinterpretation of CBC data. Current Interpretive Data was last revised on 2018. Imm gran pct 0.5 % [facility] Comment: Interpretive Data Percent cell count reference ranges are not reported, since discordance with absolute values may lead to misinterpretation of CBC data. Current Interpretive Data was last revised on 2018. Lymphocyte pct 32.6 % [facility] Comment: Interpretive Data Percent cell count reference ranges are not reported, since discordance with absolute values may lead to misinterpretation of CBC data. Current Interpretive Data was last revised on 2018. Monocyte pct 7.6 % [facility] Comment: Interpretive Data Percent cell count reference ranges are not reported, since discordance with absolute values may lead to misinterpretation of CBC data. Current Interpretive Data was last revised on 2018. Eosinophil pct 8.2 % [facility] Comment: Interpretive Data Percent cell count reference ranges are not reported, since discordance with absolute values may lead to misinterpretation of CBC data. Current Interpretive Data was last revised on 2018. Basophil pct 0.8 % [facility] Comment: Interpretive Data Percent cell count reference ranges are not reported, since discordance with absolute values may lead to misinterpretation of CBC data. Current Interpretive Data was last revised on 2018. Blood 12/31/2024 11:1 4 AM PIPE FINISHER 12/31/2024 12:25 PM PIPE FINISHER us Nely Ramirez NP LAB BLOOD ORDERABLES Final Resul t [facility] Department [place] [address] * (ABNORMAL) CBC with auto differential (12/31/2024 11:14 AM PIPE FINISHER) [facility] WBC 6.6 3.8 - 9.9 K/cumm Hgb 14.2 11.9 - 15.5 g/dL [facility] Hct 43.1 35.6 - 45.5 % [facility] Plt 333 150 - 400 K/cumm [facility] MPV 9.7 9.1 - 12.3 fL [facility] RBC 5.30(H) 3.90 - 5.20 M/cumm [facility] MCV 81.3 81.3 - 96.4 fL [facility] MCH 26.8(L) 27.1 - 33.3 pg [facility] MCHC 32.9 32.3 - 35.7 g/dL [facility] RDW CV 14.2 11.1 - 14.9 % [facility] RDW SD 41.5 35.7 - 48.1 fL [facility] NRBC abs 0.00 0.00 - 0.01 K/cumm [facility] Blood 12/31/2024 11:1 4 AM PIPE FINISHER 12/31/2024 12:25 PM PIPE FINISHER us Nely Ramirez NP LAB BLOOD ORDERABLES Final Resul t [facility] Department [place] [address] * Nicotine metabolite screen, urine (12/31/2024 11:14 AM PIPE FINISHER) [facility] Nicotine, ur <5.0 <5.0 ng/mL [facility] Cotinine, ur <5.0 <5.0 ng/mL [facility] Anabasine ur <2.0 <2.0 ng/mL [facility] Comment: ADDITIONAL INFORMATION This test was developed and its performance characteristics determined by [facility] in a manner consistent with CLIA requirements. This test has not been cleared or approved by the U.S. Food and Drug Administration. Test Performed by: [facility] [address] [place] [address] Teacher Emotionally Impaired: Denia Bradshaw Ph.D.; CLIA# [id number] Nornicotine, ur <2.0 <2.0 ng/mL [facility] Urine 12/31/2024 11:1 4 AM PIPE FINISHER 12/31/2024 12:25 PM PIPE FINISHER us Samuel Ashton MD LAB URINE ORDERABLES Final Resul t [facility] Department [place] [address] [facility] * (ABNORMAL) Basic metabolic panel (12/31/2024 11:14 AM PIPE FINISHER) Sodium 139 135 - 145 mmol/L Potassium, pl 4.2 3.3 - 4.9 mmol/L [facility] Chloride 104 97 - 110 mmol/L [facility] CO2 25 22 - 32 mmol/L [facility] Anion gap 10 2 - 15 mmol/L [facility] BUN 26(H) 6 - 25 mg/dL [facility] Creatinine 0.89 0.60 - 1.10 mg/dL [facility] Glucose 93 70 - 199 mg/dL [facility] Comment: Interpretive Data Fasting glucose >/= 126 [...] classification and Diagnosis of Diabetes Diabetes Care 202; 46: S19-S40. Current interpretive data was last revised 2022. Calcium 9.8 8.5 - 10.3 mg/dL [facility] Blood 12/31/2024 11:1 4 AM PIPE FINISHER 12/31/2024 12:25 PM PIPE FINISHER us Nely Ramirez DECORATING SUPERVISOR LAB BLOOD ORDERABLES Final Resul t [facility] Department [place] [address] * Colonoscopy (01/16/2024 9:22 AM PIPE FINISHER) Anatomical Region Laterality Modality Other Narrative Procedure Note Art Morris MD - 01/16/2024 9:22 AM CST [facility] Patient Name: Linda Mckeon Procedure Date: 01/16/2024 9:22 AM Date of : 1960 Admit Type: Outpatient Age: 63 Gender: Female Attending MD: Art Morris M.D. Room: [facility] ENDOSCOPY ROOM 06 Note Status: Finalized [...] The scope was passed under direct vision.The [id number] colonoscope was introduced through theanus and advanced [...] On: 01/16/2024 9:22 AM Recognized by the [employer] for promoting quality in endoscopy Art Morris MD ENDOSCOPY PROCEDURES Final Resul t * HM HEPATITIS C SCREENING (01/06/2018) SCRIBED HCV ab negative Historical Provider HEALTH MAINTENANCE Final Result from Last 3 Months or Most Recently Relevant to Health Maintenance Insurance [id number] [place] [address] [facility] Advance Directives For more information, please contact: [phone] * Full Code (Latest Code Status on File) Date Activated Date Inactivated Comments 01/14/2025 6:44 PM 01/15/2025 5:24 PM * Full Code Date Activated Date Inactivated Comments 10/07/2024 6:53 AM 10/07/2024 12:21 PM * Full Code Date Activated Date Inactivated Comments 05/19/2022 12:17 AM 05/20/2022 8:32 PM Care Teams Applications System Analyst Relationship Specialty Start Date End Date Hemalatha Tang MD [address] [place] [address] PCP - General Family Medicine 11/02/20 Manuel Swartz MD [address] [place] [address] Neurology 04/17/23
--- OUTSIDE RECORDS SUMMARY | 2025-02-27 21:18 | XMS_ITS | Encounter Summary ---
Author Organization [facility] Address [address] [place] [address] Phone Care Team Providers Care Insurance Commissioner Name Role Phone Hemalatha Tang MD Primary Care Provi summer Manuel Swartz MD Unavailable [phone] Encounter Details Date Type Department Care Team (Late st Contact Info) Description 01/24/2025 Results Follow-Up [facility] Surgery [facility] [address] [place] [address] Srinath Perez, DPM [address] [place] [address] Social History Tobacco Use Types Packs/Day Years [...] on file Legal Sex Female 2:06 AM CHIEF II DISPATCHER Gender Identity Female 11/29/2020 6:59 PM CHIEF II DISPATCHER Sexual Orientation Not on file documented as of this encounter Plan of Treatment Not on file documented as of this encounter Visit Diagnoses Not on filedocumented in this encounter Care Teams Insurance Commissioner Relationship Specialty Start Date End Date Hemalatha Tang MD [address] [place] [address] PCP - General Family Medicine 11/02/20 Manuel Swartz MD [address] [place] [address] Neurology 04/17/23 documented as of this encounter
[2025-02-27 21:23] VITALS: BP 153/93; PULSE 62; RESP 17; TEMP 36.6; O2SAT 97
[2025-02-27 21:55] LABS: Bacteria Urine None Seen /hpf; Non Pathogenic Casts 0-2; Squamous Epithelial Cell Urine None Seen /hpf (Few); WBC Urine 0-5 /hpf (0-3)
[2025-02-27 22:05] LABS: Add Urine Microscopic? YES; Appearance Urine Clear (Clear); Bilirubin Urine Negative (Negative); Blood Urine Negative (Negative); Color Urine Dark Yellow (Yellow); Glucose Urine UA Negative (Negative); Ketones Urine Negative (Negative); Leukocyte Esterase Ur Trace LEU/UL (Negative); Nitrate Urine Positive (Negative); Protein Urine Negative (Negative); Specific Grav Ur 1.013 (1.001-1.035); pH Urine 5.5 (5.0-9.0)
--- NOTE | 2025-02-27 22:45 | PC.NURSE ---
Pt approached triage desk stating she was leaving due to wait times. Pt advised to be seen at nearest ED if symptoms are warranting. Pt ambulated to ED exit with steady gait and no signs for concern at this time.
--- OUTSIDE RECORDS SUMMARY | 2025-02-27 22:50 | XMS_ITS | Encounter Summary ---
Author Organization [facility] Health Address [address] [place] [address] Care Team Providers Care Casting And Curing Operator Name Role Phone Kevan Rubin MD Primary Care Provider Britany Poole [facility] Hemalatha Tang MD Primary Care Provider [phone] Reason for Visit * Reason Onset Date Comments MEDICATION REFILL 03/14/2018 Encounter Details Date Type Department Care Team (Late Contact Info) Description 03/14/2018 Refill [facility] [address] [place] [address] Chayo Regan MEDICATION REFILL Social History Tobacco Use Types Packs/Day Years Used Date Smoking Tobacco: Never Smokeless Tobacco: Never Alcohol Use Standard Drinks/Week Comments No 0 (1 standard drink = 0.6 oz pur e alcohol) Comments No Sex and Gender Information Value Date Recorded Sex Assigned at Female 01/06/2025 9:20 AM MANAGER SPA Legal Sex Female 5:15 PM MANAGER SPA Gender Identity Female 01/06/2025 9:20 AM MANAGER SPA Sexual Orientation Straight 01/06/2025 9: 20 AM MANAGER SPA documented as of this encounter Plan of Treatment Upcoming Encounters Date Type Department Care Team (Late Contact Info) Description 03/05/2025 3:00 PM CDT Office Visit [facility] - Neurology [address] [place] [address], [place] [address] Deniz Kofitrell, SOIL AND PLANT SCIENTIST-CHARGE LOADER [address] [place] [address] [address] [place] [phone] 04/21/2025 9:00 AM CDT Office Visit [facility] - Neurology [address] [place] [phone] Sidney Moncada MD [address] [place] [address] 05/23/2025 9:00 AM CDT Office Visit [facility] - Dermatology [address] [place] [phone] Chitra Peres MD [address] [place] [address] 3 [place] [phone] 07/07/2025 8:30 AM CDT Procedure visit [facility] - Infusion [address] [place] [phone] 02/16/2026 11:00 AM CDT Office Visit [facility] - Orthopedics [address] [place] [phone] Kaitlin Cruz MD [address] [place] [address] [address] [place] [phone] 02/20/2026 9:00 AM CDT Office Visit [facility] - Ophthalmology [address] [place] [phone] documented as of this encounter Visit Diagnoses Not on filedocumented in this encounter Additional Health Concerns Infection Onset Date Last Indicated Resolved Time 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 06/22/2017 documented as of this encounter Care Teams Casting And Curing Operator Relationship Specialty Start Date End Date Kevan Rubin MD [address] [facility]. [address] [place] [address] PCP - General 03/23/16 03/06/21 Hemalatha Tang MD PCP - General Family Medicine 03/07/21 Britany Poole Detail Maker And Fitter Psychiatry 03/16/18 11/07/18 documented as of this encounter
--- OUTSIDE RECORDS SUMMARY | 2025-02-27 22:50 | XMS_ITS | Encounter Summary ---
Author Organization [facility] Health Address [address] [place] [address] Care Team Providers Care Depositing Machine Operator Name Role Phone Kevan Rubin MD Primary Care Provider Hemalatha Tang MD Primary Care Provider [phone] Reason for Visit * Reason Onset Date Comments MEDICATION REFILL 10/08/2019 Encounter Details Date Type Department Care Team (Late st Contact Info) Description 10/08/2019 Refill [facility] [address] [place] [address] Kimberly Yarbrough MD [address] [place] [phone] MEDICATION REFILL Social History Tobacco Use Types Packs/Day Years Used Date Smoking Tobacco: Never Smokeless Tobacco: Never Alcohol Use Standard Drinks/Week Comments No 0 (1 standard drink = 0.6 oz pur e alcohol) Comments No Sex and Gender Information Value Date Recorded Sex Assigned at Female 01/06/2025 9:20 AM EMPLOYMENT APPEALS EXAMINER Legal Sex Female 5:15 PM EMPLOYMENT APPEALS EXAMINER Gender Identity Female 01/06/2025 9:20 AM EMPLOYMENT APPEALS EXAMINER Sexual Orientation Straight 01/06/2025 9: 20 AM EMPLOYMENT APPEALS EXAMINER Occupation Industry Job Start Date Job End Date disable Not on file Not on file Not on file documented as of this encounter Plan of Treatment Upcoming Encounters Date Type Department Care Team (Late st Contact Info) Description 03/05/2025 3:00 PM CDT Office Visit [facility] - Neurology [address] [place] [address], [place] [address] Deniz Kofitrell, STUDIO OPERATIONS MANAGER-AUTOMOBILE MECHANIC [address] [place] [address] [address] [place] [address] 04/21/2025 9:00 AM CDT [facility] [address] [place] [phone] Sidney Moncada MD [address] [place] [address] 05/23/2025 9:00 AM CDT [facility] Dermatology [address] [place] [phone] Chitra Peres MD [address] [place] [address] 3 [place] [phone] 07/07/2025 8:30 AM CDT Procedure visit [facility] - Infusion [address] [place] [phone] 02/16/2026 11:00 AM CDT Office [facility] Orthopedics [address] [place] [phone] Kaitlin Cruz MD [address] [place] [address] [address] [place] [phone] 02/20/2026 9:00 AM CDT Office [facility] - Ophthalmology [address] [place] [phone] documented as of this encounter Visit Diagnoses Diagnosis Intractable chronic migraine without aura and without status migrainosus Chronic migraine without aura, with intractable migraine, so stated, without mention of status migrainosus documented in this encounter Additional Health Concerns Infection Onset Date Last Indicated Resolved Time 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 06/22/2017 documented as of this encounter Care Teams Depositing Machine Operator Relationship Specialty Start Date End Date Kevan Rubin MD [address] [facility]. [address] [place] [phone] PCP - General 03/23/16 03/06/21 Hemalatha Tang MD [facility]. [address] [place] [address] PCP - General Family Medicine 03/07/21 documented as of this encounter
--- OUTSIDE RECORDS SUMMARY | 2025-02-27 22:50 | XMS_ITS | Encounter Summary ---
Author Organization [facility] Healthcare Address [address] [place] [address] Care Team Providers Care Transportation Manager Name Role Phone Hemalatha Tang MD Primary Care Provi summer Manuel Swartz MD Unavailable [phone] Encounter Details Date Type Department Care Team (Late st Contact Info) Description 02/21/2025 Results Follow-Up [facility] Medical Group Family Medicine [address] [phone] Emmie Zaragoza PA [address] [place] [address] Social History Tobacco Use Types [...] on file Legal Sex Female 2:06 AM ROOFING LABORER Gender Identity Female 11/29/2020 6:59 PM ROOFING LABORER Sexual Orientation Not on file documented as of this encounter Plan of Treatment Not on file documented as of this encounter Visit Diagnoses Not on filedocumented in this encounter Care Teams Transportation Manager Relationship Specialty Start Date End Date Hemalatha Tang MD [address] [place], [place] [phone] PCP - General Family Medicine 11/02/20 Manuel Swartz MD [address] [place], [place] [phone] Neurology 04/17/23 documented as of this encounter
--- OUTSIDE RECORDS SUMMARY | 2025-02-27 22:50 | XMS_ITS | Clinical Summary ---
Author Organization [facility] Address [address] [place] [address] Care Team Providers Care Demonstrator Sewing Techniques Name Role Phone Hemalatha Tang MD Primary Care Provider [phone] Source Comments [facility],non-owned Affiliates and Associated Physician Practices is amultiple site organization consisting of ambulatory clinics and hospital sitesin [place], [place], [place] and [place]. This disclosure is being madepursuant to the Care Everywhere program and may not contain all information available regarding this patient. Last updated 18.[facility] Allergies Active Allergy Reactions Criticality Noted Date [...] DAILY. 1 device 0 11/16/19 17 Active [place]-3 Fatty Acids (FISH OIL ULTRA) 1400 MG CAPS Take 1,400 Units by mouth 2 times daily Active vitamin D (CHOLECACIFEROL ) 5000 UNITS capsule Take 1 (one) capsule by mouth once daily Active propranolol (INDERAL) 40 MG tablet Take 1 (one) tablet by mouth 2 times daily 02/06/20 21 Active fluticasone propionate (FLONASE) 50 MCG/ACT nasal spray [place] 2 (two) sprays into each nostril once [...] or Allergies 07/27/20 23 Active nystatin (Mycostatin) 935475 UNIT/GM cream Apply to affected area as [...] 2 12/20/19 25 Active Calcium Citrate-Vitamin D ([place] Calcium/Vitamin D) 200-6.25 MG-MCG TAKE 2 TABLETS [...] (09/26/2022): Added automatically from request for surgery [id number] Traumatic hematoma of left hand 05/25/2022 Overview (09/26/2022): Added automatically from request for surgery [id number] Extensor tenosynovitis of left wrist 05/18/2022 Overview [...] After hours, please contact the ID fellow business administration teacher. Tenosynovitis 05/18/2022 Left hand pain 05/17/2022 Overview [...] Last Assessment & Plan: Acute-informed can apply [id number]-[id number] Abreva to cold sore as directed. Encouraged [...] Telephone [facility] Rheumatology [address] [place] [address] Byron Sharpe MD Results 02/19/2025 9:30 AM CDT Office Visit [facility] - Ophthalmology [address] [place] [phone] Dry eye (Primary Dx); Combined forms of age-related cataract of both eyes 02/19/2025 Travel 02/17/2025 1:20 PM CDT Office Visit [facility] - Orthopedics [address] [place] [address], [place] [address] Kaitlin Cruz MD S/P shoulder replacement, left (Primary Dx) 02/17/2025 12:40 PM CDT - 02/17/2025 11:59 PM CDT Hospital Encounter [facility] CSM [address] [place] [address] Kaitlin Cruz MD Discharge Disposition: Home or Self Care 02/17/2025 Travel 02/14/2025 Orders Only [facility] - Orthopedics [address] [place] [phone] Kaitlin Cruz MD S/P shoulder replacement, left 02/04/2025 2:50 PM CDT - 02/04/2025 11:59 PM CDT Hospital Encounter [facility] OP DRAW STATION [address] [place] [address] Unknown, Provider Discharge Disposition: Home or Self Care 02/04/2025 2:00 PM CDT Office Visit [facility] - Rheumatology [address] [place] [phone] Byron Sharpe MD Positive RACHNA (antinuclear antibody) (Primary Dx) 02/04/2025 Travel 01/20/2025 9:00 AM CDT Procedure visit [facility] Infusion [address] [place] [address] Multiple sclerosis 01/06/2025 9:00 AM ASSEMBLING FABRICATOR Procedure visit [facility] [address] [place] [address] Multiple sclerosis 01/06/2025 Travel 01/06/2025 Telephone [facility] Neurology [address] [place] [phone] Rosalie Guaman APRN-GRAPHIC COORDINATOR Medication Prior Auth Request (Aimovig renewal) 12/20/2024 Travel 12/17/2024 Telephone [facility] Neu[facility] [address] [place] [phone] Sidney Moncada MD Care Management (Ocrevus approval) 12/12/[address] [facility] [address] [place] [phone] Sidney Moncada MD Care Management (Peer to peer) 12/10/2024 Travel 12/09/[address] [facility] - Neurology [address] [place] [phone] Sidney Moncada MD Care Management (Peer to peer scheduled ) 12/09/2024 Refill [facility] [address] [place] [phone] Lianet Prescott, NAIL MAKING MACHINE SETTER-GRAPHIC COORDINATOR Refill Request 12/06/2024 Telephone [facility] [address] [place] [phone] Sidney Moncada MD Care Management ([place] request) 12/05/2024 [facility] [address] [place] [phone] Sidney Moncada MD Medication Prior Auth Request (Ocrevus ( [place] 12/04/[address] [facility]fusion [address] [place] [address] Justina John, PharmD 12/03/2024 Telephone [facility] - Neurology [address] [place] [phone] Sidney Moncada MD Order (Ocrevus infusion order) [...] Sex Assigned at Female 01/06/2025 9:20 AM ASSEMBLING FABRICATOR Legal Sex Female 5:15 PM ASSEMBLING FABRICATOR Gender Identity Female 01/06/2025 9:20 AM ASSEMBLING FABRICATOR Sexual Orientation Straight 01/06/2025 9: 20 AM ASSEMBLING FABRICATOR Occupation Industry Job Start Date Job End [...] 3:00 PM CDT Office Visit [facility] - Neurology [address] [place] [phone] Rosalie Guaman APRN-GRAPHIC COORDINATOR [address] [place] [address] [address] [place] [address] 04/21/2025 9:00 AM CDT Office Visit [facility] Neurology [address] [place] [phone] Sidney Moncada MD [address] [place] [address] 05/23/2025 9:00 AM CDT Office Visit [facility] - Dermatology [address] [place] [address] [place] [address] Chitra Peres MD [address] [place] [address] [address] [place] [phone] 07/07/2025 8:30 AM CDT Procedure visit [facility] Infusion [address] [place] [phone] 02/16/2026 11:00 AM CDT Office Visit [facility] Orthoped[facility] [address] [facility], [place] [phone] Kaitlin Cruz MD [facility]5 [facility] [address] [place] [phone] 02/20/2026 9:00 AM CDT Office Visit [facility] Ophthal[facility] [address] [facility], [place] [phone] Health Maintenance Due Date Last Done Comments [...] this topic Medical Devices Implanted Type Area Wrap Yarn Sorter Device Identifier Shelf Expiration Date Model / Serial / Lot Tuberosity Repair System Implanted:Qty: 1 on 02/15/2023 by Kaitlin Cruz MD at [facility] Left: Shoulder [employer] 09/12/2027 AR-9517 / / [id number] Cmnt Bone Plc Lv 40gm Lvisc Grn Implanted:Qty: 1 on 02/15/2023 by Kaitlin Cruz MD at [facility] Left: Shoulder Heraeus Kulzer Jelenko 02/10/2025 [id number] / / [id number] Cmpnt Glnd Sm Univers Vaultlock Strl Lf Implanted:Qty: 1 on 02/15/2023 by Kaitlin Cruz MD at [facility] Left: Shoulder [employer] 04/12/2027 AR-9106-01 / / [id number] [place] Humeral Stem Implanted:Qty: 1 on 02/15/2023 by Kaitlin Cruz MD at [facility] Left: Shoulder [employer] 07/16/2023 AR-9100-06 S / / [id number] Humeral Head Implanted:Qty: 1 on 02/15/2023 by Kaitlin Cruz MD at [facility] Left: Shoulder [employer] 10/12/2024 AR-9144-17 P / / [id number] Procedures Procedure Name Priority Date/Time Associated Diagnosis Comments XR SHOULDER LEFT 2VW OR MORE Routine 02/17/2025 12:57 PM CDT S/P shoulder replacement, left DNA ANTIBODY DS CRITHIDIA TITER Routine 02/04/2025 3:48 PM CDT Positive RACHNA (antinuclear antibody) RACHNA HEP-2 IGG BY IFA Routine 02/04/2025 3:48 PM CDT Positive RACHNA (antinuclear antibody) ROYAL/RIVET MACHINE OPERATOR (MANOLO) ANTIBODY IGG Routine 02/04/2025 3:48 PM [...] HEPATITIS C ANTIBODY Routine 10/25/2024 3:07 PM ASSEMBLING FABRICATOR Encounter for preventive health examination HIV-1 HIV-2 ANTIGEN/ANTIBODY Routine 01/06/2018 11:09 AM ASSEMBLING FABRICATOR from Last 3 Months or Most Recently [...] IgG <1:80 <1:80 02/06/2025 9:39 PM CDT [facility] ([facility]) RACHNA Interpretive Comment See Note 02/06/2025 9:39 PM CDT [facility] ([facility]) Comment: Antinuclear antibodies by IFA negative for [...] not necessarily rule out SARD. Performed By: [facility] [address] [id number] Welding Process Specialist: Doc Antoine MD, PhD CLIA Number: [id number] Blood BLOOD SPECIMEN / Unknown Lab Venipuncture / Unknown 02/04/2025 3:48 PM CDT 02/04/2025 3:55 PM CDT Gregg Zaragoza MD LAB - SEROLOGY ORDERABLES Final Result [facility]) [address] [place] [address], [facility] * SS-A (SJOGREN'S) 52+60 ANTIBODIES (02/04/2025 3:48 PM CDT) SS-A 52 Antibody 2 0 - 40 AU/mL 02/05/2025 11:06 PM CDT [facility]) Comment: INTERPRETIVE INFORMATION: SSA-52 (Ro52) (MANOLO) Antibody, [...] - 40 AU/mL 02/05/2025 11:06 PM CDT [facility] ([facility]) Comment: REFERENCE INTERVAL: SSA-60 (Ro60) (MANOLO) Antibody, IgG 29 AU/mL or Less ............. Negative 30 - 40 AU/mL ................ Equivocal 41 AU/mL or Greater .......... Positive Performed By: [facility] [employer] [address] [place] [address] Welding Process Specialist: Doc Antoine MD, PhD CLIA Number: [id number] Blood BLOOD SPECIMEN / Unknown Lab Venipuncture / Unknown 02/04/2025 3:48 PM CDT 02/04/2025 3:55 PM CDT Gregg Zaragoza MD LAB - CHEMISTRY ORDERABLES Final Result [facility] ([facility]) [address] * ROYAL/RIVET MACHINE OPERATOR ([place]) ANTIBODY IGG (02/04/2025 3:48 PM CDT) [facility] Royal/RIVET MACHINE OPERATOR ([place]OLO) Antibody IgG 8 0 - 19 Units 02/06/2025 11:20 PM CDT [facility] ([facility]) Comment: INTERPRETIVE INFORMATION: Royal/RIVET MACHINE OPERATOR (MANOLO) Antibody, IgG 19 Units or Less ............. Negative 20 to 39 Units ............... Weak Positive 40 to 80 Units ............... Moderate Positive 81 Units or greater .......... Strong Positive Royal/RIVET MACHINE OPERATOR antibodies are frequently seen in patients with mixed connective tissue disease (MCTD) and are also associated with other systemic autoimmune rheumatic diseases (SARDs) such as systemic lupus erythematosus (SLE), systemic sclerosis, and myositis. Antibodies targeting the Roayl/RIVET MACHINE OPERATOR antigenic complex also recognize Royal antigens, therefore, the Royal antibody response must be considered when interpreting these results. Performed By: [facility] [address] [place] [address] Welding Process Specialist: Doc Antoine MD, PhD CLIA Number: [id number] Blood BLOOD SPECIMEN / Unknown Lab Venipuncture / Unknown 02/04/2025 3:48 PM CDT 02/04/2025 3:56 PM CDT Gregg Zaragoza MD LAB - CHEMISTRY ORDERABLES Final Result Performing Organization Address [facility] de Phone Number [facility]) [address] [place], [place] [address] * CENTROMERE B ANTIBODIES (02/04/2025 3:48 PM CDT) [facility] Centromere B Antibody <0.2 0.0 - 0.9 AI 02/06/2025 11:10 AM CDT [facility] ([facility]) Blood BLOOD SPECIMEN / Unknown Lab Venipuncture / Unknown 02/04/2025 3:48 PM CDT 02/04/2025 3:56 PM CDT Narrative [facility] ([facility]) - 02/06/2025 11:10 AM CDT Performed at: [address] [place], [place] [id number] [place] [id number] Sales Support Representative: Fernando Rivers PhD, Phone: [phone] us Gregg Zaragoza MD LAB - SEROLOGY ORDERABLES Final Result Performing Organization Address [facility] de Phone Number [facility] ([facility]) [address] [place] [address] * (ABNORMAL) CHROMATIN ANTIBODY (02/04/2025 3:48 PM CDT) Pathologist [facility] Chromatin Antibody 23(H) 0 - 19 Units 02/06/2025 5:06 PM CDT [facility]) Comment: INTERPRETIVE INFORMATION: Chromatin Antibody, IgG 19 Units or less: Negative 20 - 60 Units: Moderate Positive 61 Units or greater: Strong Positive The presence of anti-chromatin antibodies may be useful in the diagnosis of systemic lupus erythematosus (SLE) or drug-induced lupus (DIL) and have been reported to be predictive of lupus nephritis, especially when antibody levels are high. Performed by [facility], [address] [place] [address] www.[employer], Williams Hastings MD, Lab. Director CLIA Number: [id number] Blood BLOOD SPECIMEN / Unknown Lab Venipuncture / Unknown 02/04/2025 3:48 PM CDT 02/04/2025 3:56 PM CDT Gregg Zaragoza MD LAB - SEROLOGY ORDERABLES Final Result [facility]) [address] * CYCLIC CITRUL PEPTIDE ANTIBODY IGG/IGA (CCP) (02/04/2025 3:48 PM CDT) CCP Antibodies IgG/IgA 4 0 - 19 units 02/06/2025 1:09 PM CDT [facility] ([facility]) Comment: Negative <20 Weak positive 20 - 39 Moderate positive 40 - 59 Strong positive >59 Blood BLOOD SPECIMEN / Unknown Lab Venipuncture / Unknown 02/04/2025 3:48 PM CDT 02/04/2025 3:56 PM CDT Narrative [facility] ([facility]) - 02/06/2025 1:09 PM CDT Performed at: - [facility] [address] [place], [place] [id number] Sales Support Representative: Fernando Rivers PhD, Phone: [phone] Gregg Zaragoza MD LAB - SEROLOGY ORDERABLES Final Result Performing Organization Address City/[facility]/ZIP Co de Phone Number [facility] ([facility]) [address] [place] [address] * RNA POLYMERASE III ANTIBODY IGG (02/04/2025 3:48 PM CDT) RNA Polymerase 3 Antibody IgG 9 0 - 19 Units 02/07/2025 12:15 AM CDT [facility] ([facility]) Comment: INTERPRETIVE INFORMATION: RNA Polymerase III Antibody, [...] antibodies associated with SSc, including centromere, Scl-70, U3-RIVET MACHINE OPERATOR, PM/Scl, or Th/To. Performed by [facility], [address] [place] [address] www.[employer], Williams Hastings MD, Lab. Director [facility] Number: [id number] Blood BLOOD SPECIMEN / Unknown Lab Venipuncture / Unknown 02/04/2025 3:48 PM CDT 02/04/2025 3:55 PM CDT Gregg Zaragoza MD LAB - SEROLOGY ORDERABLES Final Result [employer] [facility]) [address] [place] [address] * DNA ANTIBODY DS CRITHIDIA TITER (02/04/2025 3:48 PM CDT) [facility] dsDNA Antibody IgG <1:10 <1:10 2024 8:58 PM CDT [facility] ([facility]) Comment: INTERPRETIVE INFORMATION: Double-Stranded DNA (dsDNA) Antibody, [...] recommendations for testing may be found at [email or web address]content/negmqtzbfe-mgqtmg-[email or web address]. Performed By: [employer] [address] [place] [address] Welding Process Specialist: Doc Antoine MD, PhD CLIA Number: [id number] Blood BLOOD SPECIMEN / Unknown Lab Venipuncture / Unknown 02/04/2025 3:48 PM CDT 02/04/2025 3:56 PM CDT us Gregg Zaragoza MD LAB - SEROLOGY ORDERABLES Final Result Performing Organization Address City/[facility]/ZIP Co de Phone Number [facility] ([facility]) [address] [place] [address] * RHEUMATOID FACTOR BLOOD QUANTITATIVE (02/04/2025 3:48 PM CDT) Pathologist [facility] Rheumatoid Factor <15 <30 IU/mL 02/04/2025 4:25 PM CDT [facility] Rheumatoid Factor Screen Negative Negative 02/04/2025 4:25 PM CDT [facility] Blood BLOOD SPECIMEN / Unknown Lab Venipuncture / Unknown 02/04/2025 3:48 PM CDT 02/04/2025 3:55 PM CDT us Gregg Zaragoza MD LAB - CHEMISTRY ORDERABLES Final Result [address] [address], [facility] [phone] * C-REACTIVE PROTEIN (02/04/2025 3:48 PM CDT) C-Reactive Protein <0.5 <=0.5 mg/dL 02/04/2025 4:29 PM CDT [facility] Blood BLOOD SPECIMEN / Unknown Lab Venipuncture / Unknown 02/04/2025 3:48 PM CDT 02/04/2025 3:56 PM CDT Gregg Zaragoza MD LAB - CHEMISTRY ORDERABLES Final Result Performing Organization Address City/[facility]/ZIP Co de Phone Number [facility] [address] [place] [address], [facility] [phone] * (ABNORMAL) RACHNA BLOOD SCREEN W/REFLEX TITER (02/04/2025 3:48 PM CDT) RACHNA IgG Detected (A) None Detected 02/06/2025 5:45 AM CDT [employer] ([facility]) Comment: Antibodies to Anti-Nuclear Antibodies (RACHNA) detected. [...] dsDNA, histones, SS-A (Ro), SS-B (La), Royal, Royal/RIVET MACHINE OPERATOR, Scl-70, [place]iki-1, centromeric proteins, other antigens extracted from the HEp-2 cell nucleus. RACHNA DAMIEN assays have been reported to have lower sensitivities than RACHNA IFA for systemic autoimmune rheumatic diseases (SARD). Negative results do not necessarily rule out SARD. Performed By: [facility] [address] [place] [address] Welding Process Specialist: Doc Antoine MD, PhD CLIA Number: [id number] Blood BLOOD SPECIMEN / Unknown Lab Venipuncture / Unknown 02/04/2025 3:48 PM CDT 02/04/2025 3:55 PM CDT Gregg Zaragoza MD LAB - CHEMISTRY ORDERABLES Final Result Performing Organization Address City/[facility]/ZIP Co de Phone Number [facility] [employer] [facility]) [address] * HISTONE ANTIBODY (02/04/2025 3:48 PM CDT) [facility] Histone Antibody IgG 0.8 0.0 - 0.9 Units 02/08/2025 4:43 PM CDT [facility] ([facility]) Comment: INTERPRETIVE INFORMATION: Histone Ab, IgG 0.9 Units or less ............ Negative 1.0 - 1.5 Units .............. Weak Positive 1.6 - 2.5 Units .............. Moderate Positive 2.6 Units or greater ......... Strong Positive Performed By: [facility] [address] [place] [address] Welding Process Specialist: Doc Antoine MD, PhD CLIA Number: [id number] Blood BLOOD SPECIMEN / Unknown Lab Venipuncture / Unknown 02/04/2025 3:48 PM CDT 02/04/2025 3:56 PM CDT Gregg Zaragoza MD LAB - CHEMISTRY ORDERABLES Final Result [facility]) [address] * SS-B (SJOGREN'S) ANTIBODY (02/04/2025 3:48 PM CDT) [facility] SS-B Antibody 0 0 - 40 AU/mL 02/05/2025 11:06 PM CDT [facility] ([facility]) Comment: INTERPRETIVE INFORMATION: SSB (La) (MANOLO) Ab, [...] (PSS) also have this antibody. Performed By: [employer] [address] [place] [address] Welding Process Specialist: Doc Antoine MD, PhD CLIA Number: [id number] Blood BLOOD SPECIMEN / Unknown Lab Venipuncture / Unknown 02/04/2025 3:48 PM CDT 02/04/2025 3:56 PM CDT Gregg Zaragoza MD LAB - CHEMISTRY ORDERABLES Final Result [facility] ([facility]) [address] [place] [address], [facility] * SCLERODERMA 70 (SCL) ANTIBODY (02/04/2025 3:48 PM CDT) [facility] SCL-70 Antibody 1 0 - 40 AU/mL 02/06/2025 8:10 PM CDT [facility] ([facility]) Comment: INTERPRETIVE INFORMATION: Scleroderma (Scl-70) (MANOLO) Ab, [...] testing for centromere, RNA polymerase III and U3-RIVET MACHINE OPERATOR, PM/Scl, or Th/To antibodies. Performed By: [employer] [address] [place] [address] Welding Process Specialist: Doc Antoine MD, PhD CLIA Number: [id number] Blood BLOOD SPECIMEN / Unknown Lab Venipuncture / Unknown 02/04/2025 3:48 PM CDT 02/04/2025 3:56 PM CDT Gregg Zaragoza MD LAB - CHEMISTRY ORDERABLES Final Result [facility]) [address] [place] [address] * (ABNORMAL) DNA ANTIBODY DOUBLE STRANDED (02/04/2025 3:48 PM CDT) [facility] dsDNA Antibody 38(H) 0 - 24 IU 02/06/2025 5:06 PM CDT [facility]) Comment: INTERPRETIVE INFORMATION: Double-Stranded DNA (dsDNA) Ab IgG DAMIEN 24 IU or less........Negative 25-30 IU.............Borderline Positive 30-60 IU.............Low Positive 60-200 IU............Positive 201 IU or greater....Strong Positive Positivity for anti-double stranded DNA (anti-dsDNA) IgG antibody is a diagnostic criterion of systemic lupus erythematosus (SLE). Specimens are initially screened by enzyme-linked immunosorbent assay (DAMIEN). If ordered as reflex ([id number]), positive DAMIEN results (>24 IU) will be [...] recommendations for testing may be found at [email or web address]/content/xdvlnvbh-fnytb-ifmhcvdmztfzc. Performed by [facility], [address] [place] [address] www.[employer], Williams Hastings MD, Lab. Director CLIA Number: [id number] Blood BLOOD SPECIMEN / Unknown Lab Venipuncture / Unknown 02/04/2025 3:48 PM CDT 02/04/2025 3:56 PM CDT us Gregg Zaragoza MD LAB - HEMATOLOGY ORDERABLES Zuleika l Result Performing Organization Address City/[facility]/ZIP Co de Phone Number [facility] ([facility]) [address] [place], [place] [address] * ERYTHROCYTE SEDIMENTATION RATE (02/04/2025 3:48 PM CDT) Erythrocyte Sedimentation Rate Westergren 13 0 - 30 MM/HR 02/04/2025 4:21 PM CDT [facility] Blood BLOOD SPECIMEN / Unknown Lab Venipuncture / Unknown 02/04/2025 3:48 PM CDT 02/04/2025 3:56 PM CDT us Gregg Zaragoza MD LAB - HEMATOLOGY ORDERABLES Zuleika l Result [address] [address] [phone] * (ABNORMAL) CBC WITH DIFFERENTIAL (02/04/2025 3:48 PM CDT) WBC 5.1 4.0 - 10.7 x10E9/L 02/04/2025 4:08 PM CDT [facility] RBC Count 4.68 3.90 - 5.20 x10E12/L 02/04/2025 4:08 PM CDT [facility] Hemoglobin 12.8 11.9 - 15.8 g/dL 02/04/2025 4:08 PM CDT [facility] Hematocrit 38.3 34.8 - 46.1 % 02/04/2025 4:08 PM CDT [facility] MCV 81.8 80.0 - 98.0 fL 02/04/2025 4:08 PM CDT [facility] MCH 27.4 26.7 - 33.6 pg 02/04/2025 4:08 PM [facility] MCHC 33.4 31.7 - 36.3 g/dL 02/04/2025 4:08 PM [facility] RDW-CV 14.9(H) 11.3 - 14.8 % 02/04/2025 4:08 PM [facility] Platelet Count 339 150 - 420 x10E9/L 02/04/2025 4:08 PM [facility] MPV 9.4 7.8 - 11.4 fL 02/04/2025 4:08 PM [facility] Neutrophil % 53.5 41.0 - 74.0 % 02/04/2025 4:08 PM [facility] Lymphocyte % 27.3 17.0 - 47.0 % 02/04/2025 4:08 PM [facility] Monocyte % 9.0 3.0 - 11.0 % 02/04/2025 4:08 PM [facility] Eosinophil % 9.2(H) 0.0 - 7.0 % 02/04/2025 4:08 PM [facility] Basophil % 0.8 0.0 - 1.6 % 02/04/2025 4:08 PM [facility] Immature Granulocytes % 0.2 0.0 - 1.0 % 02/04/2025 4:08 PM [facility] Neutrophil Absolute 2.72 1.60 - 7.50 x10E9/L 02/04/2025 4:08 PM [facility] Lymphocyte Absolute 1.39 1.00 - 4.40 x10E9/L 02/04/2025 4:08 PM [facility] Monocyte Absolute 0.46 0.15 - 1.00 x10E9/L 02/04/2025 4:08 PM [facility] Eosinophil Absolute 0.47 0.00 - 0.60 x10E9/L 02/04/2025 4:08 PM [facility] Basophil Absolute 0.04 0.00 - 0.13 x10E9/L 02/04/2025 4:08 PM CDT [facility] Blood BLOOD SPECIMEN / Unknown Lab Venipuncture / Unknown 02/04/2025 3:48 PM CDT 02/04/2025 3:56 PM CDT Gregg Zaragoza MD LAB - HEMATOLOGY ORDERABLES Zuleika jeremy Result [facility] [address] [place] [address], [facility] [phone] * (ABNORMAL) COMPREHENSIVE METABOLIC PANEL (02/04/2025 3:48 PM CDT) BUN 22 7 - 26 mg/dL 02/04/2025 4:29 PM [facility] Creatinine 0.79 0.56 - 0.96 mg/dL 02/04/2025 4:29 PM [facility] Sodium 140 136 - 145 mmol/L 02/04/2025 4:29 PM [facility] Potassium 3.8 3.5 - 4.5 mmol/L 02/04/2025 4:29 PM [facility] Chloride 107 98 - 107 mmol/L 02/04/2025 4:29 PM [facility] CO2 22 22 - 29 mmol/L 02/04/2025 4:29 PM [facility] Glucose 84 70 - 99 mg/dL 02/04/2025 4:29 PM [facility] Calcium 9.8 8.4 - 10.2 mg/dL 02/04/2025 4:29 PM [facility] Protein Total 7.2 6.0 - 8.3 g/dL 02/04/2025 4:29 PM [facility] Albumin 4.1 3.4 - 5.0 g/dL 02/04/2025 4:29 PM [facility] Bilirubin Total 0.4 0.2 - 1.2 mg/dL 02/04/2025 4:29 PM [facility] Alkaline Phosphatase 60 40 - 150 U/L 02/04/2025 4:29 PM [facility] ALT 27 5 - 55 U/L 02/04/2025 4:29 PM [facility] AST 26 5 - 34 U/L 02/04/2025 4:29 PM [facility] Anion Gap 11 6 - 16 02/04/2025 4:29 PM [facility] BUN/Creatinine Ratio 28(H) 7 - 23 02/04/2025 4:29 PM [facility] Osmolality Calculated 293 275 - 295 mOsm/kg 02/04/2025 4:29 PM [facility] Albumin/Globulin Ratio 1.3 1.1 - 2.3 02/04/2025 4:29 PM [facility] eGFR by CKD-EPI 85(L) >=90 mL/min/1.7 3 m2 02/04/2025 4:29 PM [facility] Blood BLOOD SPECIMEN / Unknown Lab Venipuncture / Unknown 02/04/2025 3:48 PM CDT 02/04/2025 3:56 PM CDT Gregg Zaragoza MD LAB - CHEMISTRY ORDERABLES Final Result Performing Organization Address [facility]/ZIP Co de Phone Number [address] [address], [employer] [phone] * HEPATITIS C ANTIBODY (10/25/2024 3:07 PM ASSEMBLING FABRICATOR) [facility] Hepatitis C Antibody Non-react [facility] 10/25/2024 4:37 PM ASSEMBLING FABRICATOR [facility] Comment:Hepatitis C Antibody screen indicates no serologic evidence of past or current infection with Hepatitis C Virus. Patients with unexplained liver disease who are immunocompromised or suspected of having acute Hepatitis C infection may benefit from Nucleic Acid Test (VIVIANA) for Hepatitis C Viral RNA to confirm Hepatitis C status. Blood BLOOD SPECIMEN / Unknown Lab Venipuncture / Unknown 10/25/2024 3:07 PM ASSEMBLING FABRICATOR 10/25/2024 3:42 PM ASSEMBLING FABRICATOR Sidney Moncada MD LAB - CHEMISTRY ORDERABLES Final Result Performing Organization Address City/[facility]/ZIP Co de Phone Number [address] [address], [employer] [phone] * HIV-1 HIV-2 ANTIGEN/ANTIBODY (01/06/2018 11:09 AM ASSEMBLING FABRICATOR) HIV Antigen/Antibody 4th Generation NON-REACT DAVID NON-REACT [...] purpose. For additional information please refer to http://education.LogicBay/faq/JAM343 (This link is being provided for informational/ educational purposes only.) The performance of this assay has not been clinically validated in patients less than 2 years old. 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 06/22/2017 Insurance [facility] Advance Directives * Full Code (Latest Code Status on File) Date Activated Date Inactivated Comments 02/15/2023 12:22 PM 02/16/2023 6:13 PM Care Teams Demonstrator Sewing Techniques Relationship Specialty Start Date End Date Hemalatha Tang MD PCP - General Family Medicine 03/07/21
--- OUTSIDE RECORDS SUMMARY | 2025-02-27 22:50 | XMS_ITS | Clinical Summary ---
Author Organization [facility] Address [address] [place] [address] Phone Care Team Providers Care Seo Associate Name Role Phone CORIE CASTANEDA, MELVIN Loza Primary Care Provider [phone] Reason for Visit and Chief Complaint POST [...] On 05/08/2024 9:48AM By Radha BOWLES ; [facility] Vitamin D3 125 MCG (5000 UT) Oral Capsule 05/08/2024 Provider: Diagnosis: Last Documented On 05/08/2024 9:47AM By Radha BOWLES ; [facility] Aspir-Low 81 MG Oral Tablet Delayed Release 05/08/2024 Provider: Diagnosis: Last Documented On 05/08/2024 9:41AM By Radha BOWLES ; [facility] Tricor 145 MG Oral Tablet 05/08/2024 Provider: Diagnosis: Last Documented On 05/08/2024 9:43AM By Radha BOWLES ; [facility] Nitroglycerin 0.4 MG Sublingual Tablet Sublingual 04/13 Provider: Diagnosis: Last Documented On 05/08/2024 9:42AM By Radha BOWLES ; [facility] buPROPion HCl ER (XL) 150 MG Oral Tablet Extended Release 24 Hour 04/29/2024 Provider: Diagnosis: Last Documented On 05/08/2024 9:46AM By Radha BOWLES ; [facility] Loratadine 10 MG Oral Tablet 04/27/2024 Provider: MELVIN FONTENOT MD Diagnosis: Last Documented On 05/08/2024 9:45AM By Radha BOWLES ; [facility] Pantoprazole Sodium 20 MG Or al Tablet Delayed Release 04/24/2024 Provider: MELVIN Gibson MD Diagnosis: Last Documented On 05/08/2024 9:43AM By Radha BOWLES ; [facility] Valsartan 160 MG Oral Tablet 04/23/2024 Provider: Diagnosis: Last Documented On 05/08/2024 9:42AM By Radha BOWLES ; [facility] Sertraline HCl 100 MG Oral Tablet 04/22/2024 Provide r: Diagnosis: Last Documented On 05/08/2024 9:41AM By Radha BOWLES ; [facility] hydrOXYzine HCl 25 MG Oral Tablet 04/12/2024 Provide r: Diagnosis: Last Documented On 05/08/2024 9:40AM By Radha BOWLES ; [facility] Pregabalin 200 MG Oral Capsule 04/11/2024 Provider: CASH Blanchard Diagnosis: Radiculopathy, l umbar region Take 1 capsule by mouth twice daily Last Documented On 10:16AM By [facility] ; [facility] Meloxicam 15 MG Oral Tablet 03/13/2024 Provider: CASH BILL Diagnosis: Other spondylosi s with radiculopathy, lumbar region One tablet daily Last Documented On 9:43AM By CASH BILL ; [facility] buPROPion HCl ER (XL) 300 MG Oral Tablet Extended Release 24 Hour 02/13/2024 Provider: Diagnosis: Last Documented On 05/08/2024 9:46AM By Radha BOWLES ; [facility] DULoxetine HCl 30 MG Oral Capsule Delayed Releas e Particles 02/13/2024 Provider: Diagnosis: Last Documented On 05/08/2024 9:44AM By Radha BOWLES ; [facility] Fluticasone Propionate 50 MC G/ACT Nasal Suspension 02/06/2024 Provider: MELVIN Gibson MD Diagnosis: Last Documented On 05/08/2024 9:44AM By Radha BOWLES ; [facility] Lidocaine 5% External Patch 10/16/2023 Provider: MELVIN FONTENOT MD Diagnosis: Last Documented On 10/20/2023 9:59AM By Radha BOWLES ; [facility] Nystatin [id number] UNIT/GM External Cream 10/10/2023 Pr ovider: Diagnosis: Last Documented On 3 10:00AM By Radha BOWLES ; [facility] DULoxetine HCl 60 MG Oral Capsule Delayed Releas e Particles 07/27/2023 Provider: Diagnosis: one cap by mouth daily Last Documented On 3 3:08PM By Dorothy Dyson LPN ; [facility] Propranolol HCl 40 MG Oral Tablet 07/27/2023 Provide r: Diagnosis: BID Last Documented On 3 3:16PM By Dorothy Dyson LPN ; [facility] SUMAtriptan Succinate 50 MG Oral Tablet 07/27/2023 P rovider: Diagnosis: prn Last Documented On 3 3:15PM By Dorothy Dyson LPN ; [facility] Rebif 44 MCG/0.5ML Subcutaneous Solution Prefilled Syr luzma 07/27/2023 Provider: Diagnosis: 3 x's weekly Last Documented On 3 3:13PM By Dorothy Dyson LPN ; [facility] Aimovig 140 MG/ML Subcutaneous Solution Auto-injector 07/27/2023 Provider: Diagnosis: q 30 days Last Documented On 3 3:09PM By Dorothy Dyson LPN ; [facility] Medications Administered Includes: Administered Medications from this encounter No Administered Medications Recorded Results Includes: Results discussed during this encounter No Results Recorded For Specified Dates History of Present Illness Includes: History of Present Illness from this encounter No History of Present Illness Recorded Social History Description Last Updated Tobacco non-user 01/25/2024 Last Documented On 4 11:40AM ; [facility] Smoking Status Unknown Medical History Includes: Medical History addressed during this encounter Description Last Updated Has had a fall in the last 12 months. Domingo s falls quite often Has DX of MS 08/25/2023 Last Documented On 4 11:40AM ; [facility] Family History Includes: Family History addressed [...] # Subscriber Relationship Effect rosi Dates - [facility] [phone] CHARLES NUNEZ [facility] Clinical Notes Includes: Clinical Notes from this encounter * Progress note Date Encounter Last Documented by 04/05/2024 POST PROCEDURE PHONE CALL Last d ocumented on 04/05/2024; 11:42 AM, Maricruz Reinoso RN; [facility] Top of Document [...] daily, 30 days, 1 refills - Nystatin [id number] UNIT/GM External Cream as directed 30 days, [...]
--- OUTSIDE RECORDS SUMMARY | 2025-02-27 22:50 | XMS_ITS | Encounter Summary ---
Author Organization [facility] Health Address [address] [place] [address] Care Team Providers Care Director Day Care Center Name Role Phone Kevan Rubin MD Primary Care Provider Hemalatha Tang MD Primary Care Provider [phone] Reason for Visit * Reason Onset Date Comments MEDICATION REFILL 11/14/2019 Encounter Details Date Type Department Care Team (Late st Contact Info) Description 11/14/2019 Refill [facility] [address] [place] [address] Kimberly Yarbrough MD [address] [place] [phone] MEDICATION REFILL Social History Tobacco Use Types Packs/Day Years Used Date Smoking Tobacco: Never Smokeless Tobacco: Never Alcohol Use Standard Drinks/Week Comments No 0 (1 standard drink = 0.6 oz pur e alcohol) Comments No Sex and Gender Information Value Date Recorded Sex Assigned at Female 01/06/2025 9:20 AM COMMUNITY RECREATION COORDINATOR Legal Sex Female 5:15 PM COMMUNITY RECREATION COORDINATOR Gender Identity Female 01/06/2025 9:20 AM COMMUNITY RECREATION COORDINATOR Sexual Orientation Straight 01/06/2025 9: 20 AM COMMUNITY RECREATION COORDINATOR Occupation Industry Job Start Date Job End Date disable Not on file Not on file Not on file documented as of this encounter Plan of Treatment Upcoming Encounters Date Type Department Care Team (Late st Contact Info) Description 03/05/2025 3:00 PM CDT Office Visit [facility] - Neurology [address] [place] [address], [place] [address] Deniz Kofitrell, EDUCATION RESEARCH ANALYST-DIGITAL ENGINEER [address] [place] [address] [address] [place] [address] 04/21/2025 9:00 AM CDT [facility] [address] [place] [phone] Sidney Moncada MD [address] [place] [address] 05/23/2025 9:00 AM CDT [facility] Dermatology [address] [place] [phone] Chitra Peres MD [address] [place] [address] [address] [place] [phone] 07/07/2025 8:30 AM CDT Procedure visit [facility] - Infusion [address] [place] [phone] 02/16/2026 11:00 AM CDT [facility] Orthopedics [address] [place] [phone] Kaitlin Cruz MD [address] [place] [address] [address] [place] [phone] 02/20/2026 9:00 AM CDT [facility] Ophthalmology [address] [place] [phone] documented as of this encounter Visit Diagnoses Diagnosis Intractable chronic migraine without aura and without status migrainosus Chronic migraine without aura, with intractable migraine, so stated, without mention of status migrainosus documented in this encounter Additional Health Concerns Infection Onset Date Last Indicated Resolved Time 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 06/22/2017 documented as of this encounter Care Teams Director Day Care Center Relationship Specialty Start Date End Date Kevan Rubin MD [address] [facility]. [address] [place] [address] [phone] PCP - General 03/23/16 03/06/21 Hemalatha Tang MD [facility]. [address] [place] [address] PCP - General Family Medicine 03/07/21 documented as of this encounter
--- OUTSIDE RECORDS SUMMARY | 2025-02-27 22:50 | XMS_ITS ---
Author Organization [facility] Health Address [address] [place] [address] Care Team Providers Care Physical Plant Manager Name Role Phone Hemalatha Tang MD Primary Care Provider [phone] Active Problems * This document contains information [...] (09/26/2022): Added automatically from request for surgery [id number] Traumatic hematoma of left hand 05/25/2022 Overview (09/26/2022): Added automatically from request for surgery [id number] Extensor tenosynovitis of left wrist 05/18/2022 Overview [...] After hours, please contact the ID fellow precision honer. Tenosynovitis 05/18/2022 Left hand pain 05/17/2022 Overview [...] Last Assessment & Plan: Acute-informed can apply [id number] Abreva to cold sore as directed. Encouraged [...]
--- OUTSIDE RECORDS SUMMARY | 2025-02-27 22:50 | XMS_ITS | Encounter Summary ---
Author Organization [facility] Address [address] [place] [address] Care Team Providers Care Dressmaker Or Tailor Name Role Phone Hemalatha Tang MD Primary Care Provi summer Manuel Swartz MD Unavailable [phone] Reason for Referral * Consultation (Routine) - Closed Specialty Diagnoses / Procedures Referred By Contac t Referred To Contact Rheumatology Diagnoses Facial rash Positive RACHNA (antinuclear antibody) Multiple sclerosis (HCC) Leta Casillas PA [address] [place] [address] Phone: tel: fax: Raymond Sharpe MD [address] [facility] [address] [place] [address] Phone: tel: fax: Referral ID Status Reason Start Date Expiration Date V isits Requested Visits Authorized [id number] Closed Specialty Services Required 01/31/2025 03/02/2026 6 6 Question Answer Please select the performing region: External Order [171] To provider: RAYMOND SHARPE [[id number]] # of visits: 6 Encounter Details Date Type Department Care Team (Late st Contact Info) Description 01/10/2025 Results Follow-Up [facility] Family Medicine [address] [place] [phone] Leta Casillas PA [address] [place] [phone] Facial rash (Primary Dx); Positive RACHNA (antinuclear [...] on file Legal Sex Female 2:06 AM METAL BED ASSEMBLER Gender Identity Female 11/29/2020 6:59 PM METAL BED ASSEMBLER Sexual Orientation Not on file documented as [...] 01/30/2025 3:21 PM CDT The provider says water aerobics instructor, ok to place for rheumatology? documented in [...] sclerosis documented in this encounter Care Teams Dressmaker Or Tailor Relationship Specialty Start Date End Date Hemalatha Tang MD [address] [place] [address] PCP - General Family Medicine 11/02/20 Manuel Swartz MD [address] [place] [address] Neurology 04/17/23 documented as of this encounter
--- OUTSIDE RECORDS SUMMARY | 2025-02-27 22:50 | XMS_ITS | Clinical Summary ---
Author Organization [facility] Address [address] [place] [address] Care Team Providers Care Tanning Solution Maker Name Role Phone Kevan Rubin MD Primary Care Provider Joaquin Merritt MD Unavailable [phone] Allergies Active Allergy Reactions Criticality Noted Date [...] by Does not apply route. 11/16/2016 Active Holmdel-3 Fatty Acids (FISH OIL ULTRA) 1400 MG [...] of right shoulder 11/10/2016 Multiple sclerosis exacerbation ([facility] ) 10/01/2016 Migraine equivalent 09/12/2016 Exostosis of right posterior calcaneus 6 Dizziness and giddiness 08/09/2016 Onychomycosis of toenail 08/01/2016 Frequency of micturition 06/28/2016 Sleep disturbances 05/31/2016 Obesity 04/05/2016 MS (multiple sclerosis) ([facility]) 2015 Neurogenic bladder 03/23/2016 Neuromuscular dysfunction of [...] right 12/23/2015 Overactive bladder 12/23/2015 Multiple sclerosis ([facility]) 12/23/2015 Anemia Essential hypertension Resolved Problems Problem [...] 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 For additional information please refer to http://education.DFMSim/faq/EHP71r9 (This link is being provided for informational/ educational purposes only.) 07/08/2019 10:1 9 AM CDT 07/09/2019 4:51 AM CDT Narrative Resulting Agency Comment Performing Organization Information: Site ID: [id number] Name: [facility] Address: [address] [address] Director: Keo Thomas D.O., MPH us Kevan Rubin MD LABORATORY Final R esult [facility] * Colonoscopy (04/11/2013 12:00 AM CDT) 04/11/2013 04/11/2013 Narrative TOUCHWORKS TO EPIC CONVERSION - 05/11/2018 8:53 AM CDT normal Procedure Note Edda Castaneda MD - 02/26/2019 normal Generic Conversion Md CASTANEDA GI PROCEDURE ORDERABLES Final Result Performing Organization Address City/[facility] Co de Phone Number TOUCHWORKS TO EPIC CONVERSION from Last 3 Months or Most Recently Relevant to Health Maintenance Additional Health Concerns Infection Onset Date Last Indicated MRSA 06/22/2017 06/22/[address] [place] [address] [place] [address] Care Teams Tanning Solution Maker Relationship Specialty Start Date End Date Kevan Rubin MD [address] [facility] [address] [facility] [place] [address] PCP - General 03/07/17 Joaquin Merritt MD [facility]. [facility] [address] [place] [address] [place] Product Strategy Director INTERVENTIONAL CARDIOLOGY 05/21/18
--- OUTSIDE RECORDS SUMMARY | 2025-02-27 22:50 | XMS_ITS | Encounter Summary ---
Author Organization [facility] Health Address [address] [place] [address] Care Team Providers Care Nutritional Chemist Name Role Phone Kevan Rubin MD Primary Care Provider Hemalatha Tang MD Primary Care Provider [phone] Reason for Visit * Reason Onset Date Comments MEDICATION REFILL 11/12/2020 Encounter Details Date Type Department Care Team (Late st Contact Info) Description 11/12/2020 Refill [facility] [address] [place] [address] Kimberly Yarbrough MD [address] [place] [phone] MEDICATION REFILL Social History Tobacco Use Types Packs/Day Years Used Date Smoking Tobacco: Never Smokeless Tobacco: Never Alcohol Use Standard Drinks/Week Comments No 0 (1 standard drink = 0.6 oz pur e alcohol) Comments No Sex and Gender Information Value Date Recorded Sex Assigned at Female 01/06/2025 9:20 AM HOSPITAL INTERN Legal Sex Female 5:15 PM HOSPITAL INTERN Gender Identity Female 01/06/2025 9:20 AM HOSPITAL INTERN Sexual Orientation Straight 01/06/2025 9: 20 AM HOSPITAL INTERN Occupation Industry Job Start Date Job End Date disable Not on file Not on file Not on file documented as of this encounter Plan of Treatment Upcoming Encounters Date Type Department Care Team (Late st Contact Info) Description 03/05/2025 3:00 PM CDT Office Visit [facility] - Neurology [address] [place] [address], [place] [address] Deniz Kofitrell, APPLICATION ASSISTANT-VETERANS SERVICES SPECIALIST [address] [place] [address] [address] [place] [address] 04/21/2025 9:00 AM CDT Office Visit [facility] - Neurology [address] [place] [phone] Sidney Moncada MD [address] [place] [address] 05/23/2025 9:00 AM CDT Office Visit [facility] - Dermatology [address] [place] [phone] Chitra Peres MD [address] [place] [address] 3 [place] [phone] 07/07/2025 8:30 AM CDT Procedure visit [facility] - Infusion [address] [place] [phone] 02/16/2026 11:00 AM CDT Office Visit [facility] - Orthopedics [address] [place] [phone] Kaitlin Cruz MD [address] [place] [address] [address] [place] [phone] 02/20/2026 9:00 AM CDT Office [facility] - Ophthalmology [address] [place] [phone] documented as of this encounter Visit Diagnoses Diagnosis Chronic migraine without aura without status migrainosus, not intractable Chronic migraine without aura, without mention of intractable migraine without mention of status migrainosus documented in this encounter Additional Health Concerns Infection Onset Date Last Indicated Resolved Time 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 06/22/2017 documented as of this encounter Care Teams Nutritional Chemist Relationship Specialty Start Date End Date Kevan Rubin MD [address] [facility]. [address] [place] [phone] PCP - General 03/23/16 03/06/21 Hemalatha Tang MD [facility]. [address] [place] [address] PCP - General Family Medicine 03/07/21 documented as of this encounter
--- OUTSIDE RECORDS SUMMARY | 2025-02-27 22:50 | XMS_ITS | Encounter Summary ---
Author Organization [facility] Address [facility] [place] [address] Care Team Providers Care Cyber Intelligence Analyst Name Role Phone Kevan Rubin MD Primary Care Provider Joaquin Merritt MD Unavailable [phone] Encounter Details Date Type Department Care Team (Latest Contact Info) Description 08/03/[address] 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 [facility] [address] [place] [address] [place] Bo[employer] Operator INTERVENTIONAL CARDIOLOGY 05/21/18 documented as of this encounter
--- OUTSIDE RECORDS SUMMARY | 2025-02-27 22:50 | XMS_ITS | Encounter Summary ---
Author Organization [facility] Health Address [address] [place] [address] Care Team Providers Care Picker And Sorter Load And Unload Name Role Phone Kevan Rubin MD Primary Care Provider Hemalatha Tang MD Primary Care Provider [phone] Reason for Visit * Reason Onset Date Comments MEDICATION REFILL 02/18/2021 Encounter Details Date Type Department Care Team (Late st Contact Info) Description 02/18/2021 Refill [facility] [address] [place] [address] Gladys Judd MD [address] [place] [address] MEDICATION REFILL Social History Tobacco Use Types Packs/Day Years Used Date Smoking Tobacco: Never Smokeless Tobacco: Never Alcohol Use Standard Drinks/Week Comments No 0 (1 standard drink = 0.6 oz pur e alcohol) Comments No Sex and Gender Information Value Date Recorded Sex Assigned at Female 01/06/2025 9:20 AM ARMATURE REWINDER Legal Sex Female 5:15 PM ARMATURE REWINDER Gender Identity Female 01/06/2025 9:20 AM ARMATURE REWINDER Sexual Orientation Straight 01/06/2025 9: 20 AM ARMATURE REWINDER Occupation Industry Job Start Date Job End Date disable Not on file Not on file Not on file documented as of this encounter Plan of Treatment Upcoming Encounters Date Type Department Care Team (Late st Contact Info) Description 03/05/2025 3:00 PM CDT Office Visit [facility] - Neurology [address] [place] [address], [place] [address] Deniz Kofitrell, PAPER SORTER AND COUNTER-PROJECT PROGRAM MANAGER [address] [place] [address] [address] [place] [address] 04/21/2025 9:00 AM CDT Office Visit [facility] - Neurology [address] [place] [phone] Sidney Moncada MD [address] [place] [address] 05/23/2025 9:00 AM CDT Office Visit [facility] - Dermatology [address] [place] [phone] Chitra Peres MD [address] [place] [address] 3 [place] [phone] 07/07/2025 8:30 AM CDT Procedure visit [facility] - Infusion [address] [place] [phone] 02/16/2026 11:00 AM CDT Office Visit [facility] - Orthopedics [address] [place] [phone] Kaitlin Cruz MD [address] [place] [address] [address] [place] [phone] 02/20/2026 9:00 AM CDT Office Visit [facility] - Ophthalmology [address] [place] [phone] documented as of this encounter Visit Diagnoses Diagnosis Arthralgia, unspecified joint documented in this encounter Additional Health Concerns Infection Onset Date Last Indicated Resolved Time 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 06/22/2017 documented as of this encounter Care Teams Picker And Sorter Load And Unload Relationship Specialty Start Date End Date Kevan Rubin MD [facility]. [address] [place] [phone] PCP - General 03/23/16 03/06/21 Hemalatha Tang MD [facility]. [address] [place] [address] PCP - General Family Medicine 03/07/21 documented as of this encounter
--- OUTSIDE RECORDS SUMMARY | 2025-02-27 22:50 | XMS_ITS | Clinical Summary ---
Author Organization [facility] Address [address] [place] [address] Phone Care Team Providers Care Floor Covering Printer Assistant Name Role Phone CORIE CASTANEDA, MELVIN Loza Primary Care Provider [phone] Reason for Visit and Chief Complaint The Chief Complaint is: FU IMAGING ~NOT DOING HEP Plan of Treatment No Plan of Treatment Recorded Assessments Includes: Assessments from this encounter Findings - Lumbar spondylosis with radiculopathy [M47.26 - Other spondylosis with radiculopathy, lumbar region] - Last Documented On 03/13/2024 9:58AM ; [facility] - Generalized multiple sclerosis [G35 - Multiple sclerosis] - Last Documented On 03/13/2024 9:58AM ; [facility] - Lumbar stenosis with neurogenic claudication [M48.062 - Spinal stenosis, lumbar region with neurogenic claudication] - Last Documented On 03/13/2024 9:58AM ; [facility] - Lumbar radiculopathy [M54.16 - Radiculopathy, lumbar region] - Last Documented On 03/13/2024 9:58AM ; [facility] - Fibromyalgia [M79.7 - Fibromyalgia] - Last Documented On 03/13/2024 9:58AM ; [facility] - Chronic pain syndrome [G89.4 - Chronic pain syndrome] - Last Documented On 03/13/2024 9:58AM ; [facility] Medical [...] radiculopathy, lumbar region One tablet daily Pharmacy: [facility] [address] , [place], [address] - Last Documented On 9:43AM By CASH LEWIS ; [facility] Current Medications (continue as prescribed) [facility] Fish Oil 1200 MG Oral Capsule 05/08/2024 Provide r: Diagnosis: Last Documented On 05/08/2024 9:48AM By Radha BOWLES ; [facility] Vitamin D3 125 MCG (5000 UT) Oral Capsule 05/08/2024 Provider: Diagnosis: Last Documented On 05/08/2024 9:47AM By Radha BOWLES ; [facility] Aspir-Low 81 MG Oral Tablet Delayed Release 05/08/2024 Provider: Diagnosis: Last Documented On 05/08/2024 9:41AM By Radha BOWLES ; [facility] Tricor 145 MG Oral Tablet 05/08/2024 Provider: Diagnosis: Last Documented On 05/08/2024 9:43AM By Radha BOWLES ; [facility] Nitroglycerin 0.4 MG Sublingual Tablet Sublingual 04/13 Provider: Diagnosis: Last Documented On 05/08/2024 9:42AM By Radha BOWLES ; [facility] buPROPion HCl ER (XL) 150 MG Oral Tablet Extended Release 24 Hour 04/29/2024 Provider: Diagnosis: Last Documented On 05/08/2024 9:46AM By Radha BOWLES ; [facility] Loratadine 10 MG Oral Tablet 04/27/2024 Provider: MELVIN FONTENOT MD Diagnosis: Last Documented On 05/08/2024 9:45AM By Radha BOWLES ; [facility] Pantoprazole Sodium 20 MG Or al Tablet Delayed Release 04/24/2024 Provider: MELVIN Gibson MD Diagnosis: Last Documented On 05/08/2024 9:43AM By Radha BOWLES ; [facility] Valsartan 160 MG Oral Tablet 04/23/2024 Provider: Diagnosis: Last Documented On 05/08/2024 9:42AM By Radha BOWLES ; [facility] Sertraline HCl 100 MG Oral Tablet 04/22/2024 Provide r: Diagnosis: Last Documented On 05/08/2024 9:41AM By Radha BOWLES ; [facility] hydrOXYzine HCl 25 MG Oral Tablet 04/12/2024 Provide r: Diagnosis: Last Documented On 05/08/2024 9:40AM By Radha BOWLES ; [facility] Pregabalin 200 MG Oral Capsule 04/11/2024 Provider: [facility] Diagnosis: Radiculopathy, l umbar region Take 1 capsule by mouth twice daily Last Documented On 10:16AM By CASH [facility] ; [facility] buPROPion HCl ER (XL) 300 MG Oral Tablet Extended Release 24 Hour 02/13/2024 Provider: Diagnosis: Last Documented On 05/08/2024 9:46AM By Radha BOWLES ; [facility] DULoxetine HCl 30 MG Oral Capsule Delayed Releas e Particles 02/13/2024 Provider: Diagnosis: Last Documented On 05/08/2024 9:44AM By Radha BOWLES ; [facility] Fluticasone Propionate 50 MC G/ACT Nasal Suspension 02/06/2024 Provider: MELVIN Gibson MD Diagnosis: Last Documented On 05/08/2024 9:44AM By Radha BOWLES ; [facility] Lidocaine 5% External Patch 10/16/2023 Provider: MELVIN FONTENOT MD Diagnosis: Last Documented On 10/20/2023 9:59AM By Radha BOWLES ; [facility] Nystatin 535134 UNIT/GM External Cream 10/10/2023 Pr ovider: Diagnosis: Last Documented On 10:00AM By Radha BOWLES ; [facility] DULoxetine HCl 60 MG Oral Capsule Delayed Releas e Particles 07/27/2023 Provider: Diagnosis: one cap by mouth daily Last Documented On 3 3:08PM By Dorothy Dysno LPN ; [facility] Propranolol HCl 40 MG Oral Tablet 07/27/2023 Provide r: Diagnosis: BID Last Documented On 3 3:16PM By Dorothy Dyson LPN ; [facility] SUMAtriptan Succinate 50 MG Oral Tablet 07/27/2023 P rovider: Diagnosis: prn Last Documented On 3 3:15PM By Dorothy Dyson LPN ; [facility] Rebif 44 MCG/0.5ML Subcutaneous Solution Prefilled Syr luzma 07/27/2023 Provider: Diagnosis: 3 x's weekly Last Documented On 3 3:13PM By Dorothy Dyson LPN ; [facility] Aimovig 140 MG/ML Subcutaneous Solution Auto-injector 07/27/2023 Provider: Diagnosis: q 30 days Last Documented On 3 3:09PM By Dorothy Dyson LPN ; [facility] Medications Administered Includes: Administered Medications from this encounter No Administered Medications Recorded Vital Signs Includes: Vital Signs from this encounter Vital Name 03/13/2024 09:19A Blood Pressure Sitting R 128/90 Pulse Rate-Sitting (bpm) 71 Temp-Temporal 96.2 Height (in) 64 Weight (lb) 203 Body Mass Index 34.8 Body Surface Area (m2) 2.0 Pain Level 4 Oxygen Saturation (%) 93 Last Documented: On 03/13/2024 9:53AM ; [facility] Results Includes: Results discussed during this encounter [...] pain. This makes it difficult to complete oncology rep or do self-care at times. She is having a difficult time sleeping at night. She takes ucqq-uax-seqdahh anti-inflammatories with mild benefit. We discussed facet [...] no benefit. She reports injections done at [facility] in [place] within the last year. By description these [...] 01/25/2024 Last Documented On 4 9:18AM ; [facility] Smoking Status Unknown Procedures and Surgical History Includes: Procedures from this encounter Procedures Code Diagnosis Performing Provider Service Location Service Date CLINIC VISIT T1015 Other spondylosi s with radiculopathy, lumbar region, Chronic pain syndrome, Fibromyalgia CASH ORR ANP-BC [facility] 03/13/2024 Last Documented On 4 9:35AM ; [facility] use of tobacco assessment performed 1000F Last Documented On 4 9:25AM ; [facility] review of medications documented 1160F Last Documented On 4 9:25AM ; [facility] assessment of suicide risk performed Last Documented On 4 9:18AM ; [facility] screening for adult depression: impressi on and score four Last Documented On 4 9:18AM ; [facility] standardized depression screening: posit rosi for symptoms Last Documented On 4 9:18AM ; [facility] Clinical summary provided to patient ~ Patient understands and agrees with treatment plan. Questions answered Last Documented On 4 9:18AM ; [facility] SOAPP-R: total score 13 Last Documented On 4 9:18AM ; [facility] Medical History Includes: Medical History addressed during this encounter Description Last Updated Has had a fall in the last 12 months. Domingo s falls quite often Has DX of MS 08/25/2023 Last Documented On 4 9:18AM ; [facility] Family History Includes: Family History [...] PAIN MANAGEMENT FOLLOW UP CASH ORR ANP-BC [facility] 03/13/20 24 9:03AM 9:38AM Chronic Pain Syndrome,Lumbar Radiculopathy,Mu ltiple Sclerosis Generalized,Fibr omyalgia,Spinal Stenosis Lumbar with Neurogenic Claudication,Spo ndylosis with Radiculopathy Lumbar Region Insurance Includes: Active Insurance Policies Plan Name Member ID Group # Subscriber Relationship Effect rosi Dates - [facility] [id number] CHARLES NUNEZ Self Clinical Notes Includes: Clinical Notes from this encounter * Progress note Date Encounter Last Documented by 03/13/2024 PAIN MANAGEMENT FOLLOW UP Last d ocumented on 03/13/2024; 9:58 AM, CASH ORR ANP-; [facility] Chief Complaint The Chief Complaint [...] pain. This makes it difficult to complete oncology rep or do self-care at times. She is having a difficult time sleeping at night. She takes hnqp-mrq-lyxrfmz anti-inflammatories with mild benefit. We discussed facet [...] no benefit. She reports injections done at [facility] in [place] within the last year. By description these [...] daily 30 days, 0 refills - Nystatin 406625 UNIT/GM External Cream as directed 30 days, [...] but may be subject to typographical or mold making plastics sheets supervisor errors. Verify all diagnoses, medications, dosages, and patient instructions with patient and/or the originator of this document. Health Reminders - Assess BMI satisfied 03/13/2024. - Assess Need for CT Lung Screen satisfied 03/13/2024. - Assess Tobacco Use satisfied 03/13/2024. - Depression Screening satisfied 03/13/2024. - Follow up plan for Depression Screening satisfied 03/13/2024.
--- OUTSIDE RECORDS SUMMARY | 2025-02-27 22:50 | XMS_ITS | Encounter Summary ---
Author Organization [facility] Health Address [address] [place] [address] Care Team Providers Care Sheet Metal Assembler And Riveter Name Role Phone Hemalatha Tang MD Primary Care Provider [phone] Reason for Visit * Reason Onset Date Comments MEDICATION REFILL 01/09/2024 Encounter Details Date Type Department Care Team (Late st Contact Info) Description 01/09/2024 Refill [facility] Neurology [address] [place] [address], [place] [phone] Johnny Jones MD [address] [place] [phone] MEDICATION REFILL Social History Tobacco Use [...] Sex Assigned at Female 01/06/2025 9:20 AM SAND TESTER Legal Sex Female 5:15 PM SAND TESTER Gender Identity Female 01/06/2025 9:20 AM SAND TESTER Sexual Orientation Straight 01/06/2025 9: 20 AM SAND TESTER Occupation Industry Job Start Date Job End [...] daily Reasons: Major Depressive Disorder, Musculoskeletal Pain TESTER documented in this encounter Plan of Treatment Upcoming Encounters Date Type Department Care Team (Late st Contact Info) Description 03/05/2025 3:00 PM CDT Office Visit [facility] - Neurology [address] [place] [phone] Rosalie Guaman, CROCHET BEADER-FROG SHAKER [address] [place] [address] [place] [address] 04/21/2025 9:00 AM CDT Office Visit [facility] - Neurology [address] [place] [phone] Sidney Moncada MD [address] [place] [address] 05/23/2025 9:00 AM CDT Office Visit [facility] - Dermatology [address] [facility], [place] [phone] Chitra Peres MD [facility] 3L [place] [phone] 07/07/2025 8:30 AM CDT Procedure visit [facility] - Infusion [address] [place] [phone] 02/16/2026 11:00 AM CDT [facility] [address] [place] [address], [place] [phone] Kaitlin Cruz MD [address] [place] [address] [address] [place] [phone] 02/20/2026 9:00 AM CDT [facility] Ophthalmology [address] [place] [address], [place] [phone] documented as of this encounter Visit Diagnoses Diagnosis MDD (major depressive disorder), recurrent, in full remission Major depressive disorder, recurrent episode, in full remission Neuropathic pain Neuralgia, neuritis, and radiculitis, unspecified documented in this encounter Additional Health Concerns Infection Onset Date Last Indicated Resolved Time 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 06/22/2017 documented as of this encounter Care Teams Sheet Metal Assembler And Riveter Relationship Specialty Start Date End Date Hemalatha Tang MD PCP - General Family Medicine 03/07/21 documented as of this encounter
--- OUTSIDE RECORDS SUMMARY | 2025-02-27 22:50 | XMS_ITS ---
Care Plan - [facility] Created on: February 27, 2025 CHARLES NUNEZ : 1960 Sex: Female Author Organization [facility] Address [address] [place] [address] Phone Care Team Providers Care Head Of Insight Name Role Phone COREI CASTANEDA, MELVIN Loza Primary Care Provider [phone]
--- OUTSIDE RECORDS SUMMARY | 2025-02-27 22:50 | XMS_ITS | Encounter Summary ---
Author Organization [facility] Health Address [address] [place] [address] Care Team Providers Care Cut Out And Marking Machine Operator Name Role Phone Kevan Rubin MD Primary Care Provider Hemalatha Tang MD Primary Care Provider [phone] Reason for Visit * Reason Onset Date Comments MEDICATION REFILL 03/30/2020 Encounter Details Date Type Department Care Team (Late st Contact Info) Description 03/30/2020 Refill [facility] [address] [place] [address] Manuel Swartz MD [facility] [address] [address] MEDICATION REFILL Social History Tobacco Use Types Packs/Day Years Used Date Smoking Tobacco: Never Smokeless Tobacco: Never Alcohol Use Standard Drinks/Week Comments No 0 (1 standard drink = 0.6 oz pur e alcohol) Comments No Sex and Gender Information Value Date Recorded Sex Assigned at Female 01/06/2025 9:20 AM CITY MAINTENANCE MANAGER Legal Sex Female 5:15 PM CITY MAINTENANCE MANAGER Gender Identity Female 01/06/2025 9:20 AM CITY MAINTENANCE MANAGER Sexual Orientation Straight 01/06/2025 9: 20 AM CITY MAINTENANCE MANAGER Occupation Industry Job Start Date Job End Date disable Not on file Not on file Not on file documented as of this encounter Plan of Treatment Upcoming Encounters Date Type Department Care Team (Late st Contact Info) Description 03/05/2025 3:00 PM CDT Office Visit [facility] - Neurology [address] [place] [address], [place] [address] Deniz Kofitrell, PATIENT ACCOUNTS SPECIALIST-BLEND PLANT OPERATOR [address] [place] [address] [address] [place] [address] 04/21/2025 9:00 AM CDT [facility] [address] [place] [phone] Sidney Moncada MD [address] [place] [address] 05/23/2025 9:00 AM CDT [facility] Derm[facility]ology [address] [place] [phone] Chitra Peres MD [address] [place] [address] 3 [place] [phone] 07/07/2025 8:30 AM CDT Procedure visit [facility] - Infusion [address] [place] [phone] 02/16/2026 11:00 AM CDT Office Visit [facility] - Orthopedics [address] [place] [phone] Kaitlin Cruz MD [address] [place] [address] [address] [place] [phone] 02/20/2026 9:00 AM CDT [facility] Op[facility] [address] [place] [phone] documented as of this encounter Visit Diagnoses Diagnosis Multiple sclerosis (HCC) Multiple sclerosis documented in this encounter Additional Health Concerns Infection Onset Date Last Indicated Resolved Time 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 06/22/2017 documented as of this encounter Care Teams Cut Out And Marking Machine Operator Relationship Specialty Start Date End Date Kevan Rubin MD [facility]. [address] [place] [phone] PCP - General 03/23/16 03/06/21 Hemalatha Tang MD [facility]. [address] [place] [address] PCP - General Family Medicine 03/07/21 documented as of this encounter
--- OUTSIDE RECORDS SUMMARY | 2025-02-27 22:50 | XMS_ITS ---
Author Organization [facility] Address [address] [place] [address] Phone Care Team Providers Care Social Services Technician Name Role Phone CORIE CASTANEDA, MELVIN Loza Primary Care Provider [phone] Plan of Treatment No Plan of Treatment Recorded Assessments Includes: Assessments for all patient encounters Findings Encounter Date Chronic pain syndrome PAIN MANAGEMENT FO LLOW UP with CASH L [facility] 03/13/2024 Last Documented On 4 9:58AM ; [facility] Fibromyalgia PAIN MANAGEMENT FOLLOW UP with T TRACY L [facility] 03/13/2024 Last Documented On 4 9:58AM ; [facility] Generalized multiple sclerosis PAIN KATHY GEMENT FOLLOW UP with CASH L [facility] 03/13/2024 Last Documented On 4 9:58AM ; [facility] Lumbar radiculopathy PAIN MANAGEMENT FOL LOW UP [facility] 03/[facility]2024 Last Documented On 4 9:58AM ; [facility] Lumbar spondylosis with radiculopathy PA IN MANAGEMENT FOLLOW UP with CASH L [facility] 03/13/2024 Last Documented On 4 9:58AM ; [facility] Lumbar stenosis with neuroge samson claudication PAIN MANAGEMENT FOLLOW UP with CASH L K[facility] 03/13/2024 Last Documented On 4 9:58AM ; [facility] Synovitis of other site CHART UPDATE with CASH L [facility] 02/26/2024 Last Documented On 4 11:39AM ; [facility] Tenosynovitis of other site CHART UPDATE with TA MMIE L [facility] 02/26/2024 Last Documented On 4 11:39AM ; [facility] Chronic pain syndrome PAIN MANAGEMENT FO LLOW UP with CASH L [facility] 01/25/2024 Last Documented On 4 10:11AM ; [facility] Fibromyalgia PAIN MANAGEMENT FOLLOW UP with T TRACY L [facility] 01/25/2024 Last Documented On 4 10:11AM ; [facility] Generalized multiple sclerosis PAIN KATHY GEMENT FOLLOW UP with CASH L [facility] 01/25/2024 Last Documented On 4 10:11AM ; [facility] Lumbar radiculopathy PAIN MANAGEMENT FOL LOW UP with CASH L [facility] 01/25/2024 Last Documented On 4 10:11AM ; [facility] Lumbar spondylosis with radiculopathy PA IN MANAGEMENT FOLLOW UP with CASH L [facility] 01/25/2024 Last Documented On 4 10:11AM ; [facility] Lumbar stenosis with neuroge samson claudication PAIN MANAGEMENT FOLLOW UP with CASH L [facility] 01/25/2024 Last Documented On 4 10:11AM ; [facility] Chronic pain syndrome PAIN MANAGEMENT FO LLOW UP with CASH L [facility] 12/18/2023 Last Documented On 4 9:50AM ; [facility] Fibromyalgia PAIN MANAGEMENT FOLLOW UP with T TRACY L [facility] 12/18/2023 Last Documented On 4 9:50AM ; [facility] Generalized multiple sclerosis PAIN KATHY GEMENT FOLLOW UP with CASH L [facility] 12/18/2023 Last Documented On 4 9:50AM ; [facility] Lumbar radiculopathy PAIN MANAGEMENT FOL LOW UP with CASH L [facility] 12/18/2023 Last Documented On 4 9:50AM ; [facility] Lumbar spondylosis with radiculopathy PA IN MANAGEMENT FOLLOW UP with CASH L [facility] 12/18/2023 Last Documented On 4 9:50AM ; [facility] Lumbar stenosis with neuroge samson claudication PAIN MANAGEMENT FOLLOW UP with CASH L [facility] 12/18/2023 Last Documented On 4 9:50AM ; [facility] Chronic pain syndrome PAIN MANAGEMENT FO LLOW UP with CASH L [facility] 10/20/2023 Last Documented On 3 11:14AM ; [facility] DORSALGIA PAIN MANAGEMENT FOLLOW UP with T TRACY L [facility] 10/20/2023 Last Documented On 3 11:14AM ; [facility] Fibromyalgia PAIN MANAGEMENT FOLLOW UP with T TRACY L [facility] 10/20/2023 Last Documented On 3 11:14AM ; [facility] Generalized multiple sclerosis PAIN KATHY GEMENT FOLLOW UP with CASH L [facility] 10/20/2023 Last Documented On 3 11:14AM ; [facility] Lumbar radiculopathy PAIN MANAGEMENT FOL LOW UP with CASH L [facility] 10/20/2023 Last Documented On 3 11:14AM ; [facility] Chronic pain syndrome PAIN MANAGEMENT FO LLOW UP with CASH L [facility] 08/25/2023 Last Documented On 3 8:16AM ; [facility] DORSALGIA PAIN MANAGEMENT FOLLOW UP with T TRACY L [facility] 08/25/2023 Last Documented On 3 8:16AM ; [facility] Fibromyalgia PAIN MANAGEMENT FOLLOW UP with T TRACY L [facility] 08/25/2023 Last Documented On 3 8:16AM ; [facility] Generalized multiple sclerosis PAIN KATHY GEMENT FOLLOW UP with CASH L [facility] 08/25/2023 Last Documented On 3 8:16AM ; [facility] Chronic pain syndrome PAIN MANAGEMENT NE W CONSULT with CASHBRIDGER [facility] 07/27/2023 Last Documented On 3 2:54PM ; [facility] DORSALGIA PAIN MANAGEMENT NEW CONSULT with [facility]ASHBRIDGER [facility] 07/27/2023 Last Documented On 3 2:54PM ; [facility] Fibromyalgia PAIN MANAGEMENT NEW CONSULT with CASHBRIDGER [facility] 07/27/2023 Last Documented On 3 2:54PM ; [facility] Generalized multiple sclerosis PAIN KATHY GEMENT NEW CONSULT with [facility] Rodrigo [facility] 07/27/2023 Last Documented On 3 2:54PM ; [facility] Medical Equipment - Implanted Devices Includes: Current and historical Devices No Medical Equipment Recorded Medications Includes: Current and historical Medications Current Medications (continue as prescribed) [facility] Fish Oil 1200 MG Oral Capsule 05/08/2024 Provide r: Diagnosis: Last Documented On 05/08/2024 9:48AM By Radha BOWLES ; [facility] Vitamin D3 125 MCG (5000 UT) Oral Capsule 05/08/2024 Provider: Diagnosis: Last Documented On 05/08/2024 9:47AM By Radha BOWLES ; [facility] Aspir-Low 81 MG Oral Tablet Delayed Release 05/08/2024 Provider: Diagnosis: Last Documented On 05/08/2024 9:41AM By Radha BOWLES ; [facility] Tricor 145 MG Oral Tablet 05/08/2024 Provider: Diagnosis: Last Documented On 05/08/2024 9:43AM By Radha BOWLES ; [facility] Nitroglycerin 0.4 MG Sublingual Tablet Sublingual 04/13 Provider: Diagnosis: Last Documented On 05/08/2024 9:42AM By Radha BOWLES ; [facility] buPROPion HCl ER (XL) 150 MG Oral Tablet Extended Release 24 Hour 04/29/2024 Provider: Diagnosis: Last Documented On 05/08/2024 9:46AM By Radha BOWLES ; [facility] Loratadine 10 MG Oral Tablet 04/27/2024 Provider: MELVIN FONTENOT MD Diagnosis: Last Documented On 05/08/2024 9:45AM By Radha BOWLES ; [facility] Pantoprazole Sodium 20 MG Or al Tablet Delayed Release 04/24/2024 Provider: MELVIN Gibson MD Diagnosis: Last Documented On 05/08/2024 9:43AM By Radha BOWLES ; [facility] Valsartan 160 MG Oral Tablet 04/23/2024 Provider: Diagnosis: Last Documented On 05/08/2024 9:42AM By Radha BOWLES ; [facility] Sertraline HCl 100 MG Oral Tablet 04/22/2024 Provide r: Diagnosis: Last Documented On 05/08/2024 9:41AM By Radha BOWLES ; [facility] hydrOXYzine HCl 25 MG Oral Tablet 04/12/2024 Provide r: Diagnosis: Last Documented On 05/08/2024 9:40AM By Radha BOWLES ; [facility] Pregabalin 200 MG Oral Capsule 04/11/2024 Provider: CASH OLIVER [facility] Diagnosis: Radiculopathy, l umbar region Take 1 capsule by mouth twice daily Last Documented On 10:16AM [facility] Meloxicam 15 MG Oral Tablet 03/13/2024 Provider: CASH BILL Diagnosis: Other spondylosi s with radiculopathy, lumbar region One tablet daily Last Documented On 9:43AM [facility] ; [facility] buPROPion HCl ER (XL) 300 MG Oral Tablet Extended Release 24 Hour 02/13/2024 Provider: Diagnosis: Last Documented On 05/08/2024 9:46AM By Radha BOWLES ; [facility] DULoxetine HCl 30 MG Oral Capsule Delayed Releas e Particles 02/13/2024 Provider: Diagnosis: Last Documented On 05/08/2024 9:44AM By Radha BOWLES ; [facility] Fluticasone Propionate 50 MC G/ACT Nasal Suspension 02/06/2024 Provider: MELVIN Gibson MD Diagnosis: Last Documented On 05/08/2024 9:44AM By Radha BOWLES ; [facility] Lidocaine 5% External Patch 10/16/2023 Provider: MELVIN FONTENOT MD Diagnosis: Last Documented On 10/20/2023 9:59AM By Radha BOWLES ; [facility] Nystatin [id number] UNIT/GM External Cream 10/10/2023 Pr ovider: Diagnosis: Last Documented On 3 10:00AM By Radha BOWLES ; [facility] DULoxetine HCl 60 MG Oral Capsule Delayed Releas e Particles 07/27/2023 Provider: Diagnosis: one cap by mouth daily Last Documented On 3 3:08PM By Dorothy Dyson LPN ; [facility] Propranolol HCl 40 MG Oral Tablet 07/27/2023 Provide r: Diagnosis: BID Last Documented On 3 3:16PM By Doorthy Dyson LPN ; [facility] SUMAtriptan Succinate 50 MG Oral Tablet 07/27/2023 P rovider: Diagnosis: prn Last Documented On 3 3:15PM By Dorothy Dyson LPN ; [facility] Rebif 44 MCG/0.5ML Subcutaneous Solution Prefilled Syr luzma 07/27/2023 Provider: Diagnosis: 3 x's weekly Last Documented On 3 3:13PM By Dorothy Dyson LPN ; [facility] Aimovig 140 MG/ML Subcutaneous Solution Auto-injector 07/27/2023 Provider: Diagnosis: q 30 days Last Documented On 3 3:09PM By Dorothy Dyson LPN ; [facility] Past Medications on file Pregabalin 200 MG Oral Capsule 01/09/2024 - 04/11/2024 Provider: CASH OLIVER-[facility] Diagnosis: Radiculopathy, l umbar region 1 CAPSULE TWO TIMES A DAY Last Documented On 4 10:02AM By CASH OLIVER-RICARDO ; [facility] Pregabalin 150 MG Oral Capsule 01/08/2024 - 01/25/2024 Provider: CASH LEWIS Diagnosis: Fibromyalgia Take 1 capsule by mouth twice daily Last Documented On 01/25/2024 9:01AM By Radha BOWLES ; [facility] Pregabalin 50 MG Oral Capsule 12/18/2023 - 01/09/2024 Provider: CASH LEWIS Diagnosis: Radiculopathy, l umbar region 1 CAPSULE TWO TIMES A DAY ad ded to current dosage until end of month then will increase to 200mg capsule Last Documented On 4 10:57AM By CASH LEWIS ; [facility] Pregabalin 150 MG Oral Capsule 12/05/2023 - 01/08/2024 Provider: CASH LEWIS Diagnosis: Fibromyalgia Take 1 capsule by mouth twice daily Last Documented On 4 4:04PM By CASH LEWIS ; [facility] Pregabalin 150 MG Oral Capsule 11/01/2023 - 12/05/2023 Provider: LA NENA ACOSTA [employer] SUPERVISOR- Diagnosis: Fibromyalgia Take 1 capsule by mouth twice daily Last Documented On 4 12:03PM By CASH LEWIS ; [facility] Amphetamine-Dextroamphetamine 20 MG Oral Tablet 09/25/2023 - 01/25/2024 Provider: Diagnosis: Last Documented On 01/25/2024 9:01AM By Radha BOWLES ; [facility] Losartan Potassium 25 MG Oral Tablet 09/07/2023 - 05/08/2024 Provider: MELVIN ANDERSON MD Diagnosis: Last Documented On 05/08/2024 9:49AM By Radha BOWLES ; [facility] Pregabalin 150 MG Oral Capsule 08/25/2023 - 11/01/2023 Provider: CASH LEWIS Diagnosis: Fibromyalgia 1 CAPSULE TWO TIMES A DAY Last Documented On 3 1:32PM By LA NENA KITCHEN [facility] ; [facility] DULoxetine HCl 30 MG Oral Ca psule Delayed Release Particles 07/27/2023 - 05/08/2024 Provider: Diagnosis: daily Last Documented On 05/08/2024 9:45AM By Radha BOWLES ; [facility] Pantoprazole Sodium 20 MG Or al Tablet Delayed Release 07/27/2023 - 05/08/2024 Provider: Diagnosis: bid Last Documented On 05/08/2024 9:45AM By Radha BOWLES ; [facility] Terbinafine HCl 250 MG Oral Tablet 07/27/2023 - 2022 Provider: Diagnosis: daily Last Documented On 10/20/2023 9:59AM By Radha BOWLES ; [facility] Fluticasone Propionate 50 MC G/ACT Nasal Suspension 07/27/2023 - 05/08/2024 Provider: Diagnosis: 2 sprays each nostril daily Last Documented On 05/08/2024 9:45AM By Radha BOWLES ; [facility] Fenofibrate 145 MG Oral Tablet 07/27/2023 - 05/08/2024 Provider: Diagnosis: daily Last Documented On 05/08/2024 9:45AM By Radha BOWLES ; [facility] Pregabalin 75 MG Oral Capsule 07/27/2023 - 10/20/2023 Provider: [facility]ASH [facility]- Diagnosis: Fibromyalgia 1 CAPSULE TWO TIMES A DAY Last Documented On 10/20/2023 9:59AM By Radha BOWLES ; [facility] buPROPion HCl ER (XL) 300 MG Oral Tablet Extended Release 24 Hour 07/27/2023 - 05/08/2024 Provider: Diagnosis: daily with 150 dose Last Documented On 05/08/2024 9:43AM By Radha BOWLES ; [facility] buPROPion HCl ER (XL) 150 MG Oral Tablet Extended Release 24 Hour 07/27/2023 - 05/08/2024 Provider: Diagnosis: daily with 300 mg dose Last Documented On 05/08/2024 9:46AM By Radha BOWLES ; [facility] Mupirocin 2% External Ointment 07/27/2023 - 12/18/2023 Provider: Diagnosis: Last Documented On 12/18/2023 9:19AM By Radha BOWLES ; [facility] Diclofenac Sodium 75 MG Oral Tablet Delayed Release 07/27/2023 - 08/25/2023 Provider: Diagnosis: Last Documented On 08/25/2023 9:45AM By Radha BOWLES ; [facility] Medications Administered Includes: Administered Medications in [...] 93 Last Documented: On 03/13/2024 9:53AM ; [facility] Results Includes: Results from 02/28/2024 through 02/27/2025 SED RATE BY MODIFIED WESTERGREN [facility] Ordered by CASH LEWIS on Collected: 02/29/2024 Reported: 03/01/20 24 16:45 Last Documented On 4 8:09AM ; [facility] Reviewed by CASH LEWIS on 03/25/2024; All test results are final unless otherwise noted. SED RATE BY MODIFIED WESTERGREN 2 mm/h (< OR = 30) N (Normal) Last Documented On 4 2:18PM ; [facility] CBC (INCLUDES DIFF/PLT) [facility] Ordered by CASH LEWIS on Collected: 02/29/2024 Reported: 03/01/20 24 16:45 Last Documented On 4 8:09AM ; [facility] Reviewed by CASH LEWIS on 03/25/2024; All test results are final unless otherwise noted. WHITE BLOOD CELL COUNT 6.4 Thousand/uL (3.8-10.8) N (Normal) Last Documented On 4 2:18PM ; [facility] RED BLOOD CELL COUNT 5.00 Million/uL (3.80-5.10) N (Normal) Last Documented On 4 2:18PM ; [facility] HEMOGLOBIN 13.4 g/dL (11.7-15.5) N (Normal) Last Documented On 4 2:18PM ; [facility] HEMATOCRIT 40.7 % (35.0-45.0) N (Normal) Last Documented On 4 2:18PM ; [facility] MCV 81.4 fL (80.0-100.0) N (Normal) Last Documented On 4 2:18PM ; [facility] MCH 26.8 pg (27.0-33.0) L (Low) Last Documented On 4 2:18PM ; [facility] MCHC 32.9 g/dL (32.0-36.0) N (Normal) Last Documented On 4 2:18PM ; [facility] RDW 14.0 % (11.0-15.0) N (Normal) Last Documented On 4 2:18PM ; [facility] PLATELET COUNT 321 Thousand/uL (140-400) N (Normal) Last Documented On 4 2:18PM ; [facility] NEUTROPHILS 42.3 % N (Normal) Last Documented On 4 2:18PM ; [facility] ABSOLUTE NEUTROPHILS 2707 cells/uL (3962-1585) N (Normal) Last Documented On 4 2:18PM ; [facility] LYMPHOCYTES 39.5 % N (Normal) Last Documented On 4 2:18PM ; [facility] ABSOLUTE LYMPHOCYTES 2528 cells/uL (850-3900) N (Normal) Last Documented On 4 2:18PM ; [facility] MONOCYTES 7.7 % N (Normal) Last Documented On 4 2:18PM ; [facility] ABSOLUTE MONOCYTES 493 cells/uL (200-950) N (Normal) Last Documented On 4 2:18PM ; [facility] EOSINOPHILS 9.9 % N (Normal) Last Documented On 4 2:18PM ; [facility] ABSOLUTE EOSINOPHILS 634 cells/uL (15-500) H (High) Last Documented On 4 2:18PM ; [facility] BASOPHILS 0.6 % N (Normal) Last Documented On 4 2:18PM ; [facility] ABSOLUTE BASOPHILS 38 cells/uL (0-200) N (Normal) Last Documented On 4 2:18PM ; [facility] MPV 9.6 fL (7.5-12.5) N (Normal) Last Documented On 4 2:18PM ; [facility] C-REACTIVE PROTEIN [facility] Ordered by CASH LEWIS on Collected: 02/29/2024 Reported: 03/01/20 24 16:45 Last Documented On 4 8:09AM ; [facility] Reviewed by CASH LEWIS on 03/25/2024; All test results are final unless otherwise noted. C-REACTIVE PROTEIN <3.0 mg/L (<8.0) N (Normal) Last Documented On 4 2:18PM ; [facility] Reported Physicians [facility] Ordered by CASH LEWIS on Collected: 02/29/2024 Reported: 03/01/20 24 17:49 Last Documented On 4 8:09AM ; [facility] Reviewed by CASH LEWIS on 03/25/2024; All test results are final unless otherwise noted. Reported Physicians See Note None Last Documented On 03/22/2024 2:18PM ; [facility] Note: Reported Physicians:Ordering: Cash Rome History of Present Illness History of Present Illness not supported for this document type No History of Present Illness Recorded Social History Description Last Updated Tobacco non-user 01/25/2024 Last Documented On 4 10:11AM ; [facility] Smoking Status Unknown Procedures and Surgical History Includes: Procedures from 02/28/2024 through 02/27/2025 Procedures Code Diagnosis Performing Provider Service Location Service Date CLINIC VISIT T1015 Other spondylosi s with radiculopathy, lumbar region, Chronic pain syndrome, Fibromyalgia CASH LEWIS [facility] 03/13/2024 Last Documented On 4 9:35AM ; [facility] Medical History Includes: Medical History in patient's chart Description Last Updated Has had a fall in the last 12 months. Domingo s falls quite often Has DX of MS 08/25/2023 Last Documented On 3 8:16AM ; [facility] Family History Includes: Family History in patient's [...] 03/13/2024 11:59PM [facility]IN [facility]NA[facility] 03/13/20 9:03AM 9:38AM Chronic Pain Syndrome,Lumbar Radiculopathy,Mu ltiple Sclerosis Generalized,Fibr omyalgia,Spinal Stenosis Lumbar with Neurogenic Claudication,Spo ndylosis with Radiculopathy Lumbar Region Insurance Includes: Active Insurance Policies Plan Name Member ID Group # Subscriber Relationship Effect rosi Dates 1 - [facility] [id number] CHARLES NUNEZ Self Clinical Notes Includes: Signed Clinical Notes starting from 12/02/2022 * Progress note Date Encounter Last Documented by 04/05/2024 POST PROCEDURE PHONE CALL Last d ocumented on 04/05/2024; 11:42 AM, Maricruz Reinoso RN; [facility] Top of Document Post-Procedural Patient [...] daily, 30 days, 1 refills - Nystatin [id number] UNIT/GM External Cream as directed 30 days, [...] on 03/13/2024; 9:58 AM, CASH SLOANS ANP-; [facility] Chief Complaint The Chief Complaint [...] pain. 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 She is having a difficult time sleeping at night. She takes [id number] anti-inflammatories with mild benefit. We discussed facet [...] no benefit. She reports injections done at [facility] in [place] within the last year. By description these [...] daily 30 days, 0 refills - Nystatin [id number] UNIT/GM External Cream as directed 30 days, [...] but may be subject to typographical or line inspector errors. Verify all diagnoses, medications, dosages, and patient instructions with patient and/or the originator of this document. Health Reminders - Assess BMI satisfied 03/13/2024. - Assess Need for CT Lung Screen satisfied 03/13/2024. - Assess Tobacco Use satisfied 03/13/2024. - Depression Screening satisfied 03/13/2024. - Follow up plan for Depression Screening satisfied 03/13/2024.
--- OUTSIDE RECORDS SUMMARY | 2025-02-27 22:50 | XMS_ITS | Encounter Summary ---
Author Organization [facility] Address [address] [facility] [address] [place] [address] Phone Care Team Providers Care Electrical Assemblies Supervisor Name Role Phone Hemalatha Tang MD Primary Care Provi summer Manuel Swartz MD Unavailable [phone] Reason for Visit * Consultation (Routine) - Authorized Specialty Diagnoses / Procedures Referred By Alvin rodas Referred To Contact Bariatrics / Bariatric Surgery Diagnoses Class 2 severe obesity due to excess calories with serious comorbidity and body mass index (BMI) of 37.0 to 37.9 in adult (HCC) Hemalatha Tang MD [address] [place] [address] Phone: tel: fax: [facility] (All Locations) Referral ID Status Reason Start Date Expiration Date Visits Requested Visits Authorized [id number] Authorized Specialty Services Required 05/03/2024 06/02/2025 6 6 Encounter Details Date Type Department Care Team (Late st Contact Info) Description 02/27/2025 2:00 PM CDT Office Visit [facility] Minimally Invasive Surgery [address] [place] [address] Medical Office Building [address] [place] [address] Samuel Ashton MD [address] [facility] [id number] [place] [address] Morbid obesity (HCC) (Primary Dx) Social History [...] on file Legal Sex Female 2:06 AM [employer] OPER[employer] Gender Identity Female 11/29/2020 6:59 PM [employer] OPER[employer] Sexual Orientation Not on file documented as [...] Ashton MD - 02/27/2025 2:00 PM CDT [facility] Metabolic & Weight Loss Surgery Post-Operative [...] to education today. Samuel Ashton MD, MPH calf skinner Chemical Processing Laborer, [facility] Bariatric Surgery [facility] [place] [address] documented in this encounter Plan of Treatment [...] documented as of this encounter Care Teams Electrical Assemblies Supervisor Relationship Specialty Start Date End Date Hemalatha Tang MD [address] [place] [address] PCP - General Family Medicine 11/02/20 Manuel Swartz MD [address] [place] [address] Neurology 04/17/23 documented as of this encounter
--- OUTSIDE RECORDS SUMMARY | 2025-02-27 22:50 | XMS_ITS | Encounter Summary ---
Author Organization [facility] Health Address [address] [place] [address] Care Team Providers Care Pin Ball Machine Mechanic Name Role Phone Kevan Rubin MD Primary Care Provider Hemalatha Tang MD Primary Care Provider [phone] Reason for Visit * Reason Onset Date Comments MEDICATION REFILL 11/22/2018 Encounter Details Date Type Department Care Team (Late st Contact Info) Description 11/22/2018 Refill [facility] [address] [place] [address] Kimberly Yarbrough MD [address] [place] [phone] MEDICATION REFILL Social History Tobacco Use Types Packs/Day Years Used Date Smoking Tobacco: Never Smokeless Tobacco: Never Alcohol Use Standard Drinks/Week Comments No 0 (1 standard drink = 0.6 oz pur e alcohol) Comments No Sex and Gender Information Value Date Recorded Sex Assigned at Female 01/06/2025 9:20 AM 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 Legal Sex Female 5:15 PM 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 Gender Identity Female 01/06/2025 9:20 AM 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 Sexual Orientation Straight 01/06/2025 9: 20 AM 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 [address] [place] [phone] Sidney Moncada MD [address] [place] [address] 05/23/2025 9:00 AM CDT Office [facility] Dermatology [address] [place] [phone] Chitra Peres MD [address] [place] [address] 3 [place] [phone] 07/07/2025 8:30 AM CDT Procedure visit [facility] - Infusion [address] [place] [phone] 02/16/2026 11:00 AM CDT Office [facility] Orthoped[facility] [address] [place] [phone] Kaitlin Cruz MD [address] [place] [address] [address] [place] [phone] 02/20/2026 9:00 AM CDT Office 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 06/22/2017 documented as of this encounter Care Teams Pin Ball Machine Mechanic Relationship Specialty Start Date End Date Kevan Rubin MD [address] [facility]. [address] [place] [phone] PCP - General 03/23/16 03/06/21 Hemalatha Tang MD [facility]2 [facility]. [address] [place] [phone] PCP - General Family Medicine 03/07/21 documented as of this encounter
--- OUTSIDE RECORDS SUMMARY | 2025-02-27 22:50 | XMS_ITS | Encounter Summary ---
Author Organization [facility] Address [facility] [place] [address] Care Team Providers Care Aviation Metalsmith Name Role Phone Kevan Rubin MD Primary Care Provider Joaquin Merritt MD Unavailable [phone] Encounter Details Date Type Department Care Team (Late st Contact Info) Description 06/13/[address], [place] [phone] Joaquin Merritt MD Three [facility]. 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 [facility] [address] [place] [address] [employer] News Director INTERVENTIONAL CARDIOLOGY 05/21/18 documented as of this encounter
--- OUTSIDE RECORDS SUMMARY | 2025-02-27 22:50 | XMS_ITS | Clinical Summary ---
Author Organization [facility] Address [address] [place] [address] Phone Care Team Providers Care Comfort Station Supervisor Name Role Phone CORIE CASTANEDA, MELVIN Loza Primary Care Provider [phone] Reason for Visit and Chief Complaint POST [...] On 05/08/2024 9:48AM By Radha BOWLES ; [facility] Vitamin D3 125 MCG (5000 UT) Oral Capsule 05/08/2024 Provider: Diagnosis: Last Documented On 05/08/2024 9:47AM By Radha BOWLES ; [facility] Aspir-Low 81 MG Oral Tablet Delayed Release 05/08/2024 Provider: Diagnosis: Last Documented On 05/08/2024 9:41AM By Radha BOWLES ; [facility] Tricor 145 MG Oral Tablet 05/08/2024 Provider: Diagnosis: Last Documented On 05/08/2024 9:43AM By Radha BOWLES ; [facility] Nitroglycerin 0.4 MG Sublingual Tablet Sublingual 04/13 Provider: Diagnosis: Last Documented On 05/08/2024 9:42AM By Radha BOWLES ; [facility] buPROPion HCl ER (XL) 150 MG Oral Tablet Extended Release 24 Hour 04/29/2024 Provider: Diagnosis: Last Documented On 05/08/2024 9:46AM By Radha BOWLES ; [facility] Loratadine 10 MG Oral Tablet 04/27/2024 Provider: MELVIN FONTENOT MD Diagnosis: Last Documented On 05/08/2024 9:45AM By Radha BOWLES ; [facility] Pantoprazole Sodium 20 MG Or al Tablet Delayed Release 04/24/2024 Provider: MELVIN Gibson MD Diagnosis: Last Documented On 05/08/2024 9:43AM By Radha BOWLES ; [facility] Valsartan 160 MG Oral Tablet 04/23/2024 Provider: Diagnosis: Last Documented On 05/08/2024 9:42AM By Radha BOWLES ; [facility] Sertraline HCl 100 MG Oral Tablet 04/22/2024 Provide r: Diagnosis: Last Documented On 05/08/2024 9:41AM By Radha BOWLES ; [facility] hydrOXYzine HCl 25 MG Oral Tablet 04/12/2024 Provide r: Diagnosis: Last Documented On 05/08/2024 9:40AM By Radha BOWLES ; [facility] Pregabalin 200 MG Oral Capsule 04/11/2024 Provider: CASH Blanchard Diagnosis: Radiculopathy, l umbar region Take 1 capsule by mouth twice daily Last Documented On 10:16AM [facility] Meloxicam 15 MG Oral Tablet 03/13/2024 Provider: CASH BILL Diagnosis: Other spondylosi s with radiculopathy, lumbar region One tablet daily Last Documented On 9:43AM By CASH BILL ; [facility] buPROPion HCl ER (XL) 300 MG Oral Tablet Extended Release 24 Hour 02/13/2024 Provider: Diagnosis: Last Documented On 05/08/2024 9:46AM By Radha BOWLES ; [facility] DULoxetine HCl 30 MG Oral Capsule Delayed Releas e Particles 02/13/2024 Provider: Diagnosis: Last Documented On 05/08/2024 9:44AM By Radha BOWLES ; [facility] Fluticasone Propionate 50 MC G/ACT Nasal Suspension 02/06/2024 Provider: MELVIN Gibson MD Diagnosis: Last Documented On 05/08/2024 9:44AM By Radha BOWLES ; [facility] Lidocaine 5% External Patch 10/16/2023 Provider: MELVIN FONTENOT MD Diagnosis: Last Documented On 10/20/2023 9:59AM By Radha BOWLES ; [facility] Nystatin 200058 UNIT/GM External Cream 10/10/2023 Pr ovider: Diagnosis: Last Documented On 3 10:00AM By Radha BOWLES ; [facility] DULoxetine HCl 60 MG Oral Capsule Delayed Releas e Particles 07/27/2023 Provider: Diagnosis: one cap by mouth daily Last Documented On 3 3:08PM By Dorothy Dyson LPN ; [facility] Propranolol HCl 40 MG Oral Tablet 07/27/2023 Provide r: Diagnosis: BID Last Documented On 3 3:16PM By Dorothy Dyson LPN ; [facility] SUMAtriptan Succinate 50 MG Oral Tablet 07/27/2023 P rovider: Diagnosis: prn Last Documented On 3 3:15PM By Dorothy Dyson LPN ; [facility] Rebif 44 MCG/0.5ML Subcutaneous Solution Prefilled Syr luzma 07/27/2023 Provider: Diagnosis: 3 x's weekly Last Documented On 3 3:13PM By Dorothy Dyson LPN ; [facility] Aimovig 140 MG/ML Subcutaneous Solution Auto-injector 07/27/2023 Provider: Diagnosis: q 30 days Last Documented On 3 3:09PM By Dorothy Dyson LPN ; [facility] Medications Administered Includes: Administered Medications from this encounter No Administered Medications Recorded Results Includes: Results discussed during this encounter No Results Recorded For Specified Dates History of Present Illness Includes: History of Present Illness from this encounter No History of Present Illness Recorded Social History Description Last Updated Tobacco non-user 01/25/2024 Last Documented On 4 10:42AM ; [facility] Smoking Status Unknown Medical History Includes: Medical History addressed during this encounter Description Last Updated Has had a fall in the last 12 months. Domingo s falls quite often Has DX of MS 08/25/2023 Last Documented On 4 10:42AM ; [facility] Family History Includes: Family History addressed [...] # Subscriber Relationship Effect rosi Dates - [facility] [id number] CHARLES NUNEZ [facility] Clinical Notes Includes: Clinical Notes from this encounter * Progress note Date Encounter Last Documented by 01/15/2024 POST PROCEDURE PHONE CALL Last d ocumented on 01/15/2024; 10:43 AM, Kenya Aquino RN; [facility] Top of Document Post-Procedural [...] daily 30 days, 0 refills - Nystatin 425376 UNIT/GM External Cream as directed 30 days, [...]
--- OUTSIDE RECORDS SUMMARY | 2025-02-27 22:50 | XMS_ITS | Clinical Summary ---
Author Organization [facility] Address [address] [place] [address] Phone Care Team Providers Care Rail Transportation Operator Name Role Phone CORIE CASTANEDA, MELVIN Loza Primary Care Provider [phone] Reason for Visit and Chief Complaint The Chief Complaint is: FU BL L4-5 TFESI DONE 01/11/24, 25% RELIEF, 0% ONGOING Plan of Treatment No Plan of Treatment Recorded Assessments Includes: Assessments from this encounter Findings - Lumbar spondylosis with radiculopathy [M47.26 - Other spondylosis with radiculopathy, lumbar region] - Last Documented On 01/25/2024 10:11AM ; [facility] - Generalized multiple sclerosis [G35 - Multiple sclerosis] - Last Documented On 01/25/2024 10:11AM ; [facility] - Lumbar stenosis with neurogenic claudication [M48.062 - Spinal stenosis, lumbar region with neurogenic claudication] - Last Documented On 01/25/2024 10:11AM ; [facility] - Lumbar radiculopathy [M54.16 - Radiculopathy, lumbar region] - Last Documented On 01/25/2024 10:11AM ; [facility] - Fibromyalgia [M79.7 - Fibromyalgia] - Last Documented On 01/25/2024 10:11AM ; [facility] - Chronic pain syndrome [G89.4 - Chronic pain syndrome] - Last Documented On 01/25/2024 10:11AM ; [facility] Medical Equipment - Implanted Devices Includes: Current Devices No Medical Equipment Recorded Medications Includes: Medications discussed during this encounter and other current Medications Discontinued / Stopped on this date CASH LEWIS on 01/08/2024 Pregabalin 150 MG Oral Capsule Provider: CASH LEWIS Diagnosis: Fibromyalgia Last Documented On 01/25/2024 9:01AM By Radha BOWLES ; [facility] Amphetamine-Dextroamphetamine 20 MG Oral Tablet Provider: Diagnosis: Last Documented On 01/25/2024 9:01AM By Radha BOWLES ; [facility] Current Medications (continue as prescribed) [facility] Fish Oil 1200 MG Oral Capsule 05/08/2024 Provide r: Diagnosis: Last Documented On 05/08/2024 9:48AM By Radha BOWLES ; [facility] Vitamin D3 125 MCG (5000 UT) Oral Capsule 05/08/2024 Provider: Diagnosis: Last Documented On 05/08/2024 9:47AM By Radha BOWLES ; [facility] Aspir-Low 81 MG Oral Tablet Delayed Release 05/08/2024 Provider: Diagnosis: Last Documented On 05/08/2024 9:41AM By Radha BOWLES ; [facility] Tricor 145 MG Oral Tablet 05/08/2024 Provider: Diagnosis: Last Documented On 05/08/2024 9:43AM By Radha BOWLES ; [facility] Nitroglycerin 0.4 MG Sublingual Tablet Sublingual 04/13 Provider: Diagnosis: Last Documented On 05/08/2024 9:42AM By Radha BOWLES ; [facility] buPROPion HCl ER (XL) 150 MG Oral Tablet Extended Release 24 Hour 04/29/2024 Provider: Diagnosis: Last Documented On 05/08/2024 9:46AM By Radha BOWLES ; [facility] Loratadine 10 MG Oral Tablet 04/27/2024 Provider: MELVIN FONTENOT MD Diagnosis: Last Documented On 05/08/2024 9:45AM By Radha BOWLES ; [facility] Pantoprazole Sodium 20 MG Or al Tablet Delayed Release 04/24/2024 Provider: MELVIN Gibson MD Diagnosis: Last Documented On 05/08/2024 9:43AM By Radha BOWLES ; [facility] Valsartan 160 MG Oral Tablet 04/23/2024 Provider: Diagnosis: Last Documented On 05/08/2024 9:42AM By Radha BOWLES ; [facility] Sertraline HCl 100 MG Oral Tablet 04/22/2024 Provide r: Diagnosis: Last Documented On 05/08/2024 9:41AM By Radha BOWLES ; [facility] hydrOXYzine HCl 25 MG Oral Tablet 04/12/2024 Provide r: Diagnosis: Last Documented On 05/08/2024 9:40AM By Radha BOWLES ; [facility] Pregabalin 200 MG Oral Capsule 04/11/2024 Provider: CASH Blanchard Diagnosis: Radiculopathy, l umbar region Take 1 capsule by mouth twice daily Last Documented On 10:16AM [facility] Meloxicam 15 MG Oral Tablet 03/13/2024 Provider: CASH BILL Diagnosis: Other spondylosi s with radiculopathy, lumbar region One tablet daily Last Documented On 9:43AM [facility] ; [facility] buPROPion HCl ER (XL) 300 MG Oral Tablet Extended Release 24 Hour 02/13/2024 Provider: Diagnosis: Last Documented On 05/08/2024 9:46AM By Radha BOWLES ; [facility] DULoxetine HCl 30 MG Oral Capsule Delayed Releas e Particles 02/13/2024 Provider: Diagnosis: Last Documented On 05/08/2024 9:44AM By Radha BOWLES ; [facility] Fluticasone Propionate 50 MC G/ACT Nasal Suspension 02/06/2024 Provider: MELVIN Gibson MD Diagnosis: Last Documented On 05/08/2024 9:44AM By Radha BOWLES ; [facility] Lidocaine 5% External Patch 10/16/2023 Provider: MELVIN FONTENOT MD Diagnosis: Last Documented On 10/20/2023 9:59AM By Radha BOWLES ; [facility] Nystatin 332369 UNIT/GM External Cream 10/10/2023 Pr ovider: Diagnosis: Last Documented On 3 10:00AM By Radha BOWLES ; [facility] DULoxetine HCl 60 MG Oral Capsule Delayed Releas e Particles 07/27/2023 Provider: Diagnosis: one cap by mouth daily Last Documented On 3 3:08PM By Dorothy Dyson LPN ; [facility] Propranolol HCl 40 MG Oral Tablet 07/27/2023 Provide r: Diagnosis: BID Last Documented On 3 3:16PM By Dorothy Dyson LPN ; [facility] SUMAtriptan Succinate 50 MG Oral Tablet 07/27/2023 P rovider: Diagnosis: prn Last Documented On 3 3:15PM By Dorothy Dyson LPN ; [facility] Rebif 44 MCG/0.5ML Subcutaneous Solution Prefilled Syr luzma 07/27/2023 Provider: Diagnosis: 3 x's weekly Last Documented On 3 3:13PM By Dorothy Dyson LPN ; [facility] Aimovig 140 MG/ML Subcutaneous Solution Auto-injector 07/27/2023 Provider: Diagnosis: q 30 days Last Documented On 3 3:09PM By Dorothy Dyson LPN ; [facility] Medications Administered Includes: Administered Medications from this encounter No Administered Medications Recorded Vital Signs Includes: Vital Signs from this encounter Vital Name 01/25/2024 08:57A Blood Pressure Sitting R 130/90 Pulse Rate-Sitting (bpm) 73 Temp-Temporal 96.6 Height (in) 64 Weight (lb) 203 Body Mass Index 34.8 Body Surface Area 2 Pain Level 4 Oxygen Saturation (%) 96 Last Documented: On 01/25/2024 9:01AM ; [facility] Results Includes: Results discussed during this encounter [...] injections done at [facility] in [place] within the last year. By description these [...] Documented On 4 10:11AM ; [facility] Smoking Status Unknown Procedures and Surgical History Includes: Procedures from this encounter Procedures Code Diagnosis Performing Provider Service L ocation Service Date use of tobacco assessment performed 1000F Last Documented On 4 9:02AM ; [facility] review of medications documented 1160F Last Documented On 4 9:02AM ; [facility] assessment of suicide risk performed Last Documented On 4 9:02AM ; [facility] screening for adult depression: impressi on and score four Last Documented On 4 8:46AM ; [facility] standardized depression screening: posit rosi for symptoms Last Documented On 4 8:46AM ; [facility] Clinical summary provided to patient ~ Patient understands and agrees with treatment plan. Questions answered Last Documented On 4 8:46AM ; [facility] SOAPP-R: total score 13 Last Documented On 4 8:46AM ; [facility] Medical History Includes: Medical History addressed during this encounter Description Last Updated Has had a fall in the last 12 months. Domingo s falls quite often Has DX of MS 08/25/2023 Last Documented On 4 8:46AM ; [facility] Family History Includes: Family History [...] PAIN MANAGEMENT FOLLOW UP CASH ORR ANP-BC [facility] 01/25/20 24 8:42AM 9:14AM Chronic Pain Syndrome,Lumbar Radiculopathy,Mu ltiple Sclerosis Generalized,Fibr omyalgia,Spinal Stenosis Lumbar with Neurogenic Claudication,Spo ndylosis with Radiculopathy Lumbar Region Insurance Includes: Active Insurance Policies Plan Name Member ID Group # Subscriber Relationship Effect rosi Dates 1 - [facility] [id number] CHARLES NUNEZ Self Clinical Notes Includes: Clinical Notes from this encounter * Progress note Date Encounter Last Documented by 01/25/2024 PAIN MANAGEMENT FOLLOW UP Last d ocumented on 01/25/2024; 10:11 AM, CASH OLIVER-; [facility] Chief Complaint The Chief Complaint [...] injections done at [facility] in [place] within the last year. By description these [...] daily 30 days, 0 refills - Nystatin [id number] UNIT/GM External Cream as directed 30 days, [...] but may be subject to typographical or heading saw operator errors. Verify all diagnoses, medications, dosages, and patient instructions with patient and/or the originator of this document. Health Reminders - Assess BMI satisfied 01/25/2024. - Assess Need for CT Lung Screen satisfied 01/25/2024. - Assess Tobacco Use satisfied 01/25/2024. - Depression Screening satisfied 01/25/2024. - Follow up plan for Depression Screening satisfied 01/25/2024.
--- OUTSIDE RECORDS SUMMARY | 2025-02-27 22:50 | XMS_ITS | Encounter Summary ---
Author Organization [facility] Health Address [address] [place] [address] Care Team Providers Care Hand Baseball Sewer Name Role Phone Kevan Rubin MD Primary Care Provider Britany Poole [facility] Unavailable Hemalatha Tang MD Primary Care Provider [phone] Reason for Visit * Reason Onset Date Comments MEDICATION REFILL 08/12/2018 Encounter Details Date Type Department Care Team (Late st Contact Info) Description 08/12/2018 Refill [facility] Pediatrics - Sleep [address] [place] [phone] Lima Huizar MD [address] [place] [phone] MEDICATION REFILL Social History Tobacco Use Types Packs/Day Years Used Date Smoking Tobacco: Never Smokeless Tobacco: Never Alcohol Use Standard Drinks/Week Comments No 0 (1 standard drink = 0.6 oz pur e alcohol) Comments No Sex and Gender Information Value Date Recorded Sex Assigned at Female 01/06/2025 9:20 AM INFORMATION SECURITY MANAGER Legal Sex Female 5:15 PM INFORMATION SECURITY MANAGER Gender Identity Female 01/06/2025 9:20 AM INFORMATION SECURITY MANAGER Sexual Orientation Straight 01/06/2025 9: 20 AM INFORMATION SECURITY MANAGER Occupation Industry Job Start Date Job End Date disable Not on file Not on file Not on file documented as of this encounter Plan of Treatment Upcoming Encounters Date Type Department Care Team (Late st Contact Info) Description 03/05/2025 3:00 PM CDT Office Visit [facility] Neurology [address] [place] [address], [place] [address] Deniz Kofitrell, WELD LAY OUT WORKER-[employer] [address] [place] [address] [address] [place] [phone] 04/21/2025 9:00 AM CDT Office Visit [facility] - [facility] [address] [place] [phone] Sidney Moncada MD [address] [place] [address] 05/23/2025 9:00 AM CDT Office Visit [facility] - Dermatology [address] [place] [phone] Chitra Peres MD [address] [place] [address] [address] [place] [phone] 07/07/2025 8:30 AM CDT Procedure visit [facility] - Infusion [address] [place] [phone] 02/16/2026 11:00 AM CDT Office Visit [facility] - Orthopedics [address] [place] [phone] Kaitlin Cruz MD [address] [place] [address] [address] [place] [phone] 02/20/2026 9:00 AM CDT Office Visit [facility] - Ophthalmology [address] [place] [phone] documented as of this encounter Visit Diagnoses Not on filedocumented in this encounter Additional Health Concerns Infection Onset Date Last Indicated Resolved Time 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 [place] [address] PCP - General 03/23/16 03/06/21 Hemalatha Tang MD PCP - General Family Medicine 03/07/21 Britany Poole Neurological Surgeon Psychiatry 03/16/18 11/07/18 documented as of this encounter
--- OUTSIDE RECORDS SUMMARY | 2025-02-27 22:51 | XMS_ITS | Encounter Summary ---
Author Organization [facility] Health Address [address] [place] [address] Care Team Providers Care Bridge Tender Name Role Phone Hemalatha Tang MD Primary Care Provider [phone] Reason for Visit * Reason Onset Date Comments MEDICATION REFILL 07/13/2022 Encounter Details Date Type Department Care Team (Late st Contact Info) Description 07/13/2022 Refill [facility] [address] [place] [phone] Mychart, Generic Provider MEDICATION REFILL Social History Tobacco Use Types Packs/Day Years Used Date Smoking Tobacco: Never Smokeless Tobacco: Never Alcohol Use Standard Drinks/Week Comments No 0 (1 standard drink = 0.6 oz pur e alcohol) PHQ-2 Answer Date Recorded PHQ2 TOTAL SCORE 0 05/13/2022 Comments No Sex and Gender Information Value Date Recorded Sex Assigned at Female 01/06/2025 9:20 AM CASTINGS DRAFTER Legal Sex Female 5:15 PM CASTINGS DRAFTER Gender Identity Female 01/06/2025 9:20 AM CASTINGS DRAFTER Sexual Orientation Straight 01/06/2025 9: 20 AM CASTINGS DRAFTER Occupation Industry Job Start Date Job End [...] Description 03/05/2025 3:00 PM CDT Office Visit [facility] - Neurology [address] [place] [phone] Rosalie Guaman, DEEPA-YOHAN [address] [place] [address] [address] [place] [address] 04/21/2025 9:00 AM CDT Office Visit [facility] - Neurology [address] [place] [phone] Sidney Moncada MD [address] [place] [address] 05/23/2025 9:00 AM CDT Office Visit [facility] - Dermatology [address] [place] [phone] Chitra Peres MD [address] [place] [address] [address] [place] [address] 07/07/2025 8:30 AM CDT Procedure visit [facility] - Infusion [facility] [address] [place] [address] 02/16/2026 11:00 AM CDT Office Visit [facility] - Orthopedics [address] [facility] [place] [phone] Kaitlin Cruz MD [address] [place] [address] [address] [place] [phone] 02/20/2026 9:00 AM CDT Office Visit [facility] - Ophthalmology [address] [facility], [place] [phone] documented as of this encounter Visit Diagnoses [...] documented as of this encounter Care Teams Bridge Tender Relationship Specialty Start Date End Date Hemalatha Tang MD PCP - General Family Medicine 03/07/21 documented as of this encounter
--- OUTSIDE RECORDS SUMMARY | 2025-02-27 22:51 | XMS_ITS | Referral Summary ---
Author Organization [address] Address [address] [place] [phone] Care Team Providers Care Clip Loading Machine Adjuster Name Role Phone Hemalatha Tang MD Primary Care Provi summer Manuel Swartz MD Unavailable [phone] Encounters Date Type Department Care Team Description 02/27/2025 2:00 PM CDT Office Visit [facility] [address] [place] [address] Medical Office Building [address] [place] [phone] Samuel Ashton MD Morbid obesity (HCC) (Primary Dx) 02/21/2025 Results Follow-Up [facility] Family Medicine [address] [place] [phone] Emmie Zaragoza PA 02/20/2025 2:25 PM CDT - 02/20/2025 11:59 PM CDT Hospital Encounter [facility] Breast Imaging [address] [place] [phone] Encounter for screening mammogram for malignant neoplasm of breast Discharge Disposition: Discharge to home or self care 01/31/2025 Letter (Out) [facility] Family Medicine [address] [place] [phone] 01/31/2025 Telephone [facility] Family Medicine [address] [phone] Hemalatha Tang MD 01/24/2025 Results Follow-Up [facility] [address] [facility] Medical Office Building 3 [address] [place] [address] Srinath Perez DPM 01/24/2025 11:30 AM CDT Office Visit [facility] [address] [facility] Medical Office Building 4 [address] [place] [phone] Chris Carlisle MD S/P gastric bypass (Primary Dx) 01/22/2025 12:23 PM CDT - 01/22/2025 11:59 PM CDT Hospital Encounter [facility] Radiology [address] [place] [phone] Arthritis of left foot Discharge Disposition: Discharge to home or self care 01/22/2025 8:30 AM CDT Office Visit [facility] Medicine [address] [phone] Hemalatha Tang MD Multiple sclerosis (HCC) (Primary Dx); Essential hypertension; Gastroesophageal reflux disease without esophagitis; Class 2 severe obesity due to excess calories with serious comorbidity and body mass index (BMI) of 38.0 to 38.9 in adult (HCC) 01/22/2025 11:45 AM CDT Office [facility] [address] [place] [address] 4th Floor [address] [place] [phone] Srinath Perez DPM Arthritis of left foot (Primary Dx); Arthritis; Subluxation of metatarsophalangeal joint of lesser toe of right foot, initial encounter; Hallux rigidus of right foot; Metatarsus varus, acquired, right; Pain of right foot; Pain of left foot; Difficulty in walking; Prediabetes 01/16/2025 [facility]ORENA IP Outreach [facility] Accountable Care Organization [address] [place] [phone] Kelli Mcdonald LPN 01/14/2025 9:45 AM JUNIOR BUSINESS ANALYST - 01/15/2025 1:19 PM JUNIOR BUSINESS ANALYST Hospital Encounter [facility] [address] [id number] [place] [address] Samuel Ashton MD Morbid obesity (HCC) (Primary Dx) Discharge Disposition: Discharge to home or self care 01/14/2025 12:00 PM JUNIOR BUSINESS ANALYST - 01/14/2025 3:25 PM JUNIOR BUSINESS ANALYST Surgery [facility] Operating Room [address] [place] [address] Samuel Ashton MD LAPAROSCOPIC GASTRIC BYPASS 01/14/2025 12:02 PM JUNIOR BUSINESS ANALYST Anesthesia Event [facility] Operating Room [address] [place] [address] Caren Dolan MD Deibel, Lori, NP 01/10/2025 Letter (Out) [address] [phone] 01/10/2025 Orders Only [address] [phone] Leta Casillas PA Positive RACHNA (antinuclear antibody) (Primary Dx); Facial rash; Multiple sclerosis (HCC) 01/10/2025 Results Follow-Up [address] [phone] Leta Casillas PA Facial rash (Primary Dx); Positive RACHNA (antinuclear antibody); Multiple sclerosis (HCC) 01/08/2025 9:25 AM JUNIOR BUSINESS ANALYST Lab [facility] OP Lab [address] [place] [address] Facial rash 01/08/2025 8:30 AM JUNIOR BUSINESS ANALYST Office Visit [address] [phone] Hemalatha Tang MD Facial rash (Primary Dx); Multiple sclerosis (HCC); Migraine with aura and without status migrainosus, not intractable; Essential hypertension; Gastroesophageal reflux disease without esophagitis; Class 2 severe obesity due to excess calories with serious comorbidity and body mass index (BMI) of 39.0 to 39.9 in adult (HCC); Encounter for screening mammogram for malignant neoplasm of breast 01/01/2025 9:00 AM JUNIOR BUSINESS ANALYST Clinical Support [facility] Medical Office Building 4 [address] [place] [phone] Morbid obesity (HCC) (Primary Dx) 12/31/2024 9:30 AM JUNIOR BUSINESS ANALYST Pre-Admission Testing [facility] Center for Preoperative Assessment and Planning [facility] ([facility]) [address] [place] [phone] Preoperative testing (Primary Dx); Morbid obesity (HCC) 12/23/2024 Telephone [facility] Family Medicine [address] [place] [phone] Hemalatha Tang MD Prior Auth Request for Loratadine 12/18/2024 Telephone [facility] Cardiology [address] [place] [address] [place] [phone] Jay Prescott MD 12/17/2024 Telephone [facility] Family Medicine [address] [place] [phone] Hemalatha Tang MD 12/17/2024 Orders Only [facility] Family Medicine [address] [place] [phone] Hemalatha Tang MD Abnormal EKG (Primary Dx) 12/17/2024 Telephone [facility] Invasive Surgery [address] [place] [address] Medical Office Building [address] [place] [phone] Yury Gar CMA 12/12/2024 Telephone [facility] Medicine [address] [place] [phone] Hemalatha Tang MD 12/12/2024 2:30 PM JUNIOR BUSINESS ANALYST Office Visit [facility] [address] [phone] Leta Casillas PA Class 2 [...] as needed for migraine 021 Active omega 9-fdd-awl-fish oil (Fish Oil) 100-160-1,000 mg capsuleIndications: hypertriglyceridemi [...] care Assessment & Plan (01/15/2024 11:41 AM JUNIOR BUSINESS ANALYST): The patient will continue with Lyrica as ordered by primary care History of colon polyps 10/12/2023 Iron deficiency anemia 07/26/2023 Assessment & Plan (08/21/2024 2:29 PM CDT): Chronic. On iron supplements in the past. Recheck iron studies ordered today Assessment & Plan (05/03/2024 9:38 AM CDT): Chronic, uncertain level of control Follow-up labs ordered Assessment & Plan (10/03/2023 8:34 AM JUNIOR BUSINESS ANALYST): Chronic, stable Testing with GI next week [...] (06/09/2022): Added automatically from request for surgery [id number] Tenosynovitis 05/18/2022 Extensor tenosynovitis of left wrist [...] After hours, please contact the ID fellow command and control specialist. Left hand pain 05/17/2022 Assessment & [...] provided. Assessment & Plan (01/08/2025 8:57 AM JUNIOR BUSINESS ANALYST): Chronic,persistent Gastric bypass scheduled for next week BMI Follow-up includes: continue healthy changes . Assessment & Plan (12/12/2024 2:48 PM JUNIOR BUSINESS ANALYST): Chronic. Uncontrolled. Preparation for Bariatric Surgery Patient [...] progress. Assessment & Plan (10/16/2024 8:13 AM JUNIOR BUSINESS ANALYST): Chronic, worse BMI Follow-up includes: nutrition counseling. Assessment & Plan (09/24/2024 1:53 PM JUNIOR BUSINESS ANALYST): Labs and EKG reviewed today. Lab workup [...] counseling. Assessment & Plan (10/03/2023 8:32 AM JUNIOR BUSINESS ANALYST): Chronic, stable BMI Follow-up includes: nutrition counseling. Assessment & Plan (08/29/2023 9:11 AM CDT): Chronic, stable BMI Follow-up includes: nutrition counseling. Assessment & Plan (06/30/2023 9:46 AM CDT): BMI Follow-up includes: nutrition counseling. Assessment & Plan (04/04/2022 9:41 AM CDT): BMI Follow-up includes: nutrition counseling. Cold sore 04/02/2022 Assessment & Plan (04/02/2022 12:57 PM CDT): Acute-informed can apply [id number] Abreva to cold sore as directed. Encouraged [...] 12/22/2021 Assessment & Plan (12/22/2021 8:48 AM JUNIOR BUSINESS ANALYST): Discussed viral nature of illness, treat symptomatically [...] 03/12/2018 Assessment & Plan (09/24/2024 1:54 PM JUNIOR BUSINESS ANALYST): Chronic and controlled. Continue statin and fenofibrate. Assessment & Plan (06/30/2023 9:54 AM CDT): Chronic, stable ASCVD score 3/1% Continue healthy changes Assessment & Plan (12/28/2022 7:29 AM JUNIOR BUSINESS ANALYST): Chronic, stable Labs ordered for her upcoming surgery Continue Tricor CTS (carpal tunnel syndrome) 12/25/2017 Vitamin D deficiency 12/25/2017 Assessment & Plan (06/30/2023 9:56 AM CDT): Chronic, continue vitamin d Fatigue 12/19/2017 Assessment & Plan (12/28/2022 7:28 AM JUNIOR BUSINESS ANALYST): Chronic, associated with her multiple sclerosis Continue Adderall Continue to follow with her psychiatrist in her neurologist Update me with any changes or concerns Assessment & Plan (04/04/2022 9:25 AM CDT): Chronic ?related to multiple sclerosis Continue adderall through Psychiatry Assessment & Plan (11/30/2020 3:32 PM JUNIOR BUSINESS ANALYST): Continue to follow with psychiatry Continue adderall Update me with any changes Labyrinthitis 09/13/2017 Degenerative disc disease, lumbar 05/17/2017 Assessment & Plan (04/04/2022 9:24 AM CDT): Continue diclofenac Continue supportive care Assessment & Plan (11/30/2020 3:32 PM JUNIOR BUSINESS ANALYST): Continue to follow with pain management Update [...] 01/05/2017 Assessment & Plan (09/24/2024 1:55 PM JUNIOR BUSINESS ANALYST): Chronic and stable. Continue CPAP. Assessment & Plan (08/21/2024 2:28 PM CDT): Chronic. Stable. Continue CPAP nightly Assessment & Plan (07/22/2024 11:01 AM CDT): Patient continue to wear her CPAP at auto titrating range of 5-15 cm water pressure while sleeping. Her DME is adapt. Assessment & Plan (01/15/2024 11:41 AM JUNIOR BUSINESS ANALYST): Due to continued symptoms, the patient will continue with auto titrating CPAP set at 5-15 cm water pressure. I have provided the patient a list of dentists that make the oral appliance for sleep apnea. We discussed the oral appliance in depth. DME is [facility] Assessment & Plan (10/03/2023 8:35 AM JUNIOR BUSINESS ANALYST): Chronic, stable Keep appt with sleep medicine [...] 09/12/2016 Assessment & Plan (09/24/2024 1:54 PM JUNIOR BUSINESS ANALYST): Chronic. Managed by Neurology. Continue Aimovig as prescribed. Assessment & Plan (08/21/2024 2:25 PM CDT): Chronic. Infrequent. Continue Aimovig Assessment & Plan (06/30/2023 9:57 AM CDT): Chronic Continue propranolol Continue healthy habity to decrease migraines Call for questions or concerns Assessment & Plan (12/28/2022 7:31 AM JUNIOR BUSINESS ANALYST): Chronic, persistent Continue her current regimen Continue [...] concerns Assessment & Plan (11/30/2020 3:36 PM JUNIOR BUSINESS ANALYST): Continue current regimen Continue to follow with [...] worsen Assessment & Plan (12/28/2022 7:27 AM JUNIOR BUSINESS ANALYST): Chronic, stable Continue to follow with her psychiatrist Continue her current regimen for now -Cymbalta, Wellbutrin Update me with any changes or concerns Assessment & Plan (04/04/2022 9:22 AM CDT): Stable Continue current regimen Continue to follow with psychiatry Assessment & Plan (11/30/2020 3:31 PM JUNIOR BUSINESS ANALYST): Continue to follow psychiatry Update me with any medication changes Call for questions or concerns Essential hypertension 02/05/2016 Assessment & Plan (09/24/2024 1:53 PM JUNIOR BUSINESS ANALYST): Chronic and controlled. Continue propranolol and valsartan as prescribed. Assessment & Plan (05/03/2024 9:38 AM CDT): Chronic, improved Continue her current regimen Continue to monitor her blood pressure Assessment & Plan (10/03/2023 8:33 AM JUNIOR BUSINESS ANALYST): Chronic, stable Continue losartan 25 mg daily, [...] leaving Assessment & Plan (12/28/2022 7:28 AM JUNIOR BUSINESS ANALYST): Chronic, at goal Continue propranolol EKG completed today Update me with any changes or concerns Assessment & Plan (04/04/2022 9:25 AM CDT): stable Continue propranolol Assessment & Plan (11/15/2021 7:47 AM JUNIOR BUSINESS ANALYST): Blood pressure at goal Continue propranolol Update [...] concerns Assessment & Plan (11/30/2020 3:24 PM JUNIOR BUSINESS ANALYST): With previous cryotherapy Will place a referral [...] 07/13/2015 Assessment & Plan (09/24/2024 1:54 PM JUNIOR BUSINESS ANALYST): Chronic. Continue pantoprazole as prescribed. Assessment & [...] loss Assessment & Plan (12/28/2022 7:54 AM JUNIOR BUSINESS ANALYST): Chronic, with progression Continue her current regimen [...] better Assessment & Plan (11/15/2021 7:48 AM JUNIOR BUSINESS ANALYST): Continue pantoprazole Reviewed healthy diet changes Update [...] untreated Assessment & Plan (11/30/2020 3:34 PM JUNIOR BUSINESS ANALYST): Reviewed risks of medications including c diff, [...] symptoms. Assessment & Plan (09/24/2024 1:55 PM JUNIOR BUSINESS ANALYST): Chronic and stable. Managed by Neurology. Continue Rebif injections. Assessment & Plan (08/21/2024 2:24 PM CDT): Chronic. Stable. Continue to follow with Neurology, managing Rebif injections. Assessment & Plan (05/03/2024 9:38 AM CDT): Chronic, uncertain level of control Referral to [facility] neurology placed Update me with changes or concerns Assessment & Plan (06/30/2023 9:55 AM CDT): Chronic Continue to follow with neurology- advised to please call their office Update me when she hears back Assessment & Plan (12/28/2022 7:30 AM JUNIOR BUSINESS ANALYST): Chronic, possible progression I have encouraged her [...] concerns Assessment & Plan (11/30/2020 3:37 PM JUNIOR BUSINESS ANALYST): Continue to follow with neurology Continue current regimen Update me with any changes Call for questions or concerns Resolved Problems Problem Noted Date Diagnosed Date Resolved Date Morbid obesity 11/28/2024 12/12/2024 Traumatic hematoma of left hand 05/25/2022 05/03/2024 Overview (05/25/2022): Added automatically from request for surgery [id number] Acute conjunctivitis of both eyes 04/02/2022 05/03/2024 [...] 11/30/2020 Assessment & Plan (11/30/2020 3:35 PM JUNIOR BUSINESS ANALYST): Continue to follow with psychiatry Continue current [...] on file Legal Sex Female 2:06 AM JUNIOR BUSINESS ANALYST Gender Identity Female 11/29/2020 6:59 PM JUNIOR BUSINESS ANALYST Sexual Orientation Not on file Last Filed [...] on file Medical Devices Implanted Type Area Manager Intranet Device Identifier Shelf Expiration Date Model / Serial / Lot [facility] Left: Shoulder Procedures Procedure Name Priority Date/Time Associated Diagnosis Comments SCREENING MAMMOGRAM BILATERA L W AP Schedule Routine, Read Routine (OP Routine) 02/20/2025 2:38 PM CDT Encounter for screening mammogram for malignant neoplasm of breast XR FOOT LEFT WEIGHT-BEARING 3 OR MORE VIEWS Schedule Routine, Read Routine (OP Routine) 01/22/2025 12:35 PM CDT Arthritis of left foot EGFR Routine 01/14/2025 11:25 PM JUNIOR BUSINESS ANALYST BASIC METABOLIC PANEL Routine 01/14/2025 11:25 PM JUNIOR BUSINESS ANALYST CBC WITHOUT DIFFERENTIAL Routine 025 11:25 PM JUNIOR BUSINESS ANALYST AL AN PROCEDURE PLACEHOLDER Routine 02/2025 12:41 PM JUNIOR BUSINESS ANALYST AL AN ELECTIVE ENDOTRACHEAL AIRWAY Routine 01/14/2025 12:41 PM JUNIOR BUSINESS ANALYST ESOPHAGOGASTRODUODENOSCOPY 01/14 12:05 PM JUNIOR BUSINESS ANALYST Morbid obesity (HCC) LAPAROSCOPIC GASTRIC BYPASS 02/2025 12:05 PM JUNIOR BUSINESS ANALYST Morbid obesity (HCC) RACHNA QUALITATIVE WITH REFLEX TO RACHNA QUANTITATIVE Routine 01/08/2025 9:43 AM JUNIOR BUSINESS ANALYST Facial rash EGFR Routine 12/31/2024 11:14 AM JUNIOR BUSINESS ANALYST Preoperative testing DIFFERENTIAL AUTO Routine 12/31/2024 11:14 AM JUNIOR BUSINESS ANALYST Preoperative testing CBC WITH AUTO DIFFERENTIAL Routine 12/31 11:14 AM JUNIOR BUSINESS ANALYST Preoperative testing BASIC METABOLIC PANEL Routine 12/31/2024 11:14 AM JUNIOR BUSINESS ANALYST Preoperative testing NICOTINE METABOLITE SCREEN, URINE Routine 12/31/2024 11:14 AM JUNIOR BUSINESS ANALYST Morbid obesity (HCC) COLONOSCOPY 01/16/2024 9:22 AM JUNIOR BUSINESS ANALYST HM HEPATITIS C SCREENING Routine 01/06/2018 from [...] age 42, based on guidelines of the [employer] (ACR Practice Parameter for the Performance of Screening and Diagnostic Mammography) and [employer]. For women [...] R esult * eGFR (01/14/2025 11:25 PM JUNIOR BUSINESS ANALYST) eGFR 83 >=60 mL/min/1. 73 m2 Comment: [...] reviewed 2021. Blood 01/14/2025 11:2 5 PM JUNIOR BUSINESS ANALYST 01/14/2025 11:33 PM JUNIOR BUSINESS ANALYST Samuel Ashton MD LAB BLOOD ORDERABLES Final Resul t Performing Organization Address [facility] Co de Phone Number REJI DUNLAP [phone] [place] [address] * (ABNORMAL) CBC without differential (01/14/2025 11:25 PM JUNIOR BUSINESS ANALYST) WBC 13.7(H) 3.8 - 9.9 K/cumm Hgb 12.5 11.9 - 15.5 g/dL [facility] Hct 38.2 35.6 - 45.5 % [facility] Plt 279 150 - 400 K/cumm [facility] MPV 9.2 9.1 - 12.3 fL [facility] RBC 4.59 3.90 - 5.20 M/cumm [facility] MCV 83.2 81.3 - 96.4 fL [facility] MCH 27.2 27.1 - 33.3 pg [facility] MCHC 32.7 32.3 - 35.7 g/dL [facility] RDW CV 14.7 11.1 - 14.9 % [facility] RDW SD 44.3 35.7 - 48.1 fL [facility] NRBC abs 0.00 0.00 - 0.01 K/cumm [facility] Blood 01/14/2025 11:2 5 PM JUNIOR BUSINESS ANALYST 01/14/2025 11:33 PM JUNIOR BUSINESS ANALYST us Samuel Ashton MD LAB BLOOD ORDERABLES Final Resul t Performing Organization Address [facility]/ZIP Co de Phone Number REJI DUNLAP [phone] [place] [address] * (ABNORMAL) Basic metabolic panel (01/14/2025 11:25 PM JUNIOR BUSINESS ANALYST) Sodium 140 135 - 145 mmol/L Potassium, [...] 2022. Calcium 9.0 8.5 - 10.3 mg/dL [facility] Blood 01/14/2025 11:2 5 PM JUNIOR BUSINESS ANALYST 01/14/2025 11:33 PM JUNIOR BUSINESS ANALYST Samuel Ashton MD LAB BLOOD ORDERABLES Final Resul t REJI [facility] [address] [facility] Department [place] [address] * AL AN ELECTIVE ENDOTRACHEAL AIRWAY, AL AN PROCEDURE PLACEHOLDER (01/14/2025 12:41 PM JUNIOR BUSINESS ANALYST) Narrative Emmie Campo CRNA - 01/14/2025 12:41 PM JUNIOR BUSINESS ANALYST Emmie Campo CRNA 01/14/2025 12:43 PM Airway Patient location: OR Urgency: elective Date/time: 01/14/2025 12:09 PM Indications for airway management: anesthesia Difficult airway: no Staff: Placed by: DISTRICT COURT BAILIFF: Emmie Campo CRNA Emergent airway documentation: Risks [...] w/rflx to RACHNA qn (01/08/2025 9:43 AM JUNIOR BUSINESS ANALYST) RACHNA Positive 1:160 Comment: Interpretive Data Normal [...] last revised on 2020. Testing performed by: [facility], [address] [place] [address], [place]., [address] RACHNA, quant 1:160 titer REJI DEVINE Comment:Testing performed by : [facility], [address] [place]., [address] RACHNA, interp Homogeneous (A) REJI DEVINE Comment:Testing performed by : [facility], [address] [place] [address]., [address] Blood 01/08/2025 9:43 AM JUNIOR BUSINESS ANALYST 01/08/2025 3:37 PM JUNIOR BUSINESS ANALYST us Hemalatha Tang MD LAB BLOOD ORDERABLE S Final Result REJI [address] [facility] Department [place] [address] * eGFR (12/31/2024 11:14 AM JUNIOR BUSINESS ANALYST) eGFR 73 >=60 mL/min/1. 73 m2 Comment: [...] reviewed 2021. Blood 12/31/2024 11:1 4 AM JUNIOR BUSINESS ANALYST 12/31/2024 12:25 PM JUNIOR BUSINESS ANALYST us Nely Ramirez NP LAB BLOOD ORDERABLES Final Resul t REJI [facility] One [facility] Department [place] [address] * Differential, auto (12/31/2024 11:14 AM JUNIOR BUSINESS ANALYST) Neutrophil abs 3.3 1.5 - 6.5 K/cumm Imm gran abs 0.0 0.0 - 0.1 K/cumm [facility] Lymphocyte abs 2.1 0.8 - 3.3 K/cumm [facility] Monocyte abs 0.5 0.2 - 0.8 K/cumm [facility] Eosinophil abs 0.5 0.0 - 0.5 K/cumm [facility] Basophil abs 0.1 0.0 - 0.1 K/cumm [facility] Neutrophil pct 50.3 % [facility] Comment: Interpretive Data Percent cell count reference ranges are not reported, since discordance with absolute values may lead to misinterpretation of CBC data. Current Interpretive Data was last revised on 2018. Imm gran pct 0.5 % [facility] Comment: Interpretive Data Percent cell count reference ranges are not reported, since discordance with absolute values may lead to misinterpretation of CBC data. Current Interpretive Data was last revised on 2018. Lymphocyte pct 32.6 % [facility] Comment: Interpretive Data Percent cell count reference ranges are not reported, since discordance with absolute values may lead to misinterpretation of CBC data. Current Interpretive Data was last revised on 2018. Monocyte pct 7.6 % [facility] Comment: Interpretive Data Percent cell count reference ranges are not reported, since discordance with absolute values may lead to misinterpretation of CBC data. Current Interpretive Data was last revised on 2018. Eosinophil pct 8.2 % [facility] Comment: Interpretive Data Percent cell count reference ranges are not reported, since discordance with absolute values may lead to misinterpretation of CBC data. Current Interpretive Data was last revised on 2018. Basophil pct 0.8 % [facility] Comment: Interpretive Data Percent cell count reference ranges are not reported, since discordance with absolute values may lead to misinterpretation of CBC data. Current Interpretive Data was last revised on 2018. Blood 12/31/2024 11:1 4 AM JUNIOR BUSINESS ANALYST 12/31/2024 12:25 PM JUNIOR BUSINESS ANALYST us Nely Ramirez NP LAB BLOOD ORDERABLES Final Resul t [facility] One [facility] Department [place] [address] * (ABNORMAL) CBC with auto differential (12/31/2024 11:14 AM JUNIOR BUSINESS ANALYST) [facility] WBC 6.6 3.8 - 9.9 K/cumm Hgb 14.2 11.9 - 15.5 g/dL [facility] Hct 43.1 35.6 - 45.5 % [facility] Plt 333 150 - 400 K/cumm [facility] MPV 9.7 9.1 - 12.3 fL [facility] RBC 5.30(H) 3.90 - 5.20 M/cumm [facility] MCV 81.3 81.3 - 96.4 fL [facility] MCH 26.8(L) 27.1 - 33.3 pg [facility] MCHC 32.9 32.3 - 35.7 g/dL [facility] RDW CV 14.2 11.1 - 14.9 % [facility] RDW SD 41.5 35.7 - 48.1 fL [facility] NRBC abs 0.00 0.00 - 0.01 K/cumm [facility] Blood 12/31/2024 11:1 4 AM JUNIOR BUSINESS ANALYST 12/31/2024 12:25 PM JUNIOR BUSINESS ANALYST us Nely Ramirez NP LAB BLOOD ORDERABLES Final Resul t [facility] One [facility] Department [place] [address] * Nicotine metabolite screen, urine (12/31/2024 11:14 AM JUNIOR BUSINESS ANALYST) [facility] Nicotine, ur <5.0 <5.0 ng/mL [facility] Cotinine, ur <5.0 <5.0 ng/mL [facility] Anabasine ur <2.0 <2.0 ng/mL [facility] Comment: ADDITIONAL INFORMATION This test was developed and its performance characteristics determined by [facility] in a manner consistent with CLIA requirements. This test has not been cleared or approved by the U.S. Food and Drug Administration. Test Performed by: [facility] [address] [place] [address] Spares Scheduler: Denia Bradshaw Ph.D.; CLIA# [id number] Nornicotine, ur <2.0 <2.0 ng/mL [facility] Urine 12/31/2024 11:1 4 AM JUNIOR BUSINESS ANALYST 12/31/2024 12:25 PM JUNIOR BUSINESS ANALYST us Samuel Ashton MD LAB URINE ORDERABLES Final Resul t [facility] One [facility] Department [place] [address] [place] ref Lab * (ABNORMAL) Basic metabolic panel (12/31/2024 11:14 AM JUNIOR BUSINESS ANALYST) Sodium 139 135 - 145 mmol/L Potassium, pl 4.2 3.3 - 4.9 mmol/L [facility] Chloride 104 97 - 110 mmol/L [facility] CO2 25 22 - 32 mmol/L [facility] Anion gap 10 2 - 15 mmol/L [facility] BUN 26(H) 6 - 25 mg/dL [facility] Creatinine 0.89 0.60 - 1.10 mg/dL [facility] Glucose 93 70 - 199 mg/dL [facility] Comment: Interpretive Data Fasting glucose >/= 126 [...] Calcium 9.8 8.5 - 10.3 mg/dL [facility] Blood 12/31/2024 11:1 4 AM JUNIOR BUSINESS ANALYST 12/31/2024 12:25 PM JUNIOR BUSINESS ANALYST us Nely Ramirez [employer] LAB BLOOD ORDERABLES Final Resul t [facility] One [facility] Department [place] [address] * Colonoscopy (01/16/2024 9:22 AM JUNIOR BUSINESS ANALYST) Anatomical Region Laterality Modality Other Narrative Procedure Note Art Morris MD - 01/16/2024 9:22 AM CST [facility] GI ENDOSCOPY Patient Name: Linda Mckeon Procedure Date: 01/16/2024 9:22 AM Date of : 1960 Admit Type: Outpatient Age: 63 Gender: Female Attending MD: Art Morris M.D. Room: [facility] ENDOSCOPY ROOM 06 Note Status: Finalized [...] The scope was passed under direct vision.The [id number]-[id number] colonoscope was introduced through theanus and advanced [...] On: 01/16/2024 9:22 AM Recognized by the [employer] for promoting quality in endoscopy Art Morris MD ENDOSCOPY PROCEDURES Final Resul t * HM HEPATITIS C SCREENING (01/06/2018) SCRIBED HCV ab negative Historical Provider HEALTH MAINTENANCE Final Result from Last 3 Months or Most Recently Relevant to Health Maintenance Insurance [id number] [place] [address] [facility] Advance Directives For more information, please contact: [phone] * Full Code (Latest Code Status on File) Date Activated Date Inactivated Comments 01/14/2025 6:44 PM 01/15/2025 5:24 PM * Full Code Date Activated Date Inactivated Comments 10/07/2024 6:53 AM 10/07/2024 12:21 PM * Full Code Date Activated Date Inactivated Comments 05/19/2022 12:17 AM 05/20/2022 8:32 PM Care Teams Clip 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
--- OUTSIDE RECORDS SUMMARY | 2025-02-27 22:51 | XMS_ITS | Clinical Summary ---
Author Organization [address] Address [address] [place] [phone] Care Team Providers Care Licensed Embalmer Supervisor Name Role Phone Hemalatha Tang MD Primary Care Provi summer Manuel Swartz MD Unavailable [phone] Allergies Active Allergy Reactions Criticality Noted Date Comments Iodinated Contrast Media Rash Medium 03/23/2016 Iodine Rash Medium 02/05/2016 Medications SUMAtriptan (IMITREX) 50 mg tabletIndications:M igraine Take 1 tablet (50 mg total) by mouth once as needed for migraine 021 Active omega 8-llm-bri-fish oil (Fish Oil) 100-160-1,000 mg capsuleIndications: hypertriglyceridemi [...] care Assessment & Plan (01/15/2024 11:41 AM ACADEMIC SUCCESS COORDINATOR): The patient will continue with Lyrica as ordered by primary care History of colon polyps 10/12/2023 Iron deficiency anemia 07/26/2023 Assessment & Plan (08/21/2024 2:29 PM CDT): Chronic. On iron supplements in the past. Recheck iron studies ordered today Assessment & Plan (05/03/2024 9:38 AM CDT): Chronic, uncertain level of control Follow-up labs ordered Assessment & Plan (10/03/2023 8:34 AM ACADEMIC SUCCESS COORDINATOR): Chronic, stable Testing with GI next week [...] (06/09/2022): Added automatically from request for surgery [id number] Tenosynovitis 05/18/2022 Extensor tenosynovitis of left wrist [...] After hours, please contact the ID fellow watermelon inspector. Left hand pain 05/17/2022 Assessment & Plan [...] provided. Assessment & Plan (01/08/2025 8:57 AM ACADEMIC SUCCESS COORDINATOR): Chronic,persistent Gastric bypass scheduled for next week BMI Follow-up includes: continue healthy changes . Assessment & Plan (12/12/2024 2:48 PM ACADEMIC SUCCESS COORDINATOR): Chronic. Uncontrolled. Preparation for Bariatric Surgery Patient [...] progress. Assessment & Plan (10/16/2024 8:13 AM ACADEMIC SUCCESS COORDINATOR): Chronic, worse BMI Follow-up includes: nutrition counseling. Assessment & Plan (09/24/2024 1:53 PM ACADEMIC SUCCESS COORDINATOR): Labs and EKG reviewed today. Lab workup [...] counseling. Assessment & Plan (10/03/2023 8:32 AM ACADEMIC SUCCESS COORDINATOR): Chronic, stable BMI Follow-up includes: nutrition counseling. Assessment & Plan (08/29/2023 9:11 AM CDT): Chronic, stable BMI Follow-up includes: nutrition counseling. Assessment & Plan (06/30/2023 9:46 AM CDT): BMI Follow-up includes: nutrition counseling. Assessment & Plan (04/04/2022 9:41 AM CDT): BMI Follow-up includes: nutrition counseling. Cold sore 04/02/2022 Assessment & Plan (04/02/2022 12:57 PM CDT): Acute-informed can apply kroc-[id number]-carhovt Abreva to cold sore as directed. Encouraged [...] 12/22/2021 Assessment & Plan (12/22/2021 8:48 AM ACADEMIC SUCCESS COORDINATOR): Discussed viral nature of illness, treat symptomatically [...] 03/12/2018 Assessment & Plan (09/24/2024 1:54 PM ACADEMIC SUCCESS COORDINATOR): Chronic and controlled. Continue statin and fenofibrate. Assessment & Plan (06/30/2023 9:54 AM CDT): Chronic, stable ASCVD score 3/1% Continue healthy changes Assessment & Plan (12/28/2022 7:29 AM ACADEMIC SUCCESS COORDINATOR): Chronic, stable Labs ordered for her upcoming surgery Continue Tricor CTS (carpal tunnel syndrome) 12/25/2017 Vitamin D deficiency 12/25/2017 Assessment & Plan (06/30/2023 9:56 AM CDT): Chronic, continue vitamin d Fatigue 12/19/2017 Assessment & Plan (12/28/2022 7:28 AM ACADEMIC SUCCESS COORDINATOR): Chronic, associated with her multiple sclerosis Continue Adderall Continue to follow with her psychiatrist in her neurologist Update me with any changes or concerns Assessment & Plan (04/04/2022 9:25 AM CDT): Chronic ?related to multiple sclerosis Continue adderall through Psychiatry Assessment & Plan (11/30/2020 3:32 PM ACADEMIC SUCCESS COORDINATOR): Continue to follow with psychiatry Continue adderall Update me with any changes Labyrinthitis 09/13/2017 Degenerative disc disease, lumbar 05/17/2017 Assessment & Plan (04/04/2022 9:24 AM CDT): Continue diclofenac Continue supportive care Assessment & Plan (11/30/2020 3:32 PM ACADEMIC SUCCESS COORDINATOR): Continue to follow with pain management Update [...] 01/05/2017 Assessment & Plan (09/24/2024 1:55 PM ACADEMIC SUCCESS COORDINATOR): Chronic and stable. Continue CPAP. Assessment & Plan (08/21/2024 2:28 PM CDT): Chronic. Stable. Continue CPAP nightly Assessment & Plan (07/22/2024 11:01 AM CDT): Patient continue to wear her CPAP at auto titrating range of 5-15 cm water pressure while sleeping. Her DME is [facility]. Assessment & Plan (01/15/2024 11:41 AM ACADEMIC SUCCESS COORDINATOR): Due to continued symptoms, the patient will continue with auto titrating CPAP set at 5-15 cm water pressure. I have provided the patient a list of dentists that make the oral appliance for sleep apnea. We discussed the oral appliance in depth. DME is [facility] Assessment & Plan (10/03/2023 8:35 AM ACADEMIC SUCCESS COORDINATOR): Chronic, stable Keep appt with sleep medicine [...] 09/12/2016 Assessment & Plan (09/24/2024 1:54 PM ACADEMIC SUCCESS COORDINATOR): Chronic. Managed by Neurology. Continue Aimovig as prescribed. Assessment & Plan (08/21/2024 2:25 PM CDT): Chronic. Infrequent. Continue Aimovig Assessment & Plan (06/30/2023 9:57 AM CDT): Chronic Continue propranolol Continue healthy habity to decrease migraines Call for questions or concerns Assessment & Plan (12/28/2022 7:31 AM ACADEMIC SUCCESS COORDINATOR): Chronic, persistent Continue her current regimen Continue [...] concerns Assessment & Plan (11/30/2020 3:36 PM ACADEMIC SUCCESS COORDINATOR): Continue current regimen Continue to follow with [...] worsen Assessment & Plan (12/28/2022 7:27 AM ACADEMIC SUCCESS COORDINATOR): Chronic, stable Continue to follow with her psychiatrist Continue her current regimen for now -Cymbalta, Wellbutrin Update me with any changes or concerns Assessment & Plan (04/04/2022 9:22 AM CDT): Stable Continue current regimen Continue to follow with psychiatry Assessment & Plan (11/30/2020 3:31 PM ACADEMIC SUCCESS COORDINATOR): Continue to follow psychiatry Update me with any medication changes Call for questions or concerns Essential hypertension 02/05/2016 Assessment & Plan (09/24/2024 1:53 PM ACADEMIC SUCCESS COORDINATOR): Chronic and controlled. Continue propranolol and valsartan as prescribed. Assessment & Plan (05/03/2024 9:38 AM CDT): Chronic, improved Continue her current regimen Continue to monitor her blood pressure Assessment & Plan (10/03/2023 8:33 AM ACADEMIC SUCCESS COORDINATOR): Chronic, stable Continue losartan 25 mg daily, [...] leaving Assessment & Plan (12/28/2022 7:28 AM ACADEMIC SUCCESS COORDINATOR): Chronic, at goal Continue propranolol EKG completed today Update me with any changes or concerns Assessment & Plan (04/04/2022 9:25 AM CDT): stable Continue propranolol Assessment & Plan (11/15/2021 7:47 AM ACADEMIC SUCCESS COORDINATOR): Blood pressure at goal Continue propranolol Update [...] concerns Assessment & Plan (11/30/2020 3:24 PM ACADEMIC SUCCESS COORDINATOR): With previous cryotherapy Will place a referral [...] 07/13/2015 Assessment & Plan (09/24/2024 1:54 PM ACADEMIC SUCCESS COORDINATOR): Chronic. Continue pantoprazole as prescribed. Assessment & [...] loss Assessment & Plan (12/28/2022 7:54 AM ACADEMIC SUCCESS COORDINATOR): Chronic, with progression Continue her current regimen [...] better Assessment & Plan (11/15/2021 7:48 AM ACADEMIC SUCCESS COORDINATOR): Continue pantoprazole Reviewed healthy diet changes Update [...] untreated Assessment & Plan (11/30/2020 3:34 PM ACADEMIC SUCCESS COORDINATOR): Reviewed risks of medications including c diff, [...] symptoms. Assessment & Plan (09/24/2024 1:55 PM ACADEMIC SUCCESS COORDINATOR): Chronic and stable. Managed by Neurology. Continue Rebif injections. Assessment & Plan (08/21/2024 2:24 PM CDT): Chronic. Stable. Continue to follow with Neurology, managing Rebif injections. Assessment & Plan (05/03/2024 9:38 AM CDT): Chronic, uncertain level of control Referral to [facility] neurology placed Update me with changes or concerns Assessment & Plan (06/30/2023 9:55 AM CDT): Chronic Continue to follow with neurology- advised to please call their office Update me when she hears back Assessment & Plan (12/28/2022 7:30 AM ACADEMIC SUCCESS COORDINATOR): Chronic, possible progression I have encouraged her [...] concerns Assessment & Plan (11/30/2020 3:37 PM ACADEMIC SUCCESS COORDINATOR): Continue to follow with neurology Continue current regimen Update me with any changes Call for questions or concerns Resolved Problems Problem Noted Date Diagnosed Date Resolved Date Morbid obesity 11/28/2024 12/12/2024 Traumatic hematoma of left hand 05/25/2022 05/03/2024 Overview (05/25/2022): Added automatically from request for surgery [id number] Acute conjunctivitis of both eyes 04/02/2022 05/03/2024 [...] 11/30/2020 Assessment & Plan (11/30/2020 3:35 PM ACADEMIC SUCCESS COORDINATOR): Continue to follow with psychiatry Continue current regimen Update me with any changes Call for questions or concerns Anemia 12/20/2017 11/30/2020 Low back pain 01/21/2016 01/03/2024 Encounters Date Type Department Care Team Description 02/27/2025 2:00 PM CDT Office Visit [facility] Minimally Invasive Surgery [address] [place] [address] Medical Office Building [address] [place] [address] Samuel Ashton MD Morbid obesity (HCC) (Primary Dx) 02/21/2025 Results Follow-Up [facility] Family Medicine [address] [phone] Emmie Zaragoza PA 02/20/2025 2:25 PM CDT - 02/20/2025 11:59 PM CDT Hospital Encounter [facility] Breast Imaging [address] [place] [address] Encounter for screening mammogram for malignant neoplasm of breast Discharge Disposition: Discharge to home or self care 01/31/2025 Letter (Out) [facility] Medicine [address] [phone] 01/31/2025 Telephone [facility] [address] [phone] Hemalatha Tang MD 01/24/2025 11:30 AM CDT Office Visit [facility] Minimally Invasive Surgery [address] [facility] Medical Office Building [address] [place] [phone] Chris Carlisle MD S/P gastric bypass (Primary Dx) 01/24/2025 Results Follow-Up [facility] Surgery [address] [facility] Medical Office Building [address] [place] [address] Srinath Perez DPM 01/22/2025 12:23 PM CDT - 01/22/2025 11:59 PM CDT Hospital Encounter [facility] Radiology [address] [place] [address] Arthritis of left foot Discharge Disposition: Discharge to home or self care 01/22/2025 11:45 AM CDT Office [facility] [address] [place] [address] 4th Floor [address] [place] [phone] Srinath Perez DPM Arthritis of left foot (Primary Dx); Arthritis; Subluxation of metatarsophalangeal joint of lesser toe of right foot, initial encounter; Hallux rigidus of right foot; Metatarsus varus, acquired, right; Pain of right foot; Pain of left foot; Difficulty in walking; Prediabetes 01/22/2025 8:30 AM CDT Office Visit [facility] Medicine [address] [place] [phone] Hemalatha Tang MD Multiple sclerosis (HCC) (Primary Dx); Essential hypertension; Gastroesophageal reflux disease without esophagitis; Class 2 severe obesity due to excess calories with serious comorbidity and body mass index (BMI) of 38.0 to 38.9 in adult (HCC) 01/16/2025 LORENA IP Outreach [facility] Organization [address] [place] [phone] Kelli Mcdonald LPN 01/14/2025 12:02 PM ACADEMIC SUCCESS COORDINATOR Anesthesia Event [facility] Operating Room [address] [place] [address] Caren Dolan MD Deibel, Lori, NP 01/14/2025 12:00 PM ACADEMIC SUCCESS COORDINATOR - 01/14/2025 3:25 PM ACADEMIC SUCCESS COORDINATOR Surgery [facility] Operating Room [address] [place] [address] Samuel Ashton MD LAPAROSCOPIC GASTRIC BYPASS 01/14/2025 9:45 AM ACADEMIC SUCCESS COORDINATOR - 01/15/2025 1:19 PM ACADEMIC SUCCESS COORDINATOR Hospital Encounter [facility] [address] [place] [address] Samuel Ashton MD Morbid obesity (HCC) (Primary Dx) Discharge Disposition: Discharge to home or self care 01/10/2025 Letter (Out) [address] [phone] 01/10/2025 Orders Only [address] [phone] Leta Casillas PA Positive RACHNA (antinuclear antibody) (Primary Dx); Facial rash; Multiple sclerosis (HCC) 01/10/2025 Results Follow-Up [facility] Medicine [address] [place] [phone] Leta Casillas PA Facial rash (Primary Dx); Positive RACHNA (antinuclear antibody); Multiple sclerosis (HCC) 01/08/2025 9:25 AM ACADEMIC SUCCESS COORDINATOR Lab [facility] OP Lab [address] [place] [address] Facial rash 01/08/2025 8:30 AM ACADEMIC SUCCESS COORDINATOR Office Visit [address] [phone] Hemalatha Tang MD Facial rash (Primary Dx); Multiple sclerosis (HCC); Migraine with aura and without status migrainosus, not intractable; Essential hypertension; Gastroesophageal reflux disease without esophagitis; Class 2 severe obesity due to excess calories with serious comorbidity and body mass index (BMI) of 39.0 to 39.9 in adult (HCC); Encounter for screening mammogram for malignant neoplasm of breast 01/01/2025 9:00 AM ACADEMIC SUCCESS COORDINATOR Clinical Support [facility] Minimally Invasive Surgery [address] [facility] Medical Office Building [address] [place] [phone] Morbid obesity (HCC) (Primary Dx) 12/31/2024 9:30 AM ACADEMIC SUCCESS COORDINATOR Pre-Admission Testing [facility] Center for Preoperative Assessment and [facility] ([facility]) [address] [place] [phone] Preoperative testing (Primary Dx); Morbid obesity (HCC) 12/23/2024 Telephone [facility] Medicine [address] [place] [phone] Hemalatha Tang MD Prior Auth Request for Loratadine 12/18/2024 Telephone [facility] Cardiology [facility] [address] [place] [address] Jay Prescott MD 12/17/2024 Telephone [facility] Family Medicine [address] [place] [phone] Hemalatha Tang MD 12/17/2024 Orders Only [address] [phone] Hemalatha Tang MD Abnormal EKG (Primary Dx) 12/17/2024 Telephone [facility] Minimally Invasive Surgery [address] [place] [address] Medical Office Building [address] [place] [phone] Yury Gar 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 12/12/2024 2:30 PM ACADEMIC SUCCESS COORDINATOR Office Visit [address] [phone] Leta Casillas PA Class 2 severe obesity due to excess calories with serious comorbidity and body mass index (BMI) of 38.0 to 38.9 in adult (HCC) (Primary Dx) 12/12/[address] [phone] Hemalatha Tang MD from Last [...] Mother Lottie Torres Mental illness Mother Lottie Torrse Obesity Mother Lottie Torres Rashes / Skin [...] on file Legal Sex Female 2:06 AM ACADEMIC SUCCESS COORDINATOR Gender Identity Female 11/29/2020 6:59 PM ACADEMIC SUCCESS COORDINATOR Sexual Orientation Not on file Obstetrics History [...] this topic Medical Devices Implanted Type Area Biomass Facilitator Device Identifier Shelf Expiration Date Model / [...] left foot EGFR Routine 01/14/2025 11:25 PM ACADEMIC SUCCESS COORDINATOR BASIC METABOLIC PANEL Routine 01/14/2025 11:25 PM ACADEMIC SUCCESS COORDINATOR CBC WITHOUT DIFFERENTIAL Routine 025 11:25 PM ACADEMIC SUCCESS COORDINATOR [place] AN PROCEDURE PLACEHOLDER Routine 02/2025 12:41 PM ACADEMIC SUCCESS COORDINATOR [place] AN ELECTIVE ENDOTRACHEAL AIRWAY Routine 01/14/2025 12:41 PM ACADEMIC SUCCESS COORDINATOR ESOPHAGOGASTRODUODENOSCOPY 01/14 12:05 PM ACADEMIC SUCCESS COORDINATOR Morbid obesity (HCC) LAPAROSCOPIC GASTRIC BYPASS 02/2025 12:05 PM ACADEMIC SUCCESS COORDINATOR Morbid obesity (HCC) RACHNA QUALITATIVE WITH REFLEX TO RACHNA QUANTITATIVE Routine 01/08/2025 9:43 AM ACADEMIC SUCCESS COORDINATOR Facial rash EGFR Routine 12/31/2024 11:14 AM ACADEMIC SUCCESS COORDINATOR Preoperative testing DIFFERENTIAL AUTO Routine 12/31/2024 11:14 AM ACADEMIC SUCCESS COORDINATOR Preoperative testing CBC WITH AUTO DIFFERENTIAL Routine 12/31 11:14 AM ACADEMIC SUCCESS COORDINATOR Preoperative testing BASIC METABOLIC PANEL Routine 12/31/2024 11:14 AM ACADEMIC SUCCESS COORDINATOR Preoperative testing NICOTINE METABOLITE SCREEN, URINE Routine 12/31/2024 11:14 AM ACADEMIC SUCCESS COORDINATOR Morbid obesity (HCC) COLONOSCOPY 01/16/2024 9:22 AM ACADEMIC SUCCESS COORDINATOR HM HEPATITIS C SCREENING Routine 01/06/2018 from [...] age 42, based on guidelines of the [employer] (ACR Practice Parameter for the Performance of Screening and Diagnostic Mammography) and [employer]. For women [...] R esult * eGFR (01/14/2025 11:25 PM ACADEMIC SUCCESS COORDINATOR) eGFR 83 >=60 mL/min/1. 73 m2 Comment: [...] reviewed 2021. Blood 01/14/2025 11:2 5 PM ACADEMIC SUCCESS COORDINATOR 01/14/2025 11:33 PM ACADEMIC SUCCESS COORDINATOR Samuel Ashton MD LAB BLOOD ORDERABLES Final Resul t Performing Organization Address City/[facility]/ZIP Co de Phone Number REJI DUNLAP [address] [place] [address] * (ABNORMAL) CBC without differential (01/14/2025 11:25 PM ACADEMIC SUCCESS COORDINATOR) WBC 13.7(H) 3.8 - 9.9 K/cumm Hgb 12.5 11.9 - 15.5 g/dL [facility] Hct 38.2 35.6 - 45.5 % [facility] Plt 279 150 - 400 K/cumm [facility] MPV 9.2 9.1 - 12.3 fL [facility] RBC 4.59 3.90 - 5.20 M/cumm [facility] MCV 83.2 81.3 - 96.4 fL [facility] MCH 27.2 27.1 - 33.3 pg [facility] MCHC 32.7 32.3 - 35.7 g/dL [facility] RDW CV 14.7 11.1 - 14.9 % [facility] RDW SD 44.3 35.7 - 48.1 fL [facility] NRBC abs 0.00 0.00 - 0.01 K/cumm [facility] Blood 01/14/2025 11:2 5 PM ACADEMIC SUCCESS COORDINATOR 01/14/2025 11:33 PM ACADEMIC SUCCESS COORDINATOR Samuel Ashton MD LAB BLOOD ORDERABLES Final Resul t Performing Organization Address City/[facility]/ZIP Co de Phone Number REJI DUNLAP [address] [address] [facility] [place], [place] [phone] * (ABNORMAL) Basic metabolic panel (01/14/2025 11:25 PM ACADEMIC SUCCESS COORDINATOR) Sodium 140 135 - 145 mmol/L Potassium, pl 4.3 3.3 - 4.9 mmol/L [facility] Chloride 105 97 - 110 mmol/L [facility] CO2 20(L) 22 - 32 mmol/L [facility] Anion gap 15 2 - 15 mmol/L [facility] BUN 19 6 - 25 mg/dL [facility] Creatinine 0.80 0.60 - 1.10 mg/dL [facility] Glucose 177 70 - 199 mg/dL [facility] Comment: Interpretive Data Fasting glucose >/= 126 [...] 2022. Calcium 9.0 8.5 - 10.3 mg/dL [facility] Blood 01/14/2025 11:2 5 PM ACADEMIC SUCCESS COORDINATOR 01/14/2025 11:33 PM ACADEMIC SUCCESS COORDINATOR us Samuel Ashton MD LAB BLOOD ORDERABLES Final Resul t Performing Organization Address City/State/[facility] Co de Phone Number REJI BARTLETT [address] [facility]. [place] [address] * [place] AN ELECTIVE ENDOTRACHEAL AIRWAY, [place] AN PROCEDURE PLACEHOLDER (01/14/2025 12:41 PM ACADEMIC SUCCESS COORDINATOR) Narrative Emmie Campo CRNA - 01/14/2025 12:41 PM ACADEMIC SUCCESS COORDINATOR Emmie Campo CRNA 01/14/2025 12:43 PM Airway Patient location: OR Urgency: elective Date/time: 01/14/2025 12:09 PM Indications for airway management: anesthesia Difficult airway: no Staff: Placed by: RELOCATION SERVICES SPECIALIST: Emmie Campo CRNA Emergent airway documentation: Risks [...] w/rflx to RACHNA qn (01/08/2025 9:43 AM ACADEMIC SUCCESS COORDINATOR) RACHNA Positive 1:160 Comment: Interpretive Data Normal [...] last revised on 2020. Testing performed by: [facility], [address] [place] [address]., [id number] RACHNA, quant 1:160 titer REJI DEVINE Comment:Testing performed by : [address] [address] RACHNA, interp Homogeneous (A) REJI DEVINE Comment:Testing performed by : [facility], [address] [place] [address]., [id number] Blood 01/08/2025 9:43 AM ACADEMIC SUCCESS COORDINATOR 01/08/2025 3:37 PM ACADEMIC SUCCESS COORDINATOR us Hemalatha Tang MD LAB BLOOD ORDERABLE S Final Result REJI DEVINE [address] [facility] Department [place] [address] * eGFR (12/31/2024 11:14 AM ACADEMIC SUCCESS COORDINATOR) Pathologist [facility] eGFR 73 >=60 mL/min/1. 73 m2 Comment: [...] reviewed 2021. Blood 12/31/2024 11:1 4 AM ACADEMIC SUCCESS COORDINATOR 12/31/2024 12:25 PM ACADEMIC SUCCESS COORDINATOR us Nely Ramirez NP LAB BLOOD ORDERABLES Final Resul t [facility] [place] [address] * Differential, auto (12/31/2024 11:14 AM ACADEMIC SUCCESS COORDINATOR) [facility] Neutrophil abs 3.3 1.5 - 6.5 K/cumm Imm gran abs 0.0 0.0 - 0.1 K/cumm [facility] Lymphocyte abs 2.1 0.8 - 3.3 K/cumm [facility] Monocyte abs 0.5 0.2 - 0.8 K/cumm [facility] Eosinophil abs 0.5 0.0 - 0.5 K/cumm [facility] Basophil abs 0.1 0.0 - 0.1 K/cumm [facility] Neutrophil pct 50.3 % [facility] Comment: Interpretive Data Percent cell count reference ranges are not reported, since discordance with absolute values may lead to misinterpretation of CBC data. Current Interpretive Data was last revised on 2018. Imm gran pct 0.5 % [facility] Comment: Interpretive Data Percent cell count reference ranges are not reported, since discordance with absolute values may lead to misinterpretation of CBC data. Current Interpretive Data was last revised on 2018. Lymphocyte pct 32.6 % [facility] Comment: Interpretive Data Percent cell count reference ranges are not reported, since discordance with absolute values may lead to misinterpretation of CBC data. Current Interpretive Data was last revised on 2018. Monocyte pct 7.6 % [facility] Comment: Interpretive Data Percent cell count reference ranges are not reported, since discordance with absolute values may lead to misinterpretation of CBC data. Current Interpretive Data was last revised on 2018. Eosinophil pct 8.2 % [facility] Comment: Interpretive Data Percent cell count reference ranges are not reported, since discordance with absolute values may lead to misinterpretation of CBC data. Current Interpretive Data was last revised on 2018. Basophil pct 0.8 % [facility] Comment: Interpretive Data Percent cell count reference ranges are not reported, since discordance with absolute values may lead to misinterpretation of CBC data. Current Interpretive Data was last revised on 2018. Blood 12/31/2024 11:1 4 AM ACADEMIC SUCCESS COORDINATOR 12/31/2024 12:25 PM ACADEMIC SUCCESS COORDINATOR us Nely Ramirez NP LAB BLOOD ORDERABLES Final Resul t [facility] [place] [address] * (ABNORMAL) CBC with auto differential (12/31/2024 11:14 AM ACADEMIC SUCCESS COORDINATOR) WBC 6.6 3.8 - 9.9 K/cumm Hgb 14.2 11.9 - 15.5 g/dL [facility] Hct 43.1 35.6 - 45.5 % [facility] Plt 333 150 - 400 K/cumm [facility] MPV 9.7 9.1 - 12.3 fL [facility] RBC 5.30(H) 3.90 - 5.20 M/cumm [facility] MCV 81.3 81.3 - 96.4 fL [facility] MCH 26.8(L) 27.1 - 33.3 pg [facility] MCHC 32.9 32.3 - 35.7 g/dL [facility] RDW CV 14.2 11.1 - 14.9 % [facility] RDW SD 41.5 35.7 - 48.1 fL [facility] NRBC abs 0.00 0.00 - 0.01 K/cumm [facility] Blood 12/31/2024 11:1 4 AM ACADEMIC SUCCESS COORDINATOR 12/31/2024 12:25 PM ACADEMIC SUCCESS COORDINATOR us Nely Ramirez NP LAB BLOOD ORDERABLES Final Resul t [facility] One [facility] [place] [address] * Nicotine metabolite screen, urine (12/31/2024 11:14 AM ACADEMIC SUCCESS COORDINATOR) Pathologist [facility] Nicotine, ur <5.0 <5.0 ng/mL [facility] Cotinine, ur <5.0 <5.0 ng/mL [facility] Anabasine ur <2.0 <2.0 ng/mL [facility] Comment: ADDITIONAL INFORMATION This test was developed and its performance characteristics determined by [facility] in a manner consistent with CLIA requirements. This test has not been cleared or approved by the U.S. Food and Drug Administration. Test Performed by: [facility] - [address] [address] [address] Floor Runner: Denia Bradshaw Ph.D.; CLIA# [id number] Nornicotine, ur <2.0 <2.0 ng/mL [facility] Urine 12/31/2024 11:1 4 AM ACADEMIC SUCCESS COORDINATOR 12/31/2024 12:25 PM ACADEMIC SUCCESS COORDINATOR us Samuel Ashton MD LAB URINE ORDERABLES Final Resul t Performing Organization Address [facility] Co de Phone Number [facility] Department [place] [address] [facility] ref Lab * (ABNORMAL) Basic metabolic panel (12/31/2024 11:14 AM ACADEMIC SUCCESS COORDINATOR) Sodium 139 135 - 145 mmol/L Potassium, pl 4.2 3.3 - 4.9 mmol/L [facility] Chloride 104 97 - 110 mmol/L [facility] CO2 25 22 - 32 mmol/L [facility] Anion gap 10 2 - 15 mmol/L [facility] BUN 26(H) 6 - 25 mg/dL [facility] Creatinine 0.89 0.60 - 1.10 mg/dL [facility] Glucose 93 70 - 199 mg/dL [facility] Comment: Interpretive Data Fasting glucose [...] 2022. Calcium 9.8 8.5 - 10.3 mg/dL [facility] Blood 12/31/2024 11:1 4 AM ACADEMIC SUCCESS COORDINATOR 12/31/2024 12:25 PM ACADEMIC SUCCESS COORDINATOR us Nely Ramirez NP LAB BLOOD ORDERABLES Final Resul t Performing Organization Address [facility] Co de Phone Number [facility] [place] [address] * Colonoscopy (01/16/2024 9:22 AM ACADEMIC SUCCESS COORDINATOR) Anatomical Region Laterality Modality Other Narrative Procedure Note Art Morris MD - 01/16/2024 9:22 AM CST [facility] GI ENDOSCOPY Patient Name: Linda Mckeon Procedure Date: 01/16/2024 9:22 AM Date of : 1960 Admit Type: Outpatient Age: 63 Gender: Female Attending MD: Art Morris M.D. Room: [facility] ENDOSCOPY ROOM 06 Note Status: Finalized Procedure: [...] The scope was passed under direct vision.The [id number] colonoscope was introduced through theanus and advanced [...] On: 01/16/2024 9:22 AM Recognized by the [employer] for promoting quality in endoscopy us Art Morris MD ENDOSCOPY PROCEDURES Final Resul t * HM HEPATITIS C SCREENING (01/06/2018) SCRIBED HCV ab negative us Historical Provider MD HEALTH MAINTENANCE Final Result from Last 3 Months or Most Recently Relevant to Health Maintenance Insurance [facility] Advance Directives For more information, please contact: [phone] * Full Code (Latest Code Status on File) Date Activated Date Inactivated Comments 01/14/2025 6:44 PM 01/15/2025 5:24 PM * Full Code Date Activated Date Inactivated Comments 10/07/2024 6:53 AM 10/07/2024 12:21 PM * Full Code Date Activated Date Inactivated Comments 05/19/2022 12:17 AM 05/20/2022 8:32 PM Care Teams Licensed Embalmer Supervisor Relationship Specialty Start Date End Date Hemalatha Tang MD [address] [place], [place] [id number] PCP - General Family Medicine 11/02/20 Manuel Swartz MD [address] [place], [place] [id number] Neurology 04/17/23
--- OUTSIDE RECORDS SUMMARY | 2025-02-27 22:51 | XMS_ITS | Encounter Summary ---
Author Organization [facility] Address [address] [place] [address] Phone Care Team Providers Care Rail Bonder Name Role Phone Hemalatha Tang MD Primary Care Provi summer Manuel Swartz MD Unavailable [phone] Encounter Details Date Type Department Care Team (Late st Contact Info) Description 01/24/2025 Results Follow-Up [facility] Surgery [facility] Medical Office Building [address] [place] [address] Srinath Perez, DPM [address] [place] [address] Social History Tobacco Use Types [...] on file Legal Sex Female 2:06 AM 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
--- OUTSIDE RECORDS SUMMARY | 2025-02-27 22:51 | XMS_ITS | Clinical Summary ---
Author Organization [facility] Address [address] [place] [address] Phone Care Team Providers Care Mva Reactor Operator Name Role Phone CORIE CASTANEDA, MELVIN Loza Primary Care Provider [phone] Reason for Visit and Chief Complaint CHART UPDATE Plan of Treatment No Plan of Treatment Recorded Assessments Includes: Assessments from this encounter Findings - Tenosynovitis of other site [M65.88 - Other synovitis and tenosynovitis, other site] - Last Documented On 02/26/2024 11:39AM ; [facility] - Synovitis of other site [M65.88 - Other synovitis and tenosynovitis, other site] - Last Documented On 02/26/2024 11:39AM ; [facility] Medical Equipment - Implanted Devices Includes: Current Devices No Medical Equipment Recorded Medications Includes: Medications discussed during this encounter and other current Medications Current Medications (continue as prescribed) [facility] Fish Oil 1200 MG Oral Capsule 05/08/2024 Provide r: Diagnosis: Last Documented On 05/08/2024 9:48AM By Radha BOWLES ; [facility] Vitamin D3 125 MCG (5000 UT) Oral Capsule 05/08/2024 Provider: Diagnosis: Last Documented On 05/08/2024 9:47AM By Radha BOWLES ; [facility] Aspir-Low 81 MG Oral Tablet Delayed Release 05/08/2024 Provider: Diagnosis: Last Documented On 05/08/2024 9:41AM By Radha BOWLES ; [facility] Tricor 145 MG Oral Tablet 05/08/2024 Provider: Diagnosis: Last Documented On 05/08/2024 9:43AM By Radha BOWLES ; [facility] Nitroglycerin 0.4 MG Sublingual Tablet Sublingual 04/13 Provider: Diagnosis: Last Documented On 05/08/2024 9:42AM By Radha BOWLES ; [facility] buPROPion HCl ER (XL) 150 MG Oral Tablet Extended Release 24 Hour 04/29/2024 Provider: Diagnosis: Last Documented On 05/08/2024 9:46AM By Radha BOWLES ; [facility] Loratadine 10 MG Oral Tablet [...] On 05/08/2024 9:42AM By Radha BOWLES ; [facility] Sertraline HCl 100 MG Oral Tablet 04/22/2024 Provide r: Diagnosis: Last Documented On 05/08/2024 9:41AM By Radha BOWLES ; [facility] hydrOXYzine HCl 25 MG Oral Tablet 04/12/2024 Provide r: Diagnosis: Last Documented On 05/08/2024 9:40AM By Radha BOWLES ; [facility] Pregabalin 200 MG Oral Capsule 04/11/2024 Provider: CASH Blanchard Diagnosis: Radiculopathy, l umbar region Take 1 capsule by mouth twice daily Last Documented On 10:16AM By CASH LEWIS ; [facility] Meloxicam 15 MG Oral Tablet 03/13/2024 Provider: CASH BILL Diagnosis: Other spondylosi s with radiculopathy, lumbar region One tablet daily Last Documented On 4 9:43AM By CASH ORR [facility] ; [facility] buPROPion HCl ER (XL) 300 MG Oral Tablet Extended Release 24 Hour 02/13/2024 Provider: Diagnosis: Last Documented On 05/08/2024 9:46AM By Radha BOWLES ; [facility] DULoxetine HCl 30 MG Oral Capsule Delayed Releas e Particles 02/13/2024 Provider: Diagnosis: Last Documented On 05/08/2024 9:44AM By Radha BOWLES ; [facility] Fluticasone Propionate 50 MC G/ACT Nasal Suspension 02/06/2024 Provider: MELVIN Gibson MD Diagnosis: Last Documented On 05/08/2024 9:44AM By Radha BOWLES ; [facility] Lidocaine 5% External Patch 10/16/2023 Provider: MELVIN FONTENOT MD Diagnosis: Last Documented On 10/20/2023 9:59AM By Radha BOWLES ; [facility] Nystatin 753199 UNIT/GM External Cream 10/10/2023 Pr ovider: Diagnosis: Last Documented On 3 10:00AM By Radha BOWLES ; [facility] DULoxetine HCl 60 MG Oral Capsule Delayed Releas e Particles 07/27/2023 Provider: Diagnosis: one cap by mouth daily Last Documented On 3 3:08PM By Dorothy Dyson LPN ; [facility] Propranolol HCl 40 MG Oral Tablet 07/27/2023 Provide r: Diagnosis: BID Last Documented On 3 3:16PM By Dorothy Dyson LPN ; [facility] SUMAtriptan Succinate 50 MG Oral Tablet 07/27/2023 P rovider: Diagnosis: prn Last Documented On 3 3:15PM By Dorothy Dyson LPN ; [facility] Rebif 44 MCG/0.5ML Subcutaneous Solution Prefilled Syr luzma 07/27/2023 Provider: Diagnosis: 3 x's weekly Last Documented On 3 3:13PM By Dorothy Dyson LPN ; [facility] Aimovig 140 MG/ML Subcutaneous Solution Auto-injector 07/27/2023 Provider: Diagnosis: q 30 days Last Documented On 3 3:09PM By Dorothy Dyson LPN ; [facility] Medications Administered Includes: Administered Medications from this encounter No Administered Medications Recorded Results Includes: Results discussed during this encounter No Results Recorded For Specified Dates History of Present Illness Includes: History of Present Illness from this encounter No History of Present Illness Recorded Social History Description Last Updated Tobacco non-user 01/25/2024 Last Documented On 4 11:33AM ; [facility] Smoking Status Unknown Medical History Includes: Medical History addressed during this encounter Description Last Updated Has had a fall in the last 12 months. Domingo s falls quite often Has DX of MS 08/25/2023 Last Documented On 4 11:33AM ; [facility] Family History Includes: Family [...] Subscriber Relationship Effect rosi Dates 1 - [facility] [phone] CHARLES Varghese Clinical Notes Includes: Clinical Notes from this encounter * Progress note Date Encounter Last Documented by 02/26/2024 CHART UPDATE Last documented on 02/26/2024; 11:39 AM, CASH OLIVER-RICARDO; [facility] Past Medical/Surgical History Reported: [...] daily 30 days, 0 refills - Nystatin 651918 UNIT/GM External Cream as directed 30 days, [...] Lab: C-reactive Protein Lab: Sed rate by [facility] Lab: CBC w/ DIFF EndCited Health Reminders - Assess Need for CT Lung Screen satisfied 02/26/2024. - Assess Tobacco Use satisfied 02/26/2024.
--- OUTSIDE RECORDS SUMMARY | 2025-02-27 22:51 | XMS_ITS | Encounter Summary ---
Author Organization [facility] Address [address] [place] [address] Care Team Providers Care Fishing Gear Mechanic Name Role Phone Hemalatha Tang MD Primary Care Provider [phone] Reason for Visit * Reason Onset Date Comments MEDICATION REFILL 06/08/2022 Encounter Details Date Type Department Care Team (Late st Contact Info) Description 06/08/2022 Refill [facility] [address] [place] [address], [place] [phone] Gladys Judd MD [address] [place] [address] [place] [address] MEDICATION REFILL Social History Tobacco Use Types Packs/Day Years Used Date Smoking Tobacco: Never Smokeless Tobacco: Never Alcohol Use Standard Drinks/Week Comments No 0 (1 standard drink = 0.6 oz pur e alcohol) PHQ-2 Answer Date Recorded PHQ2 TOTAL SCORE 0 05/13/2022 Comments No Sex and Gender Information Value Date Recorded Sex Assigned at Female 01/06/2025 9:20 AM NURSE SUPERVISOR Legal Sex Female 5:15 PM NURSE SUPERVISOR Gender Identity Female 01/06/2025 9:20 AM NURSE SUPERVISOR Sexual Orientation Straight 01/06/2025 9: 20 AM NURSE SUPERVISOR Occupation Industry Job Start Date Job End Date disable Not on file Not on file Not on file documented as of this encounter Plan of Treatment Upcoming Encounters Date Type Department Care Team (Late st Contact Info) Description 03/05/2025 3:00 PM CDT Office Visit [facility] - Neurology [address] [place] [address], [place] [address] Deniz Kofitrell, RECENTERER-CUSTOMS DIRECTOR [address] [place] [address] [address] [place] [address] 04/21/2025 9:00 AM CDT Office Visit [facility] - Neurology [address] [place] [phone] Sidney Moncada MD [address] [place] [address] 05/23/2025 9:00 AM CDT [facility] - Dermatology [address] [place] [phone] Chitra Peres MD [address] [place] [address] 3 DEPT [place] [phone] 07/07/2025 8:30 AM CDT Procedure visit [facility] - Infusion [address] [place] [phone] 02/16/2026 11:00 AM CDT Office Visit [facility] - Orthopedics [address] [place] [phone] Kaitlin Cruz MD [address] [place] [address] [address] [place] [phone] 02/20/2026 9:00 AM CDT [facility] - Ophthalmology [address] [place] [phone] documented as of this encounter Visit Diagnoses [...] documented as of this encounter Care Teams Fishing Gear Mechanic Relationship Specialty Start Date End Date Hemalatha Tang MD PCP - General Family Medicine 03/07/21 documented as of this encounter
== END 2025-02-27 23:27 | disposition left against medical advice (07) ==
PROVIDERS: Emergency Provider Emergency Medicine; PCP Family Medicine
DX: R10.9 Unspecified abdominal pain (principal); R11.2 Nausea with vomiting, unspecified
CPT/HCPCS: 81001; 87086; 99199